=== PATIENT | female | born 1960 | race Caucasian/White ===

== ENCOUNTER 2020-09-26 17:38 | Emergency (ER) | payer BC ==
--- OUTSIDE RECORDS SUMMARY | 2020-09-26 17:53 | XMS REPORT | Continuity of Care Document ---
:1960 Author Organization [facility] t Address [address] [place] [address] Care Team Providers Name Role Phone Kenji Sharp MD Primary Care Physician Drew CARTER, A Attending Clinician Unavailable Effie Driver MD Attending Clinician Deanna Beckford MD Attending Clinician Kenneth Moore DO Attending Clinician Alexandra Hernandez MD Attending Clinician Unavailable EFFIE DRIVER Attending Clinician Unavailable Lisa CARTER, N Attending Clinician Unavailable Azeem Yusuf MD Attending Clinician Michael Diallo Attending Clinician Unavailable Ubaldo Minaya Attending Clinician Unavailable AMBER Attending Clinician Unavailable Lucille CARTER, P Attending Clinician Unavailable Daniel Morris MD Attending Clinician AZEEM YUSUF Attending Clinician Unavailable Klaus NICHOLAS Attending Clinician Douglas Hanson MD Attending Clinician Justin Bills MA Attending Clinician Unavailable Jean-Pierre RANGEL Attending Clinician Unavailable Fletcher CARTER Attending Clinician Unavailable Reji PINEDA Attending Clinician Unavailable Donald Pineda MD Attending Clinician DOUGLAS HANSON Attending Clinician Unavailable AMBER Attending Clinician Unavailable Berhane SORIANO Attending Clinician Unavailable SANIYA RAJAN Attending Clinician Unavailable DEANNA BECKFORD Admitting Clinician Unavailable AZEEM YUSUF Admitting Clinician Unavailable Reji PINEDA Admitting Clinician Unavailable ADELA HUYNH Admitting Clinician Unavailable SANIYA RAJAN Admitting Clinician Unavailable Payers Payer Name Policy Type Policy Effective Date Expiration Date Sour ce Number TREMAINE LOVE/TREMAINE [id number] [address] [facility] [facility] [employer]IELDBC[employer] OS 00:00:00 - Medical POS/PPO/EPOxxxxxx Center ss360 2020-Pr [id number] [address], [place] [id number] Problems Condition Condition Condition Status Onset Resolution Last Treating Co mments Source Name Details Category Date Date Treatment Clinician Date Severe Severe Disease Active [facility] St aortic aortic 3-03 [facility] - stenosis stenosis 00:00: Medica l 00 Center Preventati Preventati Disease Active Last [facility] ve health ve health 7-23 Assessmen L [facility] care 00:00: t & Plan: Medical 00 She will Center follow up with dermatolo gy, gastroent erology, primary care, and cardiolog y for routine [facility] ce. Knee pain Knee pain Disease Active Last [facility] 4-23 Assessmen [facility] - 00:00: t & Plan: Medical 00 Now Center requires a cane. She will continue follow up with orthopedi cs and plan for surgery when she is s/p OLT one year. Ingrowing Ingrowing Disease Active 2016-[address] nail, nail, 0-23 Assessmen [facility] - right right 00:00: t & Plan: Medical great toe great toe 00 Right Cent er great toe nail falling off. She will need to see a podiatris t for managemen t. UTI UTI Disease Active Overview: [facility] (urinary (urinary - UTI [facility] - tract tract 00:00: diagnosed Medical infection) infection) 00 from Ce nter urine culture 03/22>100K Citrobact er and 40-49K Pseudomon as, both susceptib le to levaquinC ontinue levaquin 10-day course (started 03/26) Immobility Immobility Disease Active Last [facility] 8-14 Assessmen [facility] - 00:00: t & Plan: Medical 00 L leg Center weakness, using cane for stability . Fallen 3x in last 3 months HTN HTN Disease Active Last [facility] (hypertens (hypertens 02-11 Assessmen [facility] - ion) ion) 00:00: t & Plan: Medical 00 Blood Center pressures are controlle d on current therapy. Immunosupp Immunosupp Disease Active Last C [facility] ression ression 02-06 Assessmen [facility] - 00:00: t & Plan: Medical 00 She Center denies headaches or tremors with her immunosup pression. We will adjust her dose according to her levels. Hyperglyce Hyperglyce Disease Active Last [facility] maria luisa maria luisa 02-06 Assessmen [facility] - 00:00: t & Plan: Medical 00 Blood Center glucoses readings range from 100-200s. She has not follow up with endocrino logy in several months secondary to knee issues. She is self dosing her insulin. She was instructe d to follow up with endocrino logy for insulin adjustmen ts. 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 Acute Acute Disease Active [facility] pulmonary pulmonary 01-27 [facility] - insufficie insufficie 00:00: Me dical ncy ncy 00 Center following following nonthoraci nonthoraci c surgery c surgery S/P liver S/P liver Disease Active Last [facility] transplant transplant 01-25 Zechariah Pablo - (01/25) (01/25) 00:00: t & Plan: Medical 00 She is Center s/p OLT from 01/25/2017 . She is doing well and has no evidence of recurrent disease. Pulmonary Pulmonary Disease Active [facility] hypertensi hypertensi - Angelica kes - on on 00:00: Medical 00 Center Portal Portal Disease Active Last [facility] hypertensi hypertensi - Assessmen [facility] - on on 00:00: t & Plan: Medical 00 Portal Center hypertens ion evident with ascites, jaundice, hepatic encephalo shady, and esophagea l varices. Renal Renal Disease Active Last [facility] - ncy ncy 00:00: t & Plan: Medical 00 Continue Center follow up with Nephrolog y, seen last weekDiure tics discontin ued, continue to monitor labs and urine output Anemia Anemia Disease Active [facility] 01-08 [facility] - 00:00: Medical 00 [place] Portosyste Portosyste Disease Active [facility] robert robert 01-07 [facility] - encephalop encephalop 00:00: Me dical athy athy 00 Center Alcoholic Alcoholic Disease Active Last [facility] cirrhosis cirrhosis 01-07 Assessmen [facility] - of liver of liver 00:00: t & Plan: Med ical with with 00 Increased Center ascites ascites transamin ases, bilirubin decreased . Coagulopat Coagulopat Disease Active [facility] hy hy 01-07 [facility] - 00:00: Medical 00 [place] Leukopenia Leukopenia Disease Active [facility] 01-07 [facility] - 00:00: Medical 00 [place] Thrombocyt Thrombocyt Disease Active [facility] openia openia 01-07 [facility] - 00:00: Medical [place] Hyponatrem Hyponatrem Disease Active [facility] ia ia 01-07 [facility] - 00:00: Medical 00 Center Allergies, Adverse Reactions, Alerts This patient has no known allergies or adverse reactions. Family History Family Member Diagnosis Comments Start Date Stop Date Source Natural father Colon cancer [facility] Natural mother COPD [facility] Natural mother Parkinsonism [facility] Social History Social Habit Start Date Stop Date Quantity Comments Source Sex Assigned At [facility] Exposure to Not sure [facility] SARS-CoV-[address] [facility] (event) Tobacco use and 2020-09-12 2020-09-12 Never used [facility] - exposure 00:00:00 00:00:[address] [facility] Alcohol intake 2020-09-12 2020-09-12 Current [facility] 00:00:00 00:00:00 non-drinker of Medical nter alcohol (finding) Smoking Status Start Date Stop Date Source Never smoker [facility] edical [place] Medications Ordered Filled Start Stop Current Ordering Indication Dosage Frequency Signature Comments Components Source Medication Medication Date Date Medication? Clinician (SIG) Name Name aspirin 81 2021- Yes 81mg QD Take [address] MG EC 09-10-06 tablet (81 [facility] - tablet 00:00: 23:59 mg total) Medic al 00 :00 by mouth Center daily. clopidogreL 2021- Yes 75mg QD Take [address] (PLAVIX) 75 09-10-06 tablet (75 L ukes - mg tablet 00:00: 23:59 mg total) Me dical 00 :00 by mouth Center daily. melatonin 3 Yes 3mg QD Take [address] mg Tab 3-05 by mouth [facility] - tablet 15:18: nightly. [place] [address] Center spironolact Yes 25mg QD Take [address] one 3-05 by mouth [facility] - (ALDACTONE) 15:18: daily. Medi anastasia 25 MG 47 Center tablet tacrolimus Yes Take 2 [facility] (PROGRAF) 1 2-12 capsules Luke s - MG capsule 00:00: by mouth Med ical 00 twice Center daily. tacrolimus 2019-07- No Increase [facility] (PROGRAF) 1 07-26 02-12 Tacrolimus L ukes - MG capsule 00:00: 00:00 2 mg AM Med ical 00 :00 and 3 mg Center PM. tacrolimus 2019-07- No 2mg Q.5D Take [address] (PROGRAF) 1 1-17 11-19 capsules Júnior es - MG capsule 00:00: 00:00 (2 mg Medic al 00 :00 total) by Center mouth 2 (two) times daily. sirolimus 2019- No Fatty liver 2mg QD Take [address] (RAPAMUNE) 9- 11-17 involving tablets (2 [facility] - 1 MG tablet 00:00: 00:00 transplante mg total) Medical 00 :00 d liver by mouth Center (HCC) daily. sirolimus 2019- No 3mg QD Take 3 [facility] (RAPAMUNE) 3-17 09-28 tablets (3 Angelica kes - 1 MG tablet 00:00: 00:00 mg total) Medical 00 :00 by mouth Center daily. famotidine Yes TAKE ONE [facility] (PEPCID) 20 7-15 TABLET BY Júnior es - MG tablet 00:00: MOUTH ONCE Me dical 00 DAILY Center metoprolol Yes 25mg Q.5D Take 1 [facility] (LOPRESSOR) 1-29 tablet (25 Angelica kes - 25 MG 00:00: mg total) Medical tablet 00 by mouth 2 Center (two) times daily. potassium 20meq QD Take 20 [facility] chloride 20 02-26-03 mEq by [facility] - mEq TbER 00:00: 00:00 mouth Medical 00 :00 daily Take Center 3 tablets (60 meq) on day 1, 2 tablets (40 meq) on day 2, and 1 tablet (20 meq) on days 3-7. calcium Yes 500mg Q.[id number] Take [facility] carbonate-v 02-07 [id number] 500-600 mg [facility] - itamin D3 00:00: 3D by mouth 3 Me dical 600 00 (three) Center mg(1,500mg) times -400 unit daily. Cap Vital Signs Vital Name Observation Time Observation Value Comments Source Systolic blood 2020-09-09 12:49:00 131 mm[Hg] [facility] Diastolic blood 2020-09-09 12:49:00 62 mm[Hg] [facility] S t [facility] Heart rate 2020-09-09 12:49:00 84 /min [facility] Body temperature 2020-09-09 12:49:00 37.28 Deidra [facility] Respiratory rate 2020-09-09 12:49:00 18 /min [facility] Oxygen saturation in 2020-09-09 12:49:00 98 /min [facility] Arterial blood by Medical Ce nter Pulse oximetry Body height 2020-09-07 20:22:00 165.1 cm [facility] Body weight 2020-09-07 20:22:00 98.884 kg [facility] BMI 2020-09-07 20:22:00 36.28 kg/m2 [facility] Procedures Procedure Date / Time Performing Clinician Source Performed ECG 12-LEAD 2020-09-09 09:00:32 Daysi Quijano [facility] 2D ECHO W/ DOPPLER 2020-09-09 08:14:58 Michael Driver [facility] (CW/PW/COLOR) [facility] BASIC METABOLIC PANEL (7) 2020-09-09 05:22:00 [facility] Gibbs I [facility] CBC (HEMOGRAM ONLY) 2020-09-09 05:22:00 [facility] Gibbs [facility] HEPATIC FUNCTION PANEL 2020-09-09 05:22:00 [facility] TACROLIMUS LEVEL 2020-09-09 05:22:00 [facility] POCT-ACT 2020-09-08 15:48:00 [facility] POCT-GLUCOSE METER 2020-09-08 15:45:00 [facility] PREPARE LEUKO-REDUCED RBC 2020-09-08 14:55:00 Michael Driver [facility] POCT-ACT 2020-09-08 14:20:00 [facility] POCT-ACT 2020-09-08 13:42:00 [facility] BLOOD GAS, ARTERIAL 2020-09-08 13:40:25 George Moore [facility] SODIUM NA-STAT LAB 2020-09-08 13:40:25 George Moore [facility] POTASSIUM-STAT LAB 2020-09-08 13:40:25 George Moore [facility] GLUCOSE-STAT LAB 2020-09-08 13:40:25 George Moore [facility] HGB/HCT (H&H) - STAT LAB 2020-09-08 13:40:25 George Moore [facility] POCT-ACT 2020-09-08 13:11:00 Shakeel [facility] COLOR-FLOW MAPPING 2020-09-08 11:02:[address] [facility] CONT WAVE PULSED DOPPLER 2020-09-08 11:02:23 Michael Driver CH, I [facility] TAVR / TEJA MCR - IP 2020-09-08 09:50:00 Michael Driver [facility] - PROC ONLY [facility] TRANSESOPHAGEAL ECHO 2020-09-08 09:43:24 [facility] BASIC METABOLIC PANEL (7) 2020-09-08 05:10:00 Rosette Beckford [facility] CBC (HEMOGRAM ONLY) 2020-09-08 05:10:00 Shakeel, [facility] HEPATIC FUNCTION PANEL 2020-09-08 05:10:00 Suresh Morris [facility] TACROLIMUS LEVEL 2020-09-08 05:10:[address] [facility] TYPE AND SCREEN, AUTOMATED 2020-09-08 00:54:00 Michael Driver [facility] CARDIAC CATH REPORT - SCAN 2020-09-07 00:00:00 Provider [facility] REPORT OF PROCEDURE - 2020-09-07 00:00:00 Provider, Tobi [facility] ENDOSCOPY [facility] CBC W/PLT COUNT & AUTO 2020-09-06 12:55:00 Michael Driver [facility] - DIFFERENTIAL [facility] BASIC METABOLIC PANEL (7) 2020-09-06 12:55:00 Michael Driver HI [facility] PROTHROMBIN TIME/INR 2020-09-06 12:55:[address] [facility] SARS-COV2/RT-PCR ([facility] & 2020-09-06 12:42:00 Michael Driver CH, I [facility] - REF LABS) [facility] MAGNESIUM 2020-09-06 09:09:00 Tim Yusuf [facility] BASIC METABOLIC PANEL (7) 2020-09-06 09:09:00 [facility] HEPATIC FUNCTION PANEL 2020-09-06 09:09:00 Paramjit [facility] CBC W/PLT COUNT & AUTO 2020-09-06 09:09:00 Paramjit [facility] TACROLIMUS 2020-09-06 09:09:00 Paramjit [facility] SIROLIMUS LEVEL 2020-09-06 09:09:00 Paramjit [facility] MAGNESIUM 2020-07-06 08:32:00 [facility] BASIC METABOLIC PANEL (7) 2020-07-06 08:32:00 Paramjit [facility] HEPATIC FUNCTION PANEL 2020-07-06 08:32:00 Paramjit [facility] CBC W/PLT COUNT & AUTO 2020-07-06 08:32:00 Paramjit [facility] TACROLIMUS 2020-07-06 08:32:00 Paramjit [facility] SIROLIMUS LEVEL 2020-07-06 08:32:00 [place] [facility] BILIRUBIN, DIRECT 2020-06-06 09:11:00 [facility] METABOLIC 2020-06-06 09:11:00 [place] [facility] CBC W/PLT COUNT & AUTO 2020-06-06 09:11:00 Paramjit [facility] MAGNESIUM 2020-06-06 09:11:00 Paramjit [facility] PHOSPHORUS 2020-06-06 09:11:00 Paramjit [facility] SIROLIMUS LEVEL 2020-06-06 09:11:00 Paramjit [facility] TACROLIMUS LEVEL 2020-06-06 09:11:00 [facility] BILIRUBIN, DIRECT 2020-05-26 09:02:00 Paramjit [facility] COMPREHENSIVE METABOLIC 2020-05-26 09:02:00 Paramjit [facility] CBC W/PLT COUNT & AUTO 2020-05-26 09:02:00 Paramjit [facility] MAGNESIUM 2020-05-26 09:02:00 Paramjit [facility] PHOSPHORUS 2020-05-26 09:02:00 Paramjit [facility] SIROLIMUS LEVEL 2020-05-26 09:02:00 Paramjit [facility] TACROLIMUS LEVEL 2020-05-26 09:02:00 Paramjit [facility] BILIRUBIN, DIRECT 2020-05-20 09:13:00 [facility] COMPREHENSIVE METABOLIC 2020-05-20 09:13:00 [facility] W/PLT COUNT & AUTO 2020-05-20 09:13:00 Paramjit [facility] MAGNESIUM 2020-05-20 09:13:00 Paramjit [facility] PHOSPHORUS 2020-05-20 09:13:00 [facility] SIROLIMUS LEVEL 2020-05-20 09:13:00 [place] [facility] XR CHEST 2 VIEWS 2020-04-15 09:34:00 Katerina Hanson [facility] BILIRUBIN, DIRECT 2020-04-15 08:36:00 Paramjit [facility] COMPREHENSIVE METABOLIC 2020-04-15 08:36:00 Paramjit [facility] CBC W/PLT COUNT & AUTO 2020-04-15 08:36:00 Paramjit [facility] MAGNESIUM 2020-04-15 08:36:00 Paramjit [facility] PHOSPHORUS 2020-04-15 08:36:00 [facility] SIROLIMUS LEVEL 2020-04-15 08:36:00 [facility] LIPID PANEL 2020-04-15 08:36:00 Christie, [facility] HEMOGLOBIN A1C 2020-04-15 08:36:00 Fer Soriano [facility] US LIVER BIOPSY 2020-03-25 12:56:00 Paramjit [facility] TISSUE EXAM 2020-03-25 12:46:00 Paramjit [facility] US ABDOMINAL WITH DOPPLER 2020-03-25 11:56:00 Tim Yusuf [facility] BILIRUBIN, DIRECT 2020-03-25 08:30:00 Paramjit [facility] COMPREHENSIVE METABOLIC 2020-03-25 08:30:00 Paramjit [facility] CBC W/PLT COUNT & AUTO 2020-03-25 08:30:00 Paramjit [facility] MAGNESIUM 2020-03-25 08:30:00 Paramjit [facility] PHOSPHORUS 2020-03-25 08:30:00 Paramjit [facility] SIROLIMUS LEVEL 2020-03-25 08:30:00 Paramjit [facility] PROTHROMBIN TIME/INR 2020-03-25 08:30:00 Paramjit [facility] MISCELLANEOUS LAB ORDER 2020-03-25 08:29:00 Paramjit [facility] CMV PCR, QUANTITATIVE 2020-03-25 08:29:00 Paramjit [facility] EBV VIRAL LOAD 2020-03-25 08:29:00 Paramjit [facility] URINE CULTURE 2020-03-07 09:17:00 Paramjit [facility] BLOOD CULTURE 2020-03-07 09:17:00 Paramjit [facility] BILIRUBIN, DIRECT 2020-03-07 09:17:00 Paramjit [facility] COMPREHENSIVE METABOLIC 2020-03-07 09:17:00 Paramjit [facility] CBC W/PLT COUNT & AUTO 2020-03-07 09:17:00 Paramjit [facility] MAGNESIUM 2020-03-07 09:17:00 Paramjit [facility] PHOSPHORUS 2020-03-07 09:17:00 Paramjit [facility] SIROLIMUS LEVEL 2020-03-07 09:17:00 Paramjit [facility] CMV PCR, QUANTITATIVE 2020-03-07 09:17:00 Paramjit [facility] URINALYSIS W/ MICROSCOPIC 2020-03-07 09:17:00 [facility] BILIRUBIN, DIRECT 2020-02-16 08:46:00 Paramjit [facility] COMPREHENSIVE METABOLIC 2020-02-16 08:46:00 Paramjit [facility] CBC W/PLT COUNT & AUTO 2020-02-16 08:46:00 Paramjit [facility] t [facility] MAGNESIUM 2020-02-16 08:46:00 Paramjit [facility] PHOSPHORUS 2020-02-16 08:46:00 Paramjit [facility] SIROLIMUS LEVEL 2020-02-16 08:46:00 Paramjit [facility] CBC W/PLT COUNT & AUTO 2020-02-12 08:58:00 Paramjit [facility] S t [facility] SIROLIMUS LEVEL 2020-02-12 08:58:00 Paramjit [facility] BILIRUBIN, DIRECT 2020-02-12 08:57:00 Paramjit [facility] COMPREHENSIVE METABOLIC 2020-02-12 08:57:00 Paramjit [facility] MAGNESIUM 2020-02-12 08:57:00 Paramjit [facility] PHOSPHORUS 2020-02-12 08:57:00 Paramjit [facility] BILIRUBIN, DIRECT 2019-11-06 08:17:00 Paramjit [facility] COMPREHENSIVE METABOLIC 2019-11-06 08:17:00 Paramjit [facility] CBC W/PLT COUNT & AUTO 2019-11-06 08:17:00 Paramjit, [facility] MAGNESIUM 2019-11-06 08:17:00 ParamjitTim Azeem [facility] PHOSPHORUS 2019-11-06 08:17:00 Tim Yusuf [facility] SIROLIMUS LEVEL 2019-11-06 08:17:00 Tim Yusuf [facility] Plan of Care Planned Activity Planned Date Details Comments Source Future Scheduled 2029-06-[address] [facility] - Test 00:00:00 malignant neoplasm of Medica l Center colon (procedure) [code = 573347091] Future Scheduled 2023-04-[address] [facility] - Test 00:00:00 (procedure) [code = Medical Center 35035143] Future Scheduled 2020-03-08 INFLUENZA VACCINE (#1) [facility] Test 00:00:00 [code = INFLUENZA Medical Ce nter VACCINE (#1)] Future Scheduled 2011 SHINGLES VACCINES ([address] [facility] - Test 00:00:00 of 2) [code = SHINGLES Medic al Center VACCINES (1 of 2)] Future Scheduled [address] [facility] - Test 00:00:00 malignant neoplasm of Medica l Center cervix (procedure) [code = 797057788] Future Scheduled 1980 DTAP/TDAP/TD VACCINES [facility] - Test 00:00:00 (1 - Tdap) [code = Medical C enter DTAP/TDAP/TD VACCINES (1 - Tdap)] Future Scheduled 1979 HEPATITIS C [facility]CRE[facility]ING [facility] - Test 00:00:00 [code = HEPATITIS C Medical Center SCREENING] Future Scheduled [address] [facility] - Test 00:00:00 0-64 YRS (1 of 3 - Medical C enter PCV13) [code = PNEUMOCOCCAL VACCINE 0-64 YRS (1 of 3 - PCV13)] Future Scheduled [address] [facility] - Test 00:00:00 malignant neoplasm of Medica l Center breast (procedure) [code = 284350628] Encounters Start End Encounter Admission Attending Care Care Encounter Source Date/Time Date/Time Type Type Clinicians Facility Department ID 2020-07-04 2020-07-04 Outpatient [facility] [id number] [address] [place] 00:00:00 00:00:[address] 2020-05-05 2020-05-05 Office RUPINDER Enrique [id number] 09:26:24 11:04:33 Visit Tom AMBULATOR [id number] Y [id number] 2019-05-08 2019-05-08 Office RUPINDER Pineda [id number] 14:16:00 14:46:00 Visit Suneal K AMBULATOR [id number] Y [id number] Results Test Description Test Time Test Comments Results Result Sour e Comments CARDIAC CATH Ordered by an [facility] REPORT - SCAN 8 unspecified provider. [facility] [facility] ECG 12 lead Interface, External Ris [facility] 7 In - 09/11/2020 9:55 Júnior es - 21:55:11 PM CSTVentricular Rate Me dical 83 BPMAtrial Rate 83 Cent er BPMP-R Interval 164 msQRS Duration 142 msQ-T Interval 430 msQTC Calculation(Bazett) 505 msP [place] 53 degreesR [place] 7 degreesT [place] 137 degreesNormal sinus rhythmLeft bundle branch blockAbnormal ECGWhen compared with ECG of 03-FEB-2017 00:19,Left bundle branch block is now PresentConfirmed by MD ANDREY, TIEN Dang ([id number]) on 09/11/2020 9:55:08 PM 2D Echo Ejection FractionSLEH [facility] W/Doppler(CW/PW/ 5 ECHO HEARTLAB MKCKESSON [facility] - Color) 14:14:55 CPACSInterface, Medical External Ris In - Center 09/09/2020 2:15 PM CSTTransthoracic Echocardiography Report (TTE) Demographics Patient Name DANIELITO LARA Date of Study 09/09/2020 RAFAELA Gender Female Visit Number [id number] Race Room Number 622 Number Date of 1960 Referring Physician Michael Driver MD Age 60 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 Amount - 2 mlHeight: 65 inches Weight: 98.88 kg (218 lbs) BSA: 2.05 m^2 BMI: 36.28 kg/m^2HR: 79 bpm BP: 134/63 mmHg Summary 1. Normal LV size. Hyperdynamic LV function. LVEF is > 70% 2. Diastology: Grade 1 diastolic dysfunction 3. Normal RV size and function 4. S/p TAVR.Pk / Mn: 21 / 10 mm Hg. DI=0.65. No para-valvular AI. 5. Mild TR. Estimated PASP is 30-34 mm Hg 6. No pericardial effusion. Previous Study When compared with previous echo, there is no significant difference. Signature Findings Technical Quality: Technically difficult exam. Left Ventricle LV endocardium is well visualized with IV ultrasound enhancing agent. The left ventricle is chamber size (by vol index) is normal (female - LVED vol - 29-61ml/m2). No evidence of LV hypertrophy. All of the LV segments are hyperkinetic . Global LV systolic function hyperdynamic . LVEF by Moreau's method of disk assessment is increased (>70%) . Grade 1 diastolic dysfunction Left Atrium LA is well visualized. LA size is mildly enlarged (35-41 ml/m2) . Right Ventricle The right ventricular chamber size and systolic function are within normal limits. Right Atrium RA size is normal. Atrial Septum The interatrial septum is well visualized. Normal interatrial septum by available views. Aortic Valve A CoreValve percutaneous (TAVR) biologic AoV prosthesis is visualized . The prosthetic AoV appears well-seated. AoV prosthesis function is normal . No evidence of aortic stenosis. A trace of aortic regurgitation. Mitral Valve MV is well visualized. Normal MV structure. Trace mitral regurgitation. Tricuspid Valve TV structure is normal. Mild tricuspid regurgitation. Estimated peak systolic PA pressure is 30-34 mm Hg Pulmonic Valve Mild pulmonary regurgitation. Aorta Aortic root size (SInus of Valsalva diameter) is normal . Proximal ascending aorta size normal . 3.29 cm Pericardium No pericardial effusion is visualized. IVC/SVC/PA/PV/Pleural The inferior vena cava size is normal . The estimated RA pressure by IVC dynamics 5-10 mmHg . Chambers/Structures Left Atrium LA Volume: 73.28 ml LA Area: 21.34 cm^2 LA Vol. Index: 36 ml/m^2 Left Ventricle LVIDd: 4.78 cm LVEDV:106.67 ml LV Septum Diastolic: 1.12 cm LV PW Diastolic: 0.97 cm LVEDV Moreau's:96.2 ml LVESV Moreau's:22.53 ml LVEF Moreau's: 76.6 % LVEDVI: 47 ml/m^2 LVESVI: 11 ml/m^2 LVOT Diameter: 1.95 cm Right Ventricle RVOT VTI: 25.23 cm Aorta Ascending Aorta: 3.29 cm Doppler/Quantitative Measurements Mitral Valve MV Peak E-Wave: 0.99 m/s MV Peak A-Wave: 1.01 m/s E/A Ratio: 0.98 Peak Gradient: 3.96 mmHg Deceleration Time: 182.3 msec MV Jl. Peak: Tissue Doppler E' Lateral Velocity: 0.06 m/s E/E': 17 Aortic Valve Peak Velocity: 2.3 m/s Mean Velocity: 1.48 m/s Peak Gradient: 21.23 mmHg Mean Gradient: 10.57 mmHg AV Area (continuity): 1.94 cm^2 AV VTI: 42.47 cm AV DVI: 0.65 LVOT Peak Velocity: 1.57 m/s Peak Gradient: 9.82 mmHg Mean Velocity: 1.01 m/s Mean Gradient: 4.89 mmHg LVOT Diameter: 1.95 cm LVOT VTI: 27.67 cm LVOT Area: 2.99 cm^2 LVOT SV:82.59 ml LVOT CO: 6.52 l/min LVOT CI: 3.18 l/min/m^2 RVOT RVOT VTI (PW): 26.48 cm Tricuspid Valve TR Velocity: 2.45 m/s TR Gradient: 24.04 mmHg Magnesium 2020-09-09 13:09:00 Test Item Value Reference Range Interpretation Comme nts Magnesium, Serum (test code = 1.7 mg/dL 1.5-2.5 ) SIERRA (test code = SIERRA) FASTING:YESFASTING: YES RAC (test code = RAC) Performing Organization Information: Site ID: RGA Name: [facility] Address: [address] [place] [phone] Director: Shaggy Bird [facility] with platelet count + automated [id number] 13:09:00 Test Item Value Reference Range Interpretation Comments WBC (test code = 3.1 See_Comment L [Automated ) message] The system which generated this result transmitted reference range : 3.8 - 10.8 Thousand/uL. Th e reference range was not used to interpret this result as normal/abnormal . RBC (test code = 4.57 See_Comment [Automated 784-8) message] The system which generated this result transmitted reference range : 3.80 - 5.10 Million/uL. The reference range was not used to interpret this result as normal/abnormal . Hemoglobin (test 13.5 g/dL 11.7-15.5 code = ) Hematocrit (test 41.4 % 35-45 code = ) MCV (test code = 90.6 fL 80-753 8998308) MCH (test code = 29.5 pg 27-33 ) MCHC (test code = 32.6 g/dL 32-36 ) RDW (test code = 13.6 % 11-15 2078911) Platelets (test code 196 See_Comment [Autom ated = ) message] The system which generated this result transmitted reference range : 140 - 400 Thousand/uL. Th e reference range was not used to interpret this result as normal/abnormal . MPV (test code = 10.7 fL 7.5-12.5 7656100) # Neutros (test code 1826 See_Comment [Autom ated = 20200131) message] The system which generated this result transmitted reference range : 1,500 - 7,800 cells/uL. The reference range was not used to interpret this result as normal/abnormal . # Lymphs (test code 1026 See_Comment [Automa niharika = 731-0) message] The system which generated this result transmitted reference range : 850 - 3,900 cells/uL. The reference range was not used to interpret this result as normal/abnormal . # Monos (test code = 189 See_Comment L [Autom ated ) message] The system which generated this result transmitted reference range : 200 - 950 cells/uL. The reference range was not used to interpret this result as normal/abnormal . # Eos (test code = 40 See_Comment [Automat ed 711-2) message] The system which generated this result transmitted reference range : 15 - 500 cells/uL. The reference range was not used to interpret this result as normal/abnormal . # Baso (test code = 19 See_Comment [Automa niharika 704-7) message] The system which generated this result transmitted reference range : 0 - 200 cells/u L. The reference range was not used to interpr et this result as normal/abnormal . % Neutros (test code 58.9 % = ) % Lymphs (test code 33.1 % = 20200128) % Monos (test code = 6.1 % ) % Eos (test code = 1.3 % 20200126) % Baso (test code = 0.6 % 20200127) SIERRA (test code = FASTING:YESFASTING SIERRA) : YES RAC (test code = Performing RAC) Organization Information: Site ID: RGA Name: [facility] Lab Address: [address] [place] [phone] Director: Shaggy Bird Lab Interpretation Abnormal (test code = 19302-5) [facility] [id number] 13:09:00 Test Item Value Reference Interpretation Comments Range Rapamycin Trough 1.1 ng/mL 3-18 L This test was (test code = developed and i ts 20100319) analytical performance characteristics have been determined by [employer]. It has not been cleared or appr virginie by theFDA. This assay has been validated pursu ant to the CLIA regulations and is used for clinic al purposes. SIERRA (test code = FASTING:YESFASTIN SIERAR) G: YES RAC (test code = Performing RAC) Organization Information: Site ID: SLI Name: [facility] Address: [address] [place] [address] Director: Osmin Mcclure M.D. Lab Interpretation Abnormal (test code = 53333-5) [facility] CenterTACROLIMUS2021-03-05 13:09:00 Test Item Value Reference Interpretation Comments Range Tacrolimus, Highly 2.7 mcg/L L No defini tive Sensitive, LC/MS/MS therapeu tic or toxic (Jiff) (test code ranges fernandez ve = 20141005) beenestablished . Optimal blood d rug levels are influencedby ty pe of transplant, pat ient response, time post-transplant , co-administrati on of other drugs, an d drug formulatio n. The following t rough range is a sugg ested guideline: 5.0- 20.0 mcg/L. This brennen t was developed and i ts analytical performance characteristics have been determined by [employer]. It has not been cleared or appr virginie by theFDA. This assay has been validated pursu ant to the CLIA regulations and is used for clinic al purposes. SIERRA (test code = FASTING:YESFASTIN SIERRA) G: YES RAC (test code = Performing RAC) Organization Information: Site ID: IG Name: [facility] Address: [address] [place] [address] Director: Dr. 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 Prosthetic AoV regurgitaton is not demonstrated . Normal overall left ventricular systolic function. No significant pericardial effusion is visualized. Signature Findings Left Ventricle Normal left ventricle cavity size. Normal overall left ventricular systolic function. Left Atrium LA is enlarged but severity assessment is unreliable due to know ELEANOR sector size limitation. Right The right ventricular chamber size and systolic function Ventricle are within normal limits. Right Atrium RA size is probably normal based on available views. Aortic Valve Ycwu-li-bcwtoihj AoV cusp thickening. Dgnt-im-kblybceg AoV cusp calcification. Bicuspid AV is present . AoV cusp mobility is decreased . Mild aortic regurgitation. Mitral Valve Normal MV structure. Tricuspid TV structure is normal. Valve Pulmonic Valve PV is not well visualized. Pericardium No significant pericardial effusion is visualized.[facility] CenterTacrolimus [id number] 08:53:00 Test Item Value Reference Range Interpretation Comments Tacrolimus Lvl (test 2.8 ng/mL 10-20 L Test pe rformed on code = 97642-0) Sosa Archi tect Immunoassay sys tem with Chemilumin escent Microparticle Immunoassay (CM IA) technology. SIERRA (test code = Interceptor Operator ID - SIERRA) AAHAMID Lab Interpretation Abnormal (test code = 83031-4) [facility] CenterTACROLIMUS [id number] 08:53:00 Test Item Value Reference Range Interpretation Comments TACROLIMUS BLOOD 2.8 ng/mL 10.0-20.0 L Test perfor med on Sosa (BEAKER) (test code Architec t Immunoassay = 657) system with Chemiluminescen t Microparticle I mmunoassay (CMIA) technolo gy. Interceptor Operator ID - AAHAMIDBasic Metabolic [id number] 05:58:00 Test Item Value Reference Range Interpretation Comments Sodium (test code = 141 meq/L 032-312 7839-2) Potassium (test code = 3.9 meq/L 3.5-5.1 2823-3) Chloride (test code = 109 meq/L 98-107 H 2075-0) CO2 (test code = 23 meq/L 22-29 2028-9) BUN (test code = 13 mg/dL 7-21 3094-0) Creatinine (test code 0.73 mg/dL 0.57-1.25 = 2160-0) Glucose (test code = 120 mg/dL 70-105 H 2345-7) Calcium (test code = 8.0 mg/dL 8.4-10.2 L 03521-4) EGFR (test code = 82 mL/min/1.73 [place] [address]-3) NOT ACCURATE CREATININE CLEARANCE IN PREDICTING GLOMERULAR FILTRATION RATE . ESTIMATED GFR I S NOT APPLICABLE FOR DIALYSIS PATIENTS. SIERRA (test code = SIERRA) Interceptor Operator ID - DB Lab Interpretation Abnormal (test code = 91305-2) [facility] CenterHepatic function [id number] 05:58:00 Test Item Value Reference Range Interpretation Comments Protein, Total (test 5.6 See_Comment L [Autom ated code = 2885-2) message] The system which generated this result transmit niharika reference range : 6.0 - 8.3 gm/dL . The reference range was not u sed to interpret th is result as normal/abnormal . Albumin (test code = 3.6 g/dL 3.5-5 71523-7) Total Bilirubin (test 0.9 mg/dL 0.2-1.2 code = 1974-2) Bilirubin, Direct 0.4 mg/dL 0.1-0.5 (test code = 1967-7) Alkaline Phosphatase 60 U/L 40-150 (test code = 6768-6) AST (test code = 38 U/L 5-34 H 1920-8) ALT (test code = 66 U/L 6-55 H 1742-6) SIERRA (test code = SIERRA) Interceptor Operator ID - DB Lab Interpretation Abnormal (test code = 45314-9) [facility] CenterBASIC METABOLIC [id number] 05:58:00 Test Item Value Reference Range Interpretation Comments SODIUM (BEAKER) 141 meq/L 136-145 (test code = 381) POTASSIUM (BEAKER) 3.9 meq/L 3.5-5.1 (test code = 379) CHLORIDE (BEAKER) 109 meq/L 98-107 H (test code = 382) CO2 (BEAKER) (test 23 meq/L 22-29 code = 355) BLOOD UREA NITROGEN 13 mg/dL 7-21 (BEAKER) (test code = 354) CREATININE (BEAKER) 0.73 mg/dL 0.57-1.25 (test code = 358) GLUCOSE RANDOM 120 mg/dL 70-105 H (BEAKER) (test code = 652) CALCIUM (BEAKER) 8.0 mg/dL 8.4-10.2 L (test code = 697) EGFR (BEAKER) (test 82 mL/min/1.73 ESTIMA NIHARIKA GFR IS code = 1092) sq m NOT ACCURATE CREATININE CLEARANCE IN PREDICTING GLOMERULAR FILTRATION RATE . ESTIMATED GFR I S NOT APPLICABLE FOR DIALYSIS PATIEN TS. Interceptor Operator ID - DBHEPATIC FUNCTION [id number] 05:58:00 Test Item Value Reference Range Interpretation Comments TOTAL PROTEIN (BEAKER) (test code = 5.6 gm/dL 6.0-8.3 L 770) ALBUMIN (BEAKER) (test code = 1145) 3.6 g/dL 3.5-5.0 BILIRUBIN TOTAL (BEAKER) (test code 0.9 mg/dL 0.2-1.2 = 377) BILIRUBIN DIRECT (BEAKER) (test 0.4 mg/dL 0.1-0.5 code = 706) ALKALINE PHOSPHATASE (BEAKER) (test 60 U/L 40-150 code = 346) AST (SGOT) (BEAKER) (test code = 38 U/L 5-34 H 353) ALT (SGPT) (BEAKER) (test code = 66 U/L 6-55 H 347) Interceptor Operator ID - [id number] (Hemogram only)2020-09-09 05:51:00 Test Item Value Reference Range Interpretation Comments WBC (test code = 6690-2) 5.3 See_Comment [A utomated message] The system [employer] generated this result transmitted ref erence range: 3.5 - 10 .5 K/L. The refe rence range was not u sed to interpret this result as normal/abnor mal. RBC (test code = 789-8) 3.76 See_Comment L [Au tomated message] The system [employer] generated this result transmitted ref erence range: 3.93 - 5 .22 M/L. The refe rence range was not u sed to interpret this result as normal/abnor mal. MCHC (test code = 786-4) 32.3 See_Comment L [A utomated message] The system [employer] generated this result transmitted ref erence range: 32.2 - 3 5.5 GM/DL. The refe rence range was not u sed to interpret this result as normal/abnor mal. Hematocrit (test code = 34.4 % 34.1-44.9 4544-3) MCV (test code = 787-2) 91.5 fL 79.4-94.8 MCH (test code = 785-6) 29.5 pg 25.6-32.2 RDW (test code = 788-0) 13.9 % 11.7-14.4 Platelets (test code = 137 See_Comment L [Aut omated message] 777-3) The system [employer] generated this result transmitted ref erence range: 150 - 45 0 K/CU MM. The referen ce range was not u sed to interpret this result as normal/abnor mal. MPV (test code = 10.3 fL 9.4-12.3 41429-1) nRBC (test code = 413) 0 See_Comment [Aut omated message] The system [employer] generated this result transmitted ref erence range: 0 - 0 /1 00 WBC. The refere nce range was not u sed to interpret this result as normal/abnor mal. Lab Interpretation (test Abnormal code = 66003-7) [facility] (HEMOGRAM ONLY)2020-09-09 05:51:00 Test Item Value Reference Range Interpretation Comments WHITE BLOOD CELL COUNT (BEAKER) 5.3 K/ L 3.5-10.5 (test code = 775) RED BLOOD CELL COUNT (BEAKER) 3.76 M/ L 3.93-5.22 L (test code = 761) HEMOGLOBIN (BEAKER) (test code = 11.1 GM/DL 11.2-15.7 L 410) HEMATOCRIT (BEAKER) (test code = 34.4 % 34.1-44.9 411) MEAN CORPUSCULAR VOLUME (BEAKER) 91.5 fL 79.4-94.8 (test code = 753) MEAN CORPUSCULAR HEMOGLOBIN 29.5 pg 25.6-32.2 (BEAKER) (test code = 751) MEAN CORPUSCULAR HEMOGLOBIN CONC 32.3 GM/DL 32.2-35.5 (BEAKER) (test code = 752) RED CELL DISTRIBUTION WIDTH 13.9 % 11.7-14.4 (BEAKER) (test code = 412) PLATELET COUNT (BEAKER) (test 137 K/CU MM 150-450 L code = 756) MEAN PLATELET VOLUME (BEAKER) 10.3 fL 9.4-12.3 (test code = 754) NUCLEATED RED BLOOD CELLS 0 /100 WBC 0-0 (BEAKER) (test code = 413) POC-Glucose [id number] 16:05:00 Test Item Value Reference Range Interpretation Comments POC-Glucose Meter (test 127 mg/dL 70-110 H : TE STED AT [facility] code = 1538) [address] [facility], [address]: Interceptor Operator/Techni jeison ID = [id number] for CONROD DUPLECHI AN (V), VALERIANO Lab Interpretation (test Abnormal code = 52966-9) [facility] ACTIVATED CLOTTING [id number] 16:05:00 Test Item Value Reference Range Interpretation Comments Activated Clotting Time 114 sec : 74 -137 seconds, (test code = 441) Baseline: TESTED AT [address], [address]: Interceptor Operator/Techni jeison ID = [id number] for CONR OD DUPLECHIAN (V), VALERIANO [facility] [id number] 16:05:00 Test Item Value Reference Range Interpretation Comments ACTIVATED CLOTTING TIME 114 sec : 74 -137 seconds, (BEAKER) (test code = Baseli ne: TESTED AT 441) [address], [address]: Interceptor Operator/Techni jeison ID = [id number] for CO NROD DUPLECHIAN (V), VALERIANO POCT-GLUCOSE [id number] 16:05:00 Test Item Value Reference Range Interpretation Comments POC-GLUCOSE METER 127 mg/dL 70-110 H : TESTED A T [place] [address] (BEAKER) (test code [facility], = 1538) [address]: Interceptor Operator/Techni jeison ID = [id number] for CONR OD DUPLECHIAN (V), VALERIANO Prepare Leuko-Red [id number] 14:55:00 Test Item Value Reference Range Interpretation Comments CROSSMATCH (test code = COMPATIBLE 2264) Unit ABO (test code = O Pos 0453859) UNIT NUMBER (test code = [id number] 934-0) Status (test code = RETURNED FROM ISSUE 9149033) Blood Bank Product (test RED BLOOD CELLS code = 2263) PRODUCT CODE (test code = D9317N44 933-2) [facility] [id number] 14:40:00 Test Item Value Reference Range Interpretation Comments ACTIVATED CLOTTING TIME 197 sec : 74 -137 seconds, (BEAKER) (test code = Baseli ne: TESTED AT 441) [facility] [address] [facility], [address]: Interceptor Operator/Techni jeison ID = [id number] for STACI LOPEZ [id number] 14:02:00 Test Item Value Reference Range Interpretation Comments ACTIVATED CLOTTING TIME 246 sec : 74 -137 seconds, (BEAKER) (test code = Bryson ne: TESTED AT 441) [facility] [address] [facility], [address]: Interceptor Operator/Techni jeison ID = [id number] for STACI LOPEZ Blood gas, [id number] 13:56:00 Test Item Value Reference Range Interpretation Comments pH, Arterial (test code 7.36 7.35-7.45 = 2744-1) pCO2, Arterial (test 35 See_Comment [Autom ated code = 2019-8) message] The system which generated this result transmitted reference range : 35 - 45 mm Hg. The reference range was not used to interpret this result as normal/abnormal . pO2, Arterial (test 256 See_Comment H [Automa niharika code = 2703-7) message] The system which generated this result transmitted reference range : 80 - 90 mm Hg. The reference range was not used to interpret this result as normal/abnormal . O2 Sat, Arterial (test 99.6 % 96-97 H code = 2708-6) HCO3, Arterial (test 19 mmol/L 21-29 L code = 1960-4) Base Excess, Arterial -5.6 mmol/L -2-3 L (test code = 1925-7) Patient Temperature 36.3 (test code = 8310-5) FIO2 (test code = 1819) 100 Lab Interpretation Abnormal (test code = 37436-9) [facility] CenterHGB/HCT (H&H)-Stat [id number] 13:56:00 Test Item Value Reference Range Interpretation Comments Hemoglobin (test code = 11.2 See_Comment L [Au tomated message] 786-4) The system [employer] generated this result transmitted ref erence range: 12.0 - 1 5.0 GM/DL. The refe rence range was not u sed to interpret this result as normal/abnor mal. Hematocrit (test code = 33.0 % 36-45 L 4544-3) Lab Interpretation (test Abnormal code = 48522-3) [facility] CenterGlucose-Stat [id number] 13:56:00 Test Item Value Reference Range Interpretation Comments Glucose (test code = 2345-7) 118 mg/dL 70-110 H Lab Interpretation (test code = Abnormal 95753-7) [facility] CenterBLOOD GAS, [id number] 13:56:00 Test Item Value Reference Range Interpretation Comments PH ARTERIAL (BEAKER) (test code = 7.36 7.35-7.45 383) PCO2 ARTERIAL (BEAKER) (test code 35 mm Hg 35-45 = 384) PO2 ARTERIAL (BEAKER) (test code 256 mm Hg 80-90 H = 385) O2 SATURATION ARTERIAL (BEAKER) 99.6 % 96.0-97.0 H (test code = 386) HCO3 ARTERIAL (BEAKER) (test code 19 mmol/L 21-29 L = 388) BASE EXCESS ARTERIAL (BEAKER) -5.6 mmol/L -2.0-3.0 L (test code = 387) PATIENT TEMPERATURE (BEAKER) 36.3 (test code = 1818) FIO2 (BEAKER) (test code = 1819) 100.0 GLUCOSE-STAT [id number] 13:56:00 Test Item Value Reference Range Interpretation Comments GLUCOSE RANDOM (BEAKER) (test code 118 mg/dL 70-110 H = 652) HGB/HCT (H&H) - STAT [id number] 13:56:00 Test Item Value Reference Range Interpretation Comments HEMOGLOBIN (BEAKER) (test code = 11.2 GM/DL 12.0-15.0 L 410) HEMATOCRIT (BEAKER) (test code = 33.0 % 36.0-45.0 L 411) Sodium Na-Stat [id number] 13:55:00 Test Item Value Reference Range Interpretation Comments Sodium (test code = 2951-2) 138 meq/L 136-145 Lab Interpretation (test code = Normal 87652-0) [facility] CenterPotassium-Stat [id number] 13:55:00 Test Item Value Reference Range Interpretation Comments Potassium (test code = 2823-3) 3.8 meq/L 3.6-5.5 Lab Interpretation (test code = Normal 97589-4) [facility] NA-STAT [id number] 13:55:00 Test Item Value Reference Range Interpretation Comments SODIUM (BEAKER) (test code = 381) 138 meq/L 136-145 POTASSIUM-STAT [id number] 13:55:00 Test Item Value Reference Range Interpretation Comments POTASSIUM (BEAKER) (test code = 3.8 meq/L 3.6-5.5 379) [id number] 13:31:00 Test Item Value Reference Range Interpretation Comments ACTIVATED CLOTTING TIME 285 sec : 74 -137 seconds, (BEAKER) (test code = Baseli ne: TESTED AT 441) [facility] [address] [place], [address]: Interceptor Operator/Techni ejison ID = [id number] for STACI LOPEZ TACROLIMUS [id number] 09:25:00 Test Item Value Reference Range Interpretation Comments TACROLIMUS BLOOD 4.5 ng/mL 10.0-20.0 L Test perfor med on Sosa (BEAKER) (test code Architec t Immunoassay = 657) system with Chemiluminescen t Microparticle I mmunoassay (CMIA) technolo gy. Interceptor Operator ID - AZBASIC METABOLIC [id number] 06:10:00 Test Item Value Reference Range Interpretation Comments SODIUM (BEAKER) 142 meq/L 136-145 (test code = 381) POTASSIUM (BEAKER) 3.7 meq/L 3.5-5.1 (test code = 379) CHLORIDE (BEAKER) 109 meq/L 98-107 H (test code = 382) CO2 (BEAKER) (test 26 meq/L 22-29 code = 355) BLOOD UREA NITROGEN 23 mg/dL 7-21 H (BEAKER) (test code = 354) CREATININE (BEAKER) 0.84 mg/dL 0.57-1.25 (test code = 358) GLUCOSE RANDOM 152 mg/dL 70-105 H (BEAKER) (test code = 652) CALCIUM (BEAKER) 8.5 mg/dL 8.4-10.2 (test code = 697) EGFR (BEAKER) (test 69 mL/min/1.73 ESTIMA NIHARIKA GFR IS code = 1092) sq m NOT ACCURATE CREATININE CLEARANCE IN PREDICTING GLOMERULAR FILTRATION RATE . ESTIMATED GFR I S NOT APPLICABLE FOR DIALYSIS PATIEN TS. Interceptor Operator ID - GUILLERMINA MHEPATIC FUNCTION [id number] 06:00:00 Test Item Value Reference Range Interpretation Comments TOTAL PROTEIN (BEAKER) (test code = 6.0 gm/dL 6.0-8.3 770) ALBUMIN (BEAKER) (test code = 1145) 3.9 g/dL 3.5-5.0 BILIRUBIN TOTAL (BEAKER) (test code 0.5 mg/dL 0.2-1.2 = 377) BILIRUBIN DIRECT (BEAKER) (test 0.2 mg/dL 0.1-0.5 code = 706) ALKALINE PHOSPHATASE (BEAKER) (test 84 U/L 40-150 code = 346) AST (SGOT) (BEAKER) (test code = 26 U/L 5-34 353) ALT (SGPT) (BEAKER) (test code = 62 U/L 6-55 H 347) Interceptor Operator ID - GUILLERMINA [facility] (HEMOGRAM ONLY)2020-09-08 05:27:00 Test Item Value Reference Range Interpretation Comments WHITE BLOOD CELL COUNT (BEAKER) 3.4 K/ L 3.5-10.5 L (test code = 775) RED BLOOD CELL COUNT (BEAKER) 3.94 M/ L 3.93-5.22 (test code = 761) HEMOGLOBIN (BEAKER) (test code = 11.6 GM/DL 11.2-15.7 410) HEMATOCRIT (BEAKER) (test code = 36.2 % 34.1-44.9 411) MEAN CORPUSCULAR VOLUME (BEAKER) 91.9 fL 79.4-94.8 (test code = 753) MEAN CORPUSCULAR HEMOGLOBIN 29.4 pg 25.6-32.2 (BEAKER) (test code = 751) MEAN CORPUSCULAR HEMOGLOBIN CONC 32.0 GM/DL 32.2-35.5 L (BEAKER) (test code = 752) RED CELL DISTRIBUTION WIDTH 13.9 % 11.7-14.4 (BEAKER) (test code = 412) PLATELET COUNT (BEAKER) (test 166 K/CU MM 150-450 code = 756) MEAN PLATELET VOLUME (BEAKER) 10.1 fL 9.4-12.3 (test code = 754) NUCLEATED RED BLOOD CELLS 0 /100 WBC 0-0 (BEAKER) (test code = 413) Type and screen, [id number] 01:49:00 Test Item Value Reference Range Interpretation Comments ABO/RH AUTOMATED (BEAKER) (test O POSITIVE code = 2260) Ab Scrn (test code = 890-4) NEGATIVE [id number] 00:00:00Ordered by an unspecified provider.[facility]Asymptomatic [facility]2020-09-06 18:11:00 Test Item Value Reference Range Interpretation Comments SARS-COV2/RT-PCR Negative Not Detected, (test code = Negative, See 22811-0) external report for linked test SARS-COV-2 [facility] PERFORMING [facility] (test code = 82960-1) SIERRA (test code = Negative result for this SIERRA) test determines that SARS-CoV-2 RNA was not present in the specimen above the Limit of Detection (LOD). However, Negative results do not preclude SARS-CoV-2 infection and should not be used as the sole basis for treatment or patient management decisions. Negative results must be combined with clinical observations, patient history, and epidemiological information. A false negative result may occur if a specimen is improperly collected, transported or handled. A false negative result should be considered if patient's recent exposures or clinical presentation indicate that COVID-19 (SARS-CoV-2) is likely and diagnostic tests for other causes of illness are negative. Re-testing should be considered in cases of suspected false negatives. The limit of detection for this assay is 800 copies/mL. This SARS CoV-2 test is a real-time RT-PCR test intended for the qualitative detection of nucleic acid from SARS-CoV-2 in a nasopharyngeal swab specimen collected from individuals suspected of COVID-19 by their healthcare provider. This test has not been Food and Drug Administration (FDA) cleared or approved. This is a modified version of an approved Emergency Use Authorization (EUA) and is in the process of review by the FDA. Once authorized by the FDA, the issued EUA will be effective until the declaration that circumstances exist justifying the authorization of the emergency use of in vitro diagnostic tests for detection and/or diagnosis of COVID-19 is terminated under Section 564(b)(2) of the Act or the EUA is revoked under Section 564(g) of the Act. Fact Sheet for Healthcare Providers:https://www.[employer]/sites/default/f eliana/product/documents/F act_Sheet_HC_Providers_L uda_IDFY-TpP-9.pdf Fact Sheet for Healthcare Patients:https://www.[employer]/sites/default/fi les/product/documents/Fa ct_Sheet_Patients_Lyra_S ARS-CoV-2.pdf Performing Laboratory:[facility] [place] [address] [facility])2020-09-06 18:11:00 Test Item Value Reference Range Interpretation Comments SARS-COV2/RT-PCR (test Negative Not Detected, Negative, code = 3337930) See external report for linked test SARS-COV-2 PERFORMING LAB [facility] (test code = 5817924) Negative result for this test determines that SARS-CoV-2 RNA was not present in the specimen above the Limit of Detection (LOD). However, Negative results do not preclude SARS-CoV-2 infection and should not be used as the sole basis for treatment or patient management decisions. Negative results mustbe combined with clinical observations, patient history, and epidemiological information. A false negative result may occur if a specimen is improperly collected, transported or handled. A false negative result should be considered if patient's recent exposures or clinical presentation indicate that COVID-19 (SARS-CoV-2) is likely and diagnostic tests for other causes of illness are negative. Re-testing should be considered in cases of suspected false negatives.The limit of detection for this assay is 800 copies/mL.This SARS CoV-2 test is a real-time RT-PCR test intended for the qualitative detection of nucleic acid from SARS-CoV-2 in a nasopharyngeal swab specimen collected from individuals susp ected of COVID-19 by their healthcare provider.This test has not been Food and Drug Administration (FDA) cleared or approved. This is a modified version of an approved Emergency Use Authorization (EUA) and is in the process of review by the FDA. Once authorized by the FDA, the issued EUA will be effective until the declaration that circumstances exist justifying the authorization of the emergency use of in vitro diagnostic tests for detection and/or diagnosis of COVID-19 is terminated under Section 564(b)(2) of the Act or the EUA is revoked under Section 564(g) of the Act.Fact Sheet for Healthcare Providers:https://www.[employer]/sites/default/files/product/documents/Fact_Shee w_JW_Zqpdxwlas_Shyq_XNUM-YqD-7.pdfFact Sheet for Healthcare Patients:https://www.[employer]/sites/default/files/product/ documents/Wuig_Ejtep_Benxtjvd_Oqaz_LKCG-RlN-0.pdfPerforming Laboratory:[place] [address], [place] [address]SZNDP METABOLIC PANEL 2020-09-06 13:32:00 Test Item Value Reference Range Interpretation Comments SODIUM (BEAKER) 144 meq/L 136-145 (test code = 381) POTASSIUM (BEAKER) 4.2 meq/L 3.5-5.1 (test code = 379) CHLORIDE (BEAKER) 104 meq/L 98-107 (test code = 382) CO2 (BEAKER) (test 31 meq/L 22-29 H code = 355) BLOOD UREA NITROGEN 24 mg/dL 7-21 H (BEAKER) (test code = 354) CREATININE (BEAKER) 1.02 mg/dL 0.57-1.25 (test code = 358) GLUCOSE RANDOM 144 mg/dL 70-105 H (BEAKER) (test code = 652) CALCIUM (BEAKER) 10.0 mg/dL 8.4-10.2 (test code = 697) EGFR (BEAKER) (test 55 mL/min/1.73 ESTIMA NIHARIKA GFR IS code = 1092) sq m NOT ACCURATE CREATININE CLEARANCE IN PREDICTING GLOMERULAR FILTRATION RATE . ESTIMATED GFR I S NOT APPLICABLE FOR DIALYSIS PATIEN TS. Interceptor Operator ID - GUILLERMINA MProthrombin time/[id number] 13:22:00 Test Item Value Reference Interpretation Comments Range Protime (test code = 13.3 See_Comment [Autom ated 5902-2) message] The system which generated this result transmitted reference range : 11.9 - 14.2 seconds. The reference range was not used to interpret this result as normal/abnormal . INR (test code = 1.04 See_Comment [Automated 6301-6) message] The system which generated this result transmitted reference range : <=5.90. The reference range was not used to interpret this result as normal/abnormal . SIERRA (test code = Effective 12/03/2018: SIERRA) PT Reference Range ChangeNew: 11.9-14.2 Previous: 11.7-14.7 RECOMMENDED COUMADIN/WARFARIN INR THERAPY RANGESSTANDARD DOSE: 2.0-3.0 Includes: PROPHYLAXIS for venous thrombosis, systemic embolization; TREATMENT for venous thrombosis and/or pulmonary embolus.HIGH RISK: Target INR is 2.5-3.5 for patients wiht mechanical heart valves. Lab Interpretation Normal (test code = 55372-7) [facility] CenterPROTHROMBIN TIME/[id number] 13:22:00 Test Item Value Reference Range Interpretation Comments PROTIME (BEAKER) 13.3 seconds 11.9-14.2 (test code = 759) INR (BEAKER) (test 1.04 See_Comment [Automat ed message] code = 370) The system [employer] generated this result transmitted ref erence range: <=5.90. The reference range was not used to int erpret this result as normal/abnormal . Effective 12/03/2018: PT Reference Range ChangeNew: 11.9-14.2 Previous: 11.7- 14.7RECOMMENDED COUMADIN/WARFARIN INR THERAPY RANGESSTANDARD DOSE: 2.0-3.0 Includes: PROPHYLAXIS for venous thrombosis, systemic embolization; TREATMENT for venous thrombosis and/or pulmonary embolus.HIGH RISK: Target INR is2.5-3.5 for patients wiht mechanical heart valves.CBC with platelet count + automated [id number] 13:12:00 Test Item Value Reference Range Interpretation Comments WBC (test code = 6690-2) 5.0 See_Comment [A utomated message] The system [employer] generated this result transmitted ref erence range: 3.5 - 10 .5 K/L. The refe rence range was not u sed to interpret this result as normal/abnor mal. RBC (test code = 789-8) 4.55 See_Comment [Au tomated message] The system [employer] generated this result transmitted ref erence range: 3.93 - 5 .22 M/L. The refe rence range was not u sed to interpret this result as normal/abnor mal. MCHC (test code = 786-4) 32.0 See_Comment L [A utomated message] The system [employer] generated this result transmitted ref erence range: 32.2 - 3 5.5 GM/DL. The refe rence range was not u sed to interpret this result as normal/abnor mal. Hematocrit (test code = 41.5 % 34.1-44.9 4544-3) MCV (test code = 787-2) 91.2 fL 79.4-94.8 MCH (test code = 785-6) 29.2 pg 25.6-32.2 RDW (test code = 788-0) 14.0 % 11.7-14.4 Platelets (test code = 215 See_Comment [Aut omated message] 777-3) The system [employer] generated this result transmitted ref erence range: 150 - 45 0 K/CU MM. The referen ce range was not u sed to interpret this result as normal/abnor mal. MPV (test code = 10.1 fL 9.4-12.3 87731-3) nRBC (test code = 413) 0 See_Comment [Aut omated message] The system [employer] generated this result transmitted ref erence range: 0 - 0 /1 00 WBC. The refere nce range was not u sed to interpret this result as normal/abnor mal. % Neutros (test code = 68 % 429) % Lymphs (test code = 25 % 430) % Monos (test code = 5 % 431) % Eos (test code = 432) 2 % % Baso (test code = 437) 1 % # Neutros (test code = 3.35 See_Comment [Aut omated message] 670) The system [employer] generated this result transmitted ref erence range: 1.56 - 6 .13 K/L. The refe rence range was not u sed to interpret this result as normal/abnor mal. # Lymphs (test code = 1.23 See_Comment [Auto mated message] 414) The system [employer] generated this result transmitted ref erence range: 1.18 - 3 .74 K/L. The refe rence range was not u sed to interpret this result as normal/abnor mal. # Monos (test code = 0.27 See_Comment [Autom ated message] 415) The system [employer] generated this result transmitted ref erence range: 0.24 - 0 .36 K/L. The refe rence range was not u sed to interpret this result as normal/abnor mal. # Eos (test code = 416) 0.08 See_Comment [Au tomated message] The system [employer] generated this result transmitted ref erence range: 0.04 - 0 .36 K/L. The refe rence range was not u sed to interpret this result as normal/abnor mal. # Baso (test code = 417) 0.03 See_Comment [A utomated message] The system [employer] generated this result transmitted ref erence range: 0.01 - 0 .08 K/L. The refe rence range was not u sed to interpret this result as normal/abnor mal. Immature 0 % 0-1 Granulocytes-Relative (test code = 2801) Lab Interpretation (test Abnormal code = 41559-7) [facility] W/PLT COUNT & AUTO [id number] 13:12:00 Test Item Value Reference Range Interpretation Comments WHITE BLOOD CELL COUNT (BEAKER) 5.0 K/ L 3.5-10.5 (test code = 775) RED BLOOD CELL COUNT (BEAKER) 4.55 M/ L 3.93-5.22 (test code = 761) HEMOGLOBIN (BEAKER) (test code = 13.3 GM/DL 11.2-15.7 410) HEMATOCRIT (BEAKER) (test code = 41.5 % 34.1-44.9 411) MEAN CORPUSCULAR VOLUME (BEAKER) 91.2 fL 79.4-94.8 (test code = 753) MEAN CORPUSCULAR HEMOGLOBIN 29.2 pg 25.6-32.2 (BEAKER) (test code = 751) MEAN CORPUSCULAR HEMOGLOBIN CONC 32.0 GM/DL 32.2-35.5 L (BEAKER) (test code = 752) RED CELL DISTRIBUTION WIDTH 14.0 % 11.7-14.4 (BEAKER) (test code = 412) PLATELET COUNT (BEAKER) (test 215 K/CU MM 150-450 code = 756) MEAN PLATELET VOLUME (BEAKER) 10.1 fL 9.4-12.3 (test code = 754) NUCLEATED RED BLOOD CELLS 0 /100 WBC 0-0 (BEAKER) (test code = 413) NEUTROPHILS RELATIVE PERCENT 68 % (BEAKER) (test code = 429) LYMPHOCYTES RELATIVE PERCENT 25 % (BEAKER) (test code = 430) MONOCYTES RELATIVE PERCENT 5 % (BEAKER) (test code = 431) EOSINOPHILS RELATIVE PERCENT 2 % (BEAKER) (test code = 432) BASOPHILS RELATIVE PERCENT 1 % (BEAKER) (test code = 437) NEUTROPHILS ABSOLUTE COUNT 3.35 K/ L 1.56-6.13 (BEAKER) (test code = 670) LYMPHOCYTES ABSOLUTE COUNT 1.23 K/ L 1.18-3.74 (BEAKER) (test code = 414) MONOCYTES ABSOLUTE COUNT (BEAKER) 0.27 K/ L 0.24-0.36 (test code = 415) EOSINOPHILS ABSOLUTE COUNT 0.08 K/ L 0.04-0.36 (BEAKER) (test code = 416) BASOPHILS ABSOLUTE COUNT (BEAKER) 0.03 K/ L 0.01-0.08 (test code = 417) IMMATURE GRANULOCYTES-RELATIVE 0 % 0-1 PERCENT (BEAKER) (test code = 2801) TACROLIMUS [id number] 12:17:00 Test Item Value Reference Range Interpretation Comments TACROLIMUS BLOOD (BEAKER) (test 5.1 ng/mL 10.0-20.0 L code = 657) Interceptor Operator ID - CHRISTOPHER WSIROLIMUS [id number] 11:43:00 Test Item Value Reference Range Interpretation Comments SIROLIMUS LEVEL BLOOD (BEAKER) (test < ng/mL 5.0-15.0 L code = 806) Interceptor Operator ID - CHRISTOPHER WBilirubin, [id number] 10:51:00 Test Item Value Reference Range Interpretation Comments Bilirubin, Direct (test 0.3 mg/dL 0.1-0.5 code = 1968-7) SIERRA (test code = SIERRA) Interceptor Operator ID - MERCEDES M Lab Interpretation (test Normal code = 72570-8) [facility] CenterBILIRUBIN, [id number] 10:51:00 Test Item Value Reference Range Interpretation Comments BILIRUBIN DIRECT (BEAKER) (test 0.3 mg/dL 0.1-0.5 code = 706) Interceptor Operator ID - MERCEDES MComprehensive metabolic [id number] 10:50:00 Test Item Value Reference Range Interpretation Comments Protein, Total (test 7.3 See_Comment [Autom ated code = 2885-2) message] The system which generated this result transmit niharika reference range : 6.0 - 8.3 gm/dL . The reference range was not u sed to interpret th is result as normal/abnormal . Albumin (test code = 4.5 g/dL 3.5-5 35107-4) Alkaline Phosphatase 72 U/L 40-150 (test code = 6768-6) Total Bilirubin (test 0.9 mg/dL 0.2-1.2 code = 1975-2) Sodium (test code = 140 meq/L 337-389 5047-2) Potassium (test code 3.9 meq/L 3.5-5.1 = 2823-3) Chloride (test code = 104 meq/L 98-107 2075-0) CO2 (test code = 27 meq/L 22-29 2028-9) BUN (test code = 19 mg/dL 7-21 3094-0) Creatinine (test code 1.01 mg/dL 0.57-1.25 = 2160-0) Glucose (test code = 125 mg/dL 70-105 H 2345-7) Calcium (test code = 9.8 mg/dL 8.4-10.2 18657-8) AST (test code = 43 U/L 5-34 H 1920-8) ALT (test code = 94 U/L 6-55 H 1742-6) EGFR (test code = 56 mL/min/1.73 [place] [address]-4) NOT ACCURATE CREATININE CLEARANCE IN PREDICTING GLOMERULAR FILTRATION RATE . ESTIMATED GFR I S NOT APPLICABLE FOR DIALYSIS PATIEN TSCarissa SIERRA (test code = SIERRA) Interceptor Operator ID - MERCEDES Conner Lab Interpretation Abnormal (test code = 33540-2) [facility] CenterPhosphorus2020-11-30 10:50:00 Test Item Value Reference Range Interpretation Comments Phosphorus (test code = 3.5 mg/dL 2.3-4.7 2777-1) SIERRA (test code = SIERRA) Interceptor Operator ID Kaylin Conner Lab Interpretation (test Normal code = 55917-8) [facility] CenterMAGNESIUM2020-11-30 10:50:00 Test Item Value Reference Range Interpretation Comments MAGNESIUM (BEAKER) (test code = 1.7 mg/dL 1.6-2.6 627) Interceptor Operator ID - MERCEDES MCOMPREHENSIVE METABOLIC [id number] 10:50:00 Test Item Value Reference Range Interpretation Comments TOTAL PROTEIN 7.3 gm/dL 6.0-8.3 (BEAKER) (test code = 770) ALBUMIN (BEAKER) 4.5 g/dL 3.5-5.0 (test code = 1145) ALKALINE PHOSPHATASE 72 U/L 40-150 (BEAKER) (test code = 346) BILIRUBIN TOTAL 0.9 mg/dL 0.2-1.2 (BEAKER) (test code = 377) SODIUM (BEAKER) (test 140 meq/L 136-145 code = 381) POTASSIUM (BEAKER) 3.9 meq/L 3.5-5.1 (test code = 379) CHLORIDE (BEAKER) 104 meq/L 98-107 (test code = 382) CO2 (BEAKER) (test 27 meq/L 22-29 code = 355) BLOOD UREA NITROGEN 19 mg/dL 7-21 (BEAKER) (test code = 354) CREATININE (BEAKER) 1.01 mg/dL 0.57-1.25 (test code = 358) GLUCOSE RANDOM 125 mg/dL 70-105 H (BEAKER) (test code = 652) CALCIUM (BEAKER) 9.8 mg/dL 8.4-10.2 (test code = 697) AST (SGOT) (BEAKER) 43 U/L 5-34 H (test code = 353) ALT (SGPT) (BEAKER) 94 U/L 6-55 H (test code = 347) EGFR (BEAKER) (test 56 mL/min/1.73 ESTIMA NIHARIKA GFR IS code = 1092) sq m NOT ACCURATE CREATININE CLEARANCE IN PREDICTING GLOMERULAR FILTRATION RATE . ESTIMATED GFR I S NOT APPLICABLE FOR DIALYSIS PATIEN TS. Interceptor Operator ID Kaylin LONG [id number] 10:50:00 Test Item Value Reference Range Interpretation Comments PHOSPHORUS (BEAKER) (test code = 3.5 mg/dL 2.3-4.7 604) Interceptor Operator ID - MERCEDES [facility] W/PLT COUNT & AUTO [id number] 10:29:00 Test Item Value Reference Range Interpretation Comments WHITE BLOOD CELL COUNT (BEAKER) 4.6 K/ L 3.5-10.5 (test code = 775) RED BLOOD CELL COUNT (BEAKER) 4.59 M/ L 3.93-5.22 (test code = 761) HEMOGLOBIN (BEAKER) (test code = 12.9 GM/DL 11.2-15.7 410) HEMATOCRIT (BEAKER) (test code = 41.5 % 34.1-44.9 411) MEAN CORPUSCULAR VOLUME (BEAKER) 90.4 fL 79.4-94.8 (test code = 753) MEAN CORPUSCULAR HEMOGLOBIN 28.1 pg 25.6-32.2 (BEAKER) (test code = 751) MEAN CORPUSCULAR HEMOGLOBIN CONC 31.1 GM/DL 32.2-35.5 L (BEAKER) (test code = 752) RED CELL DISTRIBUTION WIDTH 16.5 % 11.7-14.4 H (BEAKER) (test code = 412) PLATELET COUNT (BEAKER) (test 217 K/CU MM 150-450 code = 756) MEAN PLATELET VOLUME (BEAKER) 10.8 fL 9.4-12.3 (test code = 754) NUCLEATED RED BLOOD CELLS 0 /100 WBC 0-0 (BEAKER) (test code = 413) NEUTROPHILS RELATIVE PERCENT 68 % (BEAKER) (test code = 429) LYMPHOCYTES RELATIVE PERCENT 24 % (BEAKER) (test code = 430) MONOCYTES RELATIVE PERCENT 6 % (BEAKER) (test code = 431) EOSINOPHILS RELATIVE PERCENT 2 % (BEAKER) (test code = 432) BASOPHILS RELATIVE PERCENT 1 % (BEAKER) (test code = 437) NEUTROPHILS ABSOLUTE COUNT 3.10 K/ L 1.56-6.13 (BEAKER) (test code = 670) LYMPHOCYTES ABSOLUTE COUNT 1.11 K/ L 1.18-3.74 L (BEAKER) (test code = 414) MONOCYTES ABSOLUTE COUNT (BEAKER) 0.25 K/ L 0.24-0.36 (test code = 415) EOSINOPHILS ABSOLUTE COUNT 0.07 K/ L 0.04-0.36 (BEAKER) (test code = 416) BASOPHILS ABSOLUTE COUNT (BEAKER) 0.03 K/ L 0.01-0.08 (test code = 417) IMMATURE GRANULOCYTES-RELATIVE 0 % 0-1 PERCENT (BEAKER) (test code = 2801) SIROLIMUS [id number] 13:35:00 Test Item Value Reference Range Interpretation Comments SIROLIMUS LEVEL BLOOD (BEAKER) 2.8 ng/mL 5.0-15.0 L (test code = 806) Interceptor Operator ID Kaylin SILVA FTACROLIMUS [id number] 11:54:00 Test Item Value Reference Range Interpretation Comments TACROLIMUS BLOOD (BEAKER) (test 2.8 ng/mL 10.0-20.0 L code = 657) Interceptor Operator ID Kaylin SILVA FCOMPREHENSIVE METABOLIC [id number] 09:41:00 Test Item Value Reference Range Interpretation Comments TOTAL PROTEIN 6.9 gm/dL 6.0-8.3 (BEAKER) (test code = 770) ALBUMIN (BEAKER) 4.4 g/dL 3.5-5.0 (test code = 1145) ALKALINE PHOSPHATASE 77 U/L 40-150 (BEAKER) (test code = 346) BILIRUBIN TOTAL 0.5 mg/dL 0.2-1.2 (BEAKER) (test code = 377) SODIUM (BEAKER) (test 142 meq/L 136-145 code = 381) POTASSIUM (BEAKER) 3.8 meq/L 3.5-5.1 (test code = 379) CHLORIDE (BEAKER) 106 meq/L 98-107 (test code = 382) CO2 (BEAKER) (test 29 meq/L 22-29 code = 355) BLOOD UREA NITROGEN 21 mg/dL 7-21 (BEAKER) (test code = 354) CREATININE (BEAKER) 0.93 mg/dL 0.57-1.25 (test code = 358) GLUCOSE RANDOM 130 mg/dL 70-105 H (BEAKER) (test code = 652) CALCIUM (BEAKER) 9.5 mg/dL 8.4-10.2 (test code = 697) AST (SGOT) (BEAKER) 49 U/L 5-34 H (test code = 353) ALT (SGPT) (BEAKER) 104 U/L 6-55 H (test code = 347) EGFR (BEAKER) (test 62 mL/min/1.73 ESTIMA NIHARIKA GFR IS code = 1092) sq m NOT ACCURATE CREATININE CLEARANCE IN PREDICTING GLOMERULAR FILTRATION RATE . ESTIMATED GFR I S NOT APPLICABLE FOR DIALYSIS PATIEN TS. Interceptor Operator ID - [id number] 09:41:00 Test Item Value Reference Range Interpretation Comments MAGNESIUM (BEAKER) (test code = 1.9 mg/dL 1.6-2.6 627) Interceptor Operator ID - [id number] 09:41:00 Test Item Value Reference Range Interpretation Comments PHOSPHORUS (BEAKER) (test code = 3.4 mg/dL 2.3-4.7 604) Interceptor Operator ID - AAHAMIDBILIRUBIN, [id number] 09:41:00 Test Item Value Reference Range Interpretation Comments BILIRUBIN DIRECT (BEAKER) (test 0.2 mg/dL 0.1-0.5 code = 706) Interceptor Operator ID - AAHAMIDCBC W/PLT COUNT & AUTO [id number] 09:24:00 Test Item Value Reference Range Interpretation Comments WHITE BLOOD CELL COUNT (BEAKER) 4.2 K/ L 3.5-10.5 (test code = 775) RED BLOOD CELL COUNT (BEAKER) 4.43 M/ L 3.93-5.22 (test code = 761) HEMOGLOBIN (BEAKER) (test code = 12.6 GM/DL 11.2-15.7 410) HEMATOCRIT (BEAKER) (test code = 39.6 % 34.1-44.9 411) MEAN CORPUSCULAR VOLUME (BEAKER) 89.4 fL 79.4-94.8 (test code = 753) MEAN CORPUSCULAR HEMOGLOBIN 28.4 pg 25.6-32.2 (BEAKER) (test code = 751) MEAN CORPUSCULAR HEMOGLOBIN CONC 31.8 GM/DL 32.2-35.5 L (BEAKER) (test code = 752) RED CELL DISTRIBUTION WIDTH 15.1 % 11.7-14.4 H (BEAKER) (test code = 412) PLATELET COUNT (BEAKER) (test 210 K/CU MM 150-450 code = 756) MEAN PLATELET VOLUME (BEAKER) 10.2 fL 9.4-12.3 (test code = 754) NUCLEATED RED BLOOD CELLS 0 /100 WBC 0-0 (BEAKER) (test code = 413) NEUTROPHILS RELATIVE PERCENT 67 % (BEAKER) (test code = 429) LYMPHOCYTES RELATIVE PERCENT 24 % (BEAKER) (test code = 430) MONOCYTES RELATIVE PERCENT 6 % (BEAKER) (test code = 431) EOSINOPHILS RELATIVE PERCENT 2 % (BEAKER) (test code = 432) BASOPHILS RELATIVE PERCENT 1 % (BEAKER) (test code = 437) NEUTROPHILS ABSOLUTE COUNT 2.80 K/ L 1.56-6.13 (BEAKER) (test code = 670) LYMPHOCYTES ABSOLUTE COUNT 1.01 K/ L 1.18-3.74 L (BEAKER) (test code = 414) MONOCYTES ABSOLUTE COUNT (BEAKER) 0.23 K/ L 0.24-0.36 L (test code = 415) EOSINOPHILS ABSOLUTE COUNT 0.08 K/ L 0.04-0.36 (BEAKER) (test code = 416) BASOPHILS ABSOLUTE COUNT (BEAKER) 0.03 K/ L 0.01-0.08 (test code = 417) IMMATURE GRANULOCYTES-RELATIVE 1 % 0-1 PERCENT (BEAKER) (test code = 2801) COMPREHENSIVE METABOLIC [id number] 12:18:00 Test Item Value Reference Range Interpretation Comments TOTAL PROTEIN 7.0 gm/dL 6.0-8.3 (BEAKER) (test code = 770) ALBUMIN (BEAKER) 4.5 g/dL 3.5-5.0 (test code = 1145) ALKALINE PHOSPHATASE 79 U/L 40-150 (BEAKER) (test code = 346) BILIRUBIN TOTAL 0.5 mg/dL 0.2-1.2 (BEAKER) (test code = 377) SODIUM (BEAKER) (test 140 meq/L 136-145 code = 381) POTASSIUM (BEAKER) 4.1 meq/L 3.5-5.1 (test code = 379) CHLORIDE (BEAKER) 107 meq/L 98-107 (test code = 382) CO2 (BEAKER) (test 25 meq/L 22-29 code = 355) BLOOD UREA NITROGEN 20 mg/dL 7-21 (BEAKER) (test code = 354) CREATININE (BEAKER) 0.91 mg/dL 0.57-1.25 (test code = 358) GLUCOSE RANDOM 135 mg/dL 70-105 H (BEAKER) (test code = 652) CALCIUM (BEAKER) 9.3 mg/dL 8.4-10.2 (test code = 697) AST (SGOT) (BEAKER) 49 U/L 5-34 H (test code = 353) ALT (SGPT) (BEAKER) 103 U/L 6-55 H (test code = 347) EGFR (BEAKER) (test 63 mL/min/1.73 ESTIMA NIHARIKA GFR IS code = 1092) sq m NOT ACCURATE CREATININE CLEARANCE IN PREDICTING GLOMERULAR FILTRATION RATE . ESTIMATED GFR I S NOT APPLICABLE FOR DIALYSIS PATIEN TS. Interceptor Operator ID - MEHDI [id number] 12:18:00 Test Item Value Reference Range Interpretation Comments MAGNESIUM (BEAKER) (test code = 2.1 mg/dL 1.6-2.6 627) Interceptor Operator ID - MEHDI [id number] 12:18:00 Test Item Value Reference Range Interpretation Comments PHOSPHORUS (BEAKER) (test code = 3.2 mg/dL 2.3-4.7 604) Interceptor Operator ID - MEHDI CBILIRUBIN, [id number] 12:18:00 Test Item Value Reference Range Interpretation Comments BILIRUBIN DIRECT (BEAKER) (test 0.3 mg/dL 0.1-0.5 code = 706) Interceptor Operator ID - MEHDI CSIROLIMUS [id number] 11:30:00 Test Item Value Reference Range Interpretation Comments SIROLIMUS LEVEL BLOOD (BEAKER) 4.4 ng/mL 5.0-15.0 L (test code = 806) Interceptor Operator ID - CBC W/PLT COUNT & AUTO [id number] 10:21:00 Test Item Value Reference Range Interpretation Comments WHITE BLOOD CELL COUNT (BEAKER) 3.6 K/ L 3.5-10.5 (test code = 775) RED BLOOD CELL COUNT (BEAKER) 4.43 M/ L 3.93-5.22 (test code = 761) HEMOGLOBIN (BEAKER) (test code = 12.4 GM/DL 11.2-15.7 410) HEMATOCRIT (BEAKER) (test code = 39.2 % 34.1-44.9 411) MEAN CORPUSCULAR VOLUME (BEAKER) 88.5 fL 79.4-94.8 (test code = 753) MEAN CORPUSCULAR HEMOGLOBIN 28.0 pg 25.6-32.2 (BEAKER) (test code = 751) MEAN CORPUSCULAR HEMOGLOBIN CONC 31.6 GM/DL 32.2-35.5 L (BEAKER) (test code = 752) RED CELL DISTRIBUTION WIDTH 15.1 % 11.7-14.4 H (BEAKER) (test code = 412) PLATELET COUNT (BEAKER) (test 224 K/CU MM 150-450 code = 756) MEAN PLATELET VOLUME (BEAKER) 10.2 fL 9.4-12.3 (test code = 754) NUCLEATED RED BLOOD CELLS 0 /100 WBC 0-0 (BEAKER) (test code = 413) NEUTROPHILS RELATIVE PERCENT 67 % (BEAKER) (test code = 429) LYMPHOCYTES RELATIVE PERCENT 24 % (BEAKER) (test code = 430) MONOCYTES RELATIVE PERCENT 7 % (BEAKER) (test code = 431) EOSINOPHILS RELATIVE PERCENT 2 % (BEAKER) (test code = 432) BASOPHILS RELATIVE PERCENT 1 % (BEAKER) (test code = 437) NEUTROPHILS ABSOLUTE COUNT 2.40 K/ L 1.56-6.13 (BEAKER) (test code = 670) LYMPHOCYTES ABSOLUTE COUNT 0.85 K/ L 1.18-3.74 L (BEAKER) (test code = 414) MONOCYTES ABSOLUTE COUNT (BEAKER) 0.24 K/ L 0.24-0.36 (test code = 415) EOSINOPHILS ABSOLUTE COUNT 0.07 K/ L 0.04-0.36 (BEAKER) (test code = 416) BASOPHILS ABSOLUTE COUNT (BEAKER) 0.02 K/ L 0.01-0.08 (test code = 417) IMMATURE GRANULOCYTES-RELATIVE 0 % 0-1 PERCENT (BEAKER) (test code = 2801) SIROLIMUS [id number] 12:18:00 Test Item Value Reference Range Interpretation Comments SIROLIMUS LEVEL BLOOD (BEAKER) 5.9 ng/mL 5.0-15.0 (test code = 806) Interceptor Operator ID - RMHemoglobin [id number] 11:09:00 Test Item Value Reference Range Interpretation Comments Hemoglobin A1C (test code = 4548-4) 5.4 % 4.3-6.1 Lab Interpretation (test code = Normal 11465-0) [facility] [id number] 11:09:00 Test Item Value Reference Range Interpretation Comments HEMOGLOBIN A1C (BEAKER) (test code = 5.4 % 4.3-6.1 368) Lipid [id number] 10:12:00 Test Item Value Reference Range Interpretation Comments Triglycerides (test 251 mg/dL code = 2571-8) Cholesterol (test code 217 mg/dL = 2093-3) HDL (test code = 42 mg/dL 2085-9) LDL Calculated (test 125 mg/dL code = 37464-2) SIERRA (test code = SIERRA) Triglyceride Reference Range: Low Risk <150 Borderline 150-199 High Risk 200-499 Very High Risk >=500 Cholesterol Reference Range: Low Risk <200 Borderline 200-239 High Risk >240 HDL Cholesterol Reference Range: Low Risk >=60 High Risk <40 LDL Cholesterol Reference Range: Optimal <100 Near Optimal 100-129 Borderline 130-159 High 160-189 Very High >=190 Interceptor Operator ID - MEHDI Reyes [facility] 10:12:00 Test Item Value Reference Range Interpretation Comments PHOSPHORUS (BEAKER) (test code = 3.1 mg/dL 2.3-4.7 604) Interceptor Operator ID - MEHDI [id number] 10:12:00 Test Item Value Reference Range Interpretation Comments MAGNESIUM (BEAKER) (test code = 1.8 mg/dL 1.6-2.6 627) Interceptor Operator ID - MEHDI CCOMPREHENSIVE METABOLIC [id number] 10:12:00 Test Item Value Reference Range Interpretation Comments TOTAL PROTEIN 6.8 gm/dL 6.0-8.3 (BEAKER) (test code = 770) ALBUMIN (BEAKER) 4.2 g/dL 3.5-5.0 (test code = 1145) ALKALINE PHOSPHATASE 73 U/L 40-150 (BEAKER) (test code = 346) BILIRUBIN TOTAL 0.6 mg/dL 0.2-1.2 (BEAKER) (test code = 377) SODIUM (BEAKER) (test 139 meq/L 136-145 code = 381) POTASSIUM (BEAKER) 3.7 meq/L 3.5-5.1 (test code = 379) CHLORIDE (BEAKER) 104 meq/L 98-107 (test code = 382) CO2 (BEAKER) (test 27 meq/L 22-29 code = 355) BLOOD UREA NITROGEN 17 mg/dL 7-21 (BEAKER) (test code = 354) CREATININE (BEAKER) 0.90 mg/dL 0.57-1.25 (test code = 358) GLUCOSE RANDOM 154 mg/dL 70-105 H (BEAKER) (test code = 652) CALCIUM (BEAKER) 8.9 mg/dL 8.4-10.2 (test code = 697) AST (SGOT) (BEAKER) 59 U/L 5-34 H (test code = 353) ALT (SGPT) (BEAKER) 125 U/L 6-55 H (test code = 347) EGFR (BEAKER) (test 64 mL/min/1.73 ESTIMA NIHARIKA GFR IS code = 1092) sq m NOT ACCURATE CREATININE CLEARANCE IN PREDICTING GLOMERULAR FILTRATION RATE . ESTIMATED GFR I S NOT APPLICABLE FOR DIALYSIS PATIJAMA TS. Interceptor Operator ID - MEHDI CLIPID [id number] 10:12:00 Test Item Value Reference Range Interpretation Comments TRIGLYCERIDES (BEAKER) (test code = 251 mg/dL 540) CHOLESTEROL (BEAKER) (test code = 217 mg/dL 631) HDL CHOLESTEROL (BEAKER) (test code 42 mg/dL = 976) LDL CHOLESTEROL CALCULATED (BEAKER) 125 mg/dL (test code = 633) Triglyceride Reference Range: Low Risk <150 Borderline 150-199 High Risk 200-499 Very High Risk >=500Cholesterol Reference Range: Low Risk <200 Borderline 200-239 High Risk >240HDL Cholesterol Reference Range: Low Risk >=60 High Risk <40LDL Cholesterol Reference Range: Optimal <100 Near Optimal 100-129 Borderline 130-159 High 160-189 Very High >=190 Interceptor Operator ID - MEHDI CBILIRUBIN, [id number] 10:12:00 Test Item Value Reference Range Interpretation Comments BILIRUBIN DIRECT (BEAKER) (test 0.3 mg/dL 0.1-0.5 code = 706) Interceptor Operator ID - EMHDI CCBC W/PLT COUNT & AUTO [id number] 09:54:00 Test Item Value Reference Range Interpretation Comments WHITE BLOOD CELL COUNT (BEAKER) 3.4 K/ L 3.5-10.5 L (test code = 775) RED BLOOD CELL COUNT (BEAKER) 4.48 M/ L 3.93-5.22 (test code = 761) HEMOGLOBIN (BEAKER) (test code = 12.2 GM/DL 11.2-15.7 410) HEMATOCRIT (BEAKER) (test code = 39.6 % 34.1-44.9 411) MEAN CORPUSCULAR VOLUME (BEAKER) 88.4 fL 79.4-94.8 (test code = 753) MEAN CORPUSCULAR HEMOGLOBIN 27.2 pg 25.6-32.2 (BEAKER) (test code = 751) MEAN CORPUSCULAR HEMOGLOBIN CONC 30.8 GM/DL 32.2-35.5 L (BEAKER) (test code = 752) RED CELL DISTRIBUTION WIDTH 15.6 % 11.7-14.4 H (BEAKER) (test code = 412) PLATELET COUNT (BEAKER) (test 222 K/CU MM 150-450 code = 756) MEAN PLATELET VOLUME (BEAKER) 10.6 fL 9.4-12.3 (test code = 754) NUCLEATED RED BLOOD CELLS 0 /100 WBC 0-0 (BEAKER) (test code = 413) NEUTROPHILS RELATIVE PERCENT 62 % (BEAKER) (test code = 429) LYMPHOCYTES RELATIVE PERCENT 28 % (BEAKER) (test code = 430) MONOCYTES RELATIVE PERCENT 6 % (BEAKER) (test code = 431) EOSINOPHILS RELATIVE PERCENT 2 % (BEAKER) (test code = 432) BASOPHILS RELATIVE PERCENT 1 % (BEAKER) (test code = 437) NEUTROPHILS ABSOLUTE COUNT 2.13 K/ L 1.56-6.13 (BEAKER) (test code = 670) LYMPHOCYTES ABSOLUTE COUNT 0.97 K/ L 1.18-3.74 L (BEAKER) (test code = 414) MONOCYTES ABSOLUTE COUNT (BEAKER) 0.20 K/ L 0.24-0.36 L (test code = 415) EOSINOPHILS ABSOLUTE COUNT 0.07 K/ L 0.04-0.36 (BEAKER) (test code = 416) BASOPHILS ABSOLUTE COUNT (BEAKER) 0.02 K/ L 0.01-0.08 (test code = 417) IMMATURE GRANULOCYTES-RELATIVE 1 % 0-1 PERCENT (BEAKER) (test code = 2801) RAD, CHEST, 2 [id number] 09:37:00Reason for Exam:->history liver transplantFINAL REPORT PA and Lateral views of the chest dated 04/15/2020 COMPARISON: April 16, 2019 Clinical information: history liver transplant Comment: Heart is normal in size. Pulmonary vasculature is unremarkable. Lungs are clear. No pulmonary infiltrate or pleural effusion is pr esent. Impression: No active cardiopulmonary disease or interval change. Signed: Ivania Lopez Verified Date/Time: 04/15/2020 09:37:17 XR chest 2 [id number] 09:37:00Interface, External Ris In - 04/15/2020 9:39 AM CDTFINAL REPORT PA and Lateral views of the chest dated 04/15/2020 COMPARISON: April 16, 2019 Clinical information: history liver transplant Comment: Heart is normal in size. Pulmonary vasculature is unremarkable. Lungs are clear. No pulmonary infiltrate or pleural effusion is present. Impression: No active cardiopulmonary disease or interval change. Signed: Ivania Lopez Verified Date/Time: 04/15/2020 09:37:17 [facility] [id number] 12:37:00 Test Item Value Reference Range Interpretation Comments SCAN RESULT (test code = 3912693) Miscellaneous lab [id number] 12:37:00Scan ResultQUEST NON-INTERFACED LABCHI [facility] [id number] 12:16:00 Test Item Value Reference Range Interpretation Comments Case Report (test code Surgical Pathology = 104) Report Case: [id number] Authorizing Provider: Tim Yusuf Jr., MD Collected: 03/25/2020 12:46 PM Ordering Location: [facility] Radiology Ultrasound Received: 03/25/2020 02:17 PM Pathologist: Miley Donis MD Specimen: Biopsy, Liver DIAGNOSIS (test code = [id number] 3220) FuZzEwMzNcZnRuYmpcdWMx LVsoljDwRZhun8FhF4SgJf AwMFxhbnNpXGRlZmxhbmcx ZQSxQXW4zmRsEHDdXGzdCE EwHGseVg8ylXPtkFlxJrWy NHMnh6mvbaCVknjboNg7b6 hwLJTtMjU8iSGwZGfuA3uk wgJavSOqYRAlXNv1kW71BD OfcM9nkZQwBFyrxoEyFaO9 VFijANTcPoR1AYIaqUEoXG NkC7hsYULvKAzdSRAlQFed gTLbZMF5pVpal3I5zUHscK DxwGzjPyNvPnExNPGFi0Dn KTh3zUbpH9ElSKJeQlD1kK QgUGFyYWdyYXBoIEZvbnQ7 fT75ODsnpmK8uNHmo8Sur7 0yi323sG0raVSmHIW8JYJz OANsnRTiXRAwMYC4WUQjoH JsA7m5EbWhhSFdJ7P2OuCs lUAbM6Y9AhHiaGKqH0Q3Mp ExyCQsILEksWAqVv1ejKSt vWYhyl0zhu96FHD5b0TgyQ rkVYR3XAP2LsUgOe9xnIOk YUZyFC0eKpCyaTTbFTYwrv 39hXurRBekxtTueN6jRjTe RDWvgDPbBOYkXA5hwRBcCW VjkS1pyomgOHHzCoXbnbln TJYehOgllsLfGh7xnUuhQO K0ARiqP2jisV6sOpQ9AIuy R3opqA7fKXj6SWipsHL4ZK HrvY9hGR7tnhqej6ioTsEd OI5zuhzta3jsRgGzEN4hyf k3d3foJgOlHG3vilqeu6xc NzIwXGhlYWRlcnkwXGZvb3 FowvanUACxh1MdH6OkfKvj F07xrCkbO23dXZAhvGbmyE 3seWpjyJ7fTxYxPhEpLQzo bFxwbGFpblxmMVxmczIwXG rqvlrkFAGzJNzuH9nmKjAw RHPhhKhxNCvjw8NwCIGdYL HxJgObIAdTMOFfJFuAW1iY VTWHLYYYNWYQWGZEJD9KWQ dVSURFRCBORUVETEUgQklP LJULAKMaKFR9QjYrNzUzLX thMJWtfiLoDJVDQRFDB2oF CMWGKWNSAhTnZFASI82WO7 pyDXKahpOqARIHUoQOA4wP EEGUCJbMZMWTOD9TELDviG NeWA4uGaAJCOICEnEtBs6C XAJCUNZPRJJeM2MTWOBIKK HMPWGZRBUBROwZQ1KOA19h cBUvEO2iYLuQUPFDNE2WDZ 2LYQLHNJEFAYYCVQxJAL0O WEHIJqHBVXZKZtIMOP9SWI JIE20fmLOgJQ3ay0VxRWTa xR7yfrZyqUZcPGWbtt38UV M3AuKsh3U1YYN0UOYiLJPo k7ipKYGnfWUoOkPbKqNpRw SiGcuwjZNtZBSmUeIpb8ko g976fYMln0knBJKiZdW2fH IbPZYnrFZmZ684DMAdGHor d3tec2TeDBRckYXmk5L4YN EQspxzsSq4wGfkX39kh2X6 EotjO7qcIMZuERToX9IzGZ 6wYZYuLag7TJK9YTL0CIPt KFUaS1OuEU6bWDDjpXUzXF p7j3jpjBheRZZcZYG5z1pc JWztuwXwLX2fei8ihBz8t2 xjczEgRGVmYXVsdCBQYXJh A5VmqGrrSj1eeLx3cCewEh feJJC4Saj6TW0ejd16pmm5 rPtzREKwaqlaZuP5YGezAT QiwdgaINo8HTfcHOBtdFD3 SOXmsCWsN5IqCBKgGT3afe d2VOY8QRdrBCEfYuB2MQEg uUHyXXCjqMqhIHhos508YS N1AgQdXS6uF2Sks6Q7gZ8o aXRcZGVmdGFiNzIwXGZvcm 2lyCJwDItpv6PsORH8qtM8 tIJscDYsBRYtIhF5UXzmKS 8mpa73GMHbIMG5mf3lgDId gHocqkGbtBEpCUmqQ5NvQD Cfx189RYQaQ3DgKMCyi8D9 axUqCkVcCDLaxOI7mkP8OI QxAC1jfoaho0pfIFluRKuj TBHlljQ3bdR2PKSunSJjI3 XiwD1nTWJyJI7zxenmg5sv HDU2UHthUJFcFSU4TzChTR Neg5Cyqfz4HuEhl6YhtTCe HBoxR27rh114AOLxpjRbD8 xwbGFpblxwbGFpblxmMFxm otM9MODxFUfiybazZSPgSQ qpZ4ypJeTtJXRadCvmYWye f1AhUTUfJJAeXiOwlLRnLZ HtFti2WPEyhRPwNNQdEeVg D3yevipdYnVUNFXvy1mzD3 xnzWUSbDLhV7KaJCkzgpTy KFmsOGixEXP4SZZ4Zl13Ix C9GKSvgp13 COMMENT (test code = v1rzrRDhFLIolOJpCqIpPJ 3358) ZxZPLhf6ffLENvqIXzKfFy MzNcZnRuYmpcdWMxXGRlZm Bky5pwx362kWJvk8nfZGSh UeO5qEFqBAYmlOFiH526GB CmDYeii5sty7EoANOvdBKc u4E1UMIFgyhejIg3bChdQ5 0po2G8ZwowJ8cxXIJyTAFs K7TuIF8yHXRzOeg8FKI9MT Y9IHYdTKKaC1SgMI4sGNTw cPHnDLz4g5icoOheOOJiUM Q7b6ffTBmojiLdVD3lfd2h bVw6v9butzTpIBDyGSRptR VUPMQiO2DknEwjXv4qaWw4 uNfzRwkuQNW4Sjv4OM7ago 66ber4wNwbATEvqswaHcY2 GMtnKGJutxgrZMv4KPgsZL JnbDcyMFxtYXJncjcyMFxt YXJndDcyMFxtYXJnYjcyMF faHKYeGFD3PHusv596VRI9 EAtqu5ywp1wnyJIsJcl0VB YrUkSqIngzVOsyn9Cec5yw LLQthw8hIAZ8dTTvtFzif2 R8kUIwXFTgpUQmdwNfLFFv QuH9BOqoPO7pvt05WSVlHS J7cw6ptOUbzIagexWgqZKj YStrB1GaMUPee222MYXnJ2 GhSALpt7F1xkDdUaUkHXKl jWL6xqX4LGHwBIg6sPFyln X7esPiwAEoB8zdwY75ZeNf zWIiL0NevK76UgKopFGtP2 DxjD82UdWqpJOhD4WufC72 WvRpkHFeHONtfZAgSh4zfB DljSLrr8FotDYnZInkW69u y556QAThzaSrU9iaxCGomv xguDIecgknOHnwojA2ELOi XHBsYWluXGYxXGZzMjBcbG FuZzEwMzNcaGljaFxmMVxk BbUfSWIoQWziN6tpPaAqDc LtAPMAVFMhyXyqaF0ccKXn ifC3bBXbpa66MEAdV5HmgM PhjoydkrwgbFalKCLgf6Hz eSwgdGhlcmUgaXMgSGVwYX MrzImdKBImkB7sRBL3rN3n JAYyYVB7bFOoNyvwiCQ9AE awEOOyviVmFg6sIVR2EFco fwdzJVWtqtAPNdI0kFC8NF jdHXCzVOOiZMAvBHI0aRNp XZBuILSuw0A9JJrbvI4enC RuiZP8lD7rQMTtQI1ioL9r kRgaEJbqxiPuYXKxn7PlxF Nja3EeZPKfCIMhBNQqgxKz yS1niLJnwNP9g6D6WXqpSv gdcWBjzLViBO1oUHdgvBF5 xIQnjhJBOaOVymO9kIO4YU Zdq0JuYMBrFEFspI1xc1gf hkYpgpAsHS00WBMVrNHwqy aoRXsmiAR5zMMdegTTYUEk W7Aocwn6vQWmhbXfVTXvRU Cye5RqASssEgboif5bsOAo p2WiT7XtJKEkBvS8GgvpUV KmyDByJKgzCGQkmA5gR8Ma eUmeCCuwW64sGECnxKhezM nmtrT9wVFosF5xrXIbIKip YslreT3yzEtqvhCavdNgd5 8reQJkkCQjPn6jUq9lUuZo vXSmZXSgi8VuAGA5sVDouk IqHUF3yL2dFSaiGLEfMV0f IFxwYXJccGFyfQ== CPT Code(s) (test code q1rukFFoSOQexRDbDfWrYB = 3357) CpPTXvi3gnIDDmqMAaVkWr MzNcZnRuYmpcdWMxXGRlZm Efo5gdb418hMZey2nlFEAb QdQ5oBAoZQKkkFFiV116y8 rec6ifjzZjpCN7HRFdVMO2 MTvuhwFirfZ2FDsszHVxXh U4RQskbdZyIOkgwjPbvcKx Lvp8HSMuM016MSX0dJqkd1 giIZI9AHXwDALtWtUzKq2z uGXbP275FEArQQOLNKBpyV j7MONdktVrsiTobFKYx461 W863y8zgAKUwnkFomIoCva lrc8kyI202UFBiuGShpfOp GiPuXFXbmFBrsTQ9ZWViRK 5enngeMhVaZN6hoehvSlGc UZ0utvp8RdYwJI3bfmagDp TeSGncEHDrakilOMQod6Ay isbjGU0wC5Kvr7T5sB1iyS KqLALgyIHgPgPoZDRlxh3n pUZbSAebr2UnSXB7ytW5gH EskJMlWLKqIR03Cjuxs8Bv NcpwAFU0IHTdagFye4Zia3 cpVvPvvsVbK5xhT9IkAIEd YXSpGSOgZbZbvnRiu8Zmx8 QpeVIpcWn4u6gmMLJeIBAa pCynd2xxSMJ0WDAiA5W2rK Zvy9dbPQlbBYWdjDT0wqlr ONxnNBUpfmY5iflmYHcvDR VasKQ9yfbsLWazTIToBfK1 mmiqMZyvREJvFST9IHxfs7 36DVB6TXliWzysBHwgIAPb bmNvbnRccGduZGVjXHBsYW luXHBsYWluXGYwXGZzMjRc sInxoVlerL5oEsDnNnUtXQ oaTQ3jLRHhW9umzTNyXWKn YEIeD6vxMxSvsN9jpBkoRL zoonTkRZj9WyN1HMA4AFEt MyBYNFxwYXJccGFyfQ== CLINICAL HISTORY (test m5jslYSdJIZmnYDxJvTnFZ code = 3356) AvRKQsm5zkIYWbeRKsDbMl MzNcZnRuYmpcdWMxXGRlZm Dmk6uuc248wXMoh8yiKACw OcK1hNOlMPIybNLjK005XV NxXSdnv2rxn3OuOUWjyNHj r3S4DWZIafzicIl7gMdeZ3 8kv6Q2JtawM2avVRWmXUTz M1WcFR0dOTQgQpx1RFM3ZD G2SVGcWTTcG2RzRJ0kPFWh fFMjFZs3d5ydfQdwDDMbVE W2l9qqXZkpyuHzUA5llm4g kWy0o4wniuWoJABgWVYuyE TRQCTfR1TadOhyEk9adKu0 yAjfWirrRWH9Yto9OR1gxc 80bvk8vVtjZUUfgvdnJfT1 RSghVHHjnglfGXd1GBvuFH JnbDcyMFxtYXJncjcyMFxt YXJndDcyMFxtYXJnYjcyMF rxZMFkTGB9IZfpn752RSI7 AWrpr3zaw5fpdQRtUhs9XX SgVcQyTdypZRbat8Yhp6dr XNWdzv9yABX5lTHdzRqqz2 K9lNEjVHFfdBOfsiQwFXXe RsN1KPmbPH2kdt33EESsPK X0as5wuSUaoLfmppNwgCHp LRrbO0MyNCAyu785HLBkO0 RpNFRfx9J6jaOyXaFpOOFe eLN7thG0YZPjMYz9mJScbv X2anQgtNXiB4wdaL44JoSf dJJlL9DvpT55CgAyzMQtV4 IksI61TyKtqXLpP7XboV55 TvIjdTUrWKSdyPYaXe3soS NcoZGhp6BofHSbIIpfL90b l200EJJnliSdH5cikAXpnd uggNBlqkwfXBmzjyF7BWCd XHBsYWluXGYxXGZzMjBcbG FuZzEwMzNcaGljaFxmMVxk OrYnRDXfAJtmL4beQmCwQq QnAIPTYJJpuTf5pMZnCvNj prYqT8Tpk59wMGL5TPwuoy 7lrLkezJ0iVmGqVyEoOAwf JH7rTOCuQ9rrmBHbLXTnUR LeP1rjHjTdtL4wuRqqFAyt czIwXHUxNjAgXCdhMFxwbG FpblxmMVxmczIwXGxhbmcx ELPgAMkhV4biClOsTXOquJ ccGJovv3WwLHTwTZRrWvYl ZmVtYWxlXHBsYWluXGYxXG ZzMjBcbGFuZzEwMzNcaGlj aFxmMVxkYmNoXGYxXGxvY2 srOcUmWhXqUOl5ODEhGRtp QLSpzLqfmU9sFsHwGuYfYE aiSZ1tSOPzL2rdcDTmOHEc MLQvV3yjVjSzcO5nyGfmKA qkxlDpSBcpyeB6bbXpgjsb zeWwi7S0aH21h8KjShCotC PlhhW4aeRyd4TcPH23JBTq a19nJs1xZOHxD3mkfNhlVI mxjkHgOSBde5Hmi6SrkObv tL0yCiXuZzEbEYekJW8dVV VxA3xijIOcAVYlONZwY8hp LqOiaO6wuAcqTWxhyqCgMC UxNjAgXCdhMFxwbGFpblxm MVxmczIwXGxhbmcxMDMzXG adC2yzJeMqWDAkpEuxVHag w2NpJLNkGCCsTwLpt17dRr 9hSM6iFx1mkJYcQRPfhKU9 eOT7tG6wKN0euINlDOcpsy F0vD0gJP1xSGKzBV8hZC0q xlCnMJAos2ihS4QyQsKlIT UvIJG6SoTAk2CiRExlURhv XHxaieCmcZpeu3IqJOBpi2 UuXHBhclxwYXJ9 SPECIMEN SOURCE (test r6ruxEReGIGttWNbOtPwON code = 3377) AyHGCqr1keGHKqgFAnIvOa MzNcZnRuYmpcdWMxXGRlZm Uel6baj017vDPth4oeUNIk GqF9xFSyGSMyoGWoJ025c0 mnc1nhzaTneGW2CCGcHHI4 KIxplrDyoeT3OMvakELeRo S6HVwymjElCYeypwEhoiAg Bkl7DICuM082DIM3xCjtb5 ymJPE6SNZzKNPnHlFqJk9z vQHnS957TWMlHBDXUICsfT e0EPCfpgKsprHvpOMYv332 G449a0zrLLLiwzOpnAbCsm wut3doM540UTPdfBSjbpQz AqHfMWQwyQTfbJQ9ZCVzZE 3kmpiwMqRxXR6dntbuMsUb LM6qvqj8GwBaMA9kviauSh OeGNlfZCJgdvqdMYQdb1Fj mkofNR2dF9Yqt3T7sK7pjJ UeXKCsrYRnSrFzJXPzrs3n tBBwGRdar4PeDGW4hyS2jL LfqGVgPCLbNX98Kivbl2Vy HoafJYH0DEIrpgLwj0Ktp6 qmUhWuvkFmS1npE3DuSVVe NANuBQAhTfLwmcVsg0Qug3 PacVKbgNv0z0kiEWFxTTUy xXnhq7dxMCY7YCZpQ4L9nY Imq8rxFEjaSPRddCS6yuin ATrsJYUtiuY4fxspSPfmET UkvIZ4erwmDHgmGQKmBlK2 wohcDIziGQVoBNO7BUlor9 05FKX0NXojTslrFSrySDUy bmNvbnRccGduZGVjXHBsYW luXHBsYWluXGYwXGZzMjRc uJufjWqeiQ8aWbBeFsIrYD wlML6zTEJuO2xorJOyMGZa EFYoB8ijFmKbvF8fgEihJB xmczIwIExpdmVyXHBhcn0= GROSS DESCRIPTION (test h0xseLBfUAVouUDuFnKlOZ code = 3366) PxVBHqr7ccGRWtgEUkKuWi MzNcZnRuYmpcdWMxXGRlZm Usp6sse521gSYxd1dtDBRh MaT1oPSeJGThxIPeV873US YlVNnzl4htn3MeYWKxkDNc f8U1QONQfeqgxTi8iGhsF4 0he8M9MalgB1nlDQHdQLrp NMZdKOvypNBsDRZ7IZMqIU M1YDhueuEgltS6HIgyhSDm TaZ2CGg2f5gmsKycDNIzOL T9v7weIXpvlnGkPR9yfk6l uLv4y8dlruSxHAWsTWDzkP ICMGBrC1IsjBccCm6jjLt1 nTbkIruaCWG5Kfa5BM3tzd 19big1aLgoFJWffwlgZpT0 SDefVLGyfdffECf2REfcDZ JnbDcyMFxtYXJncjcyMFxt YXJndDcyMFxtYXJnYjcyMF ceVSTlZPP9ALerb199EZT0 RTptx6ikp4nebXEwToe9FW FzSkQfKimbUUgbu5Rfg1gm JNNobp1mZDY7cTRqiCxak9 D6qUUjVZQrzBMsbgMxFSSc AjE5JDslSY2qpb54FOUbUX T0ji6qsTRxjFfwbyMvfOMi XEyxC9YxNXHgn465WXGsQ3 SpELVar2Z6xnDuXwFdTRTi mZC3zdO4MEYiGLc9lSYgym Z3lvBjcAAwO3hteQ41JxTu oVUyA0XbhX14XcIfyJSoB4 VutR39YoJfwYLoV7NtsS45 EqXwcRGwARSmeUMaHc8hfF JlkJJqn0FtvZHcOEwqU31z e427IEKqbjLoV3vsyJAonp xwbGFpblxmMFxmczIwXHFs XHBsYWluXGYwXGZzMjBccG zdsV6gUjOfMlUoXWFSTjWd vKdhdB0zDmIoNhGgKMTIMJ NnnQGeXWGvrrMak3DvJGaz biBsYWJlbGVkIHdpdGggdG xaOKQwdVexhnXlwzBqEG9d XPWpC0Xvz0Uom03xbdSvHi VyIGFuZFxwbGFpblxmMFxm cbBrNJBnwTo6ZVDnLrufhI O7DxKbvuDxnZokUEezoWYj ldkjSYwtyqCoFVPixt43UO utc1xfxC0ggAdhthUef3Fj FXDqz7QpeERpBIWeo8MaQL AuMSBjbSBpbiBkaWFtZXRl xfLwvbCfmuXpF7anKwZtgb MfDF5puDbpZdBwmWSpWqOp uA9vVX21ZZBjPtMWwQPtg6 SlR2ubHD9bvPZnp7XvnYm9 xSMrVGvwAMBxdX0rtR9yZ8 Uyx7E0tINjESUjEPZHNi6v mZSfsBfofO0pRwAiXmFpSQ xwYXJ9 MICROSCOPIC DESCRIPTION a1wnkQRwWJRkzOLrToXcKB (test code = 3371) OoTHNur5pjUREwcOEnNkCd MzNcZnRuYmpcdWMxXGRlZm Xfc9ney427eIPib8vnBBOy BoU0fDZvQEAdpRVeF522MY ZeFDabj3zot7QtSGUlgPGo j0K0CLNIremlgSx4mHlhU3 1cc9M6DpafB4bwDUOiXOMe N2IcOD3xLJUbEzk0UGJ2AV W7PETeVTYuF0DxJT3lSDZv hHMyHGg1u4owjSvyQURzZY W4w7aeTXkxkkMmKM6sqd4b uLq9q3ipznJbJILeOOOidG CVVXXlX8EfhRgnBx8kqBb6 qPqnIvtvPZI4Gxi9WK8kcr 68lqy0gJjjLWJbeaafXmN0 GKhsDVUpzwyjFDd6WLpqYO JnbDcyMFxtYXJncjcyMFxt YXJndDcyMFxtYXJnYjcyMF yaLEIaGOS6JLrou869WRR1 ANhzg3eic6vdcMPaLeo9XB WqImKfKsvqWQsxw2Ojo4sm OTBtzh2fSVV9eOXasOkrf0 W3pVGzEJJjyVZukuCpKGFh QqO3UMzjRQ3ogd62WGHcAF I6uu4ucMRoeCyjufZedWYx CCilZ8QrVVWcq193UECjH3 PhNPXyq9W2msXkOxYtEUAl gXZ1kvT1YVEkSFi3gOWsmz P9vmBodJGuX9ledF63AtSi fKHoV8VgiZ11GvSoyXCyS2 BhfG83TfLwfQEnV8UckT04 HqEwuWPqONKnkRXnQj3isP SulYSvm9JpsVLhXSzmO93a d097NLYzyiGnN0cxvWUrhk btpULcyikbTIixwkW4WWRk XHBsYWluXGYxXGZzMjBcbG FuZzEwMzNcaGljaFxmMVxk ZjUxUUZsTSytX4svMkPzNm XoSHMZVAI5bM1eKISir2oh YMU1prQgu7RiboHuZfWijR UkugBaFYNqknJmvP6tHHac aKyuS0WaYLLivnS6xYMfWK SlAEBeovIawTN7hzCjcCXf AU0uLEfnWKPkIQB5PXNyTC KasaTvdfQqkLU8qS7dOwKB aGVyZSBpcyBtYXJrZWQgc3 TgLEWly8gsDLMvnaHfp23v tkKkoRe1NJ8xB5LfnhBnnO K5jGOxDPR6eOSmRSjpiz9n cukuJkYzUl12mDN8GYZxh4 RieRy6XGQxwHQuWT9kgSjo TX9qOlIntF0adnmrIzXzDA dkhdOhQBOhf66kq0z1bJRz PYWatLAOGJrzc3Q3BWNcez gmyYrwdWwnWBAtbmVua7Aq VL4tBEixACZjx8S5zYHhZO obDnefbL0viQcyymFsquOr sgRgPI38BwFZavSjK7rqf7 VrhTvlUm1skNHwNXXfNKEv BLUsWxAGQKmiL3q3W34qXX 3gdATuHR13O4tlpRCkyhAo p4Aqfq9xTs9lF8MsbOCmrX C7WK88bOk5qSHnvNMyqAUx t5GqjI7wSZyajoYplTQiBW SrWUNsJL04qLUezbAptWWu yWZlJz7aDHwrdvZpn9Y3BY T0vQMjpGckbPufJ3k9fOUc R5oeknIfP3ZmaQWyjsF0sO DyzJ5fyIyjARipWKDlPJxt IGxldmVsIDgpLlxwYXIgVG ryIFXibjDgbHU5ouMoyJGj BIJvUIojmfzsgReiuB1gSP 1hcmthYmxlIHdpdGggcHJl t4HfyuXbGRTcETR8cjIueH Tig8XhnPSmNyfoOKVmaBT7 hp6sQDhketHgtTLkjIlgFI Iwq2H8KNeogEwgaClmG4f8 QVMrpjDzn71fkcHxdEBkec MuXA2uRAVym39fl9p8lTLk BEAcAFl0lLIjt7kaHOQoP0 UjS2J6EC8nCl9xh9podbux aHFzyoGrvA33VYMrZIYoYW osoUM3iVDrgsNqkmDjypCh NB53ScAKjhUgsW1smL2diH NfZdVijW4yCH6wwIEactMh isMlBTPjRnDTrtUqnBG9o0 KsoxvhRYbwHXTvIB1zIRpw MEReuHWiEHgpo27jf4SijS 0lcMClmnIpEHAhtyCwJC3b HIc9IJnwanOiV6dtRjDjGN RhYUHlOUDeCQ8an21sGIGK KLifiFzlXSufm1Mza5Qgp3 TcdP3oAWVcVTV5lotftSFy iXNev7OkvD5nc7ldq3GvwT DpsILzzzZgb3rrKApuUgbe ot9oqLWpDJ2yROmiK2CtPR NlIGluIHBvcnRhbCBmaWJy i4YjxoSqfnByBHCaCuZxSL BhclxwYXJ9 SPECIAL STUDIES (test c1xnqSVeTRFqtGNqYiHyTR code = 3376) FlBBNlv3ttHJVlcFAjOfGz MzNcZnRuYmpcdWMxXGRlZm Qbp1yjx124vYAqc4zoVPAr LoW3lNJhPBZavEKoW838NR TvEEucr0hfm6EhLVIueBKn w9E2AEWUXDndBlVbZ713DD VkQKmvt3pkt1EeGPQbtWDq b7D2NJIKblfgyQi0nHudN6 6tb3X7MqrwB0alTAOlRPBy R8ExUH6zJVSfYga1DEI7OL B2DRAgISWhA1NdIS3sAKYl rSGwGMh5j6xeiZawQFKpZJ E8f8qyBIolwfJ0RZ9xue6z hNt8t1osvfViETTaJALmeS ACPTJxH6ObyXlrTm3urOl9 k4ffQtnhsqY0jBCpArUrVw MyMFxsaTBccmkwIENvUGF0 mHTNVNj7U552i8geUIUyfk YfqKsEiidqe0piA476FWMd cGVydzEyMjQwXHBhcGVyaD Q1UPDbSR3evayzHsBlPH7w mrnwFdAlHW8pfrm4JnPpWK 1hcmdiNzIwXGhlYWRlcnkw ZBBmu4YktztxYX5hL2Dnw0 Q5tH4rnZVoOKYquDTlRvMv ZFDjkc6ctUNoPXblKJF3KD JamfTsu8Tao3miIeQwmxOt P7vfV6UeKCOvQLQaSCKtMs TkxwAjy7Xlh9ZcmDBbxLm3 i9jySQLpYPWnzQdjm3nuEK I8OTSvN3O7hBDwr3zzNCll HYXznNU0eovvGBstWXEoih Z9xgxzWOavSTWdyST7dutv HIzzVYEaZxG2odidVZvtKC ZqDQR8LVqmw949ABR0XCyb YmtwYWdlXHBnbmNvbnRccG duZGVjXHBsYWluXHBsYWlu XGYwXGZzMjRccWxccGxhaW 1hVaGfZeMxUsuwYV6iWQDs I5gaoPBpCVHfIOIdF4hiXq VmzO6reKejSKxkDoZfBeDx RzOXxZEdsZ10ZBIzfsD2ZR Oir10hq2XxrUwpltQrNWNc XLqfA8i7HJYoKZTqRKY2o9 Onz1MyzV5efX3ejUayqG5d sILiyVX7isbse0Vru9KgT5 lhbCBzdGFpbnMuXHBsYWlu XGYxXGZzMjJcbGFuZzEwMz NcaGljaFxmMVxkYmNoXGYx TRszD6foFgSoA5RsMFDpRj EteCEuX5hufDFrXYSeltnw bGFpblxmMVxmczIyXGxhbm snYGCzDIuzI1rhOzSzCYFg xRrxUGypc4VuZADrSHTjZl pfsaCkYZAxgfOqe9jbF8tv NHFlYLA3JZ0hdfKvZiJeLR 2ntG40v9Czg86mx32ufV4j jEYzswKxJ92eqKWazMDjg7 ThNVYoweAarFT5EEPbHYww fncmp0p2kES5dZDlwGTzvA J3lHEaiHQnHWWSrIEvOBDv a688bn8kTRRhwOBysaFppQ 7bLRhbezxgvOFsMR1dIQNv NLJkVOAcQD49cjFwVC1mkH Mno0wewfXucNLxe9OjgSO9 XXBwiBYgbqjqQq5yYO02PZ HaLNqmyI6iwZNhwzRuSO6t AY1dL6O2aAHtLXSwpwUdc3 zjHDjtRG8nEUHjeYfmVmow GNCmRVOrheRpqOV6ELGtcP tgsS7rLuQaGtPdRjkiHA7b HDZmN7sblQJaJACiKCQdT9 obEeJldQ2zxWnmIGkxBbZp ZnMyMlxsdHJjaFxwYXJccG hqvT7jVsZzXyHcSevgDA1u AOAnH3ulzVObCGIrXYNaV4 xqSrRiiC8awGboQRumMxLx ZnMyMiAgXHBsYWluXGYxXG ZzMjJcbGFuZzEwMzNcaGlj aFxmMVxkYmNoXGYxXGxvY2 itKzDsZ1FoULJrAtMugZPs N6hudPVqFHOfPLuaUSIoJV ZzMjJcbGFuZzEwMzNcaGlj aFxmMVxkYmNoXGYxXGxvY2 loFsHgG8IbWDAdLwGgIQ2q vV6pePmaqT0xbZNasQN8zg ihaMNzfV9iZ2AzJAKlr9Tc zbhto4MgWKLflnTaom1gDA UuqGYWEYpap9OnM4YkIPg2 n9GqfXldvZ0rTpEiYuYzQl blHH6mCHNjP6crtVGiBWMz SHGkD6tbDxUeuS0nvHxaST jmXlIxMvNaQtn7SXFbStIe JzkyXHBsYWluXGYxXGZzMj JcbGFuZzEwMzNcaGljaFxm XXkgMyKcSWOiVLmuA2biJm TmT2LdDCVkRlHrxiLEITYr Q7ZzAMTtddMsmmgfUBG8uH 8vr9o0OUxsOu7fFMXjstux j1mvdeYkeVQir9MgWSHjbn Rcj4GhRUUdttEfdLZtSNBd xlZpxk0qonLwSYZlPCDqQ5 NjobazvRzqmtI7RHBdQRSr tIXpdQwnKYRmAGw0OQanxs Nxo8UjPkZnvzZwwNBtqkAc TM4kWTWynPCkqfWlLBP2QP LnHBMNTyClNHYnq5GgOV1x QAEwbXelZXGnmT9ms9UdIH Lah91fCEThVUHIFVHyrCWc IGRldGVybWluZWQgdGhhdC KkgLEvNSPxDDDvWA2vYGFs nfRtjHNiz0PttOEspoBpu8 ZqhyCnDRPrDJH6TzZDcRJp pJTngIGdorN7o1AyZLDvny DmxMgrbBDnzVPmlWCtg9Vf zb6lYNFan1lquTyyEJ1cuO BiZSByZWdhcmRlZCBhcyBp szOey8HgZ2Y6mD9eYVcye1 HjGv8rYAFsf0VyktNuKlEL yNcfKJmyAx4pAYDsqnguaF ZfT4CukTisoYTxNMGyJMGi IHRoZSBDbGluaWNhbCBMYW SdgqN2m4Z7TXowiDRtcgOj ET79ZXDnSD3aqEKulPAlk8 SgJJc8VJMrS8aOZZ70LYwh YXMgcXVhbGlmaWVkIHRvIH OaogQsmm1noSlsdEXjh81f oPI5gXO2RTMtvS0wE6PeAO vsHt8kLTYekywqcQVixCxb Wy6fwBbqvK3vZwEaGnOxNj qrHU2iTZNgM2tcmSNoVOPl NTKyA9vdMmGraS6auVhkMl xmczIyXHBhclxwYXJkXHBs YWluXGYwXGZzMjRccGxhaW 8kDcHaTfGxLZbgIBE2 [facility] [id number] 12:16:00Surgical Pathology Report Case: [id number] Authorizing Provider: Tim Yusuf Jr., MD Collected: 03/25/2020 12:46 PM Ordering Location: [facility] Radiology Ultrasound Received: 03/25/2020 02:17 PM Pathologist: Miley Donis MD Specimen: Biopsy, Liver LIVER ALLOGRAFT, ULTRASOUND-GUIDED NEEDLE BIOPSIES (01/25/2017)- STEATOHEPATITIS (NARESH/ALVAREZ)- FIBROSIS STAGE 1B OF 4- NEGATIVE FOR ACUTE T-CELL MEDIATED REJECTION- MILD LYMPHOCYTE PREDOMINANT PORTAL INFLAMMATION- see comment Signing Pathologist Direct Phone Line: [phone] signed by Miley Donis MD on 03/28/2020 at 12:16 PMPer history in the note accompanying the biopsy, there is Hepatitis Cinfection and the biopsy is done for staging.If that is the case, then the portal inflammation seen in the liver biopsy could represent inflammatory infiltrates of Hepatitis C. In that case, the biopsy represent, Chronic Hepatitis C, activity grade 0-1 of 4, fibrosis stage 0 of 4.If clinically discordant, then the portal inflammation is nonspecific. No features of acute rejection is seen. [id number], [id number] C infection. 57 y.o. female who underwent orthotopic liver transplantation for AlcholicLiver Disease on 01/25/17.Fluctuating mild elevation of transaminases since December 2018. Normal alkaline phosphatase.LiverA. Received in formalin labeled with the patient's name, accession number and "liver biopsy" are two andrews-yellow to pink core biopsies, both 0.1 cm in diameter and ranging in length from 1.5 to 1.7 cm. The specimen is submitted in toto in cassette A1. NW/pl Section shows two cores ofliver parenchyma with greater than 10 portal tracts and is adequate for evaluation. There is marked steatosis, predominantly macrovesicular type, involving about 70% of liver parenchyma. Ballooning degeneration with early Ashley Denk hyaline is noted. Mild lobular inflammation is present. No acidophil bodies are seen. Few glycogenated nuclei are seen. No central venulitis is present. 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 There is mild portal lymphocyte predominant inflammation with rare lymphoid aggregate. No significant interface hepatitis is present. No lymphocytic cholangitis is seen. No ductopenia is seen. Iron stain is negative. No hyaline globules are seen on PAS with diastase stain. The trichrome stain shows perisinusoidal fibrosis. No inc rease in portal fibrosis is seen. .The interpretation of this case included the use of immunohistochemistry or special stains.Control Slides Examined: In-house known positive controls were evaluated along with the test tissue. These control slides run alongside of the patients sample show appropriate staining. Internal positive and negative controls when available are evaluated Immunohistochemistrytechnical testing was performed at [facility], Pathology Laboratory where it was developed and its performance characteristics were determined. It has not been cleared or approvedby the U.S. Food and Drug Administration. The FDA has determined that such clearance or approval is not necessary. The test is used for clinical purposes. It should not be regarded as investigational or for research. This laboratory is certified under the Clinical Laboratory Improvement Amendments of 1988 (CLIA-88) as qualified to perform high complexity clinical laboratory testing.U/S, ABDOMINAL, WITH [id number] 16:00:00Reason for Exam:->elevated liver enzymes, liver transplant, need dopplerFINAL REPORT TECHNIQUE: Grayscale ultrasound of the abdomen with color Doppler and spectral Doppler ultrasound of the portal/hepatic vasculature. INDICATION: 59-year-old woman with elevated liver enzymes status post liver transplant. COMPARISON: Abdomen ultrasound 04/16/2019. FINDINGS: LIVER: Prior orthotopic liver transplantation. Liver is normal in size. Increased echogenicity of the liver, consistent with hepatic steatosis. No focal lesion. HEPATIC VASCULATURE: Main portalvein measures 1.1 cm in diameter. Portal veins are patent with normal directionality. Flow velocity in the main portal vein is within normal limits. Proper and left hepatic arteries are patent. Resistive index and acceleration time in the proper hepatic artery is within normal limits. Resistive index in the left hepatic artery is slightly elevated at 0.8. Right hepatic artery is not clearly visualized. Hepatic veins and confluence are patent. BILIARY:Gallbladder: Prior cholecystectomy.Common bile duct is slightly prominent and measures 0.8 cm. No intrahepatic biliary ductal dilatation. PANCREAS: Visualized portions of the pancreas are unremarkable. SPLEEN: Spleen is at the upper limit of normal insize and measures 12.7 cm. PERITONEUM: No free fluid. KIDNEYS: Both kidneys are normal in size. No hydronephrosis. No sonographically evident mass. MIDLINE VASCULATURE: Visualized inferior vena cava ispatent. Abdominal aorta is not clearly visualized due to overlying bowel gas. Splenic artery and vein are patent. IMPRESSION:Steatosis of the transplant liver. No focal liver lesion. Patent portal andhepatic veins. Patent proper and left hepatic arteries. Right hepatic artery is not clearly visualized. Slightly elevated resistive index in the left hepatic artery may be related to liver disease. Slightly prominent common bile duct may be due to postcholecystectomy reservoir effect. This finding may be correlated with liver function tests to exclude cholestasis. Signed: Danish Baca MDReport Verified Date/Time: 03/25/2020 16:00:50 US abdominal with [id number] 16:00:00Interface, External Ris In - 03/25/2020 4:03 PM CDTFINAL REPORT TECHNIQUE: Grayscale ultrasound of the abdomen with color Doppler and spectral Doppler ultrasound of the portal/hepatic vasculature. INDICATION: 59-year-old woman with elevated liver enzymes status post liver transplant. COMPARISON: Abdomen ultrasound 04/16/2019. FINDINGS: LIVER: Prior orthotopic liver transplantation. Liver is normal in size. Increased echogenicity of the liver, consistent with hepatic steatosis. No focal lesion. HEPATIC VASCULATURE: Main portal vein measures 1.1 cm in diameter. Portal veins are patent with normal directionality. Flow velocity in the main portal vein is within normal limits. Proper and left hepatic arteries are patent. Resistive index and acceleration time in the proper hepatic artery is within normal limits. Resistive index in the left hepatic artery is slightly elevated at 0.8. Right hepatic artery is not clearly visualized. Hepatic veins and confluence are patent. BILIARY:Gallbladder: Prior cholecystectomy.Common bile duct is slightly prominent and measures 0.8 cm. No intrahepatic biliary ductal dilatation. PANCREAS: Visualized portions of the pancreas are unremarkable. SPLEEN: Spleen is at the upper limit of normal in size and measures 12.7 cm. PERITONEUM: No free fluid. KIDNEYS: Both kidneys are normal in size. No hydronephrosis. No sonographically evident mass. MIDLINE VASCULATURE: Visualized inferior vena cava is patent. Abdominal aorta is not clearly visualized due to overlying bowel gas. Splenic artery and vein are patent. IMPRESSION:Steatosis of the transplant liver. No focal liver lesion. Patent portal and hepatic veins. Patent proper and left hepatic arteries. Right hepatic artery is not clearly visualized. Slightly elevated resistive index in the left hepatic artery may be related to liver disease. Slightly prominent common bile duct may be due to postcholecystectomy reservoir effect. This finding may be correlated with liver function tests to exclude cholestasis. Signed: Danish Baca MDReport Verified Date/Time: 03/25/2020 16:00:50 [facility] [id number] 13:02:00Reason for Exam:- >HCV stagingFINAL REPORT Procedure: Ultrasound-Guided Core Random transplant hepatic Biopsy: Pre/post-procedure diagnosis: HCV staging [place] Fancier: Dyllan Quijano MD Assistants: KEMAR Meyer Sedation: Moderate sedation was administered. 1 mg of Versed and 50 mcg of fentanyl IV was usedfor moderate sedation monitored under my direction. Total intra-service time of sedation was 15 minutes. The patient's vital signs were monitored throughout the procedure and recorded in the patient's medical record by the nurse. Local Anesthesia: 10 cc 1% Xylocaine Approach: Right upper quadrant, percutaneous Specimen: Total of two 16 G core biopsy samples; samples were delivered to pathology in formalin solution. Estimated blood loss: Less than 5 cc. Technique/findings: Informed written consent was obtained. Discussion of risks, benefits, and alternatives were made with the patient. The patientexpressed understanding and agreed to proceed. A universal timeout was performed prior to starting the procedure. Initial ultrasound images were obtained for biopsy site selection. The right upper quadrant was prepped and draped in sterile fashion. 1% lidocaine was used for local anesthesia. Using ultrasound guidance, following acquisition of permanent images, a 16 G Bio-Pince core biopsy needle was inserted into the right lobe under ultrasound guidance and set at 22 mm passes. A total of 2 passes were made. Post procedure sonogram reveals no hematoma. No immediate complications were noted. Impression: Successful, uncomplicated ultrasound-guided core random transplant hepatic biopsy. Signed: Dyllan Joshua MDReport Verified Date/Time: 03/25/2020 13:02:15 Reading Location: [place] [address] Angio Body Reading Room US liver [id number] 13:02:00Interface, External Ris In - 03/25/2020 1:04 PM CDTFINAL REPORT Procedure: Ultrasound-Guided Core Random transplant hepatic Biopsy: Pre/post- procedure diagnosis: HCV staging [place] Fancier: Dyllan Quijano MD Assistants: KEMAR Meyer Sedation: Moderate sedation was administered. 1 mg of Versed and 50 mcg of fentanyl IV was used for moderate sedation monitored under my directio n. Total intra-service time of sedation was 15 minutes. The patient's vital signs were monitored throughout the procedure and recorded in the patient's medical record by the nurse. Local Anesthesia: 10 cc 1% Xylocaine Approach: Right upper quadrant, percutaneous Specimen: Total of two 16 G core biopsy samples; samples were delivered to pathology in formalin solution. Estimated blood loss: Less than5 cc. Technique/findings: Informed written consent was obtained. Discussion of risks, benefits, and alternatives were made with the patient. The patient expressed understanding and agreed to proceed. A universal timeout was performed prior to starting the procedure. Initial ultrasound images were obtained for biopsy site selection. The right upper quadrant was prepped and draped in sterile fashion. 1% lidocaine was used for local anesthesia. Using ultrasound guidance, following acquisition of permanent images, a 16 G Bio-Pince core biopsy needle was inserted into the right lobe under ultrasound guidance and set at 22 mm passes. A total of 2 passes were made. Post procedure sonogram reveals no hematoma. No immediate complications were noted. Impression: Successful, uncomplicated ultrasound-guided core random transplant hepatic biopsy. Signed: Dyllan Quijanoeport Verified Date/Time: 03/25/2020 13:02:15 Reading Location: [place] [id number] Angio Body [facility] [id number] 11:30:00 Test Item Value Reference Range Interpretation Comments SIROLIMUS LEVEL BLOOD (BEAKER) 8.2 ng/mL 5.0-15.0 (test code = 806) Interceptor Operator ID - [id number] 10:13:00 Test Item Value Reference Range Interpretation Comments PHOSPHORUS (BEAKER) (test code = 3.3 mg/dL 2.3-4.7 604) Interceptor Operator ID - MEHDI COperator ID - RICARDO [id number] 09:19:00 Test Item Value Reference Range Interpretation Comments MAGNESIUM (BEAKER) (test code = 1.9 mg/dL 1.6-2.6 627) Interceptor Operator ID - MEHDI CCOMPREHENSIVE METABOLIC [id number] 09:19:00 Test Item Value Reference Range Interpretation Comments TOTAL PROTEIN 6.9 gm/dL 6.0-8.3 (BEAKER) (test code = 770) ALBUMIN (BEAKER) 4.3 g/dL 3.5-5.0 (test code = 1145) ALKALINE PHOSPHATASE 74 U/L 40-150 (BEAKER) (test code = 346) BILIRUBIN TOTAL 0.5 mg/dL 0.2-1.2 (BEAKER) (test code = 377) SODIUM (BEAKER) (test 142 meq/L 136-145 code = 381) POTASSIUM (BEAKER) 3.8 meq/L 3.5-5.1 (test code = 379) CHLORIDE (BEAKER) 107 meq/L 98-107 (test code = 382) CO2 (BEAKER) (test 26 meq/L 22-29 code = 355) BLOOD UREA NITROGEN 20 mg/dL 7-21 (BEAKER) (test code = 354) CREATININE (BEAKER) 0.91 mg/dL 0.57-1.25 (test code = 358) GLUCOSE RANDOM 165 mg/dL 70-105 H (BEAKER) (test code = 652) CALCIUM (BEAKER) 9.3 mg/dL 8.4-10.2 (test code = 697) AST (SGOT) (BEAKER) 60 U/L 5-34 H (test code = 353) ALT (SGPT) (BEAKER) 122 U/L 6-55 H (test code = 347) EGFR (BEAKER) (test 63 mL/min/1.73 ESTIMA NIHARIKA GFR IS code = 1092) sq m NOT ACCURATE CREATININE CLEARANCE IN PREDICTING GLOMERULAR FILTRATION RATE . ESTIMATED GFR I S NOT APPLICABLE FOR DIALYSIS PATIEN TS. Interceptor Operator ID - MEHDI CBILIRUBIN, [id number] 09:19:00 Test Item Value Reference Range Interpretation Comments BILIRUBIN DIRECT (BEAKER) (test 0.2 mg/dL 0.1-0.5 code = 706) Interceptor Operator ID - MEHDI CPROTHROMBIN TIME/[id number] 09:08:00 Test Item Value Reference Range Interpretation Comments PROTIME (BEAKER) (test code = 13.1 seconds 11.9-14.2 759) INR (BEAKER) (test code = 370) 1.02 <=5.90 Effective 12/03/2018: PT Reference Range ChangeNew: 11.9-14.2 Previous: 11.7- 14.7RECOMMENDED COUMADIN/WARFARIN INR THERAPY RANGESSTANDARD DOSE: 2.0-3.0 Includes: PROPHYLAXIS for venous thrombosis, systemic embolization; TREATMENT for venous thrombosis and/or pulmonary embolus.HIGH RISK: Target INR is2.5-3.5 for patients wiht mechanical heart valves.CBC W/PLT COUNT & AUTO [id number] 08:58:00 Test Item Value Reference Range Interpretation Comments WHITE BLOOD CELL COUNT (BEAKER) 3.6 K/ L 3.5-10.5 (test code = 775) RED BLOOD CELL COUNT (BEAKER) 4.42 M/ L 3.93-5.22 (test code = 761) HEMOGLOBIN (BEAKER) (test code = 12.5 GM/DL 11.2-15.7 410) HEMATOCRIT (BEAKER) (test code = 38.9 % 34.1-44.9 411) MEAN CORPUSCULAR VOLUME (BEAKER) 88.0 fL 79.4-94.8 (test code = 753) MEAN CORPUSCULAR HEMOGLOBIN 28.3 pg 25.6-32.2 (BEAKER) (test code = 751) MEAN CORPUSCULAR HEMOGLOBIN CONC 32.1 GM/DL 32.2-35.5 L (BEAKER) (test code = 752) RED CELL DISTRIBUTION WIDTH 15.2 % 11.7-14.4 H (BEAKER) (test code = 412) PLATELET COUNT (BEAKER) (test 222 K/CU MM 150-450 code = 756) MEAN PLATELET VOLUME (BEAKER) 10.6 fL 9.4-12.3 (test code = 754) NUCLEATED RED BLOOD CELLS 0 /100 WBC 0-0 (BEAKER) (test code = 413) NEUTROPHILS RELATIVE PERCENT 64 % (BEAKER) (test code = 429) LYMPHOCYTES RELATIVE PERCENT 27 % (BEAKER) (test code = 430) MONOCYTES RELATIVE PERCENT 5 % (BEAKER) (test code = 431) EOSINOPHILS RELATIVE PERCENT 3 % (BEAKER) (test code = 432) BASOPHILS RELATIVE PERCENT 1 % (BEAKER) (test code = 437) NEUTROPHILS ABSOLUTE COUNT 2.30 K/ L 1.56-6.13 (BEAKER) (test code = 670) LYMPHOCYTES ABSOLUTE COUNT 0.97 K/ L 1.18-3.74 L (BEAKER) (test code = 414) MONOCYTES ABSOLUTE COUNT (BEAKER) 0.19 K/ L 0.24-0.36 L (test code = 415) EOSINOPHILS ABSOLUTE COUNT 0.10 K/ L 0.04-0.36 (BEAKER) (test code = 416) BASOPHILS ABSOLUTE COUNT (BEAKER) 0.02 K/ L 0.01-0.08 (test code = 417) IMMATURE GRANULOCYTES-RELATIVE 1 % 0-1 PERCENT (BEAKER) (test code = 2801) Blood [id number] 11:00:00 Test Item Value Reference Range Interpretation Comments Result (test code = No growth in 5 days 6463-4) [facility] [id number] 11:00:00 Test Item Value Reference Range Interpretation Comments CULTURE (BEAKER) (test No growth in 5 days code = 1095) BLOOD [id number] 11:00:00 Test Item Value Reference Range Interpretation Comments CULTURE (BEAKER) (test No growth in 5 days code = 1095) CMV PCR, [id number] 16:31:00 Test Item Value Reference Range Interpretation Comments CMV VIRAL LOAD - POSITIVE Se e Scanned Report (BEAKER) (test code = 1557) CMV VIRAL LOAD - NEGATIVE Se e Scanned Report (BEAKER) (test code = 2558) URINE [id number] 09:13:00 Test Item Value Reference Range Interpretation Comments CULTURE (BEAKER) (test KLEBSIELLA A 50-59 ,000 col/mL code = 1095) PNEUMONIAE Klebsiella pneumoniae Amikacin (test code = S 1) Ampicillin + Sulbactam S (test code = 6) Aztreonam (test code = S 32) Cefepime (test code = S 51) Cefoxitin (test code = S 68) Ceftazidime (test code S = 27) Ceftriaxone (test code S = 52) Ertapenem (test code = S 38) Gentamicin (test code = S 18) Levofloxacin (test code S = 22) Meropenem (test code = S 34) Nitrofurantoin (test I code = 23) Piperacillin + S Tazobactam (test code = 29) Tetracycline (test code S = 2) Tobramycin (test code = S 25) Trimethoprim + S Sulfamethoxazole (test code = 47) >100,000 col/mL skin floraSIROLIMUS [id number] 11:43:00 Test Item Value Reference Range Interpretation Comments SIROLIMUS LEVEL BLOOD (BEAKER) 8.9 ng/mL 5.0-15.0 (test code = 806) Interceptor Operator ID - AAHAMIDUrinalysis w/ [id number] 11:14:00 Test Item Value Reference Range Interpretation Comments Color, UA (test code Yellow = 5778-6) Clarity, UA (test Hazy code = 5767-9) Specific [place], UA 1.027 1.001-1.035 (test code = 5811-5) pH, UA (test code = 6.0 5.0-8.0 5803-2) Protein, UA (test 100 mg/dL Negative A code = 31214-2) Glucose, UA (test 100 mg/dL Negative A code = 365) Ketones, UA (test Negative Negative code = 2514-8) Bilirubin, UA (test Negative Negative code = 46658-4) Blood, UA (test code Trace Negative A = 61035-8) Nitrite, UA (test Negative Negative code = 5802-4) Leukocytes, UA (test Small Negative A code = 5799-2) Urobilinogen, UA 2.0 mg/dL 0.2-1 H (test code = 13205-1) RBC, UA (test code = 1 See_Comment [Autom ated 13866-6) message] The system which generated this result transmit niharika reference range : /HPF. The reference range was not used to interpret this result as normal/abnormal . WBC, UA (test code = 25 See_Comment [Autom ated 5821-4) message] The system which generated this result transmit niharika reference range : /HPF. The reference range was not used to interpret this result as normal/abnormal . Mucus (test code = Many 8247-9) Squam Epithel, UA 18 See_Comment [Automate d (test code = 89777-8) messag e] The system which generated this result transmit niharika reference range : /HPF. The reference range was not used to interpret this result as normal/abnormal . Amorphous Crystals Rare (test code = 27300-9) Specimen Source (test code = 2795) SIERRA (test code = SIERRA) Interceptor Operator ID - [auto]Interceptor Operator ID - tech Lab Interpretation Abnormal (test code = 70067-8) [facility]/ [id number] 11:14:00 Test Item Value Reference Range Interpretation Comments COLOR (BEAKER) (test code = 470) Yellow CLARITY (BEAKER) (test code = 469) Hazy SPECIFIC GRAVITY UA (BEAKER) (test 1.027 1.001-1.035 code = 468) PH UA (BEAKER) (test code = 467) 6.0 5.0-8.0 PROTEIN UA (BEAKER) (test code = 100 mg/dL Negative A 464) GLUCOSE UA (BEAKER) (test code = 100 mg/dL Negative A 365) KETONES UA (BEAKER) (test code = Negative Negative 371) BILIRUBIN UA (BEAKER) (test code = Negative Negative 462) BLOOD UA (BEAKER) (test code = 461) Trace Negative A NITRITE UA (BEAKER) (test code = Negative Negative 465) LEUKOCYTE ESTERASE UA (BEAKER) Small Negative A (test code = 466) UROBILINOGEN UA (BEAKER) (test code 2.0 mg/dL 0.2-1.0 H = 463) RBC UA (BEAKER) (test code = 519) 1 /HPF WBC UA (BEAKER) (test code = 520) 25 /HPF MUCUS (BEAKER) (test code = 1574) Many SQUAMOUS EPITHELIAL (BEAKER) (test 18 /HPF code = 516) AMORPHOUS CRYSTALS (BEAKER) (test Rare code = 1584) SOURCE(BEAKER) (test code = 2795) Interceptor Operator ID - [auto]Interceptor Operator ID - [id number] 11:05:00 Test Item Value Reference Range Interpretation Comments MAGNESIUM (BEAKER) 1.9 mg/dL 1.6-2.6 Specimen slightly (test code = 627) hemolyzed Interceptor Operator ID - MEHDI [id number] 11:05:00 Test Item Value Reference Range Interpretation Comments PHOSPHORUS (BEAKER) 3.2 mg/dL 2.3-4.7 Specimen slightly (test code = 604) hemolyzed Interceptor Operator ID - MEHDI CCOMPREHENSIVE METABOLIC [id number] 11:05:00 Test Item Value Reference Range Interpretation Comments TOTAL PROTEIN 7.6 gm/dL 6.0-8.3 Specimen sligh tly (BEAKER) (test code = hemoly zed 770) ALBUMIN (BEAKER) 4.6 g/dL 3.5-5.0 Specimen sl ightly (test code = 1145) hemolyzed ALKALINE PHOSPHATASE 78 U/L 40-150 (BEAKER) (test code = 346) BILIRUBIN TOTAL 0.6 mg/dL 0.2-1.2 Specimen sli ghtly (BEAKER) (test code = hemoly zed 377) SODIUM (BEAKER) (test 137 meq/L 136-145 code = 381) POTASSIUM (BEAKER) 4.0 meq/L 3.5-5.1 Specimen slightly (test code = 379) hemolyzed CHLORIDE (BEAKER) 104 meq/L 98-107 (test code = 382) CO2 (BEAKER) (test 24 meq/L 22-29 code = 355) BLOOD UREA NITROGEN 16 mg/dL 7-21 (BEAKER) (test code = 354) CREATININE (BEAKER) 0.97 mg/dL 0.57-1.25 Specimen slightly (test code = 358) hemolyzed GLUCOSE RANDOM 173 mg/dL 70-105 H (BEAKER) (test code = 652) CALCIUM (BEAKER) 9.4 mg/dL 8.4-10.2 (test code = 697) AST (SGOT) (BEAKER) 58 U/L 5-34 H Specimen slightly (test code = 353) hemolyzed ALT (SGPT) (BEAKER) 117 U/L 6-55 H Specimen slightly (test code = 347) hemolyzed EGFR (BEAKER) (test 59 mL/min/1.73 ESTIMA NIHARIKA GFR IS code = 1092) sq m NOT ACCURATE CREATININE CLEARANCE IN PREDICTING GLOMERULAR FILTRATION RATE . ESTIMATED GFR I S NOT APPLICABLE FOR DIALYSIS PATIEN TS. Interceptor Operator ID - MEHDI CBILIRUBIN, [id number] 11:05:00 Test Item Value Reference Range Interpretation Comments BILIRUBIN DIRECT 0.2 mg/dL 0.1-0.5 Specimen sl ightly (BEAKER) (test code = hemoly zed 706) Interceptor Operator ID - MEHDI CCBC W/PLT COUNT & AUTO [id number] 10:29:00 Test Item Value Reference Range Interpretation Comments WHITE BLOOD CELL COUNT (BEAKER) 4.0 K/ L 3.5-10.5 (test code = 775) RED BLOOD CELL COUNT (BEAKER) 4.88 M/ L 3.93-5.22 (test code = 761) HEMOGLOBIN (BEAKER) (test code = 13.4 GM/DL 11.2-15.7 410) HEMATOCRIT (BEAKER) (test code = 42.2 % 34.1-44.9 411) MEAN CORPUSCULAR VOLUME (BEAKER) 86.5 fL 79.4-94.8 (test code = 753) MEAN CORPUSCULAR HEMOGLOBIN 27.5 pg 25.6-32.2 (BEAKER) (test code = 751) MEAN CORPUSCULAR HEMOGLOBIN CONC 31.8 GM/DL 32.2-35.5 L (BEAKER) (test code = 752) RED CELL DISTRIBUTION WIDTH 14.9 % 11.7-14.4 H (BEAKER) (test code = 412) PLATELET COUNT (BEAKER) (test 213 K/CU MM 150-450 code = 756) MEAN PLATELET VOLUME (BEAKER) 10.2 fL 9.4-12.3 (test code = 754) NUCLEATED RED BLOOD CELLS 0 /100 WBC 0-0 (BEAKER) (test code = 413) NEUTROPHILS RELATIVE PERCENT 67 % (BEAKER) (test code = 429) LYMPHOCYTES RELATIVE PERCENT 24 % (BEAKER) (test code = 430) MONOCYTES RELATIVE PERCENT 6 % (BEAKER) (test code = 431) EOSINOPHILS RELATIVE PERCENT 2 % (BEAKER) (test code = 432) BASOPHILS RELATIVE PERCENT 1 % (BEAKER) (test code = 437) NEUTROPHILS ABSOLUTE COUNT 2.68 K/ L 1.56-6.13 (BEAKER) (test code = 670) LYMPHOCYTES ABSOLUTE COUNT 0.96 K/ L 1.18-3.74 L (BEAKER) (test code = 414) MONOCYTES ABSOLUTE COUNT (BEAKER) 0.24 K/ L 0.24-0.36 (test code = 415) EOSINOPHILS ABSOLUTE COUNT 0.08 K/ L 0.04-0.36 (BEAKER) (test code = 416) BASOPHILS ABSOLUTE COUNT (BEAKER) 0.02 K/ L 0.01-0.08 (test code = 417) IMMATURE GRANULOCYTES-RELATIVE 1 % 0-1 PERCENT (BEAKER) (test code = 2801) SIROLIMUS [id number] 13:09:00 Test Item Value Reference Range Interpretation Comments SIROLIMUS LEVEL BLOOD (BEAKER) 9.4 ng/mL 5.0-15.0 (test code = 806) Interceptor Operator ID - [id number] 10:38:00 Test Item Value Reference Range Interpretation Comments PHOSPHORUS (BEAKER) (test code = 3.3 mg/dL 2.3-4.7 604) Interceptor Operator ID - MEHDI [id number] 10:38:00 Test Item Value Reference Range Interpretation Comments MAGNESIUM (BEAKER) (test code = 2.0 mg/dL 1.6-2.6 627) Interceptor Operator ID - MEHDI CCOMPREHENSIVE METABOLIC [id number] 10:38:00 Test Item Value Reference Range Interpretation Comments TOTAL PROTEIN 7.2 gm/dL 6.0-8.3 (BEAKER) (test code = 770) ALBUMIN (BEAKER) 4.5 g/dL 3.5-5.0 (test code = 1145) ALKALINE PHOSPHATASE 78 U/L 40-150 (BEAKER) (test code = 346) BILIRUBIN TOTAL 0.7 mg/dL 0.2-1.2 (BEAKER) (test code = 377) SODIUM (BEAKER) (test 138 meq/L 136-145 code = 381) POTASSIUM (BEAKER) 4.2 meq/L 3.5-5.1 (test code = 379) CHLORIDE (BEAKER) 101 meq/L 98-107 (test code = 382) CO2 (BEAKER) (test 28 meq/L 22-29 code = 355) BLOOD UREA NITROGEN 19 mg/dL 7-21 (BEAKER) (test code = 354) CREATININE (BEAKER) 1.04 mg/dL 0.57-1.25 (test code = 358) GLUCOSE RANDOM 185 mg/dL 70-105 H (BEAKER) (test code = 652) CALCIUM (BEAKER) 9.8 mg/dL 8.4-10.2 (test code = 697) AST (SGOT) (BEAKER) 59 U/L 5-34 H (test code = 353) ALT (SGPT) (BEAKER) 124 U/L 6-55 H (test code = 347) EGFR (BEAKER) (test 54 mL/min/1.73 ESTIMA NIHARIKA GFR IS code = 1092) sq m NOT ACCURATE CREATININE CLEARANCE IN PREDICTING GLOMERULAR FILTRATION RATE . ESTIMATED GFR I S NOT APPLICABLE FOR DIALYSIS PATIEN TS. Interceptor Operator ID - MEHDI CBILIRUBIN, [id number] 10:38:00 Test Item Value Reference Range Interpretation Comments BILIRUBIN DIRECT (BEAKER) (test 0.3 mg/dL 0.1-0.5 code = 706) Interceptor Operator ID - MEHDI CCBC W/PLT COUNT & AUTO [id number] 10:23:00 Test Item Value Reference Range Interpretation Comments WHITE BLOOD CELL COUNT (BEAKER) 5.0 K/ L 3.5-10.5 (test code = 775) RED BLOOD CELL COUNT (BEAKER) 4.68 M/ L 3.93-5.22 (test code = 761) HEMOGLOBIN (BEAKER) (test code = 12.9 GM/DL 11.2-15.7 410) HEMATOCRIT (BEAKER) (test code = 40.7 % 34.1-44.9 411) MEAN CORPUSCULAR VOLUME (BEAKER) 87.0 fL 79.4-94.8 (test code = 753) MEAN CORPUSCULAR HEMOGLOBIN 27.6 pg 25.6-32.2 (BEAKER) (test code = 751) MEAN CORPUSCULAR HEMOGLOBIN CONC 31.7 GM/DL 32.2-35.5 L (BEAKER) (test code = 752) RED CELL DISTRIBUTION WIDTH 15.1 % 11.7-14.4 H (BEAKER) (test code = 412) PLATELET COUNT (BEAKER) (test 227 K/CU MM 150-450 code = 756) MEAN PLATELET VOLUME (BEAKER) 10.3 fL 9.4-12.3 (test code = 754) NUCLEATED RED BLOOD CELLS 0 /100 WBC 0-0 (BEAKER) (test code = 413) NEUTROPHILS RELATIVE PERCENT 71 % (BEAKER) (test code = 429) LYMPHOCYTES RELATIVE PERCENT 20 % (BEAKER) (test code = 430) MONOCYTES RELATIVE PERCENT 7 % (BEAKER) (test code = 431) EOSINOPHILS RELATIVE PERCENT 2 % (BEAKER) (test code = 432) BASOPHILS RELATIVE PERCENT 0 % (BEAKER) (test code = 437) NEUTROPHILS ABSOLUTE COUNT 3.50 K/ L 1.56-6.13 (BEAKER) (test code = 670) LYMPHOCYTES ABSOLUTE COUNT 1.00 K/ L 1.18-3.74 L (BEAKER) (test code = 414) MONOCYTES ABSOLUTE COUNT (BEAKER) 0.32 K/ L 0.24-0.36 (test code = 415) EOSINOPHILS ABSOLUTE COUNT 0.08 K/ L 0.04-0.36 (BEAKER) (test code = 416) BASOPHILS ABSOLUTE COUNT (BEAKER) 0.02 K/ L 0.01-0.08 (test code = 417) IMMATURE GRANULOCYTES-RELATIVE 1 % 0-1 PERCENT (BEAKER) (test code = 2801) SIROLIMUS [id number] 12:19:00 Test Item Value Reference Range Interpretation Comments SIROLIMUS LEVEL BLOOD (BEAKER) 7.3 ng/mL 5.0-15.0 (test code = 806) Interceptor Operator ID - [id number] 11:38:00 Test Item Value Reference Range Interpretation Comments PHOSPHORUS (BEAKER) (test code = 3.3 mg/dL 2.3-4.7 604) Interceptor Operator ID - [id number] 11:38:00 Test Item Value Reference Range Interpretation Comments MAGNESIUM (BEAKER) (test code = 2.0 mg/dL 1.6-2.6 627) Interceptor Operator ID - DBCOMPREHENSIVE METABOLIC [id number] 11:38:00 Test Item Value Reference Range Interpretation Comments TOTAL PROTEIN 6.9 gm/dL 6.0-8.3 (BEAKER) (test code = 770) ALBUMIN (BEAKER) 4.3 g/dL 3.5-5.0 (test code = 1145) ALKALINE PHOSPHATASE 72 U/L 40-150 (BEAKER) (test code = 346) BILIRUBIN TOTAL 0.6 mg/dL 0.2-1.2 (BEAKER) (test code = 377) SODIUM (BEAKER) (test 141 meq/L 136-145 code = 381) POTASSIUM (BEAKER) 3.5 meq/L 3.5-5.1 (test code = 379) CHLORIDE (BEAKER) 107 meq/L 98-107 (test code = 382) CO2 (BEAKER) (test 27 meq/L 22-29 code = 355) BLOOD UREA NITROGEN 17 mg/dL 7-21 (BEAKER) (test code = 354) CREATININE (BEAKER) 0.90 mg/dL 0.57-1.25 (test code = 358) GLUCOSE RANDOM 162 mg/dL 70-105 H (BEAKER) (test code = 652) CALCIUM (BEAKER) 9.4 mg/dL 8.4-10.2 (test code = 697) AST (SGOT) (BEAKER) 54 U/L 5-34 H (test code = 353) ALT (SGPT) (BEAKER) 115 U/L 6-55 H (test code = 347) EGFR (BEAKER) (test 64 mL/min/1.73 ESTIMA NIHARIKA GFR IS code = 1092) sq m NOT ACCURATE CREATININE CLEARANCE IN PREDICTING GLOMERULAR FILTRATION RATE . ESTIMATED GFR I S NOT APPLICABLE FOR DIALYSIS PATIEN TS. Interceptor Operator ID - DBBILIRUBIN, [id number] 11:38:00 Test Item Value Reference Range Interpretation Comments BILIRUBIN DIRECT (BEAKER) (test 0.2 mg/dL 0.1-0.5 code = 706) Interceptor Operator ID - DBCBC W/PLT COUNT & AUTO [id number] 11:02:00 Test Item Value Reference Range Interpretation Comments WHITE BLOOD CELL COUNT (BEAKER) 4.2 K/ L 3.5-10.5 (test code = 775) RED BLOOD CELL COUNT (BEAKER) 4.63 M/ L 3.93-5.22 (test code = 761) HEMOGLOBIN (BEAKER) (test code = 12.9 GM/DL 11.2-15.7 410) HEMATOCRIT (BEAKER) (test code = 40.8 % 34.1-44.9 411) MEAN CORPUSCULAR VOLUME (BEAKER) 88.1 fL 79.4-94.8 (test code = 753) MEAN CORPUSCULAR HEMOGLOBIN 27.9 pg 25.6-32.2 (BEAKER) (test code = 751) MEAN CORPUSCULAR HEMOGLOBIN CONC 31.6 GM/DL 32.2-35.5 L (BEAKER) (test code = 752) RED CELL DISTRIBUTION WIDTH 15.2 % 11.7-14.4 H (BEAKER) (test code = 412) PLATELET COUNT (BEAKER) (test 206 K/CU MM 150-450 code = 756) MEAN PLATELET VOLUME (BEAKER) 10.3 fL 9.4-12.3 (test code = 754) NUCLEATED RED BLOOD CELLS 0 /100 WBC 0-0 (BEAKER) (test code = 413) NEUTROPHILS RELATIVE PERCENT 65 % (BEAKER) (test code = 429) LYMPHOCYTES RELATIVE PERCENT 26 % (BEAKER) (test code = 430) MONOCYTES RELATIVE PERCENT 6 % (BEAKER) (test code = 431) EOSINOPHILS RELATIVE PERCENT 2 % (BEAKER) (test code = 432) BASOPHILS RELATIVE PERCENT 1 % (BEAKER) (test code = 437) NEUTROPHILS ABSOLUTE COUNT 2.72 K/ L 1.56-6.13 (BEAKER) (test code = 670) LYMPHOCYTES ABSOLUTE COUNT 1.11 K/ L 1.18-3.74 L (BEAKER) (test code = 414) MONOCYTES ABSOLUTE COUNT (BEAKER) 0.25 K/ L 0.24-0.36 (test code = 415) EOSINOPHILS ABSOLUTE COUNT 0.07 K/ L 0.04-0.36 (BEAKER) (test code = 416) BASOPHILS ABSOLUTE COUNT (BEAKER) 0.03 K/ L 0.01-0.08 (test code = 417) IMMATURE GRANULOCYTES-RELATIVE 1 % 0-1 PERCENT (BEAKER) (test code = 2801) S[facility] [id number] 10:46:00 Test Item Value Reference Range Interpretation Comments SIROLIMUS LEVEL BLOOD (BEAKER) 7.7 ng/mL 5.0-15.0 (test code = 806) Interceptor Operator ID - [id number] 09:17:00 Test Item Value Reference Range Interpretation Comments PHOSPHORUS (BEAKER) (test code = 3.1 mg/dL 2.3-4.7 604) Interceptor Operator ID - RICARDO [id number] 09:17:00 Test Item Value Reference Range Interpretation Comments MAGNESIUM (BEAKER) (test code = 1.9 mg/dL 1.6-2.6 627) Interceptor Operator ID - RICARDO FCOMPREHENSIVE METABOLIC [id number] 09:17:00 Test Item Value Reference Range Interpretation Comments TOTAL PROTEIN 7.0 gm/dL 6.0-8.3 (BEAKER) (test code = 770) ALBUMIN (BEAKER) 4.4 g/dL 3.5-5.0 (test code = 1145) ALKALINE PHOSPHATASE 72 U/L 40-150 (BEAKER) (test code = 346) BILIRUBIN TOTAL 0.7 mg/dL 0.2-1.2 (BEAKER) (test code = 377) SODIUM (BEAKER) (test 140 meq/L 136-145 code = 381) POTASSIUM (BEAKER) 3.7 meq/L 3.5-5.1 (test code = 379) CHLORIDE (BEAKER) 106 meq/L 98-107 (test code = 382) CO2 (BEAKER) (test 28 meq/L 22-29 code = 355) BLOOD UREA NITROGEN 20 mg/dL 7-21 (BEAKER) (test code = 354) CREATININE (BEAKER) 0.99 mg/dL 0.57-1.25 (test code = 358) GLUCOSE RANDOM 149 mg/dL 70-105 H (BEAKER) (test code = 652) CALCIUM (BEAKER) 9.7 mg/dL 8.4-10.2 (test code = 697) AST (SGOT) (BEAKER) 30 U/L 5-34 (test code = 353) ALT (SGPT) (BEAKER) 67 U/L 6-55 H (test code = 347) EGFR (BEAKER) (test 58 mL/min/1.73 ESTIMA NIHARIKA GFR IS code = 1092) sq m NOT ACCURATE CREATININE CLEARANCE IN PREDICTING GLOMERULAR FILTRATION RATE . ESTIMATED GFR I S NOT APPLICABLE FOR DIALYSIS PATIEN TS. Interceptor Operator ID Kaylin SILVA FBILIRUBIN, [id number] 09:17:00 Test Item Value Reference Range Interpretation Comments BILIRUBIN DIRECT (BEAKER) (test 0.2 mg/dL 0.1-0.5 code = 706) Interceptor Operator ID Kaylin SILVA FCBC W/PLT COUNT & AUTO [id number] 08:51:00 Test Item Value Reference Range Interpretation Comments WHITE BLOOD CELL COUNT (BEAKER) 3.9 K/ L 3.5-10.5 (test code = 775) RED BLOOD CELL COUNT (BEAKER) 4.51 M/ L 3.93-5.22 (test code = 761) HEMOGLOBIN (BEAKER) (test code = 12.6 GM/DL 11.2-15.7 410) HEMATOCRIT (BEAKER) (test code = 38.9 % 34.1-44.9 411) MEAN CORPUSCULAR VOLUME (BEAKER) 86.3 fL 79.4-94.8 (test code = 753) MEAN CORPUSCULAR HEMOGLOBIN 27.9 pg 25.6-32.2 (BEAKER) (test code = 751) MEAN CORPUSCULAR HEMOGLOBIN CONC 32.4 GM/DL 32.2-35.5 (BEAKER) (test code = 752) RED CELL DISTRIBUTION WIDTH 15.6 % 11.7-14.4 H (BEAKER) (test code = 412) PLATELET COUNT (BEAKER) (test 195 K/CU MM 150-450 code = 756) MEAN PLATELET VOLUME (BEAKER) 10.2 fL 9.4-12.3 (test code = 754) NUCLEATED RED BLOOD CELLS 0 /100 WBC 0-0 (BEAKER) (test code = 413) NEUTROPHILS RELATIVE PERCENT 62 % (BEAKER) (test code = 429) LYMPHOCYTES RELATIVE PERCENT 27 % (BEAKER) (test code = 430) MONOCYTES RELATIVE PERCENT 7 % (BEAKER) (test code = 431) EOSINOPHILS RELATIVE PERCENT 2 % (BEAKER) (test code = 432) BASOPHILS RELATIVE PERCENT 1 % (BEAKER) (test code = 437) NEUTROPHILS ABSOLUTE COUNT 2.44 K/ L 1.56-6.13 (BEAKER) (test code = 670) LYMPHOCYTES ABSOLUTE COUNT 1.07 K/ L 1.18-3.74 L (BEAKER) (test code = 414) MONOCYTES ABSOLUTE COUNT (BEAKER) 0.27 K/ L 0.24-0.36 (test code = 415) EOSINOPHILS ABSOLUTE COUNT 0.07 K/ L 0.04-0.36 (BEAKER) (test code = 416) BASOPHILS ABSOLUTE COUNT (BEAKER) 0.04 K/ L 0.01-0.08 (test code = 417) IMMATURE GRANULOCYTES-RELATIVE 1 % 0-1 PERCENT (BEAKER) (test code = 2801) TISSUE [id number] 08:35:00Surgical Pathology Report Case: [id number] Authorizing Provider: Krista Pineda MD Collected: 06/22/2019 0954 Ordering Location: [facility] Received: 06/22/2019 1156 SERVICES Pathologist: Shellie Gallardo MD Specimens: A) - Biopsy, Gastric, TAKEN BY LARGE FRCP B) -Polyp, Colon - Rectum, TAKEN BY LARGE FRCP A. GASTRIC, RANDOM BIOPSY: - GASTRIC BODY TYPE MUCOSA WITH NO SIGNIFICANT HISOPATHOLOGICAL CHANGE - GASTRIC ANTRUM TYPE MUCOSA WITH REACTIVE GASTROPATHY - WARTHIN- STARRY STAIN NEGATIVE FOR H. PYLORI-LIKE ORGANISMSB. RECTUM POLYP, LARGE FORCEPS BIOPSY: - HYPERPLASTIC POLYP WITH MUCIPHAGES AT THE LAMINA PROPRIA - N EGATIVE FOR DYSPLASIASJ/pl Signing Pathologist Direct Phone Line: [phone] signed by Shellie Gallardo MD on 06/24/2019 at 8:35 AMEndoscopic report reviewed. [id number] x2; [id number] l1Mgxmuzdneekron: Screen for colon cancer, reflux esophagitis, epigastric abdominal pain A. Gastric biopsy; B. Rectum colon polypA. Received in formalin labeled with the patient's name, accession number and "gastric biopsy" are three andrews-pink tissue fragments measuring up to 0.3 cm in greatest dimension which are filtered and submitted in toto in A1. B. Received in formalin labeled with the patient's name,accession number and "rectum colon polyp" is a 0.2 x 0.2 x 0.2 cm andrews-pink tissue fragment which is filtered and submitted in toto in B1. PA/pl Preop diagnosis: The interpretation of this case included the use of immunohistochemistry or special stains.Control Slides Examined: In-house known positive controls were evaluated along with the test tissue. These control slides run alongside of the patients sample show appropriate staining. Internal positive and negative controls when available are evaluated Immunohistochemistry technical testing was performed at [facility], Pathology Laboratory where it was developed and its performance characteristics were determined. It has not been cleared or approved by the U.S. Food and Drug Administration. The FDA has determined that such clearance or approval is not necessary. The test is used for clinical purposes. It should not be regarded as investigational or for research. This laboratory is certified under the Clinical LaboratoryImprovement Amendments of 1988 (CLIA-88) as qualified to perform high complexity clinical laboratory testing.SIR[facility] [id number] 12:41:00 Test Item Value Reference Range Interpretation Comments SIROLIMUS LEVEL BLOOD (BEAKER) 7.7 ng/mL 5.0-15.0 (test code = 806) Outpatient standing lab [id number] 11:29:00 Test Item Value Reference Range Interpretation Comments PHOSPHORUS (BEAKER) (test code = 3.5 mg/dL 2.3-4.7 604) Outpatient standing lab ordersOutpatient standing lab ordersOutpatient standing lab ordersOutpatientstanding lab [id number] 11:29:00 Test Item Value Reference Range Interpretation Comments MAGNESIUM (BEAKER) (test code = 1.9 mg/dL 1.6-2.6 627) Outpatient standing lab ordersOutpatient standing lab ordersOutpatient standing lab ordersOutpatientstanding lab ordersCOMPREHENSIVE METABOLIC [id number] 11:29:00 Test Item Value Reference Range Interpretation Comments TOTAL PROTEIN 6.8 gm/dL 6.0-8.3 (BEAKER) (test code = 770) ALBUMIN (BEAKER) 4.2 g/dL 3.5-5.0 (test code = 1145) ALKALINE PHOSPHATASE 74 U/L 40-150 (BEAKER) (test code = 346) BILIRUBIN TOTAL 0.7 mg/dL 0.2-1.2 (BEAKER) (test code = 377) SODIUM (BEAKER) (test 140 meq/L 136-145 code = 381) POTASSIUM (BEAKER) 4.1 meq/L 3.5-5.1 (test code = 379) CHLORIDE (BEAKER) 104 meq/L 98-107 (test code = 382) CO2 (BEAKER) (test 29 meq/L 22-29 code = 355) BLOOD UREA NITROGEN 17 mg/dL 7-21 (BEAKER) (test code = 354) CREATININE (BEAKER) 0.82 mg/dL 0.57-1.25 (test code = 358) GLUCOSE RANDOM 130 mg/dL 70-105 H (BEAKER) (test code = 652) CALCIUM (BEAKER) 9.6 mg/dL 8.4-10.2 (test code = 697) AST (SGOT) (BEAKER) 34 U/L 5-34 (test code = 353) ALT (SGPT) (BEAKER) 70 U/L 6-55 H (test code = 347) EGFR (BEAKER) (test 72 mL/min/1.73 ESTIMA NIHARIKA GFR IS code = 1092) sq m NOT ACCURATE CREATININE CLEARANCE IN PREDICTING GLOMERULAR FILTRATION RATE . ESTIMATED GFR I S NOT APPLICABLE FOR DIALYSIS PATIEN TS. Outpatient standing lab ordersOutpatient standing lab ordersOutpatient standing lab ordersOutpatientstanding lab ordersBILIRUBIN, [id number] 11:29:00 Test Item Value Reference Range Interpretation Comments BILIRUBIN DIRECT (BEAKER) (test 0.2 mg/dL 0.1-0.5 code = 706) Outpatient standing lab ordersOutpatient standing lab ordersOutpatient standing lab ordersOutpatientstanding lab ordersCBC W/PLT COUNT & AUTO DIFFERENTIAL 2019-06-19 11:08:00 Test Item Value Reference Range Interpretation Comments WHITE BLOOD CELL COUNT (BEAKER) 4.3 K/ L 3.5-10.5 (test code = 775) RED BLOOD CELL COUNT (BEAKER) 4.35 M/ L 3.93-5.22 (test code = 761) HEMOGLOBIN (BEAKER) (test code = 11.7 GM/DL 11.2-15.7 410) HEMATOCRIT (BEAKER) (test code = 37.8 % 34.1-44.9 411) MEAN CORPUSCULAR VOLUME (BEAKER) 86.9 fL 79.4-94.8 (test code = 753) MEAN CORPUSCULAR HEMOGLOBIN 26.9 pg 25.6-32.2 (BEAKER) (test code = 751) MEAN CORPUSCULAR HEMOGLOBIN CONC 31.0 GM/DL 32.2-35.5 L (BEAKER) (test code = 752) RED CELL DISTRIBUTION WIDTH 15.6 % 11.7-14.4 H (BEAKER) (test code = 412) PLATELET COUNT (BEAKER) (test 215 K/CU MM 150-450 code = 756) MEAN PLATELET VOLUME (BEAKER) 10.6 fL 9.4-12.3 (test code = 754) NUCLEATED RED BLOOD CELLS 0 /100 WBC 0-0 (BEAKER) (test code = 413) NEUTROPHILS RELATIVE PERCENT 70 % (BEAKER) (test code = 429) LYMPHOCYTES RELATIVE PERCENT 21 % (BEAKER) (test code = 430) MONOCYTES RELATIVE PERCENT 6 % (BEAKER) (test code = 431) EOSINOPHILS RELATIVE PERCENT 2 % (BEAKER) (test code = 432) BASOPHILS RELATIVE PERCENT 1 % (BEAKER) (test code = 437) NEUTROPHILS ABSOLUTE COUNT 3.02 K/ L 1.56-6.13 (BEAKER) (test code = 670) LYMPHOCYTES ABSOLUTE COUNT 0.90 K/ L 1.18-3.74 L (BEAKER) (test code = 414) MONOCYTES ABSOLUTE COUNT (BEAKER) 0.26 K/ L 0.24-0.36 (test code = 415) EOSINOPHILS ABSOLUTE COUNT 0.08 K/ L 0.04-0.36 (BEAKER) (test code = 416) BASOPHILS ABSOLUTE COUNT (BEAKER) 0.03 K/ L 0.01-0.08 (test code = 417) IMMATURE GRANULOCYTES-RELATIVE 1 % 0-1 PERCENT (CONNIEAKER) (test code = 2801) U/S, ABDOMINAL, WITH [id number] 13:09:00Doppler Study to evaluate Hepatic vesselsAnnual Dr. Aleman for Exam:->history liver transplantFINAL REPORT TECHNIQUE: Grayscale ultrasound of the abdomen with color Doppler and spectral Doppler ultrasound of the portal/hepatic vasculature. INDICATION: history liver transplant. COMPARISON: Ultrasound from 01/27/2018. FINDINGS: LIVER: Increased echogenicity. The liver is enlarged at 18.3 cm and right hepatic lobe length. Smooth liver contour. No focal liver lesions. HEPATIC VASCULATURE: Portal veins are patent with normal waveform and directionality. Flow velocity in themain portal vein is within normal limits. The hepatic arteries are patent with normal flow velocities, resistive indices, and waveforms. The hepatic veins and confluence are patent. The main portal vein measures 1.4 cm. The hepatic arterial resistive indices range from 0.6-0.7 with a proper hepatic arterial acceleration time of 0.02 seconds. BILIARY:Gallbladder: Surgically absentCommon bile duct measures 0.7 cm, within normal limits. No intrahepatic biliary ductal dilatation. PANCREAS: Not well visualized due to overlying bowel gas. SPLEEN: No splenomegaly. The spleen measures 11.7 cm in length. PERITONEUM: No free fluid. KIDNEYS: Normal in size bilaterally. No hydronephrosis. No sonographically evident solid mass lesion. MIDLINE VASCULATURE: The visualized inferior vena cava is patent. The maximum visualized aortic diameter is 2.5 cm. Splenic artery and vein are patent. IMPRESSION: 1.Hepatomegaly with diffuse fatty infiltration of the liver. 2.The transplant vasculature is patent. Signed: Nash Yip MDReport Verified Date/Time: 04/16/2019 13:09:48 Reading Location: [address] SIROLIMUS [id number] 12:49:00 Test Item Value Reference Range Interpretation Comments SIROLIMUS LEVEL BLOOD (KAE) 8.9 ng/mL 5.0-15.0 (test code = 806) Annual Dr. [id number] 10:52:00 Test Item Value Reference Range Interpretation Comments PHOSPHORUS (BEAKER) (test code = 3.3 mg/dL 2.3-4.7 604) Annual Dr. Jennifer [id number] 10:52:00 Test Item Value Reference Range Interpretation Comments MAGNESIUM (BEAKER) (test code = 1.9 mg/dL 1.6-2.6 627) Annual Dr. Jennifer TopeteriCOMPREHENSIVE METABOLIC [id number] 10:52:00 Test Item Value Reference Range Interpretation Comments TOTAL PROTEIN 7.0 gm/dL 6.0-8.3 (BEAKER) (test code = 770) ALBUMIN (BEAKER) 4.4 g/dL 3.5-5.0 (test code = 1145) ALKALINE PHOSPHATASE 81 U/L 40-150 (BEAKER) (test code = 346) BILIRUBIN TOTAL 0.5 mg/dL 0.2-1.2 (BEAKER) (test code = 377) SODIUM (BEAKER) (test 141 meq/L 136-145 code = 381) POTASSIUM (BEAKER) 4.1 meq/L 3.5-5.1 (test code = 379) CHLORIDE (BEAKER) 107 meq/L 98-107 (test code = 382) CO2 (BEAKER) (test 28 meq/L 22-29 code = 355) BLOOD UREA NITROGEN 21 mg/dL 7-21 (BEAKER) (test code = 354) CREATININE (BEAKER) 0.92 mg/dL 0.57-1.25 (test code = 358) GLUCOSE RANDOM 131 mg/dL 70-105 H (BEAKER) (test code = 652) CALCIUM (BEAKER) 9.2 mg/dL 8.4-10.2 (test code = 697) AST (SGOT) (BEAKER) 44 U/L 5-34 H (test code = 353) ALT (SGPT) (BEAKER) 91 U/L 6-55 H (test code = 347) EGFR (BEAKER) (test 63 mL/min/1.73 ESTIMA NIHARIKA GFR IS code = 1092) sq m NOT ACCURATE CREATININE CLEARANCE IN PREDICTING GLOMERULAR FILTRATION RATE . ESTIMATED GFR I S NOT APPLICABLE FOR DIALYSIS PATIEN TS. Annual Dr. Jennifer HansonLIPID [id number] 10:52:00 Test Item Value Reference Range Interpretation Comments TRIGLYCERIDES (BEAKER) (test code = 219 mg/dL 540) CHOLESTEROL (BEAKER) (test code = 215 mg/dL 631) HDL CHOLESTEROL (BEAKER) (test code 40 mg/dL = 976) LDL CHOLESTEROL CALCULATED (BEAKER) 131 mg/dL (test code = 633) Triglyceride Reference Range: Low Risk <150 Borderline 150-199 High Risk 200-499 Very High Risk >=500Cholesterol Reference Range: Low Risk <200 Borderline 200-239 High Risk >240HDL Cholesterol Reference Range: Low Risk >=60 High Risk <40LDL Cholesterol Reference Range: Optimal <100 Near Optimal 100-129 Borderline 130-159 High 160-189 Very High >=[address] Jennifer HansonBILIRUBIN, [id number] 10:52:00 Test Item Value Reference Range Interpretation Comments BILIRUBIN DIRECT (BEAKER) (test 0.2 mg/dL 0.1-0.5 code = 706) Annual Dr. Jennifer MccollumaderiCBC W/PLT COUNT & AUTO [id number] 10:32:00 Test Item Value Reference Range Interpretation Comments WHITE BLOOD CELL COUNT (BEAKER) 4.6 K/ L 3.5-10.5 (test code = 775) RED BLOOD CELL COUNT (BEAKER) 4.37 M/ L 3.93-5.22 (test code = 761) HEMOGLOBIN (BEAKER) (test code = 12.0 GM/DL 11.2-15.7 410) HEMATOCRIT (BEAKER) (test code = 38.3 % 34.1-44.9 411) MEAN CORPUSCULAR VOLUME (BEAKER) 87.6 fL 79.4-94.8 (test code = 753) MEAN CORPUSCULAR HEMOGLOBIN 27.5 pg 25.6-32.2 (BEAKER) (test code = 751) MEAN CORPUSCULAR HEMOGLOBIN CONC 31.3 GM/DL 32.2-35.5 L (BEAKER) (test code = 752) RED CELL DISTRIBUTION WIDTH 15.6 % 11.7-14.4 H (BEAKER) (test code = 412) PLATELET COUNT (BEAKER) (test 193 K/CU MM 150-450 code = 756) MEAN PLATELET VOLUME (BEAKER) 10.0 fL 9.4-12.3 (test code = 754) NUCLEATED RED BLOOD CELLS 0 /100 WBC 0-0 (BEAKER) (test code = 413) NEUTROPHILS RELATIVE PERCENT 71 % (BEAKER) (test code = 429) LYMPHOCYTES RELATIVE PERCENT 20 % (BEAKER) (test code = 430) MONOCYTES RELATIVE PERCENT 6 % (BEAKER) (test code = 431) EOSINOPHILS RELATIVE PERCENT 2 % (BEAKER) (test code = 432) BASOPHILS RELATIVE PERCENT 1 % (BEAKER) (test code = 437) NEUTROPHILS ABSOLUTE COUNT 3.23 K/ L 1.56-6.13 (BEAKER) (test code = 670) LYMPHOCYTES ABSOLUTE COUNT 0.90 K/ L 1.18-3.74 L (BEAKER) (test code = 414) MONOCYTES ABSOLUTE COUNT (BEAKER) 0.29 K/ L 0.24-0.36 (test code = 415) EOSINOPHILS ABSOLUTE COUNT 0.08 K/ L 0.04-0.36 (BEAKER) (test code = 416) BASOPHILS ABSOLUTE COUNT (BEAKER) 0.03 K/ L 0.01-0.08 (test code = 417) IMMATURE GRANULOCYTES-RELATIVE 0 % 0-1 PERCENT (BEAKER) (test code = 2801) RAD, CHEST, 2 [id number] 09:53:00PA and Lateral for Liver TransplantAnnual Dr. Aleman for Exam:->history liver transplantFINAL REPORT Comparison exam: 01/27/2018 History provided: Liver transplant CHEST PA AND LATERAL: Normal cardiomediastinal silhouette. Lungs are fully expanded and clear. CONCLUSION: Normal two-view chest examination. Signed: De Balderas MDReport Verified Date/Time: 04/16/2019 09:53:20 Reading Location: [facility] Diagnostic Imaging Reading Room - [facility] 1.310.12 SIR[place] [id number] 14:26:00 Test Item Value Reference Range Interpretation Comments SIROLIMUS LEVEL BLOOD (BEAKER) 6.6 ng/mL 5.0-15.0 (test code = 806) Outpatient standing lab [id number] 12:49:00 Test Item Value Reference Range Interpretation Comments PHOSPHORUS (BEAKER) (test code = 3.1 mg/dL 2.3-4.7 604) Outpatient standing lab ordersOutpatient standing lab ordersOutpatient standing lab ordersOutpatientstanding lab [id number] 12:49:00 Test Item Value Reference Range Interpretation Comments MAGNESIUM (BEAKER) (test code = 1.9 mg/dL 1.6-2.6 627) Outpatient standing lab ordersOutpatient standing lab ordersOutpatient standing lab ordersOutpatientstanding lab ordersCOMPREHENSIVE METABOLIC [id number] 12:49:00 Test Item Value Reference Range Interpretation Comments TOTAL PROTEIN 7.0 gm/dL 6.0-8.3 (BEAKER) (test code = 770) ALBUMIN (BEAKER) 4.3 g/dL 3.5-5.0 (test code = 1145) ALKALINE PHOSPHATASE 71 U/L 40-150 (BEAKER) (test code = 346) BILIRUBIN TOTAL 0.7 mg/dL 0.2-1.2 (BEAKER) (test code = 377) SODIUM (BEAKER) (test 141 meq/L 136-145 code = 381) POTASSIUM (BEAKER) 3.6 meq/L 3.5-5.1 (test code = 379) CHLORIDE (BEAKER) 106 meq/L 98-107 (test code = 382) CO2 (BEAKER) (test 25 meq/L 22-29 code = 355) BLOOD UREA NITROGEN 19 mg/dL 7-21 (BEAKER) (test code = 354) CREATININE (BEAKER) 0.93 mg/dL 0.57-1.25 (test code = 358) GLUCOSE RANDOM 129 mg/dL 70-105 H (BEAKER) (test code = 652) CALCIUM (BEAKER) 9.5 mg/dL 8.4-10.2 (test code = 697) AST (SGOT) (BEAKER) 45 U/L 5-34 H (test code = 353) ALT (SGPT) (BEAKER) 94 U/L 6-55 H (test code = 347) EGFR (BEAKER) (test 62 mL/min/1.73 ESTIMA NIHARIKA GFR IS code = 1092) sq m NOT ACCURATE CREATININE CLEARANCE IN PREDICTING GLOMERULAR FILTRATION RATE . ESTIMATED GFR I S NOT APPLICABLE FOR DIALYSIS PATIEN TS. Outpatient standing lab ordersOutpatient standing lab ordersOutpatient standing lab ordersOutpatientstanding lab ordersBILIRUBIN, [id number] 12:49:00 Test Item Value Reference Range Interpretation Comments BILIRUBIN DIRECT (BEAKER) (test 0.2 mg/dL 0.1-0.5 code = 706) Outpatient standing lab ordersOutpatient standing lab ordersOutpatient standing lab ordersOutpatientstanding lab ordersCBC W/PLT COUNT & AUTO DIFFERENTIAL 2019-02-20 12:32:00 Test Item Value Reference Range Interpretation Comments WHITE BLOOD CELL COUNT (BEAKER) 4.1 K/ L 3.5-10.5 (test code = 775) RED BLOOD CELL COUNT (BEAKER) 4.28 M/ L 3.93-5.22 (test code = 761) HEMOGLOBIN (BEAKER) (test code = 11.7 GM/DL 11.2-15.7 410) HEMATOCRIT (BEAKER) (test code = 37.3 % 34.1-44.9 411) MEAN CORPUSCULAR VOLUME (BEAKER) 87.1 fL 79.4-94.8 (test code = 753) MEAN CORPUSCULAR HEMOGLOBIN 27.3 pg 25.6-32.2 (BEAKER) (test code = 751) MEAN CORPUSCULAR HEMOGLOBIN CONC 31.4 GM/DL 32.2-35.5 L (BEAKER) (test code = 752) RED CELL DISTRIBUTION WIDTH 16.0 % 11.7-14.4 H (BEAKER) (test code = 412) PLATELET COUNT (BEAKER) (test 214 K/CU MM 150-450 code = 756) MEAN PLATELET VOLUME (BEAKER) 10.5 fL 9.4-12.3 (test code = 754) NUCLEATED RED BLOOD CELLS 0 /100 WBC 0-0 (BEAKER) (test code = 413) NEUTROPHILS RELATIVE PERCENT 68 % (BEAKER) (test code = 429) LYMPHOCYTES RELATIVE PERCENT 22 % (BEAKER) (test code = 430) MONOCYTES RELATIVE PERCENT 7 % (BEAKER) (test code = 431) EOSINOPHILS RELATIVE PERCENT 3 % (BEAKER) (test code = 432) BASOPHILS RELATIVE PERCENT 1 % (BEAKER) (test code = 437) NEUTROPHILS ABSOLUTE COUNT 2.79 K/ L 1.56-6.13 (BEAKER) (test code = 670) LYMPHOCYTES ABSOLUTE COUNT 0.91 K/ L 1.18-3.74 L (BEAKER) (test code = 414) MONOCYTES ABSOLUTE COUNT (BEAKER) 0.27 K/ L 0.24-0.36 (test code = 415) EOSINOPHILS ABSOLUTE COUNT 0.13 K/ L 0.04-0.36 (BEAKER) (test code = 416) BASOPHILS ABSOLUTE COUNT (BEAKER) 0.03 K/ L 0.01-0.08 (test code = 417) IMMATURE GRANULOCYTES-RELATIVE 0 % 0-1 PERCENT (BEAKER) (test code = 2801) SIROLIMUS [id number] 12:11:00 Test Item Value Reference Range Interpretation Comments SIROLIMUS LEVEL BLOOD (BEAKER) 10.1 ng/mL 5.0-15.0 (test code = 806) Outpatient standing lab [id number] 10:52:00 Test Item Value Reference Range Interpretation Comments PHOSPHORUS (BEAKER) (test code = 3.4 mg/dL 2.3-4.7 604) Outpatient standing lab ordersOutpatient standing lab ordersOutpatient standing lab ordersOutpatientstanding lab [id number] 10:52:00 Test Item Value Reference Range Interpretation Comments MAGNESIUM (BEAKER) (test code = 2.2 mg/dL 1.6-2.6 627) Outpatient standing lab ordersOutpatient standing lab ordersOutpatient standing lab ordersOutpatientstanding lab ordersCOMPREHENSIVE METABOLIC [id number] 10:52:00 Test Item Value Reference Range Interpretation Comments TOTAL PROTEIN 7.4 gm/dL 6.0-8.3 (BEAKER) (test code = 770) ALBUMIN (BEAKER) 4.6 g/dL 3.5-5.0 (test code = 1145) ALKALINE PHOSPHATASE 78 U/L 40-150 (BEAKER) (test code = 346) BILIRUBIN TOTAL 0.9 mg/dL 0.2-1.2 (BEAKER) (test code = 377) SODIUM (BEAKER) (test 139 meq/L 136-145 code = 381) POTASSIUM (BEAKER) 3.8 meq/L 3.5-5.1 (test code = 379) CHLORIDE (BEAKER) 103 meq/L 98-107 (test code = 382) CO2 (BEAKER) (test 29 meq/L 22-29 code = 355) BLOOD UREA NITROGEN 18 mg/dL 7-21 (BEAKER) (test code = 354) CREATININE (BEAKER) 0.91 mg/dL 0.57-1.25 (test code = 358) GLUCOSE RANDOM 146 mg/dL 70-105 H (BEAKER) (test code = 652) CALCIUM (BEAKER) 10.2 mg/dL 8.4-10.2 (test code = 697) AST (SGOT) (BEAKER) 42 U/L 5-34 H (test code = 353) ALT (SGPT) (BEAKER) 86 U/L 6-55 H (test code = 347) EGFR (BEAKER) (test 64 mL/min/1.73 ESTIMA NIHARIKA GFR IS code = 1092) sq m NOT ACCURATE CREATININE CLEARANCE IN PREDICTING GLOMERULAR FILTRATION RATE . ESTIMATED GFR I S NOT APPLICABLE FOR DIALYSIS PATIEN TS. Outpatient standing lab ordersOutpatient standing lab ordersOutpatient standing lab ordersOutpatientstanding lab ordersBILIRUBIN, [id number] 10:52:00 Test Item Value Reference Range Interpretation Comments BILIRUBIN DIRECT (BEAKER) (test 0.3 mg/dL 0.1-0.5 code = 706) Outpatient standing lab ordersOutpatient standing lab ordersOutpatient standing lab ordersOutpatientstanding lab ordersCBC W/PLT COUNT & AUTO DIFFERENTIAL 2018-12-19 10:27:00 Test Item Value Reference Range Interpretation Comments WHITE BLOOD CELL COUNT (BEAKER) 3.6 K/ L 3.5-10.5 (test code = 775) RED BLOOD CELL COUNT (BEAKER) 4.44 M/ L 3.93-5.22 (test code = 761) HEMOGLOBIN (BEAKER) (test code = 12.2 GM/DL 11.2-15.7 410) HEMATOCRIT (BEAKER) (test code = 37.8 % 34.1-44.9 411) MEAN CORPUSCULAR VOLUME (BEAKER) 85.1 fL 79.4-94.8 (test code = 753) MEAN CORPUSCULAR HEMOGLOBIN 27.5 pg 25.6-32.2 (BEAKER) (test code = 751) MEAN CORPUSCULAR HEMOGLOBIN CONC 32.3 GM/DL 32.2-35.5 (BEAKER) (test code = 752) RED CELL DISTRIBUTION WIDTH 16.1 % 11.7-14.4 H (BEAKER) (test code = 412) PLATELET COUNT (BEAKER) (test 209 K/CU MM 150-450 code = 756) MEAN PLATELET VOLUME (BEAKER) 10.3 fL 9.4-12.3 (test code = 754) NUCLEATED RED BLOOD CELLS 0 /100 WBC 0-0 (BEAKER) (test code = 413) NEUTROPHILS RELATIVE PERCENT 62 % (BEAKER) (test code = 429) LYMPHOCYTES RELATIVE PERCENT 28 % (BEAKER) (test code = 430) MONOCYTES RELATIVE PERCENT 6 % (BEAKER) (test code = 431) EOSINOPHILS RELATIVE PERCENT 3 % (BEAKER) (test code = 432) BASOPHILS RELATIVE PERCENT 1 % (BEAKER) (test code = 437) NEUTROPHILS ABSOLUTE COUNT 2.19 K/ L 1.56-6.13 (BEAKER) (test code = 670) LYMPHOCYTES ABSOLUTE COUNT 1.00 K/ L 1.18-3.74 L (BEAKER) (test code = 414) MONOCYTES ABSOLUTE COUNT (BEAKER) 0.21 K/ L 0.24-0.36 L (test code = 415) EOSINOPHILS ABSOLUTE COUNT 0.10 K/ L 0.04-0.36 (BEAKER) (test code = 416) BASOPHILS ABSOLUTE COUNT (BEAKER) 0.03 K/ L 0.01-0.08 (test code = 417) IMMATURE GRANULOCYTES-RELATIVE 1 % 0-1 PERCENT (BEAKER) (test code = 2801) SIROLIMUS [id number] 11:22:00 Test Item Value Reference Range Interpretation Comments SIROLIMUS LEVEL BLOOD (BEAKER) 7.8 ng/mL 5.0-15.0 (test code = 806) Outpatient standing lab [id number] 10:31:00 Test Item Value Reference Range Interpretation Comments PHOSPHORUS (BEAKER) (test code = 4.1 mg/dL 2.3-4.7 604) Outpatient standing lab ordersOutpatient standing lab ordersOutpatient standing lab ordersOutpatientstanding lab [id number] 10:31:00 Test Item Value Reference Range Interpretation Comments MAGNESIUM (BEAKER) (test code = 1.8 mg/dL 1.6-2.6 627) Outpatient standing lab ordersOutpatient standing lab ordersOutpatient standing lab ordersOutpatientstanding lab ordersCOMPREHENSIVE METABOLIC [id number] 10:31:00 Test Item Value Reference Range Interpretation Comments TOTAL PROTEIN 7.0 gm/dL 6.0-8.3 (BEAKER) (test code = 770) ALBUMIN (BEAKER) 4.2 g/dL 3.5-5.0 (test code = 1145) ALKALINE PHOSPHATASE 100 U/L 40-150 (BEAKER) (test code = 346) BILIRUBIN TOTAL 0.6 mg/dL 0.2-1.2 (BEAKER) (test code = 377) SODIUM (BEAKER) (test 140 meq/L 136-145 code = 381) POTASSIUM (BEAKER) 3.9 meq/L 3.5-5.1 (test code = 379) CHLORIDE (BEAKER) 104 meq/L 98-107 (test code = 382) CO2 (BEAKER) (test 28 meq/L 22-29 code = 355) BLOOD UREA NITROGEN 19 mg/dL 7-21 (BEAKER) (test code = 354) CREATININE (BEAKER) 0.92 mg/dL 0.57-1.25 (test code = 358) GLUCOSE RANDOM 142 mg/dL 70-105 H (BEAKER) (test code = 652) CALCIUM (BEAKER) 10.3 mg/dL 8.4-10.2 H (test code = 697) AST (SGOT) (BEAKER) 32 U/L 5-34 (test code = 353) ALT (SGPT) (BEAKER) 55 U/L 6-55 (test code = 347) EGFR (BEAKER) (test 63 mL/min/1.73 ESTIMA NIHARIKA GFR IS code = 1092) sq m NOT ACCURATE CREATININE CLEARANCE IN PREDICTING GLOMERULAR FILTRATION RATE . ESTIMATED GFR I S NOT APPLICABLE FOR DIALYSIS PATIEN TS. Outpatient standing lab ordersOutpatient standing lab ordersOutpatient standing lab ordersOutpatientstanding lab ordersBILIRUBIN, [id number] 10:31:00 Test Item Value Reference Range Interpretation Comments BILIRUBIN DIRECT (BEAKER) (test 0.2 mg/dL 0.1-0.5 code = 706) Outpatient standing lab ordersOutpatient standing lab ordersOutpatient standing lab ordersOutpatientstanding lab ordersCBC W/PLT COUNT & AUTO DIFFERENTIAL 2018-10-20 09:46:00 Test Item Value Reference Range Interpretation Comments WHITE BLOOD CELL COUNT (BEAKER) 5.4 K/ L 3.5-10.5 (test code = 775) RED BLOOD CELL COUNT (BEAKER) 4.13 M/ L 3.93-5.22 (test code = 761) HEMOGLOBIN (BEAKER) (test code = 11.4 GM/DL 11.2-15.7 410) HEMATOCRIT (BEAKER) (test code = 36.2 % 34.1-44.9 411) MEAN CORPUSCULAR VOLUME (BEAKER) 87.7 fL 79.4-94.8 (test code = 753) MEAN CORPUSCULAR HEMOGLOBIN 27.6 pg 25.6-32.2 (BEAKER) (test code = 751) MEAN CORPUSCULAR HEMOGLOBIN CONC 31.5 GM/DL 32.2-35.5 L (BEAKER) (test code = 752) RED CELL DISTRIBUTION WIDTH 15.9 % 11.7-14.4 H (BEAKER) (test code = 412) PLATELET COUNT (BEAKER) (test 208 K/CU MM 150-450 code = 756) MEAN PLATELET VOLUME (BEAKER) 10.5 fL 9.4-12.3 (test code = 754) NUCLEATED RED BLOOD CELLS 0 /100 WBC 0-0 (BEAKER) (test code = 413) NEUTROPHILS RELATIVE PERCENT 74 % (BEAKER) (test code = 429) LYMPHOCYTES RELATIVE PERCENT 17 % (BEAKER) (test code = 430) MONOCYTES RELATIVE PERCENT 6 % (BEAKER) (test code = 431) EOSINOPHILS RELATIVE PERCENT 2 % (BEAKER) (test code = 432) BASOPHILS RELATIVE PERCENT 1 % (BEAKER) (test code = 437) NEUTROPHILS ABSOLUTE COUNT 4.00 K/ L 1.56-6.13 (BEAKER) (test code = 670) LYMPHOCYTES ABSOLUTE COUNT 0.92 K/ L 1.18-3.74 L (BEAKER) (test code = 414) MONOCYTES ABSOLUTE COUNT (BEAKER) 0.31 K/ L 0.24-0.36 (test code = 415) EOSINOPHILS ABSOLUTE COUNT 0.11 K/ L 0.04-0.36 (BEAKER) (test code = 416) BASOPHILS ABSOLUTE COUNT (BEAKER) 0.03 K/ L 0.01-0.08 (test code = 417) IMMATURE GRANULOCYTES-RELATIVE 0 % 0-1 PERCENT (BEAKER) (test code = 2801) SIROLIMUS [id number] 13:58:00 Test Item Value Reference Range Interpretation Comments SIROLIMUS LEVEL BLOOD (BEAKER) 8.2 ng/mL 5.0-15.0 (test code = 806) Outpatient standing lab [id number] 11:32:00 Test Item Value Reference Range Interpretation Comments PHOSPHORUS (BEAKER) (test code = 3.9 mg/dL 2.3-4.7 604) Outpatient standing lab ordersOutpatient standing lab ordersOutpatient standing lab ordersOutpatientstanding lab [id number] 11:32:00 Test Item Value Reference Range Interpretation Comments MAGNESIUM (BEAKER) (test code = 2.2 mg/dL 1.6-2.6 627) Outpatient standing lab ordersOutpatient standing lab ordersOutpatient standing lab ordersOutpatientstanding lab ordersCOMPREHENSIVE METABOLIC [id number] 11:32:00 Test Item Value Reference Range Interpretation Comments TOTAL PROTEIN 6.9 gm/dL 6.0-8.3 (BEAKER) (test code = 770) ALBUMIN (BEAKER) 4.2 g/dL 3.5-5.0 (test code = 1145) ALKALINE PHOSPHATASE 81 U/L 40-150 (BEAKER) (test code = 346) BILIRUBIN TOTAL 0.6 mg/dL 0.2-1.2 (BEAKER) (test code = 377) SODIUM (BEAKER) (test 141 meq/L 136-145 code = 381) POTASSIUM (BEAKER) 4.0 meq/L 3.5-5.1 (test code = 379) CHLORIDE (BEAKER) 106 meq/L 98-107 (test code = 382) CO2 (BEAKER) (test 26 meq/L 22-29 code = 355) BLOOD UREA NITROGEN 24 mg/dL 7-21 H (BEAKER) (test code = 354) CREATININE (BEAKER) 0.94 mg/dL 0.57-1.25 (test code = 358) GLUCOSE RANDOM 126 mg/dL 70-105 H (BEAKER) (test code = 652) CALCIUM (BEAKER) 9.7 mg/dL 8.4-10.2 (test code = 697) AST (SGOT) (BEAKER) 39 U/L 5-34 H (test code = 353) ALT (SGPT) (BEAKER) 74 U/L 6-55 H (test code = 347) EGFR (BEAKER) (test 61 mL/min/1.73 ESTIMA NIHARIKA GFR IS code = 1092) sq m NOT ACCURATE CREATININE CLEARANCE IN PREDICTING GLOMERULAR FILTRATION RATE . ESTIMATED GFR I S NOT APPLICABLE FOR DIALYSIS PATIEN TS. Outpatient standing lab ordersOutpatient standing lab ordersOutpatient standing lab ordersOutpatientstanding lab ordersBILIRUBIN, [id number] 11:32:00 Test Item Value Reference Range Interpretation Comments BILIRUBIN DIRECT (BEAKER) (test 0.2 mg/dL 0.1-0.5 code = 706) Outpatient standing lab ordersOutpatient standing lab ordersOutpatient standing lab ordersOutpatientstanding lab ordersCBC W/PLT COUNT & AUTO DIFFERENTIAL 2018-08-22 10:51:00 Test Item Value Reference Range Interpretation Comments WHITE BLOOD CELL COUNT (BEAKER) 4.5 K/ L 3.5-10.5 (test code = 775) RED BLOOD CELL COUNT (BEAKER) 4.19 M/ L 3.93-5.22 (test code = 761) HEMOGLOBIN (BEAKER) (test code = 11.5 GM/DL 11.2-15.7 410) HEMATOCRIT (BEAKER) (test code = 36.7 % 34.1-44.9 411) MEAN CORPUSCULAR VOLUME (BEAKER) 87.6 fL 79.4-94.8 (test code = 753) MEAN CORPUSCULAR HEMOGLOBIN 27.4 pg 25.6-32.2 (BEAKER) (test code = 751) MEAN CORPUSCULAR HEMOGLOBIN CONC 31.3 GM/DL 32.2-35.5 L (BEAKER) (test code = 752) RED CELL DISTRIBUTION WIDTH 16.4 % 11.7-14.4 H (BEAKER) (test code = 412) PLATELET COUNT (BEAKER) (test 233 K/CU MM 150-450 code = 756) MEAN PLATELET VOLUME (BEAKER) 10.5 fL 9.4-12.3 (test code = 754) NUCLEATED RED BLOOD CELLS 0 /100 WBC 0-0 (BEAKER) (test code = 413) NEUTROPHILS RELATIVE PERCENT 73 % (BEAKER) (test code = 429) LYMPHOCYTES RELATIVE PERCENT 18 % (BEAKER) (test code = 430) MONOCYTES RELATIVE PERCENT 6 % (BEAKER) (test code = 431) EOSINOPHILS RELATIVE PERCENT 3 % (BEAKER) (test code = 432) BASOPHILS RELATIVE PERCENT 0 % (BEAKER) (test code = 437) NEUTROPHILS ABSOLUTE COUNT 3.26 K/ L 1.56-6.13 (BEAKER) (test code = 670) LYMPHOCYTES ABSOLUTE COUNT 0.79 K/ L 1.18-3.74 L (BEAKER) (test code = 414) MONOCYTES ABSOLUTE COUNT (BEAKER) 0.27 K/ L 0.24-0.36 (test code = 415) EOSINOPHILS ABSOLUTE COUNT 0.11 K/ L 0.04-0.36 (BEAKER) (test code = 416) BASOPHILS ABSOLUTE COUNT (BEAKER) 0.02 K/ L 0.01-0.08 (test code = 417) IMMATURE GRANULOCYTES-RELATIVE 0 % 0-1 PERCENT (BEAKER) (test code = 2801) SIROLIMUS [id number] 13:41:00 Test Item Value Reference Range Interpretation Comments SIROLIMUS LEVEL BLOOD (BEAKER) 11.6 ng/mL 5.0-15.0 (test code = 806) Outpatient standing lab [id number] 11:14:00 Test Item Value Reference Range Interpretation Comments PHOSPHORUS (BEAKER) (test code = 3.4 mg/dL 2.3-4.7 604) Outpatient standing lab ordersOutpatient standing lab ordersOutpatient standing lab ordersOutpatientstanding lab [id number] 11:14:00 Test Item Value Reference Range Interpretation Comments MAGNESIUM (BEAKER) (test code = 1.9 mg/dL 1.6-2.6 627) Outpatient standing lab ordersOutpatient standing lab ordersOutpatient standing lab ordersOutpatientstanding lab ordersCOMPREHENSIVE METABOLIC [id number] 11:14:00 Test Item Value Reference Range Interpretation Comments TOTAL PROTEIN 6.6 gm/dL 6.0-8.3 (BEAKER) (test code = 770) ALBUMIN (BEAKER) 4.1 g/dL 3.5-5.0 (test code = 1145) ALKALINE PHOSPHATASE 61 U/L 40-150 (BEAKER) (test code = 346) BILIRUBIN TOTAL 0.6 mg/dL 0.2-1.2 (BEAKER) (test code = 377) SODIUM (BEAKER) (test 140 meq/L 136-145 code = 381) POTASSIUM (BEAKER) 4.2 meq/L 3.5-5.1 (test code = 379) CHLORIDE (BEAKER) 105 meq/L 98-107 (test code = 382) CO2 (BEAKER) (test 29 meq/L 22-29 code = 355) BLOOD UREA NITROGEN 13 mg/dL 7-21 (BEAKER) (test code = 354) CREATININE (BEAKER) 0.84 mg/dL 0.57-1.25 (test code = 358) GLUCOSE RANDOM 122 mg/dL 70-105 H (BEAKER) (test code = 652) CALCIUM (BEAKER) 9.6 mg/dL 8.4-10.2 (test code = 697) AST (SGOT) (BEAKER) 34 U/L 5-34 (test code = 353) ALT (SGPT) (BEAKER) 45 U/L 6-55 (test code = 347) EGFR (BEAKER) (test 70 mL/min/1.73 ESTIMA NIHARIKA GFR IS code = 1092) sq m NOT ACCURATE CREATININE CLEARANCE IN PREDICTING GLOMERULAR FILTRATION RATE . ESTIMATED GFR I S NOT APPLICABLE FOR DIALYSIS PATIEN TS. Outpatient standing lab ordersOutpatient standing lab ordersOutpatient standing lab ordersOutpatientstanding lab ordersBILIRUBIN, [id number] 11:14:00 Test Item Value Reference Range Interpretation Comments BILIRUBIN DIRECT (BEAKER) (test 0.2 mg/dL 0.1-0.5 code = 706) Outpatient standing lab ordersOutpatient standing lab ordersOutpatient standing lab ordersOutpatientstanding lab ordersCBC W/PLT COUNT & AUTO DIFFERENTIAL 2018-06-16 10:52:00 Test Item Value Reference Range Interpretation Comments WHITE BLOOD CELL COUNT (BEAKER) 3.8 K/ L 3.5-10.5 (test code = 775) RED BLOOD CELL COUNT (BEAKER) 3.78 M/ L 3.93-5.22 L (test code = 761) HEMOGLOBIN (BEAKER) (test code = 10.2 GM/DL 11.2-15.7 L 410) HEMATOCRIT (BEAKER) (test code = 32.3 % 34.1-44.9 L 411) MEAN CORPUSCULAR VOLUME (BEAKER) 85.4 fL 79.4-94.8 (test code = 753) MEAN CORPUSCULAR HEMOGLOBIN 27.0 pg 25.6-32.2 (BEAKER) (test code = 751) MEAN CORPUSCULAR HEMOGLOBIN CONC 31.6 GM/DL 32.2-35.5 L (BEAKER) (test code = 752) RED CELL DISTRIBUTION WIDTH 16.4 % 11.7-14.4 H (BEAKER) (test code = 412) PLATELET COUNT (BEAKER) (test 238 K/CU MM 150-450 code = 756) MEAN PLATELET VOLUME (BEAKER) 10.4 fL 9.4-12.3 (test code = 754) NUCLEATED RED BLOOD CELLS 0 /100 WBC 0-0 (BEAKER) (test code = 413) NEUTROPHILS RELATIVE PERCENT 68 % (BEAKER) (test code = 429) LYMPHOCYTES RELATIVE PERCENT 21 % (BEAKER) (test code = 430) MONOCYTES RELATIVE PERCENT 7 % (BEAKER) (test code = 431) EOSINOPHILS RELATIVE PERCENT 3 % (BEAKER) (test code = 432) BASOPHILS RELATIVE PERCENT 1 % (BEAKER) (test code = 437) NEUTROPHILS ABSOLUTE COUNT 2.56 K/ L 1.56-6.13 (BEAKER) (test code = 670) LYMPHOCYTES ABSOLUTE COUNT 0.80 K/ L 1.18-3.74 L (BEAKER) (test code = 414) MONOCYTES ABSOLUTE COUNT (BEAKER) 0.27 K/ L 0.24-0.36 (test code = 415) EOSINOPHILS ABSOLUTE COUNT 0.11 K/ L 0.04-0.36 (BEAKER) (test code = 416) BASOPHILS ABSOLUTE COUNT (BEAKER) 0.02 K/ L 0.01-0.08 (test code = 417) IMMATURE GRANULOCYTES-RELATIVE 0 % 0-1 PERCENT (BEAKER) (test code = 2801) SIROLIMUS [id number] 12:43:00 Test Item Value Reference Range Interpretation Comments SIROLIMUS LEVEL BLOOD (BEAKER) 13.1 ng/mL 5.0-15.0 (test code = 806) Outpatient standing lab [id number] 11:23:00 Test Item Value Reference Range Interpretation Comments PHOSPHORUS (BEAKER) (test code = 3.3 mg/dL 2.3-4.7 604) Outpatient standing lab ordersOutpatient standing lab ordersOutpatient standing lab ordersOutpatientstanding lab [id number] 11:23:00 Test Item Value Reference Range Interpretation Comments MAGNESIUM (BEAKER) (test code = 2.3 mg/dL 1.6-2.6 627) Outpatient standing lab ordersOutpatient standing lab ordersOutpatient standing lab ordersOutpatientstanding lab ordersCOMPREHENSIVE METABOLIC [id number] 11:23:00 Test Item Value Reference Range Interpretation Comments TOTAL PROTEIN 7.2 gm/dL 6.0-8.3 (BEAKER) (test code = 770) ALBUMIN (BEAKER) 4.3 g/dL 3.5-5.0 (test code = 1145) ALKALINE PHOSPHATASE 75 U/L 40-150 (BEAKER) (test code = 346) BILIRUBIN TOTAL 0.9 mg/dL 0.2-1.2 (BEAKER) (test code = 377) SODIUM (BEAKER) (test 140 meq/L 136-145 code = 381) POTASSIUM (BEAKER) 3.6 meq/L 3.5-5.1 (test code = 379) CHLORIDE (BEAKER) 105 meq/L 98-107 (test code = 382) CO2 (BEAKER) (test 25 meq/L 22-29 code = 355) BLOOD UREA NITROGEN 19 mg/dL 7-21 (BEAKER) (test code = 354) CREATININE (BEAKER) 0.95 mg/dL 0.57-1.25 (test code = 358) GLUCOSE RANDOM 149 mg/dL 70-105 H (BEAKER) (test code = 652) CALCIUM (BEAKER) 9.8 mg/dL 8.4-10.2 (test code = 697) AST (SGOT) (BEAKER) 29 U/L 5-34 (test code = 353) ALT (SGPT) (BEAKER) 48 U/L 6-55 (test code = 347) EGFR (BEAKER) (test 61 mL/min/1.73 ESTIMA NIHARIKA GFR IS code = 1092) sq m NOT ACCURATE CREATININE CLEARANCE IN PREDICTING GLOMERULAR FILTRATION RATE . ESTIMATED GFR I S NOT APPLICABLE FOR DIALYSIS PATIEN TS. Outpatient standing lab ordersOutpatient standing lab ordersOutpatient standing lab ordersOutpatientstanding lab ordersBILIRUBIN, [id number] 11:23:00 Test Item Value Reference Range Interpretation Comments BILIRUBIN DIRECT (BEAKER) (test 0.3 mg/dL 0.1-0.5 code = 706) Outpatient standing lab ordersOutpatient standing lab ordersOutpatient standing lab ordersOutpatientstanding lab ordersCBC W/PLT COUNT & AUTO DIFFERENTIAL 2018-05-16 11:03:00 Test Item Value Reference Range Interpretation Comments WHITE BLOOD CELL COUNT (BEAKER) 6.1 K/ L 3.5-10.5 (test code = 775) RED BLOOD CELL COUNT (BEAKER) 4.16 M/ L 3.93-5.22 (test code = 761) HEMOGLOBIN (BEAKER) (test code = 11.0 GM/DL 11.2-15.7 L 410) HEMATOCRIT (BEAKER) (test code = 34.3 % 34.1-44.9 411) MEAN CORPUSCULAR VOLUME (BEAKER) 82.5 fL 79.4-94.8 (test code = 753) MEAN CORPUSCULAR HEMOGLOBIN 26.4 pg 25.6-32.2 (BEAKER) (test code = 751) MEAN CORPUSCULAR HEMOGLOBIN CONC 32.1 GM/DL 32.2-35.5 L (BEAKER) (test code = 752) RED CELL DISTRIBUTION WIDTH 16.3 % 11.7-14.4 H (BEAKER) (test code = 412) PLATELET COUNT (BEAKER) (test 251 K/CU MM 150-450 code = 756) MEAN PLATELET VOLUME (BEAKER) 10.4 fL 9.4-12.3 (test code = 754) NUCLEATED RED BLOOD CELLS 0 /100 WBC 0-0 (BEAKER) (test code = 413) NEUTROPHILS RELATIVE PERCENT 73 % (BEAKER) (test code = 429) LYMPHOCYTES RELATIVE PERCENT 18 % (BEAKER) (test code = 430) MONOCYTES RELATIVE PERCENT 6 % (BEAKER) (test code = 431) EOSINOPHILS RELATIVE PERCENT 3 % (BEAKER) (test code = 432) BASOPHILS RELATIVE PERCENT 1 % (BEAKER) (test code = 437) NEUTROPHILS ABSOLUTE COUNT 4.40 K/ L 1.56-6.13 (BEAKER) (test code = 670) LYMPHOCYTES ABSOLUTE COUNT 1.08 K/ L 1.18-3.74 L (BEAKER) (test code = 414) MONOCYTES ABSOLUTE COUNT (BEAKER) 0.36 K/ L 0.24-0.36 (test code = 415) EOSINOPHILS ABSOLUTE COUNT 0.16 K/ L 0.04-0.36 (BEAKER) (test code = 416) BASOPHILS ABSOLUTE COUNT (BEAKER) 0.03 K/ L 0.01-0.08 (test code = 417) IMMATURE GRANULOCYTES-RELATIVE 1 % 0-1 PERCENT (BEAKER) (test code = 2801) SIROLIMUS [id number] 13:09:00 Test Item Value Reference Range Interpretation Comments SIROLIMUS LEVEL BLOOD (BEAKER) 13.4 ng/mL 5.0-15.0 (test code = 806) Outpatient standing lab [id number] 10:49:00 Test Item Value Reference Range Interpretation Comments PHOSPHORUS (BEAKER) (test code = 2.9 mg/dL 2.3-4.7 604) Outpatient standing lab ordersOutpatient standing lab ordersOutpatient standing lab ordersOutpatientstanding lab [id number] 10:49:00 Test Item Value Reference Range Interpretation Comments MAGNESIUM (BEAKER) (test code = 2.0 mg/dL 1.6-2.6 627) Outpatient standing lab ordersOutpatient standing lab ordersOutpatient standing lab ordersOutpatientstanding lab ordersCOMPREHENSIVE METABOLIC [id number] 10:49:00 Test Item Value Reference Range Interpretation Comments TOTAL PROTEIN 6.8 gm/dL 6.0-8.3 (BEAKER) (test code = 770) ALBUMIN (BEAKER) 4.2 g/dL 3.5-5.0 (test code = 1145) ALKALINE PHOSPHATASE 80 U/L 40-150 (BEAKER) (test code = 346) BILIRUBIN TOTAL 0.7 mg/dL 0.2-1.2 (BEAKER) (test code = 377) SODIUM (BEAKER) (test 138 meq/L 136-145 code = 381) POTASSIUM (BEAKER) 3.5 meq/L 3.5-5.1 (test code = 379) CHLORIDE (BEAKER) 105 meq/L 98-107 (test code = 382) CO2 (BEAKER) (test 25 meq/L 22-29 code = 355) BLOOD UREA NITROGEN 19 mg/dL 7-21 (BEAKER) (test code = 354) CREATININE (BEAKER) 0.95 mg/dL 0.57-1.25 (test code = 358) GLUCOSE RANDOM 153 mg/dL 70-105 H (BEAKER) (test code = 652) CALCIUM (BEAKER) 9.0 mg/dL 8.4-10.2 (test code = 697) AST (SGOT) (BEAKER) 41 U/L 5-34 H (test code = 353) ALT (SGPT) (BEAKER) 82 U/L 6-55 H (test code = 347) EGFR (BEAKER) (test 61 mL/min/1.73 ESTIMA NIHARIKA GFR IS code = 1092) sq m NOT ACCURATE CREATININE CLEARANCE IN PREDICTING GLOMERULAR FILTRATION RATE . ESTIMATED GFR I S NOT APPLICABLE FOR DIALYSIS PATIEN TS. Outpatient standing lab ordersOutpatient standing lab ordersOutpatient standing lab ordersOutpatientstanding lab ordersBILIRUBIN, [id number] 10:49:00 Test Item Value Reference Range Interpretation Comments BILIRUBIN DIRECT (BEAKER) (test 0.2 mg/dL 0.1-0.5 code = 706) Outpatient standing lab ordersOutpatient standing lab ordersOutpatient standing lab ordersOutpatientstanding lab ordersCBC W/PLT COUNT & AUTO DIFFERENTIAL 2018-04-17 10:25:00 Test Item Value Reference Range Interpretation Comments WHITE BLOOD CELL COUNT (BEAKER) 4.0 K/ L 3.5-10.5 (test code = 775) RED BLOOD CELL COUNT (BEAKER) 4.13 M/ L 3.93-5.22 (test code = 761) HEMOGLOBIN (BEAKER) (test code = 11.0 GM/DL 11.2-15.7 L 410) HEMATOCRIT (BEAKER) (test code = 34.7 % 34.1-44.9 411) MEAN CORPUSCULAR VOLUME (BEAKER) 84.0 fL 79.4-94.8 (test code = 753) MEAN CORPUSCULAR HEMOGLOBIN 26.6 pg 25.6-32.2 (BEAKER) (test code = 751) MEAN CORPUSCULAR HEMOGLOBIN CONC 31.7 GM/DL 32.2-35.5 L (BEAKER) (test code = 752) RED CELL DISTRIBUTION WIDTH 15.8 % 11.7-14.4 H (BEAKER) (test code = 412) PLATELET COUNT (BEAKER) (test 189 K/CU MM 150-450 code = 756) MEAN PLATELET VOLUME (BEAKER) 10.7 fL 9.4-12.3 (test code = 754) NUCLEATED RED BLOOD CELLS 0 /100 WBC 0-0 (BEAKER) (test code = 413) NEUTROPHILS RELATIVE PERCENT 71 % (BEAKER) (test code = 429) LYMPHOCYTES RELATIVE PERCENT 18 % (BEAKER) (test code = 430) MONOCYTES RELATIVE PERCENT 6 % (BEAKER) (test code = 431) EOSINOPHILS RELATIVE PERCENT 4 % (BEAKER) (test code = 432) BASOPHILS RELATIVE PERCENT 1 % (BEAKER) (test code = 437) NEUTROPHILS ABSOLUTE COUNT 2.85 K/ L 1.56-6.13 (BEAKER) (test code = 670) LYMPHOCYTES ABSOLUTE COUNT 0.70 K/ L 1.18-3.74 L (BEAKER) (test code = 414) MONOCYTES ABSOLUTE COUNT (BEAKER) 0.25 K/ L 0.24-0.36 (test code = 415) EOSINOPHILS ABSOLUTE COUNT 0.14 K/ L 0.04-0.36 (BEAKER) (test code = 416) BASOPHILS ABSOLUTE COUNT (BEAKER) 0.03 K/ L 0.01-0.08 (test code = 417) IMMATURE GRANULOCYTES-RELATIVE 1 % 0-1 PERCENT (BEAKER) (test code = 2801) SIROLIMUS [id number] 11:18:00 Test Item Value Reference Range Interpretation Comments SIROLIMUS LEVEL BLOOD (BEAKER) 13.6 ng/mL 5.0-15.0 (test code = 806) Outpatient standing lab ordersCOMPREHENSIVE METABOLIC [id number] 10:41:00 Test Item Value Reference Range Interpretation Comments TOTAL PROTEIN 7.0 gm/dL 6.0-8.3 (BEAKER) (test code = 770) ALBUMIN (BEAKER) 4.4 g/dL 3.5-5.0 (test code = 1145) ALKALINE PHOSPHATASE 66 U/L 40-150 (BEAKER) (test code = 346) BILIRUBIN TOTAL 0.8 mg/dL 0.2-1.2 (BEAKER) (test code = 377) SODIUM (BEAKER) (test 140 meq/L 136-145 code = 381) POTASSIUM (BEAKER) 3.6 meq/L 3.5-5.1 (test code = 379) CHLORIDE (BEAKER) 104 meq/L 98-107 (test code = 382) CO2 (BEAKER) (test 28 meq/L 22-29 code = 355) BLOOD UREA NITROGEN 16 mg/dL 7-21 (BEAKER) (test code = 354) CREATININE (BEAKER) 1.02 mg/dL 0.57-1.25 (test code = 358) GLUCOSE RANDOM 143 mg/dL 70-105 H (BEAKER) (test code = 652) CALCIUM (BEAKER) 9.5 mg/dL 8.4-10.2 (test code = 697) AST (SGOT) (BEAKER) 37 U/L 5-34 H (test code = 353) ALT (SGPT) (BEAKER) 74 U/L 6-55 H (test code = 347) EGFR (BEAKER) (test 56 mL/min/1.73 ESTIMA NIHARIKA GFR IS code = 1092) sq m NOT ACCURATE CREATININE CLEARANCE IN PREDICTING GLOMERULAR FILTRATION RATE . ESTIMATED GFR I S NOT APPLICABLE FOR DIALYSIS PATIEN TS. Outpatient standing lab ordersOutpatient standing lab ordersOutpatient standing lab ordersOutpatientstanding lab ordersBILIRUBIN, [id number] 10:41:00 Test Item Value Reference Range Interpretation Comments BILIRUBIN DIRECT (BEAKER) (test 0.3 mg/dL 0.1-0.5 code = 706) Outpatient standing lab ordersOutpatient standing lab ordersOutpatient standing lab ordersOutpatientstanding lab [id number] 10:40:00 Test Item Value Reference Range Interpretation Comments PHOSPHORUS (BEAKER) (test code = 3.1 mg/dL 2.3-4.7 604) Outpatient standing lab ordersOutpatient standing lab ordersOutpatient standing lab ordersOutpatientstanding lab [id number] 10:40:00 Test Item Value Reference Range Interpretation Comments MAGNESIUM (BEAKER) (test code = 1.9 mg/dL 1.6-2.6 627) Outpatient standing lab ordersOutpatient standing lab ordersOutpatient standing lab ordersOutpatientstanding lab ordersCBC W/PLT COUNT & AUTO DIFFERENTIAL 2018-03-17 09:31:00 Test Item Value Reference Range Interpretation Comments WHITE BLOOD CELL COUNT (BEAKER) 4.1 K/ L 3.5-10.5 (test code = 775) RED BLOOD CELL COUNT (BEAKER) 3.84 M/ L 3.93-5.22 L (test code = 761) HEMOGLOBIN (BEAKER) (test code = 10.5 GM/DL 11.2-15.7 L 410) HEMATOCRIT (BEAKER) (test code = 32.7 % 34.1-44.9 L 411) MEAN CORPUSCULAR VOLUME (BEAKER) 85.2 fL 79.4-94.8 (test code = 753) MEAN CORPUSCULAR HEMOGLOBIN 27.3 pg 25.6-32.2 (BEAKER) (test code = 751) MEAN CORPUSCULAR HEMOGLOBIN CONC 32.1 GM/DL 32.2-35.5 L (BEAKER) (test code = 752) RED CELL DISTRIBUTION WIDTH 15.9 % 11.7-14.4 H (BEAKER) (test code = 412) PLATELET COUNT (BEAKER) (test 183 K/CU MM 150-450 code = 756) MEAN PLATELET VOLUME (BEAKER) 10.6 fL 9.4-12.3 (test code = 754) NUCLEATED RED BLOOD CELLS 0 /100 WBC 0-0 (BEAKER) (test code = 413) NEUTROPHILS RELATIVE PERCENT 70 % (BEAKER) (test code = 429) LYMPHOCYTES RELATIVE PERCENT 20 % (BEAKER) (test code = 430) MONOCYTES RELATIVE PERCENT 7 % (BEAKER) (test code = 431) EOSINOPHILS RELATIVE PERCENT 2 % (BEAKER) (test code = 432) BASOPHILS RELATIVE PERCENT 1 % (BEAKER) (test code = 437) NEUTROPHILS ABSOLUTE COUNT 2.85 K/ L 1.56-6.13 (BEAKER) (test code = 670) LYMPHOCYTES ABSOLUTE COUNT 0.82 K/ L 1.18-3.74 L (BEAKER) (test code = 414) MONOCYTES ABSOLUTE COUNT (BEAKER) 0.27 K/ L 0.24-0.36 (test code = 415) EOSINOPHILS ABSOLUTE COUNT 0.10 K/ L 0.04-0.36 (BEAKER) (test code = 416) BASOPHILS ABSOLUTE COUNT (BEAKER) 0.03 K/ L 0.01-0.08 (test code = 417) IMMATURE GRANULOCYTES-RELATIVE 1 % 0-1 PERCENT (BEAKER) (test code = 2801) SIROLIMUS [id number] 10:47:00 Test Item Value Reference Range Interpretation Comments SIROLIMUS LEVEL BLOOD (BEAKER) 11.6 ng/mL 5.0-15.0 (test code = 806) Outpatient standing lab [id number] 08:43:00 Test Item Value Reference Range Interpretation Comments PHOSPHORUS (BEAKER) (test code = 3.3 mg/dL 2.3-4.7 604) Outpatient standing lab ordersOutpatient standing lab ordersOutpatient standing lab [id number] 08:43:00 Test Item Value Reference Range Interpretation Comments MAGNESIUM (BEAKER) (test code = 2.1 mg/dL 1.6-2.6 627) Outpatient standing lab ordersOutpatient standing lab ordersOutpatient standing lab ordersCOMPREHENSIVE METABOLIC [id number] 08:43:00 Test Item Value Reference Range Interpretation Comments TOTAL PROTEIN 6.7 gm/dL 6.0-8.3 (BEAKER) (test code = 770) ALBUMIN (BEAKER) 4.1 g/dL 3.5-5.0 (test code = 1145) ALKALINE PHOSPHATASE 56 U/L 40-150 (BEAKER) (test code = 346) BILIRUBIN TOTAL 0.6 mg/dL 0.2-1.2 (BEAKER) (test code = 377) SODIUM (BEAKER) (test 141 meq/L 136-145 code = 381) POTASSIUM (BEAKER) 4.1 meq/L 3.5-5.1 (test code = 379) CHLORIDE (BEAKER) 108 meq/L 98-107 H (test code = 382) CO2 (BEAKER) (test 27 meq/L 22-29 code = 355) BLOOD UREA NITROGEN 21 mg/dL 7-21 (BEAKER) (test code = 354) CREATININE (BEAKER) 0.80 mg/dL 0.57-1.25 (test code = 358) GLUCOSE RANDOM 149 mg/dL 70-105 H (BEAKER) (test code = 652) CALCIUM (BEAKER) 9.7 mg/dL 8.4-10.2 (test code = 697) AST (SGOT) (BEAKER) 29 U/L 5-34 (test code = 353) ALT (SGPT) (BEAKER) 63 U/L 6-55 H (test code = 347) EGFR (BEAKER) (test 74 mL/min/1.73 ESTIMA NIHARIKA GFR IS code = 1092) sq m NOT ACCURATE CREATININE CLEARANCE IN PREDICTING GLOMERULAR FILTRATION RATE . ESTIMATED GFR I S NOT APPLICABLE FOR DIALYSIS PATIEN TS. Outpatient standing lab ordersOutpatient standing lab ordersOutpatient standing lab ordersCBC W/PLT COUNT & AUTO [id number] 08:23:00 Test Item Value Reference Range Interpretation Comments WHITE BLOOD CELL COUNT (BEAKER) 3.2 K/ L 3.5-10.5 L (test code = 775) RED BLOOD CELL COUNT (BEAKER) 3.82 M/ L 3.93-5.22 L (test code = 761) HEMOGLOBIN (BEAKER) (test code = 10.7 GM/DL 11.2-15.7 L 410) HEMATOCRIT (BEAKER) (test code = 33.4 % 34.1-44.9 L 411) MEAN CORPUSCULAR VOLUME (BEAKER) 87.4 fL 79.4-94.8 (test code = 753) MEAN CORPUSCULAR HEMOGLOBIN 28.0 pg 25.6-32.2 (BEAKER) (test code = 751) MEAN CORPUSCULAR HEMOGLOBIN CONC 32.0 GM/DL 32.2-35.5 L (BEAKER) (test code = 752) RED CELL DISTRIBUTION WIDTH 16.1 % 11.7-14.4 H (BEAKER) (test code = 412) PLATELET COUNT (BEAKER) (test 176 K/CU MM 150-450 code = 756) MEAN PLATELET VOLUME (BEAKER) 10.6 fL 9.4-12.3 (test code = 754) NUCLEATED RED BLOOD CELLS 0 /100 WBC 0-0 (BEAKER) (test code = 413) NEUTROPHILS RELATIVE PERCENT 67 % (BEAKER) (test code = 429) LYMPHOCYTES RELATIVE PERCENT 21 % (BEAKER) (test code = 430) MONOCYTES RELATIVE PERCENT 7 % (BEAKER) (test code = 431) EOSINOPHILS RELATIVE PERCENT 4 % (BEAKER) (test code = 432) BASOPHILS RELATIVE PERCENT 1 % (BEAKER) (test code = 437) NEUTROPHILS ABSOLUTE COUNT 2.14 K/ L 1.56-6.13 (BEAKER) (test code = 670) LYMPHOCYTES ABSOLUTE COUNT 0.66 K/ L 1.18-3.74 L (BEAKER) (test code = 414) MONOCYTES ABSOLUTE COUNT (BEAKER) 0.22 K/ L 0.24-0.36 L (test code = 415) EOSINOPHILS ABSOLUTE COUNT 0.13 K/ L 0.04-0.36 (BEAKER) (test code = 416) BASOPHILS ABSOLUTE COUNT (BEAKER) 0.03 K/ L 0.01-0.08 (test code = 417) IMMATURE GRANULOCYTES-RELATIVE 1 % 0-1 PERCENT (BEAKER) (test code = 2801) EBV VIRAL [id number] 15:21:00 Test Item Value Reference Range Interpretation Comments EBV VIRAL LOAD - Negative or below the NEGATIVE (BEAKER) (test linear range of the code = 2559) assay (<500 copies/mL) This assay was performed by real-time PCR for the detection of the [place]ur-Sharp virus (EBV) gene EBNA-1. The test is composed of (1) DNA extraction from patient specimen, and (2) real-time PCR amplification and detection with [id number] primers and probes. A well-conserved region of the EBNA-1 gene is targeted, along with an internal control sequence used to confirm PCR amplification. Asymptomatic carriers and viral genetic variation, among other factors, can affect the accuracy of nucleic acid testing; therefore, results should be interpreted in light of clinical data.This test was developedand its performance characteristics determined by the [facility] Pathology Department, Section of Molecular Pathology. It has not been cleared or approved by the U.S. Food and Drug Administration (FDA), since FDA approval is not required for clinical use of the test. Validation was doneas required by The Clinical Laboratory Improvement Amendments of 1988.[id number] 03:21:00 Test Item Value Reference Range Interpretation Comments RPR SCREEN (BEAKER) (test code = Nonreactive Nonreactive 420) VITAMIN D, 30-[id number] 18:55:00 Test Item Value Reference Range Interpretation Comments VITAMIN D 25-OH (KAE) (test 43.4 ng/mL 6.6-49.9 code = 2764) Effective 04/17/2017: Reference Range ChangeNew: 6.6-49.9 ng/mL Previous: 13.0-47.8 ng/mLRecommended Vitamin D Target Range: 30.0-40.0 ng/mLFirst AnnualFirst AnnualCMV PCR, [id number] 15:30:00 Test Item Value Reference Range Interpretation Comments CMV VIRAL LOAD - Negative or below the NEGATIVE (BEAKER) (test linear range of the code = 4178) assay (<375 copies/mL) Cytomegalovirus (CMV) infection can cause significant disease in immunosuppressed patients. However,it is common for CMV to manifest as a limited infection which is of no clinical significance in immunosuppressed patients or in healthy individuals.Viral load measurements are helpful to identify clinical CMV infection and to guide the pre-emptive management of antiviral therapy. For treatment of CMVinfection due to reactivation in transplant recipients, a threshold between 4,000 and 5,000 copies/mL is suggested. For treatment of primary CMV infection, a lower threshold can be used.CMV infection may also be monitored using weekly serial measurements. Serial measurements of CMV DNA viral load canbe evaluated by identifying a 10-fold change, as well as assessing the CMV DNA viral load and the clinical context for each patient.The plasma CMV DNA viral load was detected using quantitative polymerase chain reaction and fluorescent monitoring of a specific hybridized probe. Genetic variation and ot her factors can affect the accuracy of nucleic acid testing. Therefore, the results should be interpreted in light of clinical data. A negative result may not exclude the presence of CMV disease.This test was developed and its performance characteristics determined by the [facility] Path ology Department, Section of Molecular Pathology. It has not been cleared or approved by the U.S. Food and Drug Administration (FDA), since FDA approval is not required for clinical use of the test. Validation was done as required by The Clinical Laboratory Improvement Amendments of 1988.RAD, CHEST, 2 VIEWS 2018-01-27 15:03:00PA and Lateral for Liver TransplantFirst AnnualReason for Exam:->liver transplantFINAL REPORT Chest, PA and lateral. History: Liver transplant. Comparison: 02/03/2017. Discussion: The cardiomediastinal silhouette and pulmonary vasculature are within normal limits. The lungs are clear without evidence of consolidation or effusion. There are no acute osseous abnormalities. The soft tissues are unremarkable. IMPRESSION: No acute cardiopulmonary abnormality. Signed: Evan Tracey MDReport Verified Date/Time: 01/27/2018 15:03:48 Reading Location: [facility] Mammo Reading Room U/S, ABDOMINAL, WITH [id number] 13:53:00Doppler Study to evaluate Hepatic vessels First Annual Reason for Exam:->liver transplantFINAL REPORT Ultrasound of the Abdomen and Doppler evaluation Clinical History : Liver transplant January 2017 Comparison: Abdominal ultrasound from 08/12/2017 Discussion: Sonographic evaluation of the abdomen is performed. In addition, color Doppler and spectral wave form analysis evaluations of the abdominal vasculature are performed. Liver: Measures 16.2 cm in length at the right midclavicular line. Diffusely increased echogenicity. No lesion is identified by ultrasound. Main portal vein diameter measures 1.4 cm. Biliary tree: Common duct measures 10 mm. No biliary dilatation Gallbladder: Absent. Pancreas: Not well seen due to overlying bowel gas. Ascites: None seen Spleen: Measures 12.2 cm in length. Kidneys: Right kidney measures 11.8 x 5.3 x 6.1 cm. Left kidneymeasures 11.3 x 5.8 x 4.6 cm. Normal cortical echogenicity. No mass. No shadowing calculus. No hydronephrosis. IVC/Aorta: Segments partially seen. Doppler: The peak systolic velocity of the mainportal vein is 26.8 cm/sec, within normal limits. The main portal, right portal, and left portal veins demonstrate normal direction of flow, hepatopetal. The splenic vein is visualized at the portal venous confluence and demonstrate normal direction of flow, hepatopetal. The proper hepatic and left hepatic arteries demonstrate normal arterial wave forms and resistive indices. The right hepatic arteryis not visualized. The proper hepatic artery demonstrates normal acceleration time, acceleration index, and systolic upstroke. Segments of the right hepatic, middle hepatic, and left hepatic veins visualized demonstrate flow and phasic venous waveforms. Impression: Diffusely increased echogenicity ofthe transplanted liver, limiting its evaluation. The right hepatic artery is not well visualized. Otherwise, the hepatic vasculature within normal limits. No biliary ductal dilation or focal liver lesion. Signed: Yassine Gomez MDReport Verified Date/Time: 01/27/2018 13:53:06 Reading Location: [address] Radiology Reading Room HEMOGLOBIN [id number] 12:54:00 Test Item Value Reference Range Interpretation Comments HEMOGLOBIN A1C (BEAKER) (test code = 5.1 % 4.3-6.1 368) SIROLIMUS [id number] 11:58:00 Test Item Value Reference Range Interpretation Comments SIROLIMUS LEVEL BLOOD (BEAKER) 11.3 ng/mL 5.0-15.0 (test code = 806) First AnnualHEPATITIS B SURFACE [id number] 10:14:00 Test Item Value Reference Range Interpretation Comments HEPATITIS B SURFACE ANTIBODY < mIU/mL <8.0 (BEAKER) (test code = 647) History HCCFirst AnnualFirst AnnualFirst AnnualFirst AnnualALPHA FETOPROTEIN (AFP), TUMOR [id number] 10:12:00 Test Item Value Reference Range Interpretation Comments ALPHA-FETOPROTEIN (BEAKER) (test 3.5 ng/mL <10.0 code = 1094) History HCCFirst AnnualFirst AnnualFirst AnnualFirst AnnualHEPATITIS B CORE ANTIBODY, [id number] 10:12:00 Test Item Value Reference Range Interpretation Comments HEPATITIS B CORE IGM ANTIBODY Nonreactive Nonreactive (BEAKER) (test code = 645) History HCCFirst AnnualFirst AnnualFirst AnnualFirst AnnualHEPATITIS A ANTIBODY, [id number] 10:12:00 Test Item Value Reference Range Interpretation Comments HEPATITIS A IGM ANTIBODY (BEAKER) Nonreactive Nonreactive (test code = 498) History HCCFirst AnnualFirst AnnualFirst AnnualFirst AnnualHEPATITIS B CORE ANTIBODY, [id number] 10:12:00 Test Item Value Reference Range Interpretation Comments HEPATITIS B CORE TOTAL ANTIBODY Nonreactive Nonreactive (BEAKER) (test code = 497) History HCCFirst AnnualFirst AnnualFirst AnnualFirst AnnualHEPATITIS B SURFACE [id number] 10:12:00 Test Item Value Reference Range Interpretation Comments HEPATITIS B SURFACE ANTIGEN (2) Nonreactive Nonreactive (BEAKER) (test code = 2585) First AnnualFirst [id number] 09:48:00 Test Item Value Reference Range Interpretation Comments PHOSPHORUS (BEAKER) (test code = 4.0 mg/dL 2.3-4.7 604) First AnnualFirst AnnualFirst AnnualFirst AnnualFirst [id number] 09:48:00 Test Item Value Reference Range Interpretation Comments MAGNESIUM (BEAKER) (test code = 2.1 mg/dL 1.6-2.6 627) First AnnualFirst AnnualFirst AnnualFirst AnnualFirst AnnualCOMPREHENSIVE METABOLIC [id number] 09:48:00 Test Item Value Reference Range Interpretation Comments TOTAL PROTEIN 7.2 gm/dL 6.0-8.3 (BEAKER) (test code = 770) ALBUMIN (BEAKER) 4.4 g/dL 3.5-5.0 (test code = 1145) ALKALINE PHOSPHATASE 66 U/L 40-150 (BEAKER) (test code = 346) BILIRUBIN TOTAL 0.6 mg/dL 0.2-1.2 (BEAKER) (test code = 377) SODIUM (BEAKER) (test 138 meq/L 136-145 code = 381) POTASSIUM (BEAKER) 3.3 meq/L 3.5-5.1 L (test code = 379) CHLORIDE (BEAKER) 103 meq/L 98-107 (test code = 382) CO2 (BEAKER) (test 25 meq/L 22-29 code = 355) BLOOD UREA NITROGEN 29 mg/dL 7-21 H (BEAKER) (test code = 354) CREATININE (BEAKER) 0.93 mg/dL 0.57-1.25 (test code = 358) GLUCOSE RANDOM 141 mg/dL 70-105 H (BEAKER) (test code = 652) CALCIUM (BEAKER) 9.8 mg/dL 8.4-10.2 (test code = 697) AST (SGOT) (BEAKER) 35 U/L 5-34 H (test code = 353) ALT (SGPT) (BEAKER) 78 U/L 6-55 H (test code = 347) EGFR (BEAKER) (test 62 mL/min/1.73 ESTIMA NIHARIKA GFR IS code = 1092) sq m NOT ACCURATE CREATININE CLEARANCE IN PREDICTING GLOMERULAR FILTRATION RATE . ESTIMATED GFR I S NOT APPLICABLE FOR DIALYSIS PATIEN TS. First AnnualFirst AnnualFirst AnnualFirst AnnualFirst AnnualLIPID PANEL 2018-01-27 09:48:00 Test Item Value Reference Range Interpretation Comments TRIGLYCERIDES (BEAKER) (test code = 330 mg/dL 540) CHOLESTEROL (BEAKER) (test code = 230 mg/dL 631) HDL CHOLESTEROL (BEAKER) (test code 37 mg/dL = 976) LDL CHOLESTEROL CALCULATED (BEAKER) 127 mg/dL (test code = 633) Triglyceride Reference Range: Low Risk <150 Borderline 150-199 High Risk 200-499 Very High Risk >=500Cholesterol Reference Range: Low Risk <200 Borderline 200-239 High Risk >240HDL Cholesterol Reference Range: Low Risk >=60 High Risk <40LDL Cholesterol Reference Range: Optimal <100 Near Optimal 100-129 Borderline 130-159 High 160-189 Very High >=190 First AnnualFirst AnnualFirst AnnualFirst AnnualFirst Annual BILIRUBIN, [id number] 09:48:00 Test Item Value Reference Range Interpretation Comments BILIRUBIN DIRECT (BEAKER) (test 0.2 mg/dL 0.1-0.5 code = 706) First AnnualFirst AnnualFirst AnnualFirst AnnualFirst AnnualCBC W/PLT COUNT & AUTO [id number] 09:29:00 Test Item Value Reference Range Interpretation Comments WHITE BLOOD CELL COUNT (BEAKER) 4.4 K/ L 3.5-10.5 (test code = 775) RED BLOOD CELL COUNT (BEAKER) 3.76 M/ L 3.93-5.22 L (test code = 761) HEMOGLOBIN (BEAKER) (test code = 10.4 GM/DL 11.2-15.7 L 410) HEMATOCRIT (BEAKER) (test code = 31.7 % 34.1-44.9 L 411) MEAN CORPUSCULAR VOLUME (BEAKER) 84.3 fL 79.4-94.8 (test code = 753) MEAN CORPUSCULAR HEMOGLOBIN 27.7 pg 25.6-32.2 (BEAKER) (test code = 751) MEAN CORPUSCULAR HEMOGLOBIN CONC 32.8 GM/DL 32.2-35.5 (BEAKER) (test code = 752) RED CELL DISTRIBUTION WIDTH 16.5 % 11.7-14.4 H (BEAKER) (test code = 412) PLATELET COUNT (BEAKER) (test 230 K/CU MM 150-450 code = 756) MEAN PLATELET VOLUME (BEAKER) 10.3 fL 9.4-12.3 (test code = 754) NUCLEATED RED BLOOD CELLS 0 /100 WBC 0-0 (BEAKER) (test code = 413) NEUTROPHILS RELATIVE PERCENT 68 % (BEAKER) (test code = 429) LYMPHOCYTES RELATIVE PERCENT 19 % (BEAKER) (test code = 430) MONOCYTES RELATIVE PERCENT 7 % (BEAKER) (test code = 431) EOSINOPHILS RELATIVE PERCENT 5 % (BEAKER) (test code = 432) BASOPHILS RELATIVE PERCENT 1 % (BEAKER) (test code = 437) NEUTROPHILS ABSOLUTE COUNT 3.03 K/ L 1.56-6.13 (BEAKER) (test code = 670) LYMPHOCYTES ABSOLUTE COUNT 0.86 K/ L 1.18-3.74 L (BEAKER) (test code = 414) MONOCYTES ABSOLUTE COUNT (BEAKER) 0.29 K/ L 0.24-0.36 (test code = 415) EOSINOPHILS ABSOLUTE COUNT 0.20 K/ L 0.04-0.36 (BEAKER) (test code = 416) BASOPHILS ABSOLUTE COUNT (BEAKER) 0.04 K/ L 0.01-0.08 (test code = 417) IMMATURE GRANULOCYTES-RELATIVE 1 % 0-1 PERCENT (BEAKER) (test code = 2801) SIROLIMUS [id number] 13:05:00 Test Item Value Reference Range Interpretation Comments SIROLIMUS LEVEL BLOOD (BEAKER) 15.4 ng/mL 5.0-15.0 H (test code = 806) Outpatient standing lab ordersCBC W/PLT COUNT & AUTO [id number] 11:09:00 Test Item Value Reference Range Interpretation Comments WHITE BLOOD CELL COUNT (BEAKER) 3.8 K/ L 3.5-10.5 (test code = 775) RED BLOOD CELL COUNT (BEAKER) 3.81 M/ L 3.93-5.22 L (test code = 761) HEMOGLOBIN (BEAKER) (test code = 10.3 GM/DL 11.2-15.7 L 410) HEMATOCRIT (BEAKER) (test code = 33.4 % 34.1-44.9 L 411) MEAN CORPUSCULAR VOLUME (BEAKER) 87.7 fL 79.4-94.8 (test code = 753) MEAN CORPUSCULAR HEMOGLOBIN 27.0 pg 25.6-32.2 (BEAKER) (test code = 751) MEAN CORPUSCULAR HEMOGLOBIN CONC 30.8 GM/DL 32.2-35.5 L (BEAKER) (test code = 752) RED CELL DISTRIBUTION WIDTH 16.2 % 11.7-14.4 H (BEAKER) (test code = 412) PLATELET COUNT (BEAKER) (test 188 K/CU MM 150-450 code = 756) MEAN PLATELET VOLUME (BEAKER) 10.4 fL 9.4-12.3 (test code = 754) NUCLEATED RED BLOOD CELLS 0 /100 WBC 0-0 (BEAKER) (test code = 413) NEUTROPHILS RELATIVE PERCENT 67 % (BEAKER) (test code = 429) LYMPHOCYTES RELATIVE PERCENT 21 % (BEAKER) (test code = 430) MONOCYTES RELATIVE PERCENT 7 % (BEAKER) (test code = 431) EOSINOPHILS RELATIVE PERCENT 4 % (BEAKER) (test code = 432) BASOPHILS RELATIVE PERCENT 1 % (BEAKER) (test code = 437) NEUTROPHILS ABSOLUTE COUNT 2.52 K/ L 1.56-6.13 (BEAKER) (test code = 670) LYMPHOCYTES ABSOLUTE COUNT 0.79 K/ L 1.18-3.74 L (BEAKER) (test code = 414) MONOCYTES ABSOLUTE COUNT (BEAKER) 0.25 K/ L 0.24-0.36 (test code = 415) EOSINOPHILS ABSOLUTE COUNT 0.14 K/ L 0.04-0.36 (BEAKER) (test code = 416) BASOPHILS ABSOLUTE COUNT (BEAKER) 0.02 K/ L 0.01-0.08 (test code = 417) IMMATURE GRANULOCYTES-RELATIVE 1 % 0-1 PERCENT (BEAKER) (test code = 2801) [id number] 11:00:00 Test Item Value Reference Range Interpretation Comments PHOSPHORUS (BEAKER) (test code = 2.8 mg/dL 2.3-4.7 604) Outpatient standing lab ordersOutpatient standing lab ordersOutpatient standing lab ordersOutpatientstanding lab [id number] 11:00:00 Test Item Value Reference Range Interpretation Comments MAGNESIUM (BEAKER) (test code = 2.1 mg/dL 1.6-2.6 627) Outpatient standing lab ordersOutpatient standing lab ordersOutpatient standing lab ordersOutpatientstanding lab ordersCOMPREHENSIVE METABOLIC [id number] 11:00:00 Test Item Value Reference Range Interpretation Comments TOTAL PROTEIN 6.8 gm/dL 6.0-8.3 (BEAKER) (test code = 770) ALBUMIN (BEAKER) 4.1 g/dL 3.5-5.0 (test code = 1145) ALKALINE PHOSPHATASE 65 U/L 40-150 (BEAKER) (test code = 346) BILIRUBIN TOTAL 0.6 mg/dL 0.2-1.2 (BEAKER) (test code = 377) SODIUM (BEAKER) (test 139 meq/L 136-145 code = 381) POTASSIUM (BEAKER) 3.9 meq/L 3.5-5.1 (test code = 379) CHLORIDE (BEAKER) 105 meq/L 98-107 (test code = 382) CO2 (BEAKER) (test 25 meq/L 22-29 code = 355) BLOOD UREA NITROGEN 20 mg/dL 7-21 (BEAKER) (test code = 354) CREATININE (BEAKER) 0.94 mg/dL 0.57-1.25 (test code = 358) GLUCOSE RANDOM 135 mg/dL 70-105 H (BEAKER) (test code = 652) CALCIUM (BEAKER) 9.0 mg/dL 8.4-10.2 (test code = 697) AST (SGOT) (BEAKER) 36 U/L 5-34 H (test code = 353) ALT (SGPT) (BEAKER) 61 U/L 6-55 H (test code = 347) EGFR (BEAKER) (test 62 mL/min/1.73 ESTIMA NIHARIKA GFR IS code = 1092) sq m NOT ACCURATE CREATININE CLEARANCE IN PREDICTING GLOMERULAR FILTRATION RATE . ESTIMATED GFR I S NOT APPLICABLE FOR DIALYSIS PATIEN TS. Outpatient standing lab ordersOutpatient standing lab ordersOutpatient standing lab ordersOutpatientstanding lab ordersBILIRUBIN, [id number] 11:00:00 Test Item Value Reference Range Interpretation Comments BILIRUBIN DIRECT (BEAKER) (test 0.2 mg/dL 0.1-0.5 code = 706) Outpatient standing lab ordersOutpatient standing lab ordersOutpatient standing lab ordersOutpatientstanding lab ordersSIROLIMUS [id number] 11:44:00 Test Item Value Reference Range Interpretation Comments SIROLIMUS LEVEL BLOOD (BEAKER) 10.7 ng/mL 5.0-15.0 (test code = 806) Outpatient standing lab [id number] 09:40:00 Test Item Value Reference Range Interpretation Comments PHOSPHORUS (BEAKER) (test code = 3.6 mg/dL 2.3-4.7 604) Outpatient standing lab ordersOutpatient standing lab ordersOutpatient standing lab ordersOutpatientstanding lab [id number] 09:40:00 Test Item Value Reference Range Interpretation Comments MAGNESIUM (BEAKER) (test code = 2.3 mg/dL 1.6-2.6 627) Outpatient standing lab ordersOutpatient standing lab ordersOutpatient standing lab ordersOutpatientstanding lab ordersCOMPREHENSIVE METABOLIC [id number] 09:40:00 Test Item Value Reference Range Interpretation Comments TOTAL PROTEIN 6.7 gm/dL 6.0-8.3 (BEAKER) (test code = 770) ALBUMIN (BEAKER) 4.2 g/dL 3.5-5.0 (test code = 1145) ALKALINE PHOSPHATASE 63 U/L 40-150 (BEAKER) (test code = 346) BILIRUBIN TOTAL 0.5 mg/dL 0.2-1.2 (BEAKER) (test code = 377) SODIUM (BEAKER) (test 141 meq/L 136-145 code = 381) POTASSIUM (BEAKER) 3.8 meq/L 3.5-5.1 (test code = 379) CHLORIDE (BEAKER) 107 meq/L 98-107 (test code = 382) CO2 (BEAKER) (test 26 meq/L 22-29 code = 355) BLOOD UREA NITROGEN 19 mg/dL 7-21 (BEAKER) (test code = 354) CREATININE (BEAKER) 0.83 mg/dL 0.57-1.25 (test code = 358) GLUCOSE RANDOM 122 mg/dL 70-105 H (BEAKER) (test code = 652) CALCIUM (BEAKER) 9.4 mg/dL 8.4-10.2 (test code = 697) AST (SGOT) (BEAKER) 25 U/L 5-34 (test code = 353) ALT (SGPT) (BEAKER) 46 U/L 6-55 (test code = 347) EGFR (BEAKER) (test 71 mL/min/1.73 ESTIMA NIHARIKA GFR IS code = 1092) sq m NOT ACCURATE CREATININE CLEARANCE IN PREDICTING GLOMERULAR FILTRATION RATE . ESTIMATED GFR I S NOT APPLICABLE FOR DIALYSIS PATIEN TS. Outpatient standing lab ordersOutpatient standing lab ordersOutpatient standing lab ordersOutpatientstanding lab ordersBILIRUBIN, [id number] 09:40:00 Test Item Value Reference Range Interpretation Comments BILIRUBIN DIRECT (BEAKER) (test 0.2 mg/dL 0.1-0.5 code = 706) Outpatient standing lab ordersOutpatient standing lab ordersOutpatient standing lab ordersOutpatientstanding lab ordersCBC W/PLT COUNT & AUTO DIFFERENTIAL 2017-12-23 09:19:00 Test Item Value Reference Range Interpretation Comments WHITE BLOOD CELL COUNT (BEAKER) 3.6 K/ L 3.5-10.5 (test code = 775) RED BLOOD CELL COUNT (BEAKER) 3.91 M/ L 3.93-5.22 L (test code = 761) HEMOGLOBIN (BEAKER) (test code = 10.6 GM/DL 11.2-15.7 L 410) HEMATOCRIT (BEAKER) (test code = 32.8 % 34.1-44.9 L 411) MEAN CORPUSCULAR VOLUME (BEAKER) 83.9 fL 79.4-94.8 (test code = 753) MEAN CORPUSCULAR HEMOGLOBIN 27.1 pg 25.6-32.2 (BEAKER) (test code = 751) MEAN CORPUSCULAR HEMOGLOBIN CONC 32.3 GM/DL 32.2-35.5 (BEAKER) (test code = 752) RED CELL DISTRIBUTION WIDTH 16.4 % 11.7-14.4 H (BEAKER) (test code = 412) PLATELET COUNT (BEAKER) (test 171 K/CU MM 150-450 code = 756) MEAN PLATELET VOLUME (BEAKER) 10.5 fL 9.4-12.3 (test code = 754) NUCLEATED RED BLOOD CELLS 0 /100 WBC 0-0 (BEAKER) (test code = 413) NEUTROPHILS RELATIVE PERCENT 59 % (BEAKER) (test code = 429) LYMPHOCYTES RELATIVE PERCENT 29 % (BEAKER) (test code = 430) MONOCYTES RELATIVE PERCENT 7 % (BEAKER) (test code = 431) EOSINOPHILS RELATIVE PERCENT 3 % (BEAKER) (test code = 432) BASOPHILS RELATIVE PERCENT 1 % (BEAKER) (test code = 437) NEUTROPHILS ABSOLUTE COUNT 2.15 K/ L 1.56-6.13 (BEAKER) (test code = 670) LYMPHOCYTES ABSOLUTE COUNT 1.05 K/ L 1.18-3.74 L (BEAKER) (test code = 414) MONOCYTES ABSOLUTE COUNT (BEAKER) 0.25 K/ L 0.24-0.36 (test code = 415) EOSINOPHILS ABSOLUTE COUNT 0.10 K/ L 0.04-0.36 (BEAKER) (test code = 416) BASOPHILS ABSOLUTE COUNT (BEAKER) 0.04 K/ L 0.01-0.08 (test code = 417) IMMATURE GRANULOCYTES-RELATIVE 1 % 0-1 PERCENT (BEAKER) (test code = 2801) SIROLIMUS [id number] 13:09:00 Test Item Value Reference Range Interpretation Comments SIROLIMUS LEVEL BLOOD (BEAKER) 11.7 ng/mL 5.0-15.0 (test code = 806) Outpatient standing lab [id number] 10:51:00 Test Item Value Reference Range Interpretation Comments PHOSPHORUS (BEAKER) (test code = 3.1 mg/dL 2.3-4.7 604) Outpatient standing lab ordersOutpatient standing lab ordersOutpatient standing lab ordersOutpatientstanding lab [id number] 10:51:00 Test Item Value Reference Range Interpretation Comments MAGNESIUM (BEAKER) (test code = 2.2 mg/dL 1.6-2.6 627) Outpatient standing lab ordersOutpatient standing lab ordersOutpatient standing lab ordersOutpatientstanding lab ordersCOMPREHENSIVE METABOLIC [id number] 10:51:00 Test Item Value Reference Range Interpretation Comments TOTAL PROTEIN 7.0 gm/dL 6.0-8.3 (BEAKER) (test code = 770) ALBUMIN (BEAKER) 4.3 g/dL 3.5-5.0 (test code = 1145) ALKALINE PHOSPHATASE 68 U/L 40-150 (BEAKER) (test code = 346) BILIRUBIN TOTAL 0.7 mg/dL 0.2-1.2 (BEAKER) (test code = 377) SODIUM (BEAKER) (test 142 meq/L 136-145 code = 381) POTASSIUM (BEAKER) 3.3 meq/L 3.5-5.1 L (test code = 379) CHLORIDE (BEAKER) 106 meq/L 98-107 (test code = 382) CO2 (BEAKER) (test 25 meq/L 22-29 code = 355) BLOOD UREA NITROGEN 27 mg/dL 7-21 H (BEAKER) (test code = 354) CREATININE (BEAKER) 0.90 mg/dL 0.57-1.25 (test code = 358) GLUCOSE RANDOM 121 mg/dL 70-105 H (BEAKER) (test code = 652) CALCIUM (BEAKER) 9.4 mg/dL 8.4-10.2 (test code = 697) AST (SGOT) (BEAKER) 37 U/L 5-34 H (test code = 353) ALT (SGPT) (BEAKER) 65 U/L 6-55 H (test code = 347) EGFR (BEAKER) (test 65 mL/min/1.73 ESTIMA NIHARIKA GFR IS code = 1092) sq m NOT ACCURATE CREATININE CLEARANCE IN PREDICTING GLOMERULAR FILTRATION RATE . ESTIMATED GFR I S NOT APPLICABLE FOR DIALYSIS PATIEN TS. Outpatient standing lab ordersOutpatient standing lab ordersOutpatient standing lab ordersOutpatientstanding lab ordersBILIRUBIN, [id number] 10:51:00 Test Item Value Reference Range Interpretation Comments BILIRUBIN DIRECT (BEAKER) (test 0.2 mg/dL 0.1-0.5 code = 706) Outpatient standing lab ordersOutpatient standing lab ordersOutpatient standing lab ordersOutpatientstanding lab ordersCBC W/PLT COUNT & AUTO DIFFERENTIAL 2017-12-09 10:33:00 Test Item Value Reference Range Interpretation Comments WHITE BLOOD CELL COUNT (BEAKER) 3.8 K/ L 3.5-10.5 (test code = 775) RED BLOOD CELL COUNT (BEAKER) 3.79 M/ L 3.93-5.22 L (test code = 761) HEMOGLOBIN (BEAKER) (test code = 10.3 GM/DL 11.2-15.7 L 410) HEMATOCRIT (BEAKER) (test code = 32.4 % 34.1-44.9 L 411) MEAN CORPUSCULAR VOLUME (BEAKER) 85.5 fL 79.4-94.8 (test code = 753) MEAN CORPUSCULAR HEMOGLOBIN 27.2 pg 25.6-32.2 (BEAKER) (test code = 751) MEAN CORPUSCULAR HEMOGLOBIN CONC 31.8 GM/DL 32.2-35.5 L (BEAKER) (test code = 752) RED CELL DISTRIBUTION WIDTH 16.7 % 11.7-14.4 H (BEAKER) (test code = 412) PLATELET COUNT (BEAKER) (test 188 K/CU MM 150-450 code = 756) MEAN PLATELET VOLUME (BEAKER) 11.0 fL 9.4-12.3 (test code = 754) NUCLEATED RED BLOOD CELLS 0 /100 WBC 0-0 (BEAKER) (test code = 413) NEUTROPHILS RELATIVE PERCENT 66 % (BEAKER) (test code = 429) LYMPHOCYTES RELATIVE PERCENT 22 % (BEAKER) (test code = 430) MONOCYTES RELATIVE PERCENT 8 % (BEAKER) (test code = 431) EOSINOPHILS RELATIVE PERCENT 3 % (BEAKER) (test code = 432) BASOPHILS RELATIVE PERCENT 1 % (BEAKER) (test code = 437) NEUTROPHILS ABSOLUTE COUNT 2.52 K/ L 1.56-6.13 (BEAKER) (test code = 670) LYMPHOCYTES ABSOLUTE COUNT 0.84 K/ L 1.18-3.74 L (BEAKER) (test code = 414) MONOCYTES ABSOLUTE COUNT (BEAKER) 0.31 K/ L 0.24-0.36 (test code = 415) EOSINOPHILS ABSOLUTE COUNT 0.12 K/ L 0.04-0.36 (BEAKER) (test code = 416) BASOPHILS ABSOLUTE COUNT (BEAKER) 0.03 K/ L 0.01-0.08 (test code = 417) IMMATURE GRANULOCYTES-RELATIVE 1 % 0-1 PERCENT (BEAKER) (test code = 2801) SIROLIMUS [id number] 14:02:00 Test Item Value Reference Range Interpretation Comments SIROLIMUS LEVEL BLOOD (BEAKER) 8.6 ng/mL 5.0-15.0 (test code = 806) Outpatient standing lab [id number] 10:27:00 Test Item Value Reference Range Interpretation Comments PHOSPHORUS (BEAKER) (test code = 4.0 mg/dL 2.3-4.7 604) Outpatient standing lab ordersOutpatient standing lab ordersOutpatient standing lab ordersOutpatientstanding lab [id number] 10:27:00 Test Item Value Reference Range Interpretation Comments MAGNESIUM (BEAKER) (test code = 2.1 mg/dL 1.6-2.6 627) Outpatient standing lab ordersOutpatient standing lab ordersOutpatient standing lab ordersOutpatientstanding lab ordersCOMPREHENSIVE METABOLIC [id number] 10:27:00 Test Item Value Reference Range Interpretation Comments TOTAL PROTEIN 6.7 gm/dL 6.0-8.3 (BEAKER) (test code = 770) ALBUMIN (BEAKER) 4.2 g/dL 3.5-5.0 (test code = 1145) ALKALINE PHOSPHATASE 64 U/L 40-150 (BEAKER) (test code = 346) BILIRUBIN TOTAL 0.6 mg/dL 0.2-1.2 (BEAKER) (test code = 377) SODIUM (BEAKER) (test 141 meq/L 136-145 code = 381) POTASSIUM (BEAKER) 3.9 meq/L 3.5-5.1 (test code = 379) CHLORIDE (BEAKER) 105 meq/L 98-107 (test code = 382) CO2 (BEAKER) (test 27 meq/L 22-29 code = 355) BLOOD UREA NITROGEN 22 mg/dL 7-21 H (BEAKER) (test code = 354) CREATININE (BEAKER) 0.84 mg/dL 0.57-1.25 (test code = 358) GLUCOSE RANDOM 120 mg/dL 70-105 H (BEAKER) (test code = 652) CALCIUM (BEAKER) 9.7 mg/dL 8.4-10.2 (test code = 697) AST (SGOT) (BEAKER) 36 U/L 5-34 H (test code = 353) ALT (SGPT) (BEAKER) 78 U/L 6-55 H (test code = 347) EGFR (BEAKER) (test 70 mL/min/1.73 ESTIMA NIHARIKA GFR IS code = 1092) sq m NOT ACCURATE CREATININE CLEARANCE IN PREDICTING GLOMERULAR FILTRATION RATE . ESTIMATED GFR I S NOT APPLICABLE FOR DIALYSIS PATIEN TS. Outpatient standing lab ordersOutpatient standing lab ordersOutpatient standing lab ordersOutpatientstanding lab ordersBILIRUBIN, [id number] 10:27:00 Test Item Value Reference Range Interpretation Comments BILIRUBIN DIRECT (BEAKER) (test 0.2 mg/dL 0.1-0.5 code = 706) Outpatient standing lab ordersOutpatient standing lab ordersOutpatient standing lab ordersOutpatientstanding lab ordersCBC W/PLT COUNT & AUTO DIFFERENTIAL 2017-11-25 09:52:00 Test Item Value Reference Range Interpretation Comments WHITE BLOOD CELL COUNT (BEAKER) 4.1 K/ L 3.5-10.5 (test code = 775) RED BLOOD CELL COUNT (BEAKER) 3.72 M/ L 3.93-5.22 L (test code = 761) HEMOGLOBIN (BEAKER) (test code = 10.0 GM/DL 11.2-15.7 L 410) HEMATOCRIT (BEAKER) (test code = 31.7 % 34.1-44.9 L 411) MEAN CORPUSCULAR VOLUME (BEAKER) 85.2 fL 79.4-94.8 (test code = 753) MEAN CORPUSCULAR HEMOGLOBIN 26.9 pg 25.6-32.2 (BEAKER) (test code = 751) MEAN CORPUSCULAR HEMOGLOBIN CONC 31.5 GM/DL 32.2-35.5 L (BEAKER) (test code = 752) RED CELL DISTRIBUTION WIDTH 16.7 % 11.7-14.4 H (BEAKER) (test code = 412) PLATELET COUNT (BEAKER) (test 184 K/CU MM 150-450 code = 756) MEAN PLATELET VOLUME (BEAKER) 10.6 fL 9.4-12.3 (test code = 754) NUCLEATED RED BLOOD CELLS 0 /100 WBC 0-0 (BEAKER) (test code = 413) NEUTROPHILS RELATIVE PERCENT 66 % (BEAKER) (test code = 429) LYMPHOCYTES RELATIVE PERCENT 22 % (BEAKER) (test code = 430) MONOCYTES RELATIVE PERCENT 9 % (BEAKER) (test code = 431) EOSINOPHILS RELATIVE PERCENT 2 % (BEAKER) (test code = 432) BASOPHILS RELATIVE PERCENT 1 % (BEAKER) (test code = 437) NEUTROPHILS ABSOLUTE COUNT 2.72 K/ L 1.56-6.13 (BEAKER) (test code = 670) LYMPHOCYTES ABSOLUTE COUNT 0.92 K/ L 1.18-3.74 L (BEAKER) (test code = 414) MONOCYTES ABSOLUTE COUNT (BEAKER) 0.35 K/ L 0.24-0.36 (test code = 415) EOSINOPHILS ABSOLUTE COUNT 0.09 K/ L 0.04-0.36 (BEAKER) (test code = 416) BASOPHILS ABSOLUTE COUNT (BEAKER) 0.02 K/ L 0.01-0.08 (test code = 417) IMMATURE GRANULOCYTES-RELATIVE 1 % 0-1 PERCENT (BEAKER) (test code = 2801) SIROLIMUS [id number] 17:11:00 Test Item Value Reference Range Interpretation Comments SIROLIMUS LEVEL BLOOD (BEAKER) 10.3 ng/mL 5.0-15.0 (test code = 806) Outpatient standing lab [id number] 10:55:00 Test Item Value Reference Range Interpretation Comments PHOSPHORUS (BEAKER) (test code = 3.6 mg/dL 2.3-4.7 604) Outpatient standing lab ordersOutpatient standing lab ordersOutpatient standing lab ordersOutpatientstanding lab [id number] 10:55:00 Test Item Value Reference Range Interpretation Comments MAGNESIUM (BEAKER) (test code = 2.0 mg/dL 1.6-2.6 627) Outpatient standing lab ordersOutpatient standing lab ordersOutpatient standing lab ordersOutpatientstanding lab ordersCOMPREHENSIVE METABOLIC [id number] 10:55:00 Test Item Value Reference Range Interpretation Comments TOTAL PROTEIN 6.3 gm/dL 6.0-8.3 (BEAKER) (test code = 770) ALBUMIN (BEAKER) 4.0 g/dL 3.5-5.0 (test code = 1145) ALKALINE PHOSPHATASE 57 U/L 40-150 (BEAKER) (test code = 346) BILIRUBIN TOTAL 0.6 mg/dL 0.2-1.2 (BEAKER) (test code = 377) SODIUM (BEAKER) (test 141 meq/L 136-145 code = 381) POTASSIUM (BEAKER) 3.9 meq/L 3.5-5.1 (test code = 379) CHLORIDE (BEAKER) 108 meq/L 98-107 H (test code = 382) CO2 (BEAKER) (test 24 meq/L 22-29 code = 355) BLOOD UREA NITROGEN 25 mg/dL 7-21 H (BEAKER) (test code = 354) CREATININE (BEAKER) 0.84 mg/dL 0.57-1.25 (test code = 358) GLUCOSE RANDOM 119 mg/dL 70-105 H (BEAKER) (test code = 652) CALCIUM (BEAKER) 9.0 mg/dL 8.4-10.2 (test code = 697) AST (SGOT) (BEAKER) 28 U/L 5-34 (test code = 353) ALT (SGPT) (BEAKER) 56 U/L 6-55 H (test code = 347) EGFR (BEAKER) (test 70 mL/min/1.73 ESTIMA NIHARIKA GFR IS code = 1092) sq m NOT ACCURATE CREATININE CLEARANCE IN PREDICTING GLOMERULAR FILTRATION RATE . ESTIMATED GFR I S NOT APPLICABLE FOR DIALYSIS PATIEN TS. Outpatient standing lab ordersOutpatient standing lab ordersOutpatient standing lab ordersOutpatientstanding lab ordersBILIRUBIN, [id number] 10:55:00 Test Item Value Reference Range Interpretation Comments BILIRUBIN DIRECT (BEAKER) (test 0.2 mg/dL 0.1-0.5 code = 706) Outpatient standing lab ordersOutpatient standing lab ordersOutpatient standing lab ordersOutpatientstanding lab ordersCBC W/PLT COUNT & AUTO DIFFERENTIAL 2017-11-12 10:17:00 Test Item Value Reference Range Interpretation Comments WHITE BLOOD CELL COUNT (BEAKER) 2.9 K/ L 3.5-10.5 L (test code = 775) RED BLOOD CELL COUNT (BEAKER) 3.43 M/ L 3.93-5.22 L (test code = 761) HEMOGLOBIN (BEAKER) (test code = 9.5 GM/DL 11.2-15.7 L 410) HEMATOCRIT (BEAKER) (test code = 29.7 % 34.1-44.9 L 411) MEAN CORPUSCULAR VOLUME (BEAKER) 86.6 fL 79.4-94.8 (test code = 753) MEAN CORPUSCULAR HEMOGLOBIN 27.7 pg 25.6-32.2 (BEAKER) (test code = 751) MEAN CORPUSCULAR HEMOGLOBIN CONC 32.0 GM/DL 32.2-35.5 L (BEAKER) (test code = 752) RED CELL DISTRIBUTION WIDTH 17.1 % 11.7-14.4 H (BEAKER) (test code = 412) PLATELET COUNT (BEAKER) (test 160 K/CU MM 150-450 code = 756) MEAN PLATELET VOLUME (BEAKER) 10.4 fL 9.4-12.3 (test code = 754) NUCLEATED RED BLOOD CELLS 0 /100 WBC 0-0 (BEAKER) (test code = 413) NEUTROPHILS RELATIVE PERCENT 60 % (BEAKER) (test code = 429) LYMPHOCYTES RELATIVE PERCENT 26 % (BEAKER) (test code = 430) MONOCYTES RELATIVE PERCENT 8 % (BEAKER) (test code = 431) EOSINOPHILS RELATIVE PERCENT 5 % (BEAKER) (test code = 432) BASOPHILS RELATIVE PERCENT 1 % (BEAKER) (test code = 437) NEUTROPHILS ABSOLUTE COUNT 1.73 K/ L 1.56-6.13 (BEAKER) (test code = 670) LYMPHOCYTES ABSOLUTE COUNT 0.76 K/ L 1.18-3.74 L (BEAKER) (test code = 414) MONOCYTES ABSOLUTE COUNT (BEAKER) 0.23 K/ L 0.24-0.36 L (test code = 415) EOSINOPHILS ABSOLUTE COUNT 0.13 K/ L 0.04-0.36 (BEAKER) (test code = 416) BASOPHILS ABSOLUTE COUNT (BEAKER) 0.02 K/ L 0.01-0.08 (test code = 417) IMMATURE GRANULOCYTES-RELATIVE 0 % 0-1 PERCENT (BEAKER) (test code = 2801) SIROLIMUS [id number] 11:56:00 Test Item Value Reference Range Interpretation Comments SIROLIMUS LEVEL BLOOD (BEAKER) 10.0 ng/mL 5.0-15.0 (test code = 806) Outpatient standing lab [id number] 10:57:00 Test Item Value Reference Range Interpretation Comments PHOSPHORUS (BEAKER) (test code = 3.2 mg/dL 2.3-4.7 604) Outpatient standing lab ordersOutpatient standing lab ordersOutpatient standing lab ordersOutpatientstanding lab [id number] 10:57:00 Test Item Value Reference Range Interpretation Comments MAGNESIUM (BEAKER) (test code = 2.1 mg/dL 1.6-2.6 627) Outpatient standing lab ordersOutpatient standing lab ordersOutpatient standing lab ordersOutpatientstanding lab ordersCOMPREHENSIVE METABOLIC [id number] 10:57:00 Test Item Value Reference Range Interpretation Comments TOTAL PROTEIN 7.0 gm/dL 6.0-8.3 (BEAKER) (test code = 770) ALBUMIN (BEAKER) 4.3 g/dL 3.5-5.0 (test code = 1145) ALKALINE PHOSPHATASE 75 U/L 40-150 (BEAKER) (test code = 346) BILIRUBIN TOTAL 0.6 mg/dL 0.2-1.2 (BEAKER) (test code = 377) SODIUM (BEAKER) (test 141 meq/L 136-145 code = 381) POTASSIUM (BEAKER) 3.3 meq/L 3.5-5.1 L (test code = 379) CHLORIDE (BEAKER) 106 meq/L 98-107 (test code = 382) CO2 (BEAKER) (test 26 meq/L 22-29 code = 355) BLOOD UREA NITROGEN 27 mg/dL 7-21 H (BEAKER) (test code = 354) CREATININE (BEAKER) 0.90 mg/dL 0.57-1.25 (test code = 358) GLUCOSE RANDOM 122 mg/dL 70-105 H (BEAKER) (test code = 652) CALCIUM (BEAKER) 9.5 mg/dL 8.4-10.2 (test code = 697) AST (SGOT) (BEAKER) 30 U/L 5-34 (test code = 353) ALT (SGPT) (BEAKER) 56 U/L 6-55 H (test code = 347) EGFR (BEAKER) (test 65 mL/min/1.73 ESTIMA NIHARIKA GFR IS code = 1092) sq m NOT ACCURATE CREATININE CLEARANCE IN PREDICTING GLOMERULAR FILTRATION RATE . ESTIMATED GFR I S NOT APPLICABLE FOR DIALYSIS PATIEN TS. Outpatient standing lab ordersOutpatient standing lab ordersOutpatient standing lab ordersOutpatientstanding lab ordersBILIRUBIN, [id number] 10:57:00 Test Item Value Reference Range Interpretation Comments BILIRUBIN DIRECT (BEAKER) (test 0.2 mg/dL 0.1-0.5 code = 706) Outpatient standing lab ordersOutpatient standing lab ordersOutpatient standing lab ordersOutpatientstanding lab ordersCBC W/PLT COUNT & AUTO DIFFERENTIAL 2017-10-28 10:35:00 Test Item Value Reference Range Interpretation Comments WHITE BLOOD CELL COUNT (BEAKER) 4.0 K/ L 3.5-10.5 (test code = 775) RED BLOOD CELL COUNT (BEAKER) 3.81 M/ L 3.93-5.22 L (test code = 761) HEMOGLOBIN (BEAKER) (test code = 10.5 GM/DL 11.2-15.7 L 410) HEMATOCRIT (BEAKER) (test code = 32.4 % 34.1-44.9 L 411) MEAN CORPUSCULAR VOLUME (BEAKER) 85.0 fL 79.4-94.8 (test code = 753) MEAN CORPUSCULAR HEMOGLOBIN 27.6 pg 25.6-32.2 (BEAKER) (test code = 751) MEAN CORPUSCULAR HEMOGLOBIN CONC 32.4 GM/DL 32.2-35.5 (BEAKER) (test code = 752) RED CELL DISTRIBUTION WIDTH 16.9 % 11.7-14.4 H (BEAKER) (test code = 412) PLATELET COUNT (BEAKER) (test 193 K/CU MM 150-450 code = 756) MEAN PLATELET VOLUME (BEAKER) 10.6 fL 9.4-12.3 (test code = 754) NUCLEATED RED BLOOD CELLS 0 /100 WBC 0-0 (BEAKER) (test code = 413) NEUTROPHILS RELATIVE PERCENT 67 % (BEAKER) (test code = 429) LYMPHOCYTES RELATIVE PERCENT 23 % (BEAKER) (test code = 430) MONOCYTES RELATIVE PERCENT 7 % (BEAKER) (test code = 431) EOSINOPHILS RELATIVE PERCENT 2 % (BEAKER) (test code = 432) BASOPHILS RELATIVE PERCENT 1 % (BEAKER) (test code = 437) NEUTROPHILS ABSOLUTE COUNT 2.67 K/ L 1.56-6.13 (BEAKER) (test code = 670) LYMPHOCYTES ABSOLUTE COUNT 0.94 K/ L 1.18-3.74 L (BEAKER) (test code = 414) MONOCYTES ABSOLUTE COUNT (BEAKER) 0.29 K/ L 0.24-0.36 (test code = 415) EOSINOPHILS ABSOLUTE COUNT 0.07 K/ L 0.04-0.36 (BEAKER) (test code = 416) BASOPHILS ABSOLUTE COUNT (BEAKER) 0.03 K/ L 0.01-0.08 (test code = 417) IMMATURE GRANULOCYTES-RELATIVE 1 % 0-1 PERCENT (BEAKER) (test code = 2801) SIROLIMUS [id number] 13:25:00 Test Item Value Reference Range Interpretation Comments SIROLIMUS LEVEL BLOOD (BEAKER) 11.2 ng/mL 5.0-15.0 (test code = 806) Outpatient standing lab [id number] 11:08:00 Test Item Value Reference Range Interpretation Comments MAGNESIUM (BEAKER) (test code = 2.0 mg/dL 1.6-2.6 627) Outpatient standing lab ordersOutpatient standing lab ordersOutpatient standing lab ordersCOMPREHENSIVE METABOLIC [id number] 11:08:00 Test Item Value Reference Range Interpretation Comments TOTAL PROTEIN 6.7 gm/dL 6.0-8.3 (BEAKER) (test code = 770) ALBUMIN (BEAKER) 4.2 g/dL 3.5-5.0 (test code = 1145) ALKALINE PHOSPHATASE 62 U/L 40-150 (BEAKER) (test code = 346) BILIRUBIN TOTAL 0.4 mg/dL 0.2-1.2 (BEAKER) (test code = 377) SODIUM (BEAKER) (test 141 meq/L 136-145 code = 381) POTASSIUM (BEAKER) 3.6 meq/L 3.5-5.1 (test code = 379) CHLORIDE (BEAKER) 106 meq/L 98-107 (test code = 382) CO2 (BEAKER) (test 26 meq/L 22-29 code = 355) BLOOD UREA NITROGEN 20 mg/dL 7-21 (BEAKER) (test code = 354) CREATININE (BEAKER) 1.05 mg/dL 0.57-1.25 (test code = 358) GLUCOSE RANDOM 194 mg/dL 70-105 H (BEAKER) (test code = 652) CALCIUM (BEAKER) 9.1 mg/dL 8.4-10.2 (test code = 697) AST (SGOT) (BEAKER) 28 U/L 5-34 (test code = 353) ALT (SGPT) (BEAKER) 68 U/L 6-55 H (test code = 347) EGFR (BEAKER) (test 54 mL/min/1.73 ESTIMA NIHARIKA GFR IS code = 1092) sq m NOT ACCURATE CREATININE CLEARANCE IN PREDICTING GLOMERULAR FILTRATION RATE . ESTIMATED GFR I S NOT APPLICABLE FOR DIALYSIS PATIEN TS. Outpatient standing lab ordersOutpatient standing lab ordersOutpatient standing lab ordersBILIRUBIN, [id number] 11:08:00 Test Item Value Reference Range Interpretation Comments BILIRUBIN DIRECT (BEAKER) (test 0.1 mg/dL 0.1-0.5 code = 706) Outpatient standing lab ordersOutpatient standing lab ordersOutpatient standing lab ordersCBC W/PLT COUNT & AUTO [id number] 10:39:00 Test Item Value Reference Range Interpretation Comments WHITE BLOOD CELL COUNT (BEAKER) 3.8 K/ L 3.5-10.5 (test code = 775) RED BLOOD CELL COUNT (BEAKER) 3.60 M/ L 3.93-5.22 L (test code = 761) HEMOGLOBIN (BEAKER) (test code = 10.0 GM/DL 11.2-15.7 L 410) HEMATOCRIT (BEAKER) (test code = 31.3 % 34.1-44.9 L 411) MEAN CORPUSCULAR VOLUME (BEAKER) 86.9 fL 79.4-94.8 (test code = 753) MEAN CORPUSCULAR HEMOGLOBIN 27.8 pg 25.6-32.2 (BEAKER) (test code = 751) MEAN CORPUSCULAR HEMOGLOBIN CONC 31.9 GM/DL 32.2-35.5 L (BEAKER) (test code = 752) RED CELL DISTRIBUTION WIDTH 17.9 % 11.7-14.4 H (BEAKER) (test code = 412) PLATELET COUNT (BEAKER) (test 164 K/CU MM 150-450 code = 756) MEAN PLATELET VOLUME (BEAKER) 10.6 fL 9.4-12.3 (test code = 754) NUCLEATED RED BLOOD CELLS 0 /100 WBC 0-0 (BEAKER) (test code = 413) NEUTROPHILS RELATIVE PERCENT 67 % (BEAKER) (test code = 429) LYMPHOCYTES RELATIVE PERCENT 22 % (BEAKER) (test code = 430) MONOCYTES RELATIVE PERCENT 7 % (BEAKER) (test code = 431) EOSINOPHILS RELATIVE PERCENT 2 % (BEAKER) (test code = 432) BASOPHILS RELATIVE PERCENT 1 % (BEAKER) (test code = 437) NEUTROPHILS ABSOLUTE COUNT 2.53 K/ L 1.56-6.13 (BEAKER) (test code = 670) LYMPHOCYTES ABSOLUTE COUNT 0.84 K/ L 1.18-3.74 L (BEAKER) (test code = 414) MONOCYTES ABSOLUTE COUNT (BEAKER) 0.26 K/ L 0.24-0.36 (test code = 415) EOSINOPHILS ABSOLUTE COUNT 0.09 K/ L 0.04-0.36 (BEAKER) (test code = 416) BASOPHILS ABSOLUTE COUNT (BEAKER) 0.02 K/ L 0.01-0.08 (test code = 417) IMMATURE GRANULOCYTES-RELATIVE 1 % 0-1 PERCENT (BEAKER) (test code = 2801) SIROLIMUS [id number] 12:13:00 Test Item Value Reference Range Interpretation Comments SIROLIMUS LEVEL BLOOD (BEAKER) 9.6 ng/mL 5.0-15.0 (test code = 806) Outpatient standing lab [id number] 10:10:00 Test Item Value Reference Range Interpretation Comments PHOSPHORUS (BEAKER) (test code = 4.9 mg/dL 2.3-4.7 H 604) Outpatient standing lab ordersOutpatient standing lab ordersOutpatient standing lab ordersOutpatientstanding lab [id number] 10:10:00 Test Item Value Reference Range Interpretation Comments MAGNESIUM (BEAKER) (test code = 1.9 mg/dL 1.6-2.6 627) Outpatient standing lab ordersOutpatient standing lab ordersOutpatient standing lab ordersOutpatientstanding lab ordersCOMPREHENSIVE METABOLIC [id number] 10:10:00 Test Item Value Reference Range Interpretation Comments TOTAL PROTEIN 6.6 gm/dL 6.0-8.3 (BEAKER) (test code = 770) ALBUMIN (BEAKER) 3.9 g/dL 3.5-5.0 (test code = 1145) ALKALINE PHOSPHATASE 60 U/L 40-150 (BEAKER) (test code = 346) BILIRUBIN TOTAL 0.5 mg/dL 0.2-1.2 (BEAKER) (test code = 377) SODIUM (BEAKER) (test 142 meq/L 136-145 code = 381) POTASSIUM (BEAKER) 3.2 meq/L 3.5-5.1 L (test code = 379) CHLORIDE (BEAKER) 106 meq/L 98-107 (test code = 382) CO2 (BEAKER) (test 27 meq/L 22-29 code = 355) BLOOD UREA NITROGEN 20 mg/dL 7-21 (BEAKER) (test code = 354) CREATININE (BEAKER) 0.88 mg/dL 0.57-1.25 (test code = 358) GLUCOSE RANDOM 118 mg/dL 70-105 H (BEAKER) (test code = 652) CALCIUM (BEAKER) 9.8 mg/dL 8.4-10.2 (test code = 697) AST (SGOT) (BEAKER) 36 U/L 5-34 H (test code = 353) ALT (SGPT) (BEAKER) 80 U/L 6-55 H (test code = 347) EGFR (BEAKER) (test 66 mL/min/1.73 ESTIMA NIHARIKA GFR IS code = 1092) sq m NOT ACCURATE CREATININE CLEARANCE IN PREDICTING GLOMERULAR FILTRATION RATE . ESTIMATED GFR I S NOT APPLICABLE FOR DIALYSIS PATIEN TS. Outpatient standing lab ordersOutpatient standing lab ordersOutpatient standing lab ordersOutpatientstanding lab ordersBILIRUBIN, [id number] 10:10:00 Test Item Value Reference Range Interpretation Comments BILIRUBIN DIRECT (BEAKER) (test 0.2 mg/dL 0.1-0.5 code = 706) Outpatient standing lab ordersOutpatient standing lab ordersOutpatient standing lab ordersOutpatientstanding lab ordersCBC W/PLT COUNT & AUTO DIFFERENTIAL 2017-09-03 09:48:00 Test Item Value Reference Range Interpretation Comments WHITE BLOOD CELL COUNT (BEAKER) 3.2 K/ L 3.5-10.5 L (test code = 775) RED BLOOD CELL COUNT (BEAKER) 3.54 M/ L 3.93-5.22 L (test code = 761) HEMOGLOBIN (BEAKER) (test code = 9.6 GM/DL 11.2-15.7 L 410) HEMATOCRIT (BEAKER) (test code = 30.1 % 34.1-44.9 L 411) MEAN CORPUSCULAR VOLUME (BEAKER) 85.0 fL 79.4-94.8 (test code = 753) MEAN CORPUSCULAR HEMOGLOBIN 27.1 pg 25.6-32.2 (BEAKER) (test code = 751) MEAN CORPUSCULAR HEMOGLOBIN CONC 31.9 GM/DL 32.2-35.5 L (BEAKER) (test code = 752) RED CELL DISTRIBUTION WIDTH 16.6 % 11.7-14.4 H (BEAKER) (test code = 412) PLATELET COUNT (BEAKER) (test 204 K/CU MM 150-450 code = 756) MEAN PLATELET VOLUME (BEAKER) 10.4 fL 9.4-12.3 (test code = 754) NUCLEATED RED BLOOD CELLS 0 /100 WBC 0-0 (BEAKER) (test code = 413) NEUTROPHILS RELATIVE PERCENT 64 % (BEAKER) (test code = 429) LYMPHOCYTES RELATIVE PERCENT 26 % (BEAKER) (test code = 430) MONOCYTES RELATIVE PERCENT 7 % (BEAKER) (test code = 431) EOSINOPHILS RELATIVE PERCENT 2 % (BEAKER) (test code = 432) BASOPHILS RELATIVE PERCENT 1 % (BEAKER) (test code = 437) NEUTROPHILS ABSOLUTE COUNT 2.06 K/ L 1.56-6.13 (BEAKER) (test code = 670) LYMPHOCYTES ABSOLUTE COUNT 0.83 K/ L 1.18-3.74 L (BEAKER) (test code = 414) MONOCYTES ABSOLUTE COUNT (BEAKER) 0.23 K/ L 0.24-0.36 L (test code = 415) EOSINOPHILS ABSOLUTE COUNT 0.06 K/ L 0.04-0.36 (BEAKER) (test code = 416) BASOPHILS ABSOLUTE COUNT (BEAKER) 0.03 K/ L 0.01-0.08 (test code = 417) IMMATURE GRANULOCYTES-RELATIVE 1 % 0-1 PERCENT (BEAKER) (test code = 2801) SIROLIMUS [id number] 11:46:00 Test Item Value Reference Range Interpretation Comments SIROLIMUS LEVEL BLOOD (BEAKER) 16.1 ng/mL 5.0-15.0 H (test code = 806) Outpatient standing lab [id number] 10:21:00 Test Item Value Reference Range Interpretation Comments PHOSPHORUS (BEAKER) (test code = 3.2 mg/dL 2.3-4.7 604) Outpatient standing lab ordersOutpatient standing lab ordersOutpatient standing lab ordersOutpatientstanding lab [id number] 10:21:00 Test Item Value Reference Range Interpretation Comments MAGNESIUM (BEAKER) (test code = 1.6 mg/dL 1.6-2.6 627) Outpatient standing lab ordersOutpatient standing lab ordersOutpatient standing lab ordersOutpatientstanding lab ordersCOMPREHENSIVE METABOLIC [id number] 10:21:00 Test Item Value Reference Range Interpretation Comments TOTAL PROTEIN 7.0 gm/dL 6.0-8.3 (BEAKER) (test code = 770) ALBUMIN (BEAKER) 4.2 g/dL 3.5-5.0 (test code = 1145) ALKALINE PHOSPHATASE 62 U/L 40-150 (BEAKER) (test code = 346) BILIRUBIN TOTAL 0.9 mg/dL 0.2-1.2 (BEAKER) (test code = 377) SODIUM (BEAKER) (test 140 meq/L 136-145 code = 381) POTASSIUM (BEAKER) 3.2 meq/L 3.5-5.1 L (test code = 379) CHLORIDE (BEAKER) 104 meq/L 98-107 (test code = 382) CO2 (BEAKER) (test 28 meq/L 22-29 code = 355) BLOOD UREA NITROGEN 18 mg/dL 7-21 (BEAKER) (test code = 354) CREATININE (BEAKER) 0.98 mg/dL 0.57-1.25 (test code = 358) GLUCOSE RANDOM 143 mg/dL 70-105 H (BEAKER) (test code = 652) CALCIUM (BEAKER) 9.5 mg/dL 8.4-10.2 (test code = 697) AST (SGOT) (BEAKER) 35 U/L 5-34 H (test code = 353) ALT (SGPT) (BEAKER) 80 U/L 6-55 H (test code = 347) EGFR (BEAKER) (test 59 mL/min/1.73 ESTIMA NIHARIKA GFR IS code = 1092) sq m NOT ACCURATE CREATININE CLEARANCE IN PREDICTING GLOMERULAR FILTRATION RATE . ESTIMATED GFR I S NOT APPLICABLE FOR DIALYSIS PATIEN TS. Outpatient standing lab ordersOutpatient standing lab ordersOutpatient standing lab ordersOutpatientstanding lab ordersBILIRUBIN, [id number] 10:21:00 Test Item Value Reference Range Interpretation Comments BILIRUBIN DIRECT (BEAKER) (test 0.3 mg/dL 0.1-0.5 code = 706) Outpatient standing lab ordersOutpatient standing lab ordersOutpatient standing lab ordersOutpatientstanding lab ordersCBC W/PLT COUNT & AUTO DIFFERENTIAL 2017-08-20 09:51:00 Test Item Value Reference Range Interpretation Comments WHITE BLOOD CELL COUNT (BEAKER) 4.6 K/ L 3.5-10.5 (test code = 775) RED BLOOD CELL COUNT (BEAKER) 3.64 M/ L 3.93-5.22 L (test code = 761) HEMOGLOBIN (BEAKER) (test code = 10.3 GM/DL 11.2-15.7 L 410) HEMATOCRIT (BEAKER) (test code = 30.9 % 34.1-44.9 L 411) MEAN CORPUSCULAR VOLUME (BEAKER) 84.9 fL 79.4-94.8 (test code = 753) MEAN CORPUSCULAR HEMOGLOBIN 28.3 pg 25.6-32.2 (BEAKER) (test code = 751) MEAN CORPUSCULAR HEMOGLOBIN CONC 33.3 GM/DL 32.2-35.5 (BEAKER) (test code = 752) RED CELL DISTRIBUTION WIDTH 16.6 % 11.7-14.4 H (BEAKER) (test code = 412) PLATELET COUNT (BEAKER) (test 182 K/CU MM 150-450 code = 756) MEAN PLATELET VOLUME (BEAKER) 10.1 fL 9.4-12.3 (test code = 754) NUCLEATED RED BLOOD CELLS 0 /100 WBC 0-0 (BEAKER) (test code = 413) NEUTROPHILS RELATIVE PERCENT 71 % (BEAKER) (test code = 429) LYMPHOCYTES RELATIVE PERCENT 19 % (BEAKER) (test code = 430) MONOCYTES RELATIVE PERCENT 8 % (BEAKER) (test code = 431) EOSINOPHILS RELATIVE PERCENT 2 % (BEAKER) (test code = 432) BASOPHILS RELATIVE PERCENT 1 % (BEAKER) (test code = 437) NEUTROPHILS ABSOLUTE COUNT 3.27 K/ L 1.56-6.13 (BEAKER) (test code = 670) LYMPHOCYTES ABSOLUTE COUNT 0.86 K/ L 1.18-3.74 L (BEAKER) (test code = 414) MONOCYTES ABSOLUTE COUNT (BEAKER) 0.35 K/ L 0.24-0.36 (test code = 415) EOSINOPHILS ABSOLUTE COUNT 0.09 K/ L 0.04-0.36 (BEAKER) (test code = 416) BASOPHILS ABSOLUTE COUNT (BEAKER) 0.03 K/ L 0.01-0.08 (test code = 417) IMMATURE GRANULOCYTES-RELATIVE 0 % 0-1 PERCENT (BEAKER) (test code = 2801) BLOOD [id number] 17:00:00 Test Item Value Reference Range Interpretation Comments CULTURE (BEAKER) (test No growth in 5 days code = 1095) BLOOD [id number] 17:00:00 Test Item Value Reference Range Interpretation Comments CULTURE (BEAKER) (test No growth in 5 days code = 1095) EBV VIRAL [id number] 14:00:00 Test Item Value Reference Range Interpretation Comments EBV VIRAL LOAD - Negative or below the NEGATIVE (BEAKER) (test linear range of the code = 2559) assay (<500 copies/mL) This assay was performed by real-time PCR for the detection of the [place]ur-Sharp virus (EBV) gene EBNA-1. The test is composed of (1) DNA extraction from patient specimen, and (2) real-time PCR amplification and detection with [id number] primers and probes. A well-conserved region of the EBNA-1 gene is targeted, along with an internal control sequence used to confirm PCR amplification. Asymptomatic carriers and viral genetic variation, among other factors, can affect the accuracy of nucleic acid testing; therefore, results should be interpreted in light of clinical data.This test was developedand its performance characteristics determined by the [facility] Pathology Department, Section of Molecular Pathology. It has not been cleared or approved by the U.S. Food and Drug Administration (FDA), since FDA approval is not required for clinical use of the test. Validation was doneas required by The Clinical Laboratory Improvement Amendments of 1988.URINE [id number] 11:30:00 Test Item Value Reference Range Interpretation Comments CULTURE (BEAKER) (test code = 1095) Amikacin (test code = 1) S Ampicillin + Sulbactam S (test code = 6) Aztreonam (test code = 32) S Cefepime (test code = 51) S Cefoxitin (test code = 68) S Ceftazidime (test code = S 27) Ceftriaxone (test code = S 52) Ertapenem (test code = 38) S Gentamicin (test code = 18) S Levofloxacin (test code = S 22) Meropenem (test code = 34) S Nitrofurantoin (test code = R 23) Piperacillin + Tazobactam S (test code = 29) Tetracycline (test code = R 2) Tobramycin (test code = 25) S Trimethoprim + R Sulfamethoxazole (test code = 47) CULTURE (BEAKER) (test code A >100,000 col/mL = 1095) Klebsiella pneu moniae CMV PCR, [id number] 13:50:00 Test Item Value Reference Range Interpretation Comments CMV VIRAL LOAD - Negative or below the NEGATIVE (BEAKER) (test linear range of the code = 2558) assay (<375 copies/mL) Cytomegalovirus (CMV) infection can cause significant disease in immunosuppressed patients. However,it is common for CMV to manifest as a limited infection which is of no clinical significance in immunosuppressed patients or in healthy individuals.Viral load measurements are helpful to identify clinical CMV infection and to guide the pre-emptive management of antiviral therapy. For treatment of CMVinfection due to reactivation in transplant recipients, a threshold between 4,000 and 5,000 copies/mL is suggested. For treatment of primary CMV infection, a lower threshold can be used.CMV infection may also be monitored using weekly serial measurements. Serial measurements of CMV DNA viral load canbe evaluated by identifying a 10-fold change, as well as assessing the CMV DNA viral load and the clinical context for each patient.The plasma CMV DNA viral load was detected using quantitative polymerase chain reaction and fluorescent monitoring of a specific hybridized probe. Genetic variation and ot her factors can affect the accuracy of nucleic acid testing. Therefore, the results should be interpreted in light of clinical data. A negative result may not exclude the presence of CMV disease.This test was developed and its performance characteristics determined by the [facility] Path ology Department, Section of Molecular Pathology. It has not been cleared or approved by the U.S. Food and Drug Administration (FDA), since FDA approval is not required for clinical use of the test. Validation was done as required by The Clinical Laboratory Improvement Amendments of 1988.U/S, ABDOMINAL, COMPLETE 2017-08-12 16:15:00To be completed within the weekReason for Exam:->elevated liver enzymes, s/p liver transplant, need dopplerFINAL REPORT Ultrasound of the Abdomen and Doppler evaluation, 08/12/2017 Clinical History: Liver transplant. Comparison: Elevated liver enzymes. Liver transplant. Discussion:Sonographic evaluation of the abdomen is performed. In addition, color Doppler and spectral wave form analysis evaluations of the abdominal vasculature are performed. Liver: 16.0 cm. in length at the right midclavicular line, normal in size. Normal echogenicity. Homogeneous echotexture. No mass. Biliary tree: Common duct 8 mm. Mildly prominent, likely reflecting postcholecystectomy change. No intrahepatic biliary dilatation Gallbladder: Absent. Gallbladder fossa appears unremarkable. Pancreas: O bscured by bowel gas. Ascites: None. Spleen: 11.2 cm in length, normal in size. No mass. Kidneys: Right kidney 11.6 cm in length, normal in size, with cortical thickness of 1.4 cm. Left kidney 11.3 cm in length, normal in size, with cortical thickness of 1.5 cm. Normal cortical echogenicity. No mass. No shadowing calculus. No hydronephrosis. IVC/Aorta: Segments partially seen. Unremarkable. Doppler: Doppler interrogation of the liver demonstrates a main portal vein diameter measuring 1.1cm with a peak systolic velocity of 29 cm/sec. Hepatopetal inflow is seen in the right, left, main portal and splenic veins. The resistive indices in the proper, right and left hepatic arteries are 0.7, 0.6 and 0.5 respectively. Outflow with appropriate directionality is seen in the IVC, hepatic venous confluence as well as the right, middle and left hepatic veins. Impression:1. Unremarkable sonographic appearance of the transplant liver.2. Unremarkable Doppler interrogation of the hepatic vasculature. Signed: Evan Tracey MDReport Verified Date/Time: 08/12/2017 16:15:10 Reading Location: [address] Radiology Reading Room SIROLIMUS [id number] 15:23:00 Test Item Value Reference Range Interpretation Comments SIROLIMUS LEVEL BLOOD (BEAKER) 12.1 ng/mL 5.0-15.0 (test code = 806) Outpatient standing lab [id number] 12:56:00 Test Item Value Reference Range Interpretation Comments PHOSPHORUS (BEAKER) (test code = 3.2 mg/dL 2.3-4.7 604) Outpatient standing lab ordersOutpatient standing lab ordersOutpatient standing lab ordersOutpatientstanding lab [id number] 12:56:00 Test Item Value Reference Range Interpretation Comments MAGNESIUM (BEAKER) (test code = 2.0 mg/dL 1.6-2.6 627) Outpatient standing lab ordersOutpatient standing lab ordersOutpatient standing lab ordersOutpatientstanding lab ordersCOMPREHENSIVE METABOLIC [id number] 12:56:00 Test Item Value Reference Range Interpretation Comments TOTAL PROTEIN 7.1 gm/dL 6.0-8.3 (BEAKER) (test code = 770) ALBUMIN (BEAKER) 4.3 g/dL 3.5-5.0 (test code = 1145) ALKALINE PHOSPHATASE 57 U/L 40-150 (BEAKER) (test code = 346) BILIRUBIN TOTAL 0.8 mg/dL 0.2-1.2 (BEAKER) (test code = 377) SODIUM (BEAKER) (test 142 meq/L 136-145 code = 381) POTASSIUM (BEAKER) 3.3 meq/L 3.5-5.1 L (test code = 379) CHLORIDE (BEAKER) 107 meq/L 98-107 (test code = 382) CO2 (BEAKER) (test 26 meq/L 22-29 code = 355) BLOOD UREA NITROGEN 28 mg/dL 7-21 H (BEAKER) (test code = 354) CREATININE (BEAKER) 0.91 mg/dL 0.57-1.25 (test code = 358) GLUCOSE RANDOM 125 mg/dL 70-105 H (BEAKER) (test code = 652) CALCIUM (BEAKER) 9.1 mg/dL 8.4-10.2 (test code = 697) AST (SGOT) (BEAKER) 33 U/L 5-34 (test code = 353) ALT (SGPT) (BEAKER) 73 U/L 6-55 H (test code = 347) EGFR (BEAKER) (test 64 mL/min/1.73 ESTIMA NIHARIKA GFR IS code = 1092) sq m NOT ACCURATE CREATININE CLEARANCE IN PREDICTING GLOMERULAR FILTRATION RATE . ESTIMATED GFR I S NOT APPLICABLE FOR DIALYSIS PATIEN TS. Outpatient standing lab ordersOutpatient standing lab ordersOutpatient standing lab ordersOutpatientstanding lab ordersBILIRUBIN, [id number] 12:56:00 Test Item Value Reference Range Interpretation Comments BILIRUBIN DIRECT (BEAKER) (test 0.2 mg/dL 0.1-0.5 code = 706) Outpatient standing lab ordersOutpatient standing lab ordersOutpatient standing lab ordersOutpatientstanding lab ordersCBC W/PLT COUNT & AUTO DIFFERENTIAL 2017-08-12 12:20:00 Test Item Value Reference Range Interpretation Comments WHITE BLOOD CELL COUNT (BEAKER) 3.3 K/ L 3.5-10.5 L (test code = 775) RED BLOOD CELL COUNT (BEAKER) 3.61 M/ L 3.93-5.22 L (test code = 761) HEMOGLOBIN (BEAKER) (test code = 10.3 GM/DL 11.2-15.7 L 410) HEMATOCRIT (BEAKER) (test code = 31.0 % 34.1-44.9 L 411) MEAN CORPUSCULAR VOLUME (BEAKER) 85.9 fL 79.4-94.8 (test code = 753) MEAN CORPUSCULAR HEMOGLOBIN 28.5 pg 25.6-32.2 (BEAKER) (test code = 751) MEAN CORPUSCULAR HEMOGLOBIN CONC 33.2 GM/DL 32.2-35.5 (BEAKER) (test code = 752) RED CELL DISTRIBUTION WIDTH 16.7 % 11.7-14.4 H (BEAKER) (test code = 412) PLATELET COUNT (BEAKER) (test 138 K/CU MM 150-450 L code = 756) MEAN PLATELET VOLUME (BEAKER) 10.4 fL 9.4-12.3 (test code = 754) NUCLEATED RED BLOOD CELLS 0 /100 WBC 0-0 (BEAKER) (test code = 413) NEUTROPHILS RELATIVE PERCENT 65 % (BEAKER) (test code = 429) LYMPHOCYTES RELATIVE PERCENT 25 % (BEAKER) (test code = 430) MONOCYTES RELATIVE PERCENT 6 % (BEAKER) (test code = 431) EOSINOPHILS RELATIVE PERCENT 2 % (BEAKER) (test code = 432) BASOPHILS RELATIVE PERCENT 1 % (BEAKER) (test code = 437) NEUTROPHILS ABSOLUTE COUNT 2.16 K/ L 1.56-6.13 (BEAKER) (test code = 670) LYMPHOCYTES ABSOLUTE COUNT 0.84 K/ L 1.18-3.74 L (BEAKER) (test code = 414) MONOCYTES ABSOLUTE COUNT (BEAKER) 0.21 K/ L 0.24-0.36 L (test code = 415) EOSINOPHILS ABSOLUTE COUNT 0.06 K/ L 0.04-0.36 (BEAKER) (test code = 416) BASOPHILS ABSOLUTE COUNT (BEAKER) 0.02 K/ L 0.01-0.08 (test code = 417) IMMATURE GRANULOCYTES-RELATIVE 1 % 0-1 PERCENT (BEAKER) (test code = 2801) SIROLIMUS [id number] 13:17:00 Test Item Value Reference Range Interpretation Comments SIROLIMUS LEVEL BLOOD (BEAKER) 16.4 ng/mL 5.0-15.0 H (test code = 806) Outpatient standing lab [id number] 10:46:00 Test Item Value Reference Range Interpretation Comments MAGNESIUM (BEAKER) (test code = 1.8 mg/dL 1.6-2.6 627) Outpatient standing lab ordersOutpatient standing lab ordersOutpatient standing lab ordersCOMPREHENSIVE METABOLIC [id number] 10:46:00 Test Item Value Reference Range Interpretation Comments TOTAL PROTEIN 7.1 gm/dL 6.0-8.3 (BEAKER) (test code = 770) ALBUMIN (BEAKER) 4.3 g/dL 3.5-5.0 (test code = 1145) ALKALINE PHOSPHATASE 60 U/L 40-150 (BEAKER) (test code = 346) BILIRUBIN TOTAL 0.8 mg/dL 0.2-1.2 (BEAKER) (test code = 377) SODIUM (BEAKER) (test 140 meq/L 136-145 code = 381) POTASSIUM (BEAKER) 3.4 meq/L 3.5-5.1 L (test code = 379) CHLORIDE (BEAKER) 103 meq/L 98-107 (test code = 382) CO2 (BEAKER) (test 27 meq/L 22-29 code = 355) BLOOD UREA NITROGEN 27 mg/dL 7-21 H (BEAKER) (test code = 354) CREATININE (BEAKER) 0.93 mg/dL 0.57-1.25 (test code = 358) GLUCOSE RANDOM 112 mg/dL 70-105 H (BEAKER) (test code = 652) CALCIUM (BEAKER) 9.9 mg/dL 8.4-10.2 (test code = 697) AST (SGOT) (BEAKER) 30 U/L 5-34 (test code = 353) ALT (SGPT) (BEAKER) 73 U/L 6-55 H (test code = 347) EGFR (BEAKER) (test 63 mL/min/1.73 ESTIMA NIHARIKA GFR IS code = 1092) sq m NOT ACCURATE CREATININE CLEARANCE IN PREDICTING GLOMERULAR FILTRATION RATE . ESTIMATED GFR I S NOT APPLICABLE FOR DIALYSIS PATIEN TS. Outpatient standing lab ordersOutpatient standing lab ordersOutpatient standing lab ordersBILIRUBIN, [id number] 10:46:00 Test Item Value Reference Range Interpretation Comments BILIRUBIN DIRECT (BEAKER) (test 0.2 mg/dL 0.1-0.5 code = 706) Outpatient standing lab ordersOutpatient standing lab ordersOutpatient standing lab ordersCBC W/PLT COUNT & AUTO [id number] 10:19:00 Test Item Value Reference Range Interpretation Comments WHITE BLOOD CELL COUNT (BEAKER) 3.7 K/ L 3.5-10.5 (test code = 775) RED BLOOD CELL COUNT (BEAKER) 3.85 M/ L 3.93-5.22 L (test code = 761) HEMOGLOBIN (BEAKER) (test code = 10.9 GM/DL 11.2-15.7 L 410) HEMATOCRIT (BEAKER) (test code = 33.1 % 34.1-44.9 L 411) MEAN CORPUSCULAR VOLUME (BEAKER) 86.0 fL 79.4-94.8 (test code = 753) MEAN CORPUSCULAR HEMOGLOBIN 28.3 pg 25.6-32.2 (BEAKER) (test code = 751) MEAN CORPUSCULAR HEMOGLOBIN CONC 32.9 GM/DL 32.2-35.5 (BEAKER) (test code = 752) RED CELL DISTRIBUTION WIDTH 16.5 % 11.7-14.4 H (BEAKER) (test code = 412) PLATELET COUNT (BEAKER) (test 148 K/CU MM 150-450 L code = 756) MEAN PLATELET VOLUME (BEAKER) 10.7 fL 9.4-12.3 (test code = 754) NUCLEATED RED BLOOD CELLS 0 /100 WBC 0-0 (BEAKER) (test code = 413) NEUTROPHILS RELATIVE PERCENT 67 % (BEAKER) (test code = 429) LYMPHOCYTES RELATIVE PERCENT 24 % (BEAKER) (test code = 430) MONOCYTES RELATIVE PERCENT 7 % (BEAKER) (test code = 431) EOSINOPHILS RELATIVE PERCENT 1 % (BEAKER) (test code = 432) BASOPHILS RELATIVE PERCENT 1 % (BEAKER) (test code = 437) NEUTROPHILS ABSOLUTE COUNT 2.48 K/ L 1.56-6.13 (BEAKER) (test code = 670) LYMPHOCYTES ABSOLUTE COUNT 0.89 K/ L 1.18-3.74 L (BEAKER) (test code = 414) MONOCYTES ABSOLUTE COUNT (BEAKER) 0.25 K/ L 0.24-0.36 (test code = 415) EOSINOPHILS ABSOLUTE COUNT 0.05 K/ L 0.04-0.36 (BEAKER) (test code = 416) BASOPHILS ABSOLUTE COUNT (BEAKER) 0.02 K/ L 0.01-0.08 (test code = 417) IMMATURE GRANULOCYTES-RELATIVE 1 % 0-1 PERCENT (BEAKER) (test code = 2801) SIROLIMUS [id number] 12:06:00 Test Item Value Reference Range Interpretation Comments SIROLIMUS LEVEL BLOOD (BEAKER) 10.1 ng/mL 5.0-15.0 (test code = 806) Outpatient standing lab [id number] 09:55:00 Test Item Value Reference Range Interpretation Comments PHOSPHORUS (BEAKER) (test code = 3.6 mg/dL 2.3-4.7 604) Outpatient standing lab ordersOutpatient standing lab ordersOutpatient standing lab ordersOutpatientstanding lab [id number] 09:55:00 Test Item Value Reference Range Interpretation Comments MAGNESIUM (BEAKER) (test code = 1.9 mg/dL 1.6-2.6 627) Outpatient standing lab ordersOutpatient standing lab ordersOutpatient standing lab ordersOutpatientstanding lab ordersCOMPREHENSIVE METABOLIC [id number] 09:55:00 Test Item Value Reference Range Interpretation Comments TOTAL PROTEIN 7.0 gm/dL 6.0-8.3 (BEAKER) (test code = 770) ALBUMIN (BEAKER) 4.3 g/dL 3.5-5.0 (test code = 1145) ALKALINE PHOSPHATASE 62 U/L 40-150 (BEAKER) (test code = 346) BILIRUBIN TOTAL 1.1 mg/dL 0.2-1.2 (BEAKER) (test code = 377) SODIUM (BEAKER) (test 142 meq/L 136-145 code = 381) POTASSIUM (BEAKER) 3.8 meq/L 3.5-5.1 (test code = 379) CHLORIDE (BEAKER) 106 meq/L 98-107 (test code = 382) CO2 (BEAKER) (test 28 meq/L 22-29 code = 355) BLOOD UREA NITROGEN 29 mg/dL 7-21 H (BEAKER) (test code = 354) CREATININE (BEAKER) 0.89 mg/dL 0.57-1.25 (test code = 358) GLUCOSE RANDOM 120 mg/dL 70-105 H (BEAKER) (test code = 652) CALCIUM (BEAKER) 9.6 mg/dL 8.4-10.2 (test code = 697) AST (SGOT) (BEAKER) 28 U/L 5-34 (test code = 353) ALT (SGPT) (BEAKER) 64 U/L 6-55 H (test code = 347) EGFR (BEAKER) (test 66 mL/min/1.73 ESTIMA NIHARIKA GFR IS code = 1092) sq m NOT ACCURATE CREATININE CLEARANCE IN PREDICTING GLOMERULAR FILTRATION RATE . ESTIMATED GFR I S NOT APPLICABLE FOR DIALYSIS PATIEN TS. Outpatient standing lab ordersOutpatient standing lab ordersOutpatient standing lab ordersOutpatientstanding lab ordersBILIRUBIN, [id number] 09:55:00 Test Item Value Reference Range Interpretation Comments BILIRUBIN DIRECT (BEAKER) (test 0.3 mg/dL 0.1-0.5 code = 706) Outpatient standing lab ordersOutpatient standing lab ordersOutpatient standing lab ordersOutpatientstanding lab ordersCBC W/PLT COUNT & AUTO DIFFERENTIAL 2017-07-17 09:28:00 Test Item Value Reference Range Interpretation Comments WHITE BLOOD CELL COUNT (BEAKER) 3.7 K/ L 3.5-10.5 (test code = 775) RED BLOOD CELL COUNT (BEAKER) 3.61 M/ L 3.93-5.22 L (test code = 761) HEMOGLOBIN (BEAKER) (test code = 10.3 GM/DL 11.2-15.7 L 410) HEMATOCRIT (BEAKER) (test code = 31.6 % 34.1-44.9 L 411) MEAN CORPUSCULAR VOLUME (BEAKER) 87.5 fL 79.4-94.8 (test code = 753) MEAN CORPUSCULAR HEMOGLOBIN 28.5 pg 25.6-32.2 (BEAKER) (test code = 751) MEAN CORPUSCULAR HEMOGLOBIN CONC 32.6 GM/DL 32.2-35.5 (BEAKER) (test code = 752) RED CELL DISTRIBUTION WIDTH 16.7 % 11.7-14.4 H (BEAKER) (test code = 412) PLATELET COUNT (BEAKER) (test 151 K/CU MM 150-450 code = 756) MEAN PLATELET VOLUME (BEAKER) 10.2 fL 9.4-12.3 (test code = 754) NUCLEATED RED BLOOD CELLS 0 /100 WBC 0-0 (BEAKER) (test code = 413) NEUTROPHILS RELATIVE PERCENT 71 % (BEAKER) (test code = 429) LYMPHOCYTES RELATIVE PERCENT 20 % (BEAKER) (test code = 430) MONOCYTES RELATIVE PERCENT 7 % (BEAKER) (test code = 431) EOSINOPHILS RELATIVE PERCENT 1 % (BEAKER) (test code = 432) BASOPHILS RELATIVE PERCENT 0 % (BEAKER) (test code = 437) NEUTROPHILS ABSOLUTE COUNT 2.63 K/ L 1.56-6.13 (BEAKER) (test code = 670) LYMPHOCYTES ABSOLUTE COUNT 0.72 K/ L 1.18-3.74 L (BEAKER) (test code = 414) MONOCYTES ABSOLUTE COUNT (BEAKER) 0.27 K/ L 0.24-0.36 (test code = 415) EOSINOPHILS ABSOLUTE COUNT 0.04 K/ L 0.04-0.36 (BEAKER) (test code = 416) BASOPHILS ABSOLUTE COUNT (BEAKER) 0.01 K/ L 0.01-0.08 (test code = 417) IMMATURE GRANULOCYTES-RELATIVE 1 % 0-1 PERCENT (BEAKER) (test code = 2801) SIROL[facility]US [id number] 16:41:00 Test Item Value Reference Range Interpretation Comments SIROLIMUS LEVEL BLOOD (BEAKER) 11.6 ng/mL 5.0-15.0 (test code = 806) Outpatient standing lab [id number] 09:38:00 Test Item Value Reference Range Interpretation Comments PHOSPHORUS (BEAKER) (test code = 3.2 mg/dL 2.3-4.7 604) Outpatient standing lab ordersOutpatient standing lab ordersOutpatient standing lab ordersOutpatientstanding lab [id number] 09:38:00 Test Item Value Reference Range Interpretation Comments MAGNESIUM (BEAKER) (test code = 1.7 mg/dL 1.6-2.6 627) Outpatient standing lab ordersOutpatient standing lab ordersOutpatient standing lab ordersOutpatientstanding lab ordersCOMPREHENSIVE METABOLIC [id number] 09:38:00 Test Item Value Reference Range Interpretation Comments TOTAL PROTEIN 6.6 gm/dL 6.0-8.3 (BEAKER) (test code = 770) ALBUMIN (BEAKER) 3.9 g/dL 3.5-5.0 (test code = 1145) ALKALINE PHOSPHATASE 62 U/L 40-150 (BEAKER) (test code = 346) BILIRUBIN TOTAL 0.7 mg/dL 0.2-1.2 (BEAKER) (test code = 377) SODIUM (BEAKER) (test 142 meq/L 136-145 code = 381) POTASSIUM (BEAKER) 3.2 meq/L 3.5-5.1 L (test code = 379) CHLORIDE (BEAKER) 107 meq/L 98-107 (test code = 382) CO2 (BEAKER) (test 28 meq/L 22-29 code = 355) BLOOD UREA NITROGEN 21 mg/dL 7-21 (BEAKER) (test code = 354) CREATININE (BEAKER) 0.87 mg/dL 0.57-1.25 (test code = 358) GLUCOSE RANDOM 121 mg/dL 70-105 H (BEAKER) (test code = 652) CALCIUM (BEAKER) 9.1 mg/dL 8.4-10.2 (test code = 697) AST (SGOT) (BEAKER) 22 U/L 5-34 (test code = 353) ALT (SGPT) (BEAKER) 45 U/L 6-55 (test code = 347) EGFR (BEAKER) (test 68 mL/min/1.73 ESTIMA NIHARIKA GFR IS code = 1092) sq m NOT ACCURATE CREATININE CLEARANCE IN PREDICTING GLOMERULAR FILTRATION RATE . ESTIMATED GFR I S NOT APPLICABLE FOR DIALYSIS PATIEN TS. Outpatient standing lab ordersOutpatient standing lab ordersOutpatient standing lab ordersOutpatientstanding lab ordersBILIRUBIN, [id number] 09:38:00 Test Item Value Reference Range Interpretation Comments BILIRUBIN DIRECT (BEAKER) (test 0.2 mg/dL 0.1-0.5 code = 706) Outpatient standing lab ordersOutpatient standing lab ordersOutpatient standing lab ordersOutpatientstanding lab ordersCBC W/PLT COUNT & AUTO DIFFERENTIAL 2017-07-03 08:58:00 Test Item Value Reference Range Interpretation Comments WHITE BLOOD CELL COUNT (BEAKER) 3.4 K/ L 3.5-10.5 L (test code = 775) RED BLOOD CELL COUNT (BEAKER) 3.29 M/ L 3.93-5.22 L (test code = 761) HEMOGLOBIN (BEAKER) (test code = 9.7 GM/DL 11.2-15.7 L 410) HEMATOCRIT (BEAKER) (test code = 28.8 % 34.1-44.9 L 411) MEAN CORPUSCULAR VOLUME (BEAKER) 87.5 fL 79.4-94.8 (test code = 753) MEAN CORPUSCULAR HEMOGLOBIN 29.5 pg 25.6-32.2 (BEAKER) (test code = 751) MEAN CORPUSCULAR HEMOGLOBIN CONC 33.7 GM/DL 32.2-35.5 (BEAKER) (test code = 752) RED CELL DISTRIBUTION WIDTH 16.2 % 11.7-14.4 H (BEAKER) (test code = 412) PLATELET COUNT (BEAKER) (test 148 K/CU MM 150-450 L code = 756) MEAN PLATELET VOLUME (BEAKER) 10.1 fL 9.4-12.3 (test code = 754) NUCLEATED RED BLOOD CELLS 0 /100 WBC 0-0 (BEAKER) (test code = 413) NEUTROPHILS RELATIVE PERCENT 65 % (BEAKER) (test code = 429) LYMPHOCYTES RELATIVE PERCENT 24 % (BEAKER) (test code = 430) MONOCYTES RELATIVE PERCENT 8 % (BEAKER) (test code = 431) EOSINOPHILS RELATIVE PERCENT 2 % (BEAKER) (test code = 432) BASOPHILS RELATIVE PERCENT 1 % (BEAKER) (test code = 437) NEUTROPHILS ABSOLUTE COUNT 2.23 K/ L 1.56-6.13 (BEAKER) (test code = 670) LYMPHOCYTES ABSOLUTE COUNT 0.84 K/ L 1.18-3.74 L (BEAKER) (test code = 414) MONOCYTES ABSOLUTE COUNT (BEAKER) 0.27 K/ L 0.24-0.36 (test code = 415) EOSINOPHILS ABSOLUTE COUNT 0.05 K/ L 0.04-0.36 (BEAKER) (test code = 416) BASOPHILS ABSOLUTE COUNT (BEAKER) 0.03 K/ L 0.01-0.08 (test code = 417) IMMATURE GRANULOCYTES-RELATIVE 1 % 0-1 PERCENT (BEAKER) (test code = 2801) SIROLIMUS [id number] 15:32:00 Test Item Value Reference Range Interpretation Comments SIROLIMUS LEVEL BLOOD (BEAKER) 9.1 ng/mL 5.0-15.0 (test code = 806) Outpatient standing lab [id number] 11:18:00 Test Item Value Reference Range Interpretation Comments PHOSPHORUS (BEAKER) (test code = 3.7 mg/dL 2.3-4.7 604) Outpatient standing lab ordersOutpatient standing lab ordersOutpatient standing lab ordersOutpatientstanding lab [id number] 11:18:00 Test Item Value Reference Range Interpretation Comments MAGNESIUM (BEAKER) (test code = 1.9 mg/dL 1.6-2.6 627) Outpatient standing lab ordersOutpatient standing lab ordersOutpatient standing lab ordersOutpatientstanding lab ordersCOMPREHENSIVE METABOLIC [id number] 11:18:00 Test Item Value Reference Range Interpretation Comments TOTAL PROTEIN 6.6 gm/dL 6.0-8.3 (BEAKER) (test code = 770) ALBUMIN (BEAKER) 4.1 g/dL 3.5-5.0 (test code = 1145) ALKALINE PHOSPHATASE 60 U/L 40-150 (BEAKER) (test code = 346) BILIRUBIN TOTAL 0.7 mg/dL 0.2-1.2 (BEAKER) (test code = 377) SODIUM (BEAKER) (test 141 meq/L 136-145 code = 381) POTASSIUM (BEAKER) 3.4 meq/L 3.5-5.1 L (test code = 379) CHLORIDE (BEAKER) 107 meq/L 98-107 (test code = 382) CO2 (BEAKER) (test 25 meq/L 22-29 code = 355) BLOOD UREA NITROGEN 29 mg/dL 7-21 H (BEAKER) (test code = 354) CREATININE (BEAKER) 0.88 mg/dL 0.57-1.25 (test code = 358) GLUCOSE RANDOM 90 mg/dL 70-105 (BEAKER) (test code = 652) CALCIUM (BEAKER) 9.4 mg/dL 8.4-10.2 (test code = 697) AST (SGOT) (BEAKER) 20 U/L 5-34 (test code = 353) ALT (SGPT) (BEAKER) 45 U/L 6-55 (test code = 347) EGFR (BEAKER) (test 67 mL/min/1.73 ESTIMA NIHARIKA GFR IS code = 1092) sq m NOT ACCURATE CREATININE CLEARANCE IN PREDICTING GLOMERULAR FILTRATION RATE . ESTIMATED GFR I S NOT APPLICABLE FOR DIALYSIS PATIEN TS. Outpatient standing lab ordersOutpatient standing lab ordersOutpatient standing lab ordersOutpatientstanding lab ordersBILIRUBIN, [id number] 11:18:00 Test Item Value Reference Range Interpretation Comments BILIRUBIN DIRECT (BEAKER) (test 0.2 mg/dL 0.1-0.5 code = 706) Outpatient standing lab ordersOutpatient standing lab ordersOutpatient standing lab ordersOutpatientstanding lab ordersCBC W/PLT COUNT & AUTO DIFFERENTIAL 2017-06-17 10:29:00 Test Item Value Reference Range Interpretation Comments WHITE BLOOD CELL COUNT (BEAKER) 3.5 K/ L 3.5-10.5 (test code = 775) RED BLOOD CELL COUNT (BEAKER) 3.35 M/ L 3.93-5.22 L (test code = 761) HEMOGLOBIN (BEAKER) (test code = 9.7 GM/DL 11.2-15.7 L 410) HEMATOCRIT (BEAKER) (test code = 29.5 % 34.1-44.9 L 411) MEAN CORPUSCULAR VOLUME (BEAKER) 88.1 fL 79.4-94.8 (test code = 753) MEAN CORPUSCULAR HEMOGLOBIN 29.0 pg 25.6-32.2 (BEAKER) (test code = 751) MEAN CORPUSCULAR HEMOGLOBIN CONC 32.9 GM/DL 32.2-35.5 (BEAKER) (test code = 752) RED CELL DISTRIBUTION WIDTH 15.7 % 11.7-14.4 H (BEAKER) (test code = 412) PLATELET COUNT (BEAKER) (test 167 K/CU MM 150-450 code = 756) MEAN PLATELET VOLUME (BEAKER) 10.0 fL 9.4-12.3 (test code = 754) NUCLEATED RED BLOOD CELLS 0 /100 WBC 0-0 (BEAKER) (test code = 413) NEUTROPHILS RELATIVE PERCENT 65 % (BEAKER) (test code = 429) LYMPHOCYTES RELATIVE PERCENT 23 % (BEAKER) (test code = 430) MONOCYTES RELATIVE PERCENT 9 % (BEAKER) (test code = 431) EOSINOPHILS RELATIVE PERCENT 2 % (BEAKER) (test code = 432) BASOPHILS RELATIVE PERCENT 1 % (BEAKER) (test code = 437) NEUTROPHILS ABSOLUTE COUNT 2.27 K/ L 1.56-6.13 (BEAKER) (test code = 670) LYMPHOCYTES ABSOLUTE COUNT 0.80 K/ L 1.18-3.74 L (BEAKER) (test code = 414) MONOCYTES ABSOLUTE COUNT (BEAKER) 0.33 K/ L 0.24-0.36 (test code = 415) EOSINOPHILS ABSOLUTE COUNT 0.06 K/ L 0.04-0.36 (BEAKER) (test code = 416) BASOPHILS ABSOLUTE COUNT (BEAKER) 0.03 K/ L 0.01-0.08 (test code = 417) IMMATURE GRANULOCYTES-RELATIVE 1 % 0-1 PERCENT (BEAKER) (test code = 2801) SIROLIMUS [id number] 12:22:00 Test Item Value Reference Range Interpretation Comments SIROLIMUS LEVEL BLOOD (BEAKER) 10.8 ng/mL 5.0-15.0 (test code = 806) Outpatient standing lab [id number] 11:27:00 Test Item Value Reference Range Interpretation Comments PHOSPHORUS (BEAKER) (test code = 3.4 mg/dL 2.3-4.7 604) Outpatient standing lab ordersOutpatient standing lab ordersOutpatient standing lab ordersOutpatientstanding lab [id number] 11:27:00 Test Item Value Reference Range Interpretation Comments MAGNESIUM (BEAKER) (test code = 2.2 mg/dL 1.6-2.6 627) Outpatient standing lab ordersOutpatient standing lab ordersOutpatient standing lab ordersOutpatientstanding lab ordersCOMPREHENSIVE METABOLIC [id number] 11:27:00 Test Item Value Reference Range Interpretation Comments TOTAL PROTEIN 7.9 gm/dL 6.0-8.3 (BEAKER) (test code = 770) ALBUMIN (BEAKER) 4.4 g/dL 3.5-5.0 (test code = 1145) ALKALINE PHOSPHATASE 78 U/L 40-150 (BEAKER) (test code = 346) BILIRUBIN TOTAL 0.9 mg/dL 0.2-1.2 (BEAKER) (test code = 377) SODIUM (BEAKER) (test 142 meq/L 136-145 code = 381) POTASSIUM (BEAKER) 2.8 meq/L 3.5-5.1 L (test code = 379) CHLORIDE (BEAKER) 104 meq/L 98-107 (test code = 382) CO2 (BEAKER) (test 25 meq/L 22-29 code = 355) BLOOD UREA NITROGEN 29 mg/dL 7-21 H (BEAKER) (test code = 354) CREATININE (BEAKER) 0.91 mg/dL 0.57-1.25 (test code = 358) GLUCOSE RANDOM 99 mg/dL 70-105 (BEAKER) (test code = 652) CALCIUM (BEAKER) 9.7 mg/dL 8.4-10.2 (test code = 697) AST (SGOT) (BEAKER) 21 U/L 5-34 (test code = 353) ALT (SGPT) (BEAKER) 42 U/L 6-55 (test code = 347) EGFR (BEAKER) (test 64 mL/min/1.73 ESTIMA NIHARIKA GFR IS code = 1092) sq m NOT ACCURATE CREATININE CLEARANCE IN PREDICTING GLOMERULAR FILTRATION RATE . ESTIMATED GFR I S NOT APPLICABLE FOR DIALYSIS PATIEN TS. Outpatient standing lab ordersOutpatient standing lab ordersOutpatient standing lab ordersOutpatientstanding lab ordersSpecimen markedly lipemicBILIRUBIN, [id number] 11:27:00 Test Item Value Reference Range Interpretation Comments BILIRUBIN DIRECT (BEAKER) (test 0.1 mg/dL 0.1-0.5 code = 706) Outpatient standing lab ordersOutpatient standing lab ordersOutpatient standing lab ordersOutpatientstanding lab ordersSpecimen markedly lipemicCBC W/PLT COUNT & AUTO [id number] 10:57:00 Test Item Value Reference Range Interpretation Comments WHITE BLOOD CELL COUNT (BEAKER) 3.3 K/ L 3.5-10.5 L (test code = 775) RED BLOOD CELL COUNT (BEAKER) 3.44 M/ L 3.93-5.22 L (test code = 761) HEMOGLOBIN (BEAKER) (test code = 10.6 GM/DL 11.2-15.7 L 410) HEMATOCRIT (BEAKER) (test code = 30.0 % 34.1-44.9 L 411) MEAN CORPUSCULAR VOLUME (BEAKER) 87.2 fL 79.4-94.8 (test code = 753) MEAN CORPUSCULAR HEMOGLOBIN 30.8 pg 25.6-32.2 (BEAKER) (test code = 751) MEAN CORPUSCULAR HEMOGLOBIN CONC 35.3 GM/DL 32.2-35.5 (BEAKER) (test code = 752) RED CELL DISTRIBUTION WIDTH 15.6 % 11.7-14.4 H (BEAKER) (test code = 412) PLATELET COUNT (BEAKER) (test 186 K/CU MM 150-450 code = 756) MEAN PLATELET VOLUME (BEAKER) 10.3 fL 9.4-12.3 (test code = 754) NUCLEATED RED BLOOD CELLS 0 /100 WBC 0-0 (BEAKER) (test code = 413) NEUTROPHILS RELATIVE PERCENT 69 % (BEAKER) (test code = 429) LYMPHOCYTES RELATIVE PERCENT 20 % (BEAKER) (test code = 430) MONOCYTES RELATIVE PERCENT 8 % (BEAKER) (test code = 431) EOSINOPHILS RELATIVE PERCENT 2 % (BEAKER) (test code = 432) BASOPHILS RELATIVE PERCENT 1 % (BEAKER) (test code = 437) NEUTROPHILS ABSOLUTE COUNT 2.26 K/ L 1.56-6.13 (BEAKER) (test code = 670) LYMPHOCYTES ABSOLUTE COUNT 0.66 K/ L 1.18-3.74 L (BEAKER) (test code = 414) MONOCYTES ABSOLUTE COUNT (BEAKER) 0.26 K/ L 0.24-0.36 (test code = 415) EOSINOPHILS ABSOLUTE COUNT 0.06 K/ L 0.04-0.36 (BEAKER) (test code = 416) BASOPHILS ABSOLUTE COUNT (BEAKER) 0.03 K/ L 0.01-0.08 (test code = 417) IMMATURE GRANULOCYTES-RELATIVE 0 % 0-1 PERCENT (BEAKER) (test code = 2801) EEG AWAKE AND [id number] 15:30:00Reason for exam:->single epileptic seizureDATE OF TEST: 06/03/2017 DATE OF REPORT 06/03/2017 ACC: [id number] EE Start time: 1341 Stop time: 1413 ICD-10: R56.9 CPT Code: 76751 HISTORY: 56 y/o woman with history of liver transplant January 2017 who is being evaluated for two possible seizures MEDICATIONS: levetiracetam TECHNICAL SUMMARY : This is a digital video EEG recorded with 32 input channels reviewed with bipolar and referential montages using the modified combinatorial system nomenclature. DESCRIPTION OF RECORD: During the maximally alert state a 9-10 Hz posterior dominant rhythm was seen that was symmetric, reactive to eye opening and well regulated. More anteriorly, low voltage frontocentral beta predominated. Electrographic features of drowsiness and N2 sleep were seen. HV: Hyperventilation was performed for 3 minutes with good effort. No change was seen with HV. PHOTIC STIMULATION: Flash stimulation was done from 1-30 Hz; no photic driving was seen; photoparoxysmal responses were absent. IMPRESSION: Normal Awake and Asleep EEG CLINICAL CORRELATION: An EEG without epileptiform discharges does not exclude the possibility of epilepsy. If the clinical suspicion of epilepsy remains, consider additional EEG recordings. Niurka Auugstine M.D. Neurophysiology Fellow Lonnie Oliveros [facility] Neurophysiology/Epilepsy Attending SIROLIMUS [id number] 13:14:00 Test Item Value Reference Range Interpretation Comments SIROLIMUS LEVEL BLOOD (BEAKER) 7.6 ng/mL 5.0-15.0 (test code = 806) Outpatient standing lab ordersCBC W/PLT COUNT & AUTO [id number] 12:11:00 Test Item Value Reference Range Interpretation Comments WHITE BLOOD CELL COUNT 2.7 K/ L 3.5-10.5 L (BEAKER) (test code = 775) RED BLOOD CELL COUNT 3.29 M/ L 3.93-5.22 L (BEAKER) (test code = 761) HEMOGLOBIN (BEAKER) 9.6 GM/DL 11.2-15.7 L (test code = 410) HEMATOCRIT (BEAKER) 30.2 % 34.1-44.9 L (test code = 411) MEAN CORPUSCULAR 91.8 fL 79.4-94.8 VOLUME (BEAKER) (test code = 753) MEAN CORPUSCULAR 29.2 pg 25.6-32.2 HEMOGLOBIN (BEAKER) (test code = 751) MEAN CORPUSCULAR 31.8 GM/DL 32.2-35.5 L HEMOGLOBIN CONC (BEAKER) (test code = 752) RED CELL DISTRIBUTION 15.7 % 11.7-14.4 H WIDTH (BEAKER) (test code = 412) PLATELET COUNT 148 K/CU MM 150-450 L (BEAKER) (test code = 756) MEAN PLATELET VOLUME 10.2 fL 9.4-12.3 (BEAKER) (test code = 754) NUCLEATED RED BLOOD 0 /100 WBC 0-0 CELLS (BEAKER) (test code = 413) IMMATURE 0 % 0-1 GRANULOCYTES-RELATIVE PERCENT (BEAKER) (test code = 1963) NEUTROPHILS RELATIVE 66 % This is an appended PERCENT (BEAKER) (test repor t. These code = 429) results have be en appended to a previously abdi l verified report . LYMPHOCYTES RELATIVE 24 % This is an appended PERCENT (BEAKER) (test repor t. These code = 430) results have be en appended to a previously abdi l verified report . MONOCYTES RELATIVE 7 % This is a n appended PERCENT (BEAKER) (test repor t. These code = 431) results have be en appended to a previously abdi l verified report . EOSINOPHILS RELATIVE 2 % This is an appended PERCENT (BEAKER) (test repor t. These code = 432) results have be en appended to a previously abdi l verified report . BASOPHILS RELATIVE 1 % This is a n appended PERCENT (BEAKER) (test repor t. These code = 437) results have be en appended to a previously abdi l verified report . NEUTROPHILS ABSOLUTE 1.76 K/ L 1.56-6.13 This is an appended COUNT (BEAKER) (test report. These code = 670) results have be en appended to a previously abdi l verified report . LYMPHOCYTES ABSOLUTE 0.63 K/ L 1.18-3.74 L This is an appended COUNT (BEAKER) (test report. These code = 414) results have be en appended to a previously abdi l verified report . MONOCYTES ABSOLUTE 0.19 K/ L 0.24-0.36 L This is a n appended COUNT (BEAKER) (test report. These code = 415) results have be en appended to a previously abdi l verified report . EOSINOPHILS ABSOLUTE 0.05 K/ L 0.04-0.36 This is an appended COUNT (BEAKER) (test report. These code = 416) results have be en appended to a previously abdi l verified report . BASOPHILS ABSOLUTE 0.02 K/ L 0.01-0.08 This is a n appended COUNT (BEAKER) (test report. These code = 417) results have be en appended to a previously abdi l verified report . (MANUAL DIFFERENTIAL)2017-06-03 12:11:00 Test Item Value Reference Range Interpretation Comments TOTAL COUNTED (BEAKER) (test code = 1351) [id number] 11:01:00 Test Item Value Reference Range Interpretation Comments MAGNESIUM (BEAKER) (test code = 1.8 mg/dL 1.6-2.6 627) Outpatient standing lab ordersOutpatient standing lab ordersOutpatient standing lab ordersOutpatientstanding lab ordersCOMPREHENSIVE METABOLIC [id number] 11:01:00 Test Item Value Reference Range Interpretation Comments TOTAL PROTEIN 6.8 gm/dL 6.0-8.3 (BEAKER) (test code = 770) ALBUMIN (BEAKER) 4.2 g/dL 3.5-5.0 (test code = 1145) ALKALINE PHOSPHATASE 50 U/L 40-150 (BEAKER) (test code = 346) BILIRUBIN TOTAL 0.9 mg/dL 0.2-1.2 (BEAKER) (test code = 377) SODIUM (BEAKER) (test 143 meq/L 136-145 code = 381) POTASSIUM (BEAKER) 2.9 meq/L 3.5-5.1 L (test code = 379) CHLORIDE (BEAKER) 107 meq/L 98-107 (test code = 382) CO2 (BEAKER) (test 29 meq/L 22-29 code = 355) BLOOD UREA NITROGEN 26 mg/dL 7-21 H (BEAKER) (test code = 354) CREATININE (BEAKER) 0.84 mg/dL 0.57-1.25 (test code = 358) GLUCOSE RANDOM 84 mg/dL 70-105 (BEAKER) (test code = 652) CALCIUM (BEAKER) 9.6 mg/dL 8.4-10.2 (test code = 697) AST (SGOT) (BEAKER) 26 U/L 5-34 (test code = 353) ALT (SGPT) (BEAKER) 69 U/L 6-55 H (test code = 347) EGFR (BEAKER) (test 70 mL/min/1.73 ESTIMA NIHARIKA GFR IS code = 1092) sq m NOT ACCURATE CREATININE CLEARANCE IN PREDICTING GLOMERULAR FILTRATION RATE . ESTIMATED GFR I S NOT APPLICABLE FOR DIALYSIS PATIEN TS. Outpatient standing lab ordersOutpatient standing lab ordersOutpatient standing lab ordersOutpatientstanding lab ordersBILIRUBIN, [id number] 11:01:00 Test Item Value Reference Range Interpretation Comments BILIRUBIN DIRECT (BEAKER) (test 0.3 mg/dL 0.1-0.5 code = 706) Outpatient standing lab ordersOutpatient standing lab ordersOutpatient standing lab ordersOutpatientstanding lab [id number] 11:00:00 Test Item Value Reference Range Interpretation Comments PHOSPHORUS (BEAKER) (test code = 4.2 mg/dL 2.3-4.7 604) Outpatient standing lab ordersOutpatient standing lab ordersOutpatient standing lab ordersOutpatientstanding lab ordersSIROLIMUS [id number] 14:08:00 Test Item Value Reference Range Interpretation Comments SIROLIMUS LEVEL BLOOD (BEAKER) 7.9 ng/mL 5.0-15.0 (test code = 806) Outpatient standing lab ordersCBC W/PLT COUNT & AUTO [id number] 12:01:00 Test Item Value Reference Range Interpretation Comments WHITE BLOOD CELL COUNT 2.9 K/ L 3.5-10.5 L (BEAKER) (test code = 775) RED BLOOD CELL COUNT 3.11 M/ L 3.93-5.22 L (BEAKER) (test code = 761) HEMOGLOBIN (BEAKER) 9.4 GM/DL 11.2-15.7 L (test code = 410) HEMATOCRIT (BEAKER) 28.7 % 34.1-44.9 L (test code = 411) MEAN CORPUSCULAR 92.3 fL 79.4-94.8 VOLUME (BEAKER) (test code = 753) MEAN CORPUSCULAR 30.2 pg 25.6-32.2 HEMOGLOBIN (BEAKER) (test code = 751) MEAN CORPUSCULAR 32.8 GM/DL 32.2-35.5 HEMOGLOBIN CONC (BEAKER) (test code = 752) RED CELL DISTRIBUTION 15.6 % 11.7-14.4 H WIDTH (BEAKER) (test code = 412) PLATELET COUNT 148 K/CU MM 150-450 L (BEAKER) (test code = 756) MEAN PLATELET VOLUME 9.9 fL 9.4-12.3 (BEAKER) (test code = 754) NUCLEATED RED BLOOD 0 /100 WBC 0-0 CELLS (BEAKER) (test code = 413) IMMATURE 1 % 0-1 GRANULOCYTES-RELATIVE PERCENT (BEAKER) (test code = 2801) NEUTROPHILS RELATIVE 65 % This is an appended PERCENT (BEAKER) (test repor t. These code = 429) results have be en appended to a previously abdi l verified report . LYMPHOCYTES RELATIVE 24 % This is an appended PERCENT (BEAKER) (test repor t. These code = 430) results have be en appended to a previously abdi l verified report . MONOCYTES RELATIVE 8 % This is a n appended PERCENT (BEAKER) (test repor t. These code = 431) results have be en appended to a previously abdi l verified report . EOSINOPHILS RELATIVE 1 % This is an appended PERCENT (BEAKER) (test repor t. These code = 432) results have be en appended to a previously abdi l verified report . BASOPHILS RELATIVE 1 % This is a n appended PERCENT (BEAKER) (test repor t. These code = 437) results have be en appended to a previously abdi l verified report . NEUTROPHILS ABSOLUTE 1.86 K/ L 1.56-6.13 This is an appended COUNT (BEAKER) (test report. These code = 670) results have be en appended to a previously abdi l verified report . LYMPHOCYTES ABSOLUTE 0.68 K/ L 1.18-3.74 L This is an appended COUNT (BEAKER) (test report. These code = 414) results have be en appended to a previously abdi l verified report . MONOCYTES ABSOLUTE 0.24 K/ L 0.24-0.36 This is a n appended COUNT (BEAKER) (test report. These code = 415) results have be en appended to a previously abdi l verified report . EOSINOPHILS ABSOLUTE 0.04 K/ L 0.04-0.36 This is an appended COUNT (BEAKER) (test report. These code = 416) results have be en appended to a previously abdi l verified report . BASOPHILS ABSOLUTE 0.02 K/ L 0.01-0.08 This is a n appended COUNT (BEAKER) (test report. These code = 417) results have be en appended to a previously abdi l verified report . BILIRUBIN, [id number] 11:16:00 Test Item Value Reference Range Interpretation Comments BILIRUBIN DIRECT (BEAKER) (test 0.3 mg/dL 0.1-0.5 code = 706) Outpatient standing lab ordersOutpatient standing lab ordersOutpatient standing lab ordersOutpatientstanding lab [id number] 11:16:00 Test Item Value Reference Range Interpretation Comments PHOSPHORUS (BEAKER) (test code = 3.0 mg/dL 2.3-4.7 604) Outpatient standing lab ordersOutpatient standing lab ordersOutpatient standing lab ordersOutpatientstanding lab [id number] 11:16:00 Test Item Value Reference Range Interpretation Comments MAGNESIUM (BEAKER) (test code = 2.0 mg/dL 1.6-2.6 627) Outpatient standing lab ordersOutpatient standing lab ordersOutpatient standing lab ordersOutpatientstanding lab ordersCOMPREHENSIVE METABOLIC [id number] 11:16:00 Test Item Value Reference Range Interpretation Comments TOTAL PROTEIN 6.7 gm/dL 6.0-8.3 (BEAKER) (test code = 770) ALBUMIN (BEAKER) 4.1 g/dL 3.5-5.0 (test code = 1145) ALKALINE PHOSPHATASE 58 U/L 40-150 (BEAKER) (test code = 346) BILIRUBIN TOTAL 0.9 mg/dL 0.2-1.2 (BEAKER) (test code = 377) SODIUM (BEAKER) (test 143 meq/L 136-145 code = 381) POTASSIUM (BEAKER) 3.2 meq/L 3.5-5.1 L (test code = 379) CHLORIDE (BEAKER) 109 meq/L 98-107 H (test code = 382) CO2 (BEAKER) (test 26 meq/L 22-29 code = 355) BLOOD UREA NITROGEN 21 mg/dL 7-21 (BEAKER) (test code = 354) CREATININE (BEAKER) 0.83 mg/dL 0.57-1.25 (test code = 358) GLUCOSE RANDOM 98 mg/dL 70-105 (BEAKER) (test code = 652) CALCIUM (BEAKER) 8.9 mg/dL 8.4-10.2 (test code = 697) AST (SGOT) (BEAKER) 33 U/L 5-34 (test code = 353) ALT (SGPT) (BEAKER) 78 U/L 6-55 H (test code = 347) EGFR (BEAKER) (test 71 mL/min/1.73 ESTIMA NIHARIKA GFR IS code = 1092) sq m NOT ACCURATE CREATININE CLEARANCE IN PREDICTING GLOMERULAR FILTRATION RATE . ESTIMATED GFR I S NOT APPLICABLE FOR DIALYSIS PATIEN TS. Outpatient standing lab ordersOutpatient standing lab ordersOutpatient standing lab ordersOutpatientstanding lab ordersSIROLIMUS [id number] 13:26:00 Test Item Value Reference Range Interpretation Comments SIROLIMUS LEVEL BLOOD (BEAKER) 7.6 ng/mL 5.0-15.0 (test code = 806) Outpatient standing lab ordersCOMPREHENSIVE METABOLIC [id number] 12:48:00 Test Item Value Reference Range Interpretation Comments TOTAL PROTEIN 6.8 gm/dL 6.0-8.3 (BEAKER) (test code = 770) ALBUMIN (BEAKER) 4.2 g/dL 3.5-5.0 (test code = 1145) ALKALINE PHOSPHATASE 52 U/L 40-150 (BEAKER) (test code = 346) BILIRUBIN TOTAL 1.1 mg/dL 0.2-1.2 (BEAKER) (test code = 377) SODIUM (BEAKER) (test 142 meq/L 136-145 code = 381) POTASSIUM (BEAKER) 2.5 meq/L 3.5-5.1 LL (test code = 379) CHLORIDE (BEAKER) 103 meq/L 98-107 (test code = 382) CO2 (BEAKER) (test 30 meq/L 22-29 H code = 355) BLOOD UREA NITROGEN 31 mg/dL 7-21 H (BEAKER) (test code = 354) CREATININE (BEAKER) 0.93 mg/dL 0.57-1.25 (test code = 358) GLUCOSE RANDOM 155 mg/dL 70-105 H (BEAKER) (test code = 652) CALCIUM (BEAKER) 9.5 mg/dL 8.4-10.2 (test code = 697) AST (SGOT) (BEAKER) 31 U/L 5-34 (test code = 353) ALT (SGPT) (BEAKER) 82 U/L 6-55 H (test code = 347) EGFR (BEAKER) (test 63 mL/min/1.73 ESTIMA NIHARIKA GFR IS code = 1092) sq m NOT ACCURATE CREATININE CLEARANCE IN PREDICTING GLOMERULAR FILTRATION RATE . ESTIMATED GFR I S NOT APPLICABLE FOR DIALYSIS PATIEN TS. Outpatient standing lab ordersOutpatient standing lab ordersOutpatient standing lab ordersOutpatientstanding lab [id number] 12:26:00 Test Item Value Reference Range Interpretation Comments PHOSPHORUS (BEAKER) (test code = 3.9 mg/dL 2.3-4.7 604) Outpatient standing lab ordersOutpatient standing lab ordersOutpatient standing lab ordersOutpatientstanding lab [id number] 12:26:00 Test Item Value Reference Range Interpretation Comments MAGNESIUM (BEAKER) (test code = 1.7 mg/dL 1.6-2.6 627) Outpatient standing lab ordersOutpatient standing lab ordersOutpatient standing lab ordersOutpatientstanding lab ordersBILIRUBIN, [id number] 12:26:00 Test Item Value Reference Range Interpretation Comments BILIRUBIN DIRECT (BEAKER) (test 0.4 mg/dL 0.1-0.5 code = 706) Outpatient standing lab ordersOutpatient standing lab ordersOutpatient standing lab ordersOutpatientstanding lab ordersCBC W/PLT COUNT & AUTO DIFFERENTIAL 2017-04-29 11:55:00 Test Item Value Reference Range Interpretation Comments WHITE BLOOD CELL COUNT (BEAKER) 3.3 K/ L 3.5-10.5 L (test code = 775) RED BLOOD CELL COUNT (BEAKER) 2.97 M/ L 3.93-5.22 L (test code = 761) HEMOGLOBIN (BEAKER) (test code = 9.3 GM/DL 11.2-15.7 L 410) HEMATOCRIT (BEAKER) (test code = 28.3 % 34.1-44.9 L 411) MEAN CORPUSCULAR VOLUME (BEAKER) 95.3 fL 79.4-94.8 H (test code = 753) MEAN CORPUSCULAR HEMOGLOBIN 31.3 pg 25.6-32.2 (BEAKER) (test code = 751) MEAN CORPUSCULAR HEMOGLOBIN CONC 32.9 GM/DL 32.2-35.5 (BEAKER) (test code = 752) RED CELL DISTRIBUTION WIDTH 16.2 % 11.7-14.4 H (BEAKER) (test code = 412) PLATELET COUNT (BEAKER) (test 141 K/CU MM 150-450 L code = 756) MEAN PLATELET VOLUME (BEAKER) 10.3 fL 9.4-12.3 (test code = 754) NUCLEATED RED BLOOD CELLS 0 /100 WBC 0-0 (BEAKER) (test code = 413) NEUTROPHILS RELATIVE PERCENT 72 % (BEAKER) (test code = 429) LYMPHOCYTES RELATIVE PERCENT 17 % (BEAKER) (test code = 430) MONOCYTES RELATIVE PERCENT 8 % (BEAKER) (test code = 431) EOSINOPHILS RELATIVE PERCENT 1 % (BEAKER) (test code = 432) BASOPHILS RELATIVE PERCENT 1 % (BEAKER) (test code = 437) NEUTROPHILS ABSOLUTE COUNT 2.40 K/ L 1.56-6.13 (BEAKER) (test code = 670) LYMPHOCYTES ABSOLUTE COUNT 0.58 K/ L 1.18-3.74 L (BEAKER) (test code = 414) MONOCYTES ABSOLUTE COUNT (BEAKER) 0.28 K/ L 0.24-0.36 (test code = 415) EOSINOPHILS ABSOLUTE COUNT 0.03 K/ L 0.04-0.36 L (BEAKER) (test code = 416) BASOPHILS ABSOLUTE COUNT (BEAKER) 0.02 K/ L 0.01-0.08 (test code = 417) IMMATURE GRANULOCYTES-RELATIVE 1 % 0-1 PERCENT (BEAKER) (test code = 2801) CBC W/PLT COUNT & AUTO [id number] 13:10:00 Test Item Value Reference Range Interpretation Comments WHITE BLOOD CELL COUNT 2.3 K/ L 3.5-10.5 L (BEAKER) (test code = 775) RED BLOOD CELL COUNT 2.77 M/ L 3.93-5.22 L (BEAKER) (test code = 761) HEMOGLOBIN (BEAKER) 8.6 GM/DL 11.2-15.7 L (test code = 410) HEMATOCRIT (BEAKER) 26.3 % 34.1-44.9 L (test code = 411) MEAN CORPUSCULAR 94.9 fL 79.4-94.8 H VOLUME (BEAKER) (test code = 753) MEAN CORPUSCULAR 31.0 pg 25.6-32.2 HEMOGLOBIN (BEAKER) (test code = 751) MEAN CORPUSCULAR 32.7 GM/DL 32.2-35.5 HEMOGLOBIN CONC (BEAKER) (test code = 752) RED CELL DISTRIBUTION 17.2 % 11.7-14.4 H WIDTH (BEAKER) (test code = 412) PLATELET COUNT 134 K/CU MM 150-450 L (BEAKER) (test code = 756) MEAN PLATELET VOLUME 10.3 fL 9.4-12.3 (BEAKER) (test code = 754) NUCLEATED RED BLOOD 0 /100 WBC 0-0 CELLS (BEAKER) (test code = 413) IMMATURE 1 % 0-1 GRANULOCYTES-RELATIVE PERCENT (BEAKER) (test code = 3416) NEUTROPHILS RELATIVE 67 % This is an appended PERCENT (BEAKER) (test repor t. These code = 429) results have be en appended to a previously abdi l verified report . LYMPHOCYTES RELATIVE 23 % This is an appended PERCENT (BEAKER) (test repor t. These code = 430) results have be en appended to a previously abdi l verified report . MONOCYTES RELATIVE 7 % This is a n appended PERCENT (BEAKER) (test repor t. These code = 431) results have be en appended to a previously abdi l verified report . EOSINOPHILS RELATIVE 1 % This is an appended PERCENT (BEAKER) (test repor t. These code = 432) results have be en appended to a previously abdi l verified report . BASOPHILS RELATIVE 0 % This is a n appended PERCENT (BEAKER) (test repor t. These code = 437) results have be en appended to a previously abdi l verified report . NEUTROPHILS ABSOLUTE 1.53 K/ L 1.56-6.13 L This is an appended COUNT (BEAKER) (test report. These code = 670) results have be en appended to a previously abdi l verified report . LYMPHOCYTES ABSOLUTE 0.52 K/ L 1.18-3.74 L This is an appended COUNT (BEAKER) (test report. These code = 414) results have be en appended to a previously abdi l verified report . MONOCYTES ABSOLUTE 0.17 K/ L 0.24-0.36 L This is a n appended COUNT (BEAKER) (test report. These code = 415) results have be en appended to a previously abdi l verified report . EOSINOPHILS ABSOLUTE 0.03 K/ L 0.04-0.36 L This is an appended COUNT (BEAKER) (test report. These code = 416) results have be en appended to a previously abdi l verified report . BASOPHILS ABSOLUTE 0.01 K/ L 0.01-0.08 This is a n appended COUNT (BEAKER) (test report. These code = 417) results have be en appended to a previously abdi l verified report . (MANUAL DIFFERENTIAL)2017-04-15 13:10:00 Test Item Value Reference Range Interpretation Comments TOTAL COUNTED (BEAKER) (test code = 1351) WBC MORPHOLOGY (BEAKER) (test code = Normal 487) PLT MORPHOLOGY (BEAKER) (test code = Normal 486) RBC MORPHOLOGY (BEAKER) (test code = Normal 762) SIROLIMUS [id number] 10:50:00 Test Item Value Reference Range Interpretation Comments SIROLIMUS LEVEL BLOOD (BEAKER) 7.0 ng/mL 5.0-15.0 (test code = 806) Outpatient standing lab [id number] 10:15:00 Test Item Value Reference Range Interpretation Comments PHOSPHORUS (BEAKER) (test code = 3.6 mg/dL 2.3-4.7 604) Outpatient standing lab ordersOutpatient standing lab ordersOutpatient standing lab ordersOutpatientstanding lab [id number] 10:15:00 Test Item Value Reference Range Interpretation Comments MAGNESIUM (BEAKER) (test code = 2.0 mg/dL 1.6-2.6 627) Outpatient standing lab ordersOutpatient standing lab ordersOutpatient standing lab ordersOutpatientstanding lab ordersCOMPREHENSIVE METABOLIC [id number] 10:15:00 Test Item Value Reference Range Interpretation Comments TOTAL PROTEIN 6.5 gm/dL 6.0-8.3 (BEAKER) (test code = 770) ALBUMIN (BEAKER) 4.0 g/dL 3.5-5.0 (test code = 1145) ALKALINE PHOSPHATASE 49 U/L 40-150 (BEAKER) (test code = 346) BILIRUBIN TOTAL 1.0 mg/dL 0.2-1.2 (BEAKER) (test code = 377) SODIUM (BEAKER) (test 143 meq/L 136-145 code = 381) POTASSIUM (BEAKER) 3.1 meq/L 3.5-5.1 L (test code = 379) CHLORIDE (BEAKER) 110 meq/L 98-107 H (test code = 382) CO2 (BEAKER) (test 27 meq/L 22-29 code = 355) BLOOD UREA NITROGEN 21 mg/dL 7-21 (BEAKER) (test code = 354) CREATININE (BEAKER) 0.84 mg/dL 0.57-1.25 (test code = 358) GLUCOSE RANDOM 112 mg/dL 70-105 H (BEAKER) (test code = 652) CALCIUM (BEAKER) 9.5 mg/dL 8.4-10.2 (test code = 697) AST (SGOT) (BEAKER) 38 U/L 5-34 H (test code = 353) ALT (SGPT) (BEAKER) 109 U/L 6-55 H (test code = 347) EGFR (BEAKER) (test 70 mL/min/1.73 ESTIMA NIHARIKA GFR IS code = 1092) sq m NOT ACCURATE CREATININE CLEARANCE IN PREDICTING GLOMERULAR FILTRATION RATE . ESTIMATED GFR I S NOT APPLICABLE FOR DIALYSIS PATIEN TS. Outpatient standing lab ordersOutpatient standing lab ordersOutpatient standing lab ordersOutpatientstanding lab ordersBILIRUBIN, [id number] 10:15:00 Test Item Value Reference Range Interpretation Comments BILIRUBIN DIRECT (BEAKER) (test 0.4 mg/dL 0.1-0.5 code = 706) Outpatient standing lab ordersOutpatient standing lab ordersOutpatient standing lab ordersOutpatientstanding lab ordersSIROLIMUS [id number] 14:35:00 Test Item Value Reference Range Interpretation Comments SIROLIMUS LEVEL BLOOD (BEAKER) 7.6 ng/mL 5.0-15.0 (test code = 806) Outpatient standing lab orders(MANUAL DIFFERENTIAL)2017-04-08 16:47:00 Test Item Value Reference Range Interpretation Comments NEUTROPHILS - REL (DIFF) (BEAKER) 62 % (test code = 1359) LYMPHOCYTES - REL (DIFF) (BEAKER) 26 % (test code = 1360) MONOCYTES - REL (DIFF) (BEAKER) 10 % (test code = 1361) EOSINOPHILS - REL (DIFF) (BEAKER) 1 % (test code = 1362) BASOPHILS - REL (DIFF) (BEAKER) 1 % (test code = 1363) NEUTROPHILS - ABS (DIFF) (BEAKER) 1.49 K/ L 1.80-8.00 L (test code = 1365) LYMPHOCYTES - ABS (DIFF) (BEAKER) 0.62 K/ L 1.48-4.50 L (test code = 1366) MONOCYTES - ABS (DIFF) (BEAKER) 0.24 K/ L 0.00-1.30 (test code = 1367) EOSINOPHILS - ABS (DIFF) (BEAKER) 0.02 K/ L 0.00-0.50 (test code = 1368) BASOPHILS - ABS (DIFF) (BEAKER) 0.02 K/ L 0.00-0.20 (test code = 1369) TOTAL COUNTED (BEAKER) (test code = 100 1351) WBC MORPHOLOGY (BEAKER) (test code Normal = 487) PLT MORPHOLOGY (BEAKER) (test code Normal = 486) RBC MORPHOLOGY (BEAKER) (test code Normal = 762) [id number] 10:38:00 Test Item Value Reference Range Interpretation Comments PHOSPHORUS (BEAKER) (test code = 4.1 mg/dL 2.3-4.7 604) Outpatient standing lab ordersOutpatient standing lab ordersOutpatient standing lab ordersOutpatientstanding lab [id number] 10:38:00 Test Item Value Reference Range Interpretation Comments MAGNESIUM (BEAKER) (test code = 1.8 mg/dL 1.6-2.6 627) Outpatient standing lab ordersOutpatient standing lab ordersOutpatient standing lab ordersOutpatientstanding lab ordersCOMPREHENSIVE METABOLIC [id number] 10:38:00 Test Item Value Reference Range Interpretation Comments TOTAL PROTEIN 6.6 gm/dL 6.0-8.3 (BEAKER) (test code = 770) ALBUMIN (BEAKER) 4.1 g/dL 3.5-5.0 (test code = 1145) ALKALINE PHOSPHATASE 50 U/L 40-150 (BEAKER) (test code = 346) BILIRUBIN TOTAL 1.1 mg/dL 0.2-1.2 (BEAKER) (test code = 377) SODIUM (BEAKER) (test 145 meq/L 136-145 code = 381) POTASSIUM (BEAKER) 3.3 meq/L 3.5-5.1 L (test code = 379) CHLORIDE (BEAKER) 111 meq/L 98-107 H (test code = 382) CO2 (BEAKER) (test 26 meq/L 22-29 code = 355) BLOOD UREA NITROGEN 28 mg/dL 7-21 H (BEAKER) (test code = 354) CREATININE (BEAKER) 0.87 mg/dL 0.57-1.25 (test code = 358) GLUCOSE RANDOM 94 mg/dL 70-105 (BEAKER) (test code = 652) CALCIUM (BEAKER) 9.7 mg/dL 8.4-10.2 (test code = 697) AST (SGOT) (BEAKER) 40 U/L 5-34 H (test code = 353) ALT (SGPT) (BEAKER) 113 U/L 6-55 H (test code = 347) EGFR (BEAKER) (test 68 mL/min/1.73 ESTIMA NIHARIKA GFR IS code = 1092) sq m NOT ACCURATE CREATININE CLEARANCE IN PREDICTING GLOMERULAR FILTRATION RATE . ESTIMATED GFR I S NOT APPLICABLE FOR DIALYSIS PATIEN TS. Outpatient standing lab ordersOutpatient standing lab ordersOutpatient standing lab ordersOutpatientstanding lab ordersBILIRUBIN, [id number] 10:38:00 Test Item Value Reference Range Interpretation Comments BILIRUBIN DIRECT (BEAKER) (test 0.4 mg/dL 0.1-0.5 code = 706) Outpatient standing lab ordersOutpatient standing lab ordersOutpatient standing lab ordersOutpatientstanding lab ordersCBC W/PLT COUNT & AUTO DIFFERENTIAL 2017-04-08 10:26:00 Test Item Value Reference Range Interpretation Comments WHITE BLOOD CELL COUNT (BEAKER) 2.4 K/ L 3.5-10.5 L (test code = 775) RED BLOOD CELL COUNT (BEAKER) 2.78 M/ L 3.93-5.22 L (test code = 761) HEMOGLOBIN (BEAKER) (test code = 8.4 GM/DL 11.2-15.7 L 410) HEMATOCRIT (BEAKER) (test code = 26.0 % 34.1-44.9 L 411) MEAN CORPUSCULAR VOLUME (BEAKER) 93.5 fL 79.4-94.8 (test code = 753) MEAN CORPUSCULAR HEMOGLOBIN 30.2 pg 25.6-32.2 (BEAKER) (test code = 751) MEAN CORPUSCULAR HEMOGLOBIN CONC 32.3 GM/DL 32.2-35.5 (BEAKER) (test code = 752) RED CELL DISTRIBUTION WIDTH 18.4 % 11.7-14.4 H (BEAKER) (test code = 412) PLATELET COUNT (BEAKER) (test 126 K/CU MM 150-450 L code = 756) MEAN PLATELET VOLUME (BEAKER) 10.3 fL 9.4-12.3 (test code = 754) NUCLEATED RED BLOOD CELLS 0 /100 WBC 0-0 (BEAKER) (test code = 413) IMMATURE GRANULOCYTES-RELATIVE 1 % 0-1 PERCENT (BEAKER) (test code = 2801) SIROLIMUS [id number] 12:26:00 Test Item Value Reference Range Interpretation Comments SIROLIMUS LEVEL BLOOD (BEAKER) 9.5 ng/mL 5.0-15.0 (test code = 806) Outpatient standing lab [id number] 09:58:00 Test Item Value Reference Range Interpretation Comments PHOSPHORUS (BEAKER) (test code = 4.5 mg/dL 2.3-4.7 604) Outpatient standing lab ordersOutpatient standing lab ordersOutpatient standing lab ordersOutpatientstanding lab [id number] 09:58:00 Test Item Value Reference Range Interpretation Comments MAGNESIUM (BEAKER) (test code = 1.9 mg/dL 1.6-2.6 627) Outpatient standing lab ordersOutpatient standing lab ordersOutpatient standing lab ordersOutpatientstanding lab ordersCOMPREHENSIVE METABOLIC [id number] 09:58:00 Test Item Value Reference Range Interpretation Comments TOTAL PROTEIN 6.7 gm/dL 6.0-8.3 (BEAKER) (test code = 770) ALBUMIN (BEAKER) 4.1 g/dL 3.5-5.0 (test code = 1145) ALKALINE PHOSPHATASE 54 U/L 40-150 (BEAKER) (test code = 346) BILIRUBIN TOTAL 1.1 mg/dL 0.2-1.2 (BEAKER) (test code = 377) SODIUM (BEAKER) (test 142 meq/L 136-145 code = 381) POTASSIUM (BEAKER) 3.1 meq/L 3.5-5.1 L (test code = 379) CHLORIDE (BEAKER) 106 meq/L 98-107 (test code = 382) CO2 (BEAKER) (test 28 meq/L 22-29 code = 355) BLOOD UREA NITROGEN 27 mg/dL 7-21 H (BEAKER) (test code = 354) CREATININE (BEAKER) 1.12 mg/dL 0.57-1.25 (test code = 358) GLUCOSE RANDOM 108 mg/dL 70-105 H (BEAKER) (test code = 652) CALCIUM (BEAKER) 9.8 mg/dL 8.4-10.2 (test code = 697) AST (SGOT) (BEAKER) 42 U/L 5-34 H (test code = 353) ALT (SGPT) (BEAKER) 128 U/L 6-55 H (test code = 347) EGFR (BEAKER) (test 51 mL/min/1.73 ESTIMA NIHARIKA GFR IS code = 1092) sq m NOT ACCURATE CREATININE CLEARANCE IN PREDICTING GLOMERULAR FILTRATION RATE . ESTIMATED GFR I S NOT APPLICABLE FOR DIALYSIS PATIEN TS. Outpatient standing lab ordersOutpatient standing lab ordersOutpatient standing lab ordersOutpatientstanding lab ordersBILIRUBIN, [id number] 09:58:00 Test Item Value Reference Range Interpretation Comments BILIRUBIN DIRECT (BEAKER) (test 0.4 mg/dL 0.1-0.5 code = 706) Outpatient standing lab ordersOutpatient standing lab ordersOutpatient standing lab ordersOutpatientstanding lab ordersCBC W/PLT COUNT & AUTO DIFFERENTIAL 2017-04-01 09:53:00 Test Item Value Reference Range Interpretation Comments WHITE BLOOD CELL COUNT 2.9 K/ L 3.5-10.5 L (BEAKER) (test code = 775) RED BLOOD CELL COUNT 2.91 M/ L 3.93-5.22 L (BEAKER) (test code = 761) HEMOGLOBIN (BEAKER) 8.8 GM/DL 11.2-15.7 L (test code = 410) HEMATOCRIT (BEAKER) 26.9 % 34.1-44.9 L (test code = 411) MEAN CORPUSCULAR 92.4 fL 79.4-94.8 VOLUME (BEAKER) (test code = 753) MEAN CORPUSCULAR 30.2 pg 25.6-32.2 HEMOGLOBIN (BEAKER) (test code = 751) MEAN CORPUSCULAR 32.7 GM/DL 32.2-35.5 HEMOGLOBIN CONC (BEAKER) (test code = 752) RED CELL DISTRIBUTION 19.5 % 11.7-14.4 H WIDTH (BEAKER) (test code = 412) PLATELET COUNT 124 K/CU MM 150-450 L (BEAKER) (test code = 756) MEAN PLATELET VOLUME 9.7 fL 9.4-12.3 (BEAKER) (test code = 754) NUCLEATED RED BLOOD 0 /100 WBC 0-0 CELLS (BEAKER) (test code = 413) IMMATURE 1 % 0-1 GRANULOCYTES-RELATIVE PERCENT (BEAKER) (test code = 2801) NEUTROPHILS RELATIVE 66 % This is an appended PERCENT (BEAKER) (test repor t. These code = 429) results have be en appended to a previously abdi l verified report . LYMPHOCYTES RELATIVE 24 % This is an appended PERCENT (BEAKER) (test repor t. These code = 430) results have be en appended to a previously abdi l verified report . MONOCYTES RELATIVE 8 % This is a n appended PERCENT (BEAKER) (test repor t. These code = 431) results have be en appended to a previously abdi l verified report . EOSINOPHILS RELATIVE 1 % This is an appended PERCENT (BEAKER) (test repor t. These code = 432) results have be en appended to a previously abdi l verified report . BASOPHILS RELATIVE 1 % This is a n appended PERCENT (BEAKER) (test repor t. These code = 437) results have be en appended to a previously abdi l verified report . NEUTROPHILS ABSOLUTE 1.91 K/ L 1.56-6.13 This is an appended COUNT (BEAKER) (test report. These code = 670) results have be en appended to a previously abdi l verified report . LYMPHOCYTES ABSOLUTE 0.68 K/ L 1.18-3.74 L This is an appended COUNT (BEAKER) (test report. These code = 414) results have be en appended to a previously abdi l verified report . MONOCYTES ABSOLUTE 0.22 K/ L 0.24-0.36 L This is a n appended COUNT (BEAKER) (test report. These code = 415) results have be en appended to a previously abdi l verified report . EOSINOPHILS ABSOLUTE 0.02 K/ L 0.04-0.36 L This is an appended COUNT (BEAKER) (test report. These code = 416) results have be en appended to a previously abdi l verified report . BASOPHILS ABSOLUTE 0.02 K/ L 0.01-0.08 This is a n appended COUNT (BEAKER) (test report. These code = 417) results have be en appended to a previously abdi l verified report . BLOOD [id number] 12:00:00 Test Item Value Reference Range Interpretation Comments CULTURE (BEAKER) (test No growth in 5 days code = 1095) BLOOD [id number] 12:00:00 Test Item Value Reference Range Interpretation Comments CULTURE (BEAKER) (test No growth in 5 days code = 1095) URINE [id number] 10:44:00 Test Item Value Reference Range Interpretation Comments CULTURE (BEAKER) (test CITROBACTER A >100, 000 col/mL code = 1095) FREUNDII Citrobacter freundii Amikacin (test code = S 1) Aztreonam (test code = S 32) Cefepime (test code = S 51) Cefoxitin (test code = R 68) Ceftazidime (test code S = 27) Ceftriaxone (test code S = 52) Ertapenem (test code = S 38) Gentamicin (test code S = 18) Levofloxacin (test S code = 22) Meropenem (test code = S 34) Nitrofurantoin (test S code = 23) Piperacillin + S Tazobactam (test code = 29) Tetracycline (test R code = 2) Tobramycin (test code S = 25) Trimethoprim + R Sulfamethoxazole (test code = 47) CULTURE (BEAKER) (test PSEUDOMONAS A 40-49 ,000 col/mL code = 1095) AERUGINOSA Pseudomonas aeruginosa Amikacin (test code = S 1) Aztreonam (test code = S 32) Cefepime (test code = S 51) Ceftazidime (test code S = 27) Ciprofloxacin (test S code = 7) Doripenem (test code = S 100) Gentamicin (test code S = 18) Imipenem (test code = R 19) Levofloxacin (test S code = 22) Meropenem (test code = S 34) Piperacillin (test S code = 24) Piperacillin + S Tazobactam (test code = 29) Tobramycin (test code S = 25) CMV PCR, [id number] 20:33:00 Test Item Value Reference Range Interpretation Comments CMV VIRAL LOAD - Negative or below the NEGATIVE (BEAKER) (test linear range of the code = 2558) assay (<375 copies/mL) Cytomegalovirus (CMV) infection can cause significant disease in immunosuppressed patients. However,it is common for CMV to manifest as a limited infection which is of no clinical significance in immunosuppressed patients or in healthy individuals.Viral load measurements are helpful to identify clinical CMV infection and to guide the pre-emptive management of antiviral therapy. For treatment of CMVinfection due to reactivation in transplant recipients, a threshold between 4,000 and 5,000 copies/mL is suggested. For treatment of primary CMV infection, a lower threshold can be used.CMV infection may also be monitored using weekly serial measurements. Serial measurements of CMV DNA viral load canbe evaluated by identifying a 10-fold change, as well as assessing the CMV DNA viral load and the clinical context for each patient.The plasma CMV DNA viral load was detected using quantitative polymerase chain reaction and fluorescent monitoring of a specific hybridized probe. Genetic variation and ot her factors can affect the accuracy of nucleic acid testing. Therefore, the results should be interpreted in light of clinical data. A negative result may not exclude the presence of CMV disease.This test was developed and its performance characteristics determined by the [facility] Path ology Department, Section of Molecular Pathology. It has not been cleared or approved by the U.S. Food and Drug Administration (FDA), since FDA approval is not required for clinical use of the test. Validation was done as required by The Clinical Laboratory Improvement Amendments of 1988.EBV VIRAL [id number] 20:32:00 Test Item Value Reference Range Interpretation Comments EBV VIRAL LOAD - Negative or below the NEGATIVE (BEAKER) (test linear range of the code = 0446) assay (<500 copies/mL) This assay was performed by real-time PCR for the detection of the Timur-Sharp virus (EBV) gene EBNA-1. The test is composed of (1) DNA extraction from patient specimen, and (2) real-time PCR amplification and detection with [id number] primers and probes. A well-conserved region of the EBNA-1 gene is targeted, along with an internal control sequence used to confirm PCR amplification. Asymptomatic carriers and viral genetic variation, among other factors, can affect the accuracy of nucleic acid testing; therefore, results should be interpreted in light of clinical data.This test was developedand its performance characteristics determined by the [facility] Pathology Department, Section of Molecular Pathology. It has not been cleared or approved by the U.S. Food and Drug Administration (FDA), since FDA approval is not required for clinical use of the test. Validation was doneas required by The Clinical Laboratory Improvement Amendments of 1988.This assay was performed by real-time PCR for the detection of the Timur-Sharp virus (EBV) gene EBNA-1. The test is composed of (1) DNA extraction from patient specimen, and (2) real- time PCR amplification and detection with [id number] primers and probes. A well-conserved region of the EBNA-1 gene is targeted, along with an internal control sequence used to confirm PCR amplification. Asymptomatic carriers and viral genetic variation, among other factors, can affect the accuracy of nucleic acid testing; therefore, results should be interpreted in light of clinical data.This test was developed and its performance characteristics determined by the [facility] Pathology Department, Section of Molecular Pathology. It has not been cleared or approved by the U.S. Food and Drug Administration (FDA), since FDA approval is not required for clinical use of the test. Validation was done as required by The Clinical Laboratory Improvement Amendments of 1987.U/S, ABDOMINAL, WITH [id number] 16:19:00Reason for Exam:->liver transplant, elevated liver enzymes, need dopplerFINAL REPORT INDICATION:56-year-old female status post liver transplantation January 25, 2017. Elevated liver function tests. COMPARISON:January 26, 2017 TECHNIQUE:Ultrasound of the Abdomen and Doppler evaluation. Sonographic evaluation of the abdomen was performed, including color flow and spectral Doppler analysis of the abdominal vasculature. Exam was technically difficult becauseof the patient's habitus. FINDINGS: Liver and pertinent vessels: Perihepatic hematoma demonstrated on immediate postoperative ultrasound exam has resolved. Liver echogenicity is unremarkable. No focal liver lesion demonstrated. The main portal vein is patent and demonstrates normal direction of flow. Main portal vein diameter is 1.5 cm and the peak systolic velocity is 59 cm/s. The right portal vein and left portal vein are also patent and demonstrate normal direction of flow. There is mild elevation of the resistive indices in the proper hepatic artery in the left hepatic artery. The resistive index of the right hepatic artery is normal at 0.7. The right hepatic vein, middle hepatic vein, and left hepatic vein are patent. The hepatic venous confluence in the intrahepatic cava are patent. The splenic vein was visualized at the hilum, level the pancreatic head, and level the pancreatic tail and is patent. There is no ascites. Biliary tree: Common bile duct measures 0.7 cm. No biliary ductal dilatation demonstrated. Gallbladder is absent. Pancreas: Normal, to the extent visualized.. Spleen: Normal in size. No focal splenic abnormality. Kidneys: Right kidney measures 10.3 x 5.5 x 5.2 cm, and left kidney measures 10.9 x 5.9 x 4.7 cm. There is no hydronephrosis or solid renal lesion. Abdominal aorta: Unremarkable. No pleural effusion demonstrated. IMPRESSION:Resolved perihepatic hematoma. Mildelevation of the resistive index in the proper hepatic artery and right hepatic artery. Patent portal and hepatic veins. Signed: Elkin Khan MDReport Verified Date/Time: 03/22/2017 16:19:52 Reading Location: [address] Ultrasound Reading Room SIROLIMUS LEVEL 2017-03-22 12:11:00 Test Item Value Reference Range Interpretation Comments SIROLIMUS LEVEL BLOOD (BEAKER) 8.8 ng/mL 5.0-15.0 (test code = 806) Outpatient standing lab ordersURINALYSIS W/ [id number] 10:56:00 Test Item Value Reference Range Interpretation Comments COLOR (BEAKER) (test code = 470) Yellow CLARITY (BEAKER) (test code = 469) Hazy SPECIFIC GRAVITY UA (BEAKER) (test 1.016 1.001-1.035 code = 468) PH UA (BEAKER) (test code = 467) 6.0 5.0-8.0 PROTEIN UA (BEAKER) (test code = 30 mg/dL Negative A 464) GLUCOSE UA (BEAKER) (test code = Negative Negative 365) KETONES UA (BEAKER) (test code = Negative Negative 371) BILIRUBIN UA (BEAKER) (test code = Negative Negative 462) BLOOD UA (BEAKER) (test code = 461) Trace Negative A NITRITE UA (BEAKER) (test code = Negative Negative 465) LEUKOCYTE ESTERASE UA (BEAKER) Moderate Negative A (test code = 466) UROBILINOGEN UA (BEAKER) (test code 0.2 mg/dL 0.2-1.0 = 463) RBC UA (BEAKER) (test code = 519) 1 /HPF WBC UA (BEAKER) (test code = 520) 12 /HPF BACTERIA (BEAKER) (test code = 517) Rare MUCUS (BEAKER) (test code = 1574) Rare SQUAMOUS EPITHELIAL (BEAKER) (test 9 /HPF code = 516) SOURCE(BEAKER) (test code = 2795) [id number] 10:51:00 Test Item Value Reference Range Interpretation Comments PHOSPHORUS (BEAKER) (test code = 3.7 mg/dL 2.3-4.7 604) Outpatient standing lab ordersOutpatient standing lab ordersOutpatient standing lab ordersOutpatientstanding lab [id number] 10:51:00 Test Item Value Reference Range Interpretation Comments MAGNESIUM (BEAKER) (test code = 2.2 mg/dL 1.6-2.6 627) Outpatient standing lab ordersOutpatient standing lab ordersOutpatient standing lab ordersOutpatientstanding lab ordersCOMPREHENSIVE METABOLIC [id number] 10:51:00 Test Item Value Reference Range Interpretation Comments TOTAL PROTEIN 7.1 gm/dL 6.0-8.3 (BEAKER) (test code = 770) ALBUMIN (BEAKER) 4.1 g/dL 3.5-5.0 (test code = 1145) ALKALINE PHOSPHATASE 65 U/L 40-150 (BEAKER) (test code = 346) BILIRUBIN TOTAL 1.4 mg/dL 0.2-1.2 H (BEAKER) (test code = 377) SODIUM (BEAKER) (test 141 meq/L 136-145 code = 381) POTASSIUM (BEAKER) 3.3 meq/L 3.5-5.1 L (test code = 379) CHLORIDE (BEAKER) 105 meq/L 98-107 (test code = 382) CO2 (BEAKER) (test 26 meq/L 22-29 code = 355) BLOOD UREA NITROGEN 24 mg/dL 7-21 H (BEAKER) (test code = 354) CREATININE (BEAKER) 1.09 mg/dL 0.57-1.25 (test code = 358) GLUCOSE RANDOM 125 mg/dL 70-105 H (BEAKER) (test code = 652) CALCIUM (BEAKER) 9.8 mg/dL 8.4-10.2 (test code = 697) AST (SGOT) (BEAKER) 61 U/L 5-34 H (test code = 353) ALT (SGPT) (BEAKER) 195 U/L 6-55 H (test code = 347) EGFR (BEAKER) (test 52 mL/min/1.73 ESTIMA NIHARIKA GFR IS code = 1092) sq m NOT ACCURATE CREATININE CLEARANCE IN PREDICTING GLOMERULAR FILTRATION RATE . ESTIMATED GFR I S NOT APPLICABLE FOR DIALYSIS PATIEN TS. Outpatient standing lab ordersOutpatient standing lab ordersOutpatient standing lab ordersOutpatientstanding lab ordersBILIRUBIN, [id number] 10:51:00 Test Item Value Reference Range Interpretation Comments BILIRUBIN DIRECT (BEAKER) (test 0.6 mg/dL 0.1-0.5 H code = 706) Outpatient standing lab ordersOutpatient standing lab ordersOutpatient standing lab ordersOutpatientstanding lab ordersGAMMA GLUTAMYL TRANSFERASE (GGT) 2017-03-22 10:51:00 Test Item Value Reference Range Interpretation Comments GAMMA GLUTAMYL TRANSFERASE (BEAKER) 71 U/L 9-64 H (test code = 364) Outpatient standing lab ordersOutpatient standing lab ordersOutpatient standing lab ordersOutpatientstanding lab ordersCBC W/PLT COUNT & AUTO DIFFERENTIAL 2017-03-22 10:30:00 Test Item Value Reference Range Interpretation Comments WHITE BLOOD CELL COUNT (BEAKER) 3.2 K/ L 3.5-10.5 L (test code = 775) RED BLOOD CELL COUNT (BEAKER) 2.97 M/ L 3.93-5.22 L (test code = 761) HEMOGLOBIN (BEAKER) (test code = 9.0 GM/DL 11.2-15.7 L 410) HEMATOCRIT (BEAKER) (test code = 26.5 % 34.1-44.9 L 411) MEAN CORPUSCULAR VOLUME (BEAKER) 89.2 fL 79.4-94.8 (test code = 753) MEAN CORPUSCULAR HEMOGLOBIN 30.3 pg 25.6-32.2 (BEAKER) (test code = 751) MEAN CORPUSCULAR HEMOGLOBIN CONC 34.0 GM/DL 32.2-35.5 (BEAKER) (test code = 752) RED CELL DISTRIBUTION WIDTH 19.2 % 11.7-14.4 H (BEAKER) (test code = 412) PLATELET COUNT (BEAKER) (test 149 K/CU MM 150-450 L code = 756) MEAN PLATELET VOLUME (BEAKER) 10.0 fL 9.4-12.3 (test code = 754) NUCLEATED RED BLOOD CELLS 0 /100 WBC 0-0 (BEAKER) (test code = 413) NEUTROPHILS RELATIVE PERCENT 66 % (BEAKER) (test code = 429) LYMPHOCYTES RELATIVE PERCENT 22 % (BEAKER) (test code = 430) MONOCYTES RELATIVE PERCENT 8 % (BEAKER) (test code = 431) EOSINOPHILS RELATIVE PERCENT 2 % (BEAKER) (test code = 432) BASOPHILS RELATIVE PERCENT 1 % (BEAKER) (test code = 437) NEUTROPHILS ABSOLUTE COUNT 2.09 K/ L 1.56-6.13 (BEAKER) (test code = 670) LYMPHOCYTES ABSOLUTE COUNT 0.69 K/ L 1.18-3.74 L (BEAKER) (test code = 414) MONOCYTES ABSOLUTE COUNT (BEAKER) 0.25 K/ L 0.24-0.36 (test code = 415) EOSINOPHILS ABSOLUTE COUNT 0.05 K/ L 0.04-0.36 (BEAKER) (test code = 416) BASOPHILS ABSOLUTE COUNT (BEAKER) 0.02 K/ L 0.01-0.08 (test code = 417) IMMATURE GRANULOCYTES-RELATIVE 2 % 0-1 H PERCENT (BEAKER) (test code = 2801) SIROLIMUS [id number] 11:51:00 Test Item Value Reference Range Interpretation Comments SIROLIMUS LEVEL BLOOD (BEAKER) 8.7 ng/mL 5.0-15.0 (test code = 806) Outpatient standing lab [id number] 10:22:00 Test Item Value Reference Range Interpretation Comments PHOSPHORUS (BEAKER) (test code = 4.2 mg/dL 2.3-4.7 604) Outpatient standing lab ordersOutpatient standing lab ordersOutpatient standing lab ordersOutpatientstanding lab [id number] 10:22:00 Test Item Value Reference Range Interpretation Comments MAGNESIUM (BEAKER) (test code = 1.8 mg/dL 1.6-2.6 627) Outpatient standing lab ordersOutpatient standing lab ordersOutpatient standing lab ordersOutpatientstanding lab ordersCOMPREHENSIVE METABOLIC [id number] 10:22:00 Test Item Value Reference Range Interpretation Comments TOTAL PROTEIN 6.9 gm/dL 6.0-8.3 (BEAKER) (test code = 770) ALBUMIN (BEAKER) 4.0 g/dL 3.5-5.0 (test code = 1145) ALKALINE PHOSPHATASE 61 U/L 40-150 (BEAKER) (test code = 346) BILIRUBIN TOTAL 1.3 mg/dL 0.2-1.2 H (BEAKER) (test code = 377) SODIUM (BEAKER) (test 141 meq/L 136-145 code = 381) POTASSIUM (BEAKER) 3.6 meq/L 3.5-5.1 (test code = 379) CHLORIDE (BEAKER) 106 meq/L 98-107 (test code = 382) CO2 (BEAKER) (test 24 meq/L 22-29 code = 355) BLOOD UREA NITROGEN 29 mg/dL 7-21 H (BEAKER) (test code = 354) CREATININE (BEAKER) 1.05 mg/dL 0.57-1.25 (test code = 358) GLUCOSE RANDOM 125 mg/dL 70-105 H (BEAKER) (test code = 652) CALCIUM (BEAKER) 10.0 mg/dL 8.4-10.2 (test code = 697) AST (SGOT) (BEAKER) 67 U/L 5-34 H (test code = 353) ALT (SGPT) (BEAKER) 206 U/L 6-55 H (test code = 347) EGFR (BEAKER) (test 54 mL/min/1.73 ESTIMA NIHARIKA GFR IS code = 1092) sq m NOT ACCURATE CREATININE CLEARANCE IN PREDICTING GLOMERULAR FILTRATION RATE . ESTIMATED GFR I S NOT APPLICABLE FOR DIALYSIS PATIEN TS. Outpatient standing lab ordersOutpatient standing lab ordersOutpatient standing lab ordersOutpatientstanding lab ordersBILIRUBIN, [id number] 10:22:00 Test Item Value Reference Range Interpretation Comments BILIRUBIN DIRECT (BEAKER) (test 0.6 mg/dL 0.1-0.5 H code = 706) Outpatient standing lab ordersOutpatient standing lab ordersOutpatient standing lab ordersOutpatientstanding lab ordersCBC W/PLT COUNT & AUTO DIFFERENTIAL 2017-03-18 10:01:00 Test Item Value Reference Range Interpretation Comments WHITE BLOOD CELL COUNT (BEAKER) 5.1 K/ L 3.5-10.5 (test code = 775) RED BLOOD CELL COUNT (BEAKER) 3.21 M/ L 3.93-5.22 L (test code = 761) HEMOGLOBIN (BEAKER) (test code = 9.4 GM/DL 11.2-15.7 L 410) HEMATOCRIT (BEAKER) (test code = 28.7 % 34.1-44.9 L 411) MEAN CORPUSCULAR VOLUME (BEAKER) 89.4 fL 79.4-94.8 (test code = 753) MEAN CORPUSCULAR HEMOGLOBIN 29.3 pg 25.6-32.2 (BEAKER) (test code = 751) MEAN CORPUSCULAR HEMOGLOBIN CONC 32.8 GM/DL 32.2-35.5 (BEAKER) (test code = 752) RED CELL DISTRIBUTION WIDTH 18.8 % 11.7-14.4 H (BEAKER) (test code = 412) PLATELET COUNT (BEAKER) (test 169 K/CU MM 150-450 code = 756) MEAN PLATELET VOLUME (BEAKER) 10.3 fL 9.4-12.3 (test code = 754) NUCLEATED RED BLOOD CELLS 0 /100 WBC 0-0 (BEAKER) (test code = 413) NEUTROPHILS RELATIVE PERCENT 68 % (BEAKER) (test code = 429) LYMPHOCYTES RELATIVE PERCENT 20 % (BEAKER) (test code = 430) MONOCYTES RELATIVE PERCENT 7 % (BEAKER) (test code = 431) EOSINOPHILS RELATIVE PERCENT 1 % (BEAKER) (test code = 432) BASOPHILS RELATIVE PERCENT 1 % (BEAKER) (test code = 437) NEUTROPHILS ABSOLUTE COUNT 3.47 K/ L 1.56-6.13 (BEAKER) (test code = 670) LYMPHOCYTES ABSOLUTE COUNT 1.03 K/ L 1.18-3.74 L (BEAKER) (test code = 414) MONOCYTES ABSOLUTE COUNT (BEAKER) 0.37 K/ L 0.24-0.36 H (test code = 415) EOSINOPHILS ABSOLUTE COUNT 0.07 K/ L 0.04-0.36 (BEAKER) (test code = 416) BASOPHILS ABSOLUTE COUNT (BEAKER) 0.04 K/ L 0.01-0.08 (test code = 417) IMMATURE GRANULOCYTES-RELATIVE 2 % 0-1 H PERCENT (BEAKER) (test code = 2801) AFB CULTURE + [id number] 19:43:00 Test Item Value Reference Range Interpretation Comments CULTURE (BEAKER) (test No acid-fast bacilli code = 1095) isolated in 42 days AFB SMEAR (BEAKER) No acid fast bacilli (test code = 994) seen SIROLIMUS [id number] 13:12:00 Test Item Value Reference Range Interpretation Comments SIROLIMUS LEVEL BLOOD (BEAKER) 8.2 ng/mL 5.0-15.0 (test code = 806) Outpatient standing lab [id number] 10:14:00 Test Item Value Reference Range Interpretation Comments PHOSPHORUS (BEAKER) (test code = 3.8 mg/dL 2.3-4.7 604) Outpatient standing lab ordersOutpatient standing lab ordersOutpatient standing lab ordersOutpatientstanding lab [id number] 10:14:00 Test Item Value Reference Range Interpretation Comments MAGNESIUM (BEAKER) (test code = 2.1 mg/dL 1.6-2.6 627) Outpatient standing lab ordersOutpatient standing lab ordersOutpatient standing lab ordersOutpatientstanding lab ordersCOMPREHENSIVE METABOLIC [id number] 10:14:00 Test Item Value Reference Range Interpretation Comments TOTAL PROTEIN 7.0 gm/dL 6.0-8.3 (BEAKER) (test code = 770) ALBUMIN (BEAKER) 4.0 g/dL 3.5-5.0 (test code = 1145) ALKALINE PHOSPHATASE 70 U/L 40-150 (BEAKER) (test code = 346) BILIRUBIN TOTAL 1.5 mg/dL 0.2-1.2 H (BEAKER) (test code = 377) SODIUM (BEAKER) (test 139 meq/L 136-145 code = 381) POTASSIUM (BEAKER) 3.6 meq/L 3.5-5.1 (test code = 379) CHLORIDE (BEAKER) 101 meq/L 98-107 (test code = 382) CO2 (BEAKER) (test 31 meq/L 22-29 H code = 355) BLOOD UREA NITROGEN 28 mg/dL 7-21 H (BEAKER) (test code = 354) CREATININE (BEAKER) 1.38 mg/dL 0.57-1.25 H (test code = 358) GLUCOSE RANDOM 131 mg/dL 70-105 H (BEAKER) (test code = 652) CALCIUM (BEAKER) 10.3 mg/dL 8.4-10.2 H (test code = 697) AST (SGOT) (BEAKER) 67 U/L 5-34 H (test code = 353) ALT (SGPT) (BEAKER) 205 U/L 6-55 H (test code = 347) EGFR (BEAKER) (test 40 mL/min/1.73 ESTIMA NIHARIKA GFR IS code = 1092) sq m NOT ACCURATE CREATININE CLEARANCE IN PREDICTING GLOMERULAR FILTRATION RATE . ESTIMATED GFR I S NOT APPLICABLE FOR DIALYSIS PATIEN TS. Outpatient standing lab ordersOutpatient standing lab ordersOutpatient standing lab ordersOutpatientstanding lab ordersBILIRUBIN, [id number] 10:14:00 Test Item Value Reference Range Interpretation Comments BILIRUBIN DIRECT (BEAKER) (test 0.8 mg/dL 0.1-0.5 H code = 706) Outpatient standing lab ordersOutpatient standing lab ordersOutpatient standing lab ordersOutpatientstanding lab ordersCBC W/PLT COUNT & AUTO DIFFERENTIAL 2017-03-14 09:56:00 Test Item Value Reference Range Interpretation Comments WHITE BLOOD CELL COUNT (BEAKER) 3.8 K/ L 3.5-10.5 (test code = 775) RED BLOOD CELL COUNT (BEAKER) 2.95 M/ L 3.93-5.22 L (test code = 761) HEMOGLOBIN (BEAKER) (test code = 8.7 GM/DL 11.2-15.7 L 410) HEMATOCRIT (BEAKER) (test code = 25.7 % 34.1-44.9 L 411) MEAN CORPUSCULAR VOLUME (BEAKER) 87.1 fL 79.4-94.8 (test code = 753) MEAN CORPUSCULAR HEMOGLOBIN 29.5 pg 25.6-32.2 (BEAKER) (test code = 751) MEAN CORPUSCULAR HEMOGLOBIN CONC 33.9 GM/DL 32.2-35.5 (BEAKER) (test code = 752) RED CELL DISTRIBUTION WIDTH 17.7 % 11.7-14.4 H (BEAKER) (test code = 412) PLATELET COUNT (BEAKER) (test 136 K/CU MM 150-450 L code = 756) MEAN PLATELET VOLUME (BEAKER) 10.6 fL 9.4-12.3 (test code = 754) NUCLEATED RED BLOOD CELLS 0 /100 WBC 0-0 (BEAKER) (test code = 413) NEUTROPHILS RELATIVE PERCENT 66 % (BEAKER) (test code = 429) LYMPHOCYTES RELATIVE PERCENT 23 % (BEAKER) (test code = 430) MONOCYTES RELATIVE PERCENT 9 % (BEAKER) (test code = 431) EOSINOPHILS RELATIVE PERCENT 1 % (BEAKER) (test code = 432) BASOPHILS RELATIVE PERCENT 1 % (BEAKER) (test code = 437) NEUTROPHILS ABSOLUTE COUNT 2.48 K/ L 1.56-6.13 (BEAKER) (test code = 670) LYMPHOCYTES ABSOLUTE COUNT 0.85 K/ L 1.18-3.74 L (BEAKER) (test code = 414) MONOCYTES ABSOLUTE COUNT (BEAKER) 0.32 K/ L 0.24-0.36 (test code = 415) EOSINOPHILS ABSOLUTE COUNT 0.04 K/ L 0.04-0.36 (BEAKER) (test code = 416) BASOPHILS ABSOLUTE COUNT (BEAKER) 0.03 K/ L 0.01-0.08 (test code = 417) IMMATURE GRANULOCYTES-RELATIVE 2 % 0-1 H PERCENT (BEAKER) (test code = 2801) (MANUAL DIFFERENTIAL)2017-02-25 16:40:00 Test Item Value Reference Range Interpretation Comments NEUTROPHILS - REL (DIFF) (BEAKER) 68 % (test code = 1359) LYMPHOCYTES - REL (DIFF) (BEAKER) 21 % (test code = 1360) MONOCYTES - REL (DIFF) (BEAKER) 6 % (test code = 1361) EOSINOPHILS - REL (DIFF) (BEAKER) 1 % (test code = 1362) BASOPHILS - REL (DIFF) (BEAKER) 2 % (test code = 1363) METAMYELOCYTES-REL (DIFF) 1 % 0-0 H (BEAKER) (test code = 258) PROMYELOCYTES-REL (DIFF) (BEAKER) 1 % 0-0 H (test code = 259) NEUTROPHILS - ABS (DIFF) (BEAKER) 1.84 K/ L 1.80-8.00 (test code = 1365) LYMPHOCYTES - ABS (DIFF) (BEAKER) 0.57 K/ L 1.48-4.50 L (test code = 1366) MONOCYTES - ABS (DIFF) (BEAKER) 0.16 K/ L 0.00-1.30 (test code = 1367) EOSINOPHILS - ABS (DIFF) (BEAKER) 0.03 K/ L 0.00-0.50 (test code = 1368) BASOPHILS - ABS (DIFF) (BEAKER) 0.05 K/ L 0.00-0.20 (test code = 1369) METAMYELOCTYES - ABS (DIFF) 0.03 K/ L 0.00-0.00 H (BEAKER) (test code = 261) PROMYELOCYTES - ABS (DIFF) 0.03 K/ L 0.00-0.00 H (BEAKER) (test code = 262) TOTAL COUNTED (BEAKER) (test code 100 = 1351) WBC MORPHOLOGY (BEAKER) (test Normal code = 487) PLT MORPHOLOGY (BEAKER) (test Normal code = 486) ANISOCYTOSIS (BEAKER) (test code 2+ moderate = 961) SIROLIMUS [id number] 11:15:00 Test Item Value Reference Range Interpretation Comments SIROLIMUS LEVEL BLOOD (BEAKER) 9.8 ng/mL 5.0-15.0 (test code = 806) Outpatient standing lab ordersCOMPREHENSIVE METABOLIC [id number] 10:18:00 Test Item Value Reference Range Interpretation Comments TOTAL PROTEIN 6.9 gm/dL 6.0-8.3 (BEAKER) (test code = 770) ALBUMIN (BEAKER) 4.0 g/dL 3.5-5.0 (test code = 1145) ALKALINE PHOSPHATASE 81 U/L 40-150 (BEAKER) (test code = 346) BILIRUBIN TOTAL 2.4 mg/dL 0.2-1.2 H (BEAKER) (test code = 377) SODIUM (BEAKER) (test 144 meq/L 136-145 code = 381) POTASSIUM (BEAKER) 2.5 meq/L 3.5-5.1 LL (test code = 379) CHLORIDE (BEAKER) 102 meq/L 98-107 (test code = 382) CO2 (BEAKER) (test 29 meq/L 22-29 code = 355) BLOOD UREA NITROGEN 21 mg/dL 7-21 (BEAKER) (test code = 354) CREATININE (BEAKER) 1.30 mg/dL 0.57-1.25 H (test code = 358) GLUCOSE RANDOM 106 mg/dL 70-105 H (BEAKER) (test code = 652) CALCIUM (BEAKER) 10.4 mg/dL 8.4-10.2 H (test code = 697) AST (SGOT) (BEAKER) 74 U/L 5-34 H (test code = 353) ALT (SGPT) (BEAKER) 189 U/L 6-55 H (test code = 347) EGFR (BEAKER) (test 43 mL/min/1.73 ESTIMA NIHARIKA GFR IS code = 1092) sq m NOT ACCURATE CREATININE CLEARANCE IN PREDICTING GLOMERULAR FILTRATION RATE . ESTIMATED GFR I S NOT APPLICABLE FOR DIALYSIS PATIEN TS. Outpatient standing lab ordersOutpatient standing lab ordersOutpatient standing lab ordersOutpatientstanding lab ordersSpecimen slightly ictericPHOSPHORUS 2017-02-25 10:03:00 Test Item Value Reference Range Interpretation Comments PHOSPHORUS (BEAKER) (test code = 3.2 mg/dL 2.3-4.7 604) Outpatient standing lab ordersOutpatient standing lab ordersOutpatient standing lab ordersOutpatientstanding lab [id number] 10:03:00 Test Item Value Reference Range Interpretation Comments MAGNESIUM (BEAKER) (test code = 1.8 mg/dL 1.6-2.6 627) Outpatient standing lab ordersOutpatient standing lab ordersOutpatient standing lab ordersOutpatientstanding lab ordersBILIRUBIN, [id number] 10:03:00 Test Item Value Reference Range Interpretation Comments BILIRUBIN DIRECT (BEAKER) (test 1.5 mg/dL 0.1-0.5 H code = 706) Outpatient standing lab ordersOutpatient standing lab ordersOutpatient standing lab ordersOutpatientstanding lab ordersCBC W/PLT COUNT & AUTO DIFFERENTIAL 2017-02-25 09:39:00 Test Item Value Reference Range Interpretation Comments WHITE BLOOD CELL COUNT (BEAKER) 2.7 K/ L 3.5-10.5 L (test code = 775) RED BLOOD CELL COUNT (BEAKER) 3.43 M/ L 3.93-5.22 L (test code = 761) HEMOGLOBIN (BEAKER) (test code = 10.0 GM/DL 11.2-15.7 L 410) HEMATOCRIT (BEAKER) (test code = 29.0 % 34.1-44.9 L 411) MEAN CORPUSCULAR VOLUME (BEAKER) 84.5 fL 79.4-94.8 (test code = 753) MEAN CORPUSCULAR HEMOGLOBIN 29.2 pg 25.6-32.2 (BEAKER) (test code = 751) MEAN CORPUSCULAR HEMOGLOBIN CONC 34.5 GM/DL 32.2-35.5 (BEAKER) (test code = 752) RED CELL DISTRIBUTION WIDTH 14.5 % 11.7-14.4 H (BEAKER) (test code = 412) PLATELET COUNT (BEAKER) (test 152 K/CU MM 150-450 code = 756) MEAN PLATELET VOLUME (BEAKER) 11.4 fL 9.4-12.3 (test code = 754) NUCLEATED RED BLOOD CELLS 0 /100 WBC 0-0 (BEAKER) (test code = 413) IMMATURE GRANULOCYTES-RELATIVE 1 % 0-1 PERCENT (BEAKER) (test code = 2801) FUNGUS CULTURE + [id number] 08:33:00 Test Item Value Reference Range Interpretation Comments CULTURE (BEAKER) (test No fungus isolated in code = 1095) 28 days FUNGUS SMEAR (BEAKER) No fungi seen (test code = 1406) FUNGUS CULTURE + [id number] 08:47:00 Test Item Value Reference Range Interpretation Comments CULTURE (BEAKER) (test No fungus isolated in code = 1095) 28 days FUNGUS SMEAR (BEAKER) No fungi seen (test code = 1406) CBC W/PLT COUNT & AUTO [id number] 17:14:00 Test Item Value Reference Range Interpretation Comments WHITE BLOOD CELL COUNT 2.1 K/ L 3.5-10.5 L (BEAKER) (test code = 775) RED BLOOD CELL COUNT 3.40 M/ L 3.93-5.22 L (BEAKER) (test code = 761) HEMOGLOBIN (BEAKER) 10.0 GM/DL 11.2-15.7 L (test code = 410) HEMATOCRIT (BEAKER) 29.6 % 34.1-44.9 L (test code = 411) MEAN CORPUSCULAR 87.1 fL 79.4-94.8 VOLUME (BEAKER) (test code = 753) MEAN CORPUSCULAR 29.4 pg 25.6-32.2 HEMOGLOBIN (BEAKER) (test code = 751) MEAN CORPUSCULAR 33.8 GM/DL 32.2-35.5 HEMOGLOBIN CONC (BEAKER) (test code = 752) RED CELL DISTRIBUTION 14.5 % 11.7-14.4 H WIDTH (BEAKER) (test code = 412) PLATELET COUNT 139 K/CU MM 150-450 L (BEAKER) (test code = 756) MEAN PLATELET VOLUME 11.2 fL 9.4-12.3 (BEAKER) (test code = 754) NUCLEATED RED BLOOD 0 /100 WBC 0-0 CELLS (BEAKER) (test code = 413) IMMATURE 1 % 0-1 GRANULOCYTES-RELATIVE PERCENT (BEAKER) (test code = 2801) NEUTROPHILS RELATIVE 62 % This is an appended PERCENT (BEAKER) (test repor t. These code = 429) results have be en appended to a previously abdi l verified report . LYMPHOCYTES RELATIVE 23 % This is an appended PERCENT (BEAKER) (test repor t. These code = 430) results have be en appended to a previously abdi l verified report . MONOCYTES RELATIVE 11 % This is a n appended PERCENT (BEAKER) (test repor t. These code = 431) results have be en appended to a previously abdi l verified report . EOSINOPHILS RELATIVE 2 % This is an appended PERCENT (BEAKER) (test repor t. These code = 432) results have be en appended to a previously abdi l verified report . BASOPHILS RELATIVE 2 % This is a n appended PERCENT (BEAKER) (test repor t. These code = 437) results have be en appended to a previously abdi l verified report . NEUTROPHILS ABSOLUTE 1.28 K/ L 1.56-6.13 L This is an appended COUNT (BEAKER) (test report. These code = 670) results have be en appended to a previously abdi l verified report . LYMPHOCYTES ABSOLUTE 0.47 K/ L 1.18-3.74 L This is an appended COUNT (BEAKER) (test report. These code = 414) results have be en appended to a previously abdi l verified report . MONOCYTES ABSOLUTE 0.23 K/ L 0.24-0.36 L This is a n appended COUNT (BEAKER) (test report. These code = 415) results have be en appended to a previously abdi l verified report . EOSINOPHILS ABSOLUTE 0.05 K/ L 0.04-0.36 This is an appended COUNT (BEAKER) (test report. These code = 416) results have be en appended to a previously abdi l verified report . BASOPHILS ABSOLUTE 0.04 K/ L 0.01-0.08 This is a n appended COUNT (BEAKER) (test report. These code = 417) results have be en appended to a previously abdi l verified report . SIROLIMUS [id number] 12:05:00 Test Item Value Reference Range Interpretation Comments SIROLIMUS LEVEL BLOOD (BEAKER) 10.8 ng/mL 5.0-15.0 (test code = 806) Outpatient standing lab [id number] 11:00:00 Test Item Value Reference Range Interpretation Comments PHOSPHORUS (BEAKER) (test code = 3.7 mg/dL 2.3-4.7 604) Outpatient standing lab ordersOutpatient standing lab ordersOutpatient standing lab ordersOutpatientstanding lab [id number] 11:00:00 Test Item Value Reference Range Interpretation Comments MAGNESIUM (BEAKER) (test code = 1.8 mg/dL 1.6-2.6 627) Outpatient standing lab ordersOutpatient standing lab ordersOutpatient standing lab ordersOutpatientstanding lab ordersCOMPREHENSIVE METABOLIC [id number] 11:00:00 Test Item Value Reference Range Interpretation Comments TOTAL PROTEIN 6.7 gm/dL 6.0-8.3 (BEAKER) (test code = 770) ALBUMIN (BEAKER) 3.9 g/dL 3.5-5.0 (test code = 1145) ALKALINE PHOSPHATASE 78 U/L 40-150 (BEAKER) (test code = 346) BILIRUBIN TOTAL 2.9 mg/dL 0.2-1.2 H (BEAKER) (test code = 377) SODIUM (BEAKER) (test 146 meq/L 136-145 H code = 381) POTASSIUM (BEAKER) 2.9 meq/L 3.5-5.1 L (test code = 379) CHLORIDE (BEAKER) 104 meq/L 98-107 (test code = 382) CO2 (BEAKER) (test 30 meq/L 22-29 H code = 355) BLOOD UREA NITROGEN 16 mg/dL 7-21 (BEAKER) (test code = 354) CREATININE (BEAKER) 1.52 mg/dL 0.57-1.25 H (test code = 358) GLUCOSE RANDOM 117 mg/dL 70-105 H (BEAKER) (test code = 652) CALCIUM (BEAKER) 9.9 mg/dL 8.4-10.2 (test code = 697) AST (SGOT) (BEAKER) 65 U/L 5-34 H (test code = 353) ALT (SGPT) (BEAKER) 162 U/L 6-55 H (test code = 347) EGFR (BEAKER) (test 36 mL/min/1.73 ESTIMA NIHARIKA GFR IS code = 1092) sq m NOT ACCURATE CREATININE CLEARANCE IN PREDICTING GLOMERULAR FILTRATION RATE . ESTIMATED GFR I S NOT APPLICABLE FOR DIALYSIS PATIEN TS. Outpatient standing lab ordersOutpatient standing lab ordersOutpatient standing lab ordersOutpatientstanding lab ordersSpecimen slightly ictericBILIRUBIN, [id number] 11:00:00 Test Item Value Reference Range Interpretation Comments BILIRUBIN DIRECT (BEAKER) (test 2.0 mg/dL 0.1-0.5 H code = 706) Outpatient standing lab ordersOutpatient standing lab ordersOutpatient standing lab ordersOutpatientstanding lab ordersURINE [id number] 15:33:00 Test Item Value Reference Range Interpretation Comments CULTURE (BEAKER) (test ESCHERICHIA COLI A > 100,000 col/mL code = 1095) Escherichia col i Amikacin (test code = S 1) Ampicillin + Sulbactam R (test code = 6) Aztreonam (test code = S 32) Cefepime (test code = S 51) Cefoxitin (test code = S 68) Ceftazidime (test code S = 27) Ceftriaxone (test code S = 52) Ertapenem (test code = S 38) Gentamicin (test code S = 18) Levofloxacin (test S code = 22) Meropenem (test code = S 34) Nitrofurantoin (test S code = 23) Piperacillin + S Tazobactam (test code = 29) Tetracycline (test R code = 2) Tobramycin (test code S = 25) Trimethoprim + R Sulfamethoxazole (test code = 47) CULTURE (BEAKER) (test KLEBSIELLA A >100, 000 col/mL code = 1095) OXYTOCA Klebsiella oxytoca Amikacin (test code = S 1) Ampicillin + Sulbactam S (test code = 6) Aztreonam (test code = S 32) Cefepime (test code = S 51) Cefoxitin (test code = S 68) Ceftazidime (test code S = 27) Ceftriaxone (test code S = 52) Ertapenem (test code = S 38) Gentamicin (test code S = 18) Levofloxacin (test S code = 22) Meropenem (test code = S 34) Nitrofurantoin (test S code = 23) Piperacillin + S Tazobactam (test code = 29) Tetracycline (test S code = 2) Tobramycin (test code S = 25) Trimethoprim + R Sulfamethoxazole (test code = 47) <10,000 col/mL Gram Negative Dk op a third typeBLOOD [id number] 12:00:00 Test Item Value Reference Range Interpretation Comments CULTURE (BEAKER) (test No growth in 5 days code = 1095) BLOOD [id number] 12:00:00 Test Item Value Reference Range Interpretation Comments CULTURE (BEAKER) (test No growth in 5 days code = 1095) URINALYSIS W/ REFLEX URINE [id number] 15:02:00 Test Item Value Reference Range Interpretation Comments COLOR (BEAKER) (test code = 470) Yellow CLARITY (BEAKER) (test code = 469) Clear SPECIFIC GRAVITY UA (BEAKER) (test 1.011 1.001-1.035 code = 468) PH UA (BEAKER) (test code = 467) 6.5 5.0-8.0 PROTEIN UA (BEAKER) (test code = 30 mg/dL Negative A 464) GLUCOSE UA (BEAKER) (test code = Negative Negative 365) KETONES UA (BEAKER) (test code = Negative Negative 371) BILIRUBIN UA (BEAKER) (test code = Negative Negative 462) BLOOD UA (BEAKER) (test code = Moderate Negative A 461) NITRITE UA (BEAKER) (test code = Negative Negative 465) LEUKOCYTE ESTERASE UA (BEAKER) Small Negative A (test code = 466) UROBILINOGEN UA (BEAKER) (test 0.2 mg/dL 0.2-1.0 code = 463) RBC UA (BEAKER) (test code = 519) 56 /HPF WBC UA (BEAKER) (test code = 520) 11 /HPF BACTERIA (BEAKER) (test code = Occasional 517) SQUAMOUS EPITHELIAL (BEAKER) (test 1 /HPF code = 516) SOURCE(BEAKER) (test code = 2795) CBC W/PLT COUNT & AUTO [id number] 13:56:00 Test Item Value Reference Range Interpretation Comments WHITE BLOOD CELL COUNT (BEAKER) 1.8 K/ L 3.5-10.5 L (test code = 775) RED BLOOD CELL COUNT (BEAKER) 3.59 M/ L 3.93-5.22 L (test code = 761) HEMOGLOBIN (BEAKER) (test code = 10.5 GM/DL 11.2-15.7 L 410) HEMATOCRIT (BEAKER) (test code = 32.0 % 34.1-44.9 L 411) MEAN CORPUSCULAR VOLUME (BEAKER) 89.1 fL 79.4-94.8 (test code = 753) MEAN CORPUSCULAR HEMOGLOBIN 29.2 pg 25.6-32.2 (BEAKER) (test code = 751) MEAN CORPUSCULAR HEMOGLOBIN CONC 32.8 GM/DL 32.2-35.5 (BEAKER) (test code = 752) RED CELL DISTRIBUTION WIDTH 15.1 % 11.7-14.4 H (BEAKER) (test code = 412) PLATELET COUNT (BEAKER) (test 111 K/CU MM 150-450 L code = 756) MEAN PLATELET VOLUME (BEAKER) 10.9 fL 9.4-12.3 (test code = 754) NUCLEATED RED BLOOD CELLS 0 /100 WBC 0-0 (BEAKER) (test code = 413) NEUTROPHILS RELATIVE PERCENT 63 % (BEAKER) (test code = 429) LYMPHOCYTES RELATIVE PERCENT 22 % (BEAKER) (test code = 430) MONOCYTES RELATIVE PERCENT 9 % (BEAKER) (test code = 431) EOSINOPHILS RELATIVE PERCENT 4 % (BEAKER) (test code = 432) BASOPHILS RELATIVE PERCENT 2 % (BEAKER) (test code = 437) NEUTROPHILS ABSOLUTE COUNT 1.15 K/ L 1.56-6.13 L (BEAKER) (test code = 670) LYMPHOCYTES ABSOLUTE COUNT 0.41 K/ L 1.18-3.74 L (BEAKER) (test code = 414) MONOCYTES ABSOLUTE COUNT (BEAKER) 0.17 K/ L 0.24-0.36 L (test code = 415) EOSINOPHILS ABSOLUTE COUNT 0.07 K/ L 0.04-0.36 (BEAKER) (test code = 416) BASOPHILS ABSOLUTE COUNT (BEAKER) 0.04 K/ L 0.01-0.08 (test code = 417) IMMATURE GRANULOCYTES-RELATIVE 0 % 0-1 PERCENT (BEAKER) (test code = 2801) (MANUAL DIFFERENTIAL)2017-02-14 13:56:00 Test Item Value Reference Range Interpretation Comments TOTAL COUNTED (BEAKER) (test code = 1351) WBC MORPHOLOGY (BEAKER) (test code = Normal 487) PLT MORPHOLOGY (BEAKER) (test code = Normal 486) RBC MORPHOLOGY (BEAKER) (test code = Normal 762) SIROLIMUS [id number] 13:16:00 Test Item Value Reference Range Interpretation Comments SIROLIMUS LEVEL BLOOD (BEAKER) 9.6 ng/mL 5.0-15.0 (test code = 806) Outpatient standing lab [id number] 10:59:00 Test Item Value Reference Range Interpretation Comments PHOSPHORUS (BEAKER) (test code = 3.3 mg/dL 2.3-4.7 604) Outpatient standing lab ordersOutpatient standing lab ordersOutpatient standing lab ordersOutpatientstanding lab [id number] 10:59:00 Test Item Value Reference Range Interpretation Comments MAGNESIUM (BEAKER) (test code = 1.6 mg/dL 1.6-2.6 627) Outpatient standing lab ordersOutpatient standing lab ordersOutpatient standing lab ordersOutpatientstanding lab ordersCOMPREHENSIVE METABOLIC [id number] 10:59:00 Test Item Value Reference Range Interpretation Comments TOTAL PROTEIN 6.4 gm/dL 6.0-8.3 (BEAKER) (test code = 770) ALBUMIN (BEAKER) 3.6 g/dL 3.5-5.0 (test code = 1145) ALKALINE PHOSPHATASE 81 U/L 40-150 (BEAKER) (test code = 346) BILIRUBIN TOTAL 3.4 mg/dL 0.2-1.2 H (BEAKER) (test code = 377) SODIUM (BEAKER) (test 145 meq/L 136-145 code = 381) POTASSIUM (BEAKER) 3.0 meq/L 3.5-5.1 L (test code = 379) CHLORIDE (BEAKER) 105 meq/L 98-107 (test code = 382) CO2 (BEAKER) (test 29 meq/L 22-29 code = 355) BLOOD UREA NITROGEN 16 mg/dL 7-21 (BEAKER) (test code = 354) CREATININE (BEAKER) 1.48 mg/dL 0.57-1.25 H (test code = 358) GLUCOSE RANDOM 108 mg/dL 70-105 H (BEAKER) (test code = 652) CALCIUM (BEAKER) 9.3 mg/dL 8.4-10.2 (test code = 697) AST (SGOT) (BEAKER) 51 U/L 5-34 H (test code = 353) ALT (SGPT) (BEAKER) 125 U/L 6-55 H (test code = 347) EGFR (BEAKER) (test 37 mL/min/1.73 ESTIMA NIHARIKA GFR IS code = 1092) sq m NOT ACCURATE CREATININE CLEARANCE IN PREDICTING GLOMERULAR FILTRATION RATE . ESTIMATED GFR I S NOT APPLICABLE FOR DIALYSIS PATIEN TS. Outpatient standing lab ordersOutpatient standing lab ordersOutpatient standing lab ordersOutpatientstanding lab ordersSpecimen slightly ictericBILIRUBIN, [id number] 10:59:00 Test Item Value Reference Range Interpretation Comments BILIRUBIN DIRECT (BEAKER) (test 2.4 mg/dL 0.1-0.5 H code = 706) Outpatient standing lab ordersOutpatient standing lab ordersOutpatient standing lab ordersOutpatientstanding lab ordersURINE [id number] 10:42:00 Test Item Value Reference Range Interpretation Comments CULTURE (BEAKER) (test A 40-49 ,000 col/mL code = 1095) Klebsiella oxyt oca 10-19,000 col/mL enteric organisms of >2 types. No further workup performed. Multiple organisms suggestive of colonization or contamination. Repeat collection recommended.CMV PCR, [id number] 17:09:00 Test Item Value Reference Range Interpretation Comments CMV VIRAL LOAD - Negative or below the NEGATIVE (BEAKER) (test linear range of the code = 2558) assay (<375 copies/mL) Cytomegalovirus (CMV) infection can cause significant disease in immunosuppressed patients. However,it is common for CMV to manifest as a limited infection which is of no clinical significance in immunosuppressed patients or in healthy individuals.Viral load measurements are helpful to identify clinical CMV infection and to guide the pre-emptive management of antiviral therapy. For treatment of CMVinfection due to reactivation in transplant recipients, a threshold between 4,000 and 5,000 copies/mL is suggested. For treatment of primary CMV infection, a lower threshold can be used.CMV infection may also be monitored using weekly serial measurements. Serial measurements of CMV DNA viral load canbe evaluated by identifying a 10-fold change, as well as assessing the CMV DNA viral load and the clinical context for each patient.The plasma CMV DNA viral load was detected using quantitative polymerase chain reaction and fluorescent monitoring of a specific hybridized probe. Genetic variation and ot her factors can affect the accuracy of nucleic acid testing. Therefore, the results should be interpreted in light of clinical data. A negative result may not exclude the presence of CMV disease.This test was developed and its performance characteristics determined by the [facility] Path ology Department, Section of Molecular Pathology. It has not been cleared or approved by the U.S. Food and Drug Administration (FDA), since FDA approval is not required for clinical use of the test. Validation was done as required by The Clinical Laboratory Improvement Amendments of 1988.EBV VIRAL [id number] 17:08:00 Test Item Value Reference Range Interpretation Comments EBV VIRAL LOAD - Negative or below the NEGATIVE (BEAKER) (test linear range of the code = 2559) assay (<500 copies/mL) This assay was performed by real-time PCR for the detection of the Timur-Sharp virus (EBV) gene EBNA-1. The test is composed of (1) DNA extraction from patient specimen, and (2) real-time PCR amplification and detection with DING-2-mprzklzv primers and probes. A well-conserved region of the EBNA-1 gene is targeted, along with an internal control sequence used to confirm PCR amplification. Asymptomatic carriers and viral genetic variation, among other factors, can affect the accuracy of nucleic acid testing; therefore, results should be interpreted in light of clinical data.This test was developedand its performance characteristics determined by the [facility] Pathology Department, Section of Molecular Pathology. It has not been cleared or approved by the U.S. Food and Drug Administration (FDA), since FDA approval is not required for clinical use of the test. Validation was doneas required by The Clinical Laboratory Improvement Amendments of 1988.URINALYSIS W/ REFLEX URINE [id number] 14:56:00 Test Item Value Reference Range Interpretation Comments COLOR (BEAKER) (test code = 470) Yellow CLARITY (BEAKER) (test code = 469) Clear SPECIFIC GRAVITY UA (BEAKER) (test 1.005 1.001-1.035 code = 468) PH UA (BEAKER) (test code = 467) 8.0 5.0-8.0 PROTEIN UA (BEAKER) (test code = 30 mg/dL Negative A 464) GLUCOSE UA (BEAKER) (test code = Negative Negative 365) KETONES UA (BEAKER) (test code = Negative Negative 371) BILIRUBIN UA (BEAKER) (test code = Negative Negative 462) BLOOD UA (BEAKER) (test code = 461) Large Negative A NITRITE UA (BEAKER) (test code = Negative Negative 465) LEUKOCYTE ESTERASE UA (BEAKER) Negative Negative (test code = 466) UROBILINOGEN UA (BEAKER) (test code 0.2 mg/dL 0.2-1.0 = 463) RBC UA (BEAKER) (test code = 519) 11 /HPF WBC UA (BEAKER) (test code = 520) 3 /HPF SOURCE(BEAKER) (test code = 9418) CBC W/PLT COUNT & AUTO [id number] 14:53:00 Test Item Value Reference Range Interpretation Comments WHITE BLOOD CELL COUNT 2.0 K/ L 3.5-10.5 L (BEAKER) (test code = 775) RED BLOOD CELL COUNT 3.53 M/ L 3.93-5.22 L (BEAKER) (test code = 761) HEMOGLOBIN (BEAKER) 10.4 GM/DL 11.2-15.7 L (test code = 410) HEMATOCRIT (BEAKER) 31.4 % 34.1-44.9 L (test code = 411) MEAN CORPUSCULAR 89.0 fL 79.4-94.8 VOLUME (BEAKER) (test code = 753) MEAN CORPUSCULAR 29.5 pg 25.6-32.2 HEMOGLOBIN (BEAKER) (test code = 751) MEAN CORPUSCULAR 33.1 GM/DL 32.2-35.5 HEMOGLOBIN CONC (BEAKER) (test code = 752) RED CELL DISTRIBUTION 15.9 % 11.7-14.4 H WIDTH (BEAKER) (test code = 412) PLATELET COUNT 121 K/CU MM 150-450 L (BEAKER) (test code = 756) MEAN PLATELET VOLUME 10.4 fL 9.4-12.3 (BEAKER) (test code = 754) NUCLEATED RED BLOOD 0 /100 WBC 0-0 CELLS (BEAKER) (test code = 413) IMMATURE 0 % 0-1 GRANULOCYTES-RELATIVE PERCENT (BEAKER) (test code = 2801) NEUTROPHILS RELATIVE 65 % This is an appended PERCENT (BEAKER) (test repor t. These code = 429) results have be en appended to a previously abdi l verified report . LYMPHOCYTES RELATIVE 21 % This is an appended PERCENT (BEAKER) (test repor t. These code = 430) results have be en appended to a previously abdi l verified report . MONOCYTES RELATIVE 6 % This is a n appended PERCENT (BEAKER) (test repor t. These code = 431) results have be en appended to a previously abdi l verified report . EOSINOPHILS RELATIVE 5 % This is an appended PERCENT (BEAKER) (test repor t. These code = 432) results have be en appended to a previously abdi l verified report . BASOPHILS RELATIVE 2 % This is a n appended PERCENT (BEAKER) (test repor t. These code = 437) results have be en appended to a previously abdi l verified report . NEUTROPHILS ABSOLUTE 1.32 K/ L 1.56-6.13 L This is an appended COUNT (BEAKER) (test report. These code = 670) results have be en appended to a previously abdi l verified report . LYMPHOCYTES ABSOLUTE 0.43 K/ L 1.18-3.74 L This is an appended COUNT (BEAKER) (test report. These code = 414) results have be en appended to a previously abdi l verified report . MONOCYTES ABSOLUTE 0.13 K/ L 0.24-0.36 L This is a n appended COUNT (BEAKER) (test report. These code = 415) results have be en appended to a previously abdi l verified report . EOSINOPHILS ABSOLUTE 0.11 K/ L 0.04-0.36 This is an appended COUNT (BEAKER) (test report. These code = 416) results have be en appended to a previously abdi l verified report . BASOPHILS ABSOLUTE 0.04 K/ L 0.01-0.08 This is a n appended COUNT (BEAKER) (test report. These code = 417) results have be en appended to a previously abdi l verified report . (MANUAL DIFFERENTIAL)2017-02-11 14:53:00 Test Item Value Reference Range Interpretation Comments TOTAL COUNTED (BEAKER) (test code = 1351) WBC MORPHOLOGY (BEAKER) (test code = Normal 487) PLT MORPHOLOGY (BEAKER) (test code = Normal 486) RBC MORPHOLOGY (BEAKER) (test code = Normal 762) SIROLIMUS [id number] 12:53:00 Test Item Value Reference Range Interpretation Comments SIROLIMUS LEVEL BLOOD (BEAKER) 11.5 ng/mL 5.0-15.0 (test code = 806) Outpatient standing lab [id number] 10:27:00 Test Item Value Reference Range Interpretation Comments PHOSPHORUS (BEAKER) (test code = 3.4 mg/dL 2.3-4.7 604) Outpatient standing lab ordersOutpatient standing lab ordersOutpatient standing lab ordersOutpatientstanding lab [id number] 10:27:00 Test Item Value Reference Range Interpretation Comments MAGNESIUM (BEAKER) (test code = 1.5 mg/dL 1.6-2.6 L 627) Outpatient standing lab ordersOutpatient standing lab ordersOutpatient standing lab ordersOutpatientstanding lab ordersCOMPREHENSIVE METABOLIC [id number] 10:27:00 Test Item Value Reference Range Interpretation Comments TOTAL PROTEIN 6.3 gm/dL 6.0-8.3 (BEAKER) (test code = 770) ALBUMIN (BEAKER) 3.6 g/dL 3.5-5.0 (test code = 1145) ALKALINE PHOSPHATASE 89 U/L 40-150 (BEAKER) (test code = 346) BILIRUBIN TOTAL 3.7 mg/dL 0.2-1.2 H (BEAKER) (test code = 377) SODIUM (BEAKER) (test 147 meq/L 136-145 H code = 381) POTASSIUM (BEAKER) 2.8 meq/L 3.5-5.1 L (test code = 379) CHLORIDE (BEAKER) 108 meq/L 98-107 H (test code = 382) CO2 (BEAKER) (test 27 meq/L 22-29 code = 355) BLOOD UREA NITROGEN 21 mg/dL 7-21 (BEAKER) (test code = 354) CREATININE (BEAKER) 1.48 mg/dL 0.57-1.25 H (test code = 358) GLUCOSE RANDOM 92 mg/dL 70-105 (BEAKER) (test code = 652) CALCIUM (BEAKER) 9.2 mg/dL 8.4-10.2 (test code = 697) AST (SGOT) (BEAKER) 57 U/L 5-34 H (test code = 353) ALT (SGPT) (BEAKER) 148 U/L 6-55 H (test code = 347) EGFR (BEAKER) (test 37 mL/min/1.73 ESTIMA NIHARIKA GFR IS code = 1092) sq m NOT ACCURATE CREATININE CLEARANCE IN PREDICTING GLOMERULAR FILTRATION RATE . ESTIMATED GFR I S NOT APPLICABLE FOR DIALYSIS PATIEN TS. Outpatient standing lab ordersOutpatient standing lab ordersOutpatient standing lab ordersOutpatientstanding lab ordersSpecimen slightly ictericBILIRUBIN, [id number] 10:27:00 Test Item Value Reference Range Interpretation Comments BILIRUBIN DIRECT (BEAKER) (test 2.5 mg/dL 0.1-0.5 H code = 706) Outpatient standing lab ordersOutpatient standing lab ordersOutpatient standing lab ordersOutpatientstanding lab ordersTISSUE [id number] 11:52:00Surgical Pathology Report Case: [id number] Authorizing Provider: Tim Yusuf MD Collected: 01/25/2017 0537 Ordering Location: [facility] Received: 01/28/2017 0738 PERIOPERATIVE SERVICES Pathologist: Keegan Burch MD Specimens: A) - Liver B) -Gallbladder A. LIVER EXPLANT ([place]), TOTAL HEPATECTOMY: - CIRRHOSIS - SECONDARY TO STEATOHEPATITIS - NEGATIVE FOR CARCINOMA GALLBLADDER, CHOLECYSTECTOMY: - CHRONIC CHOLECYSTITIS B. GALLBLADDER, CHOLECYSTECTOMY: - CHRONIC CHOLECYSTITIS A. Portal areas are expanded by abundant collagen, with thick portal to portal fibrous bridges surrounding regenerative nodules (trichrome), with micronodular pattern. The interlobular bile ducts show normal morphology. Cholangiolar proliferation is moderate. Macrovesicular steatosis with 90% involvement of the hepatocytes is noted. Ashley Deck bodies are present. Ballooning changes are present. Mild lobular inflammation is identified. Portal inflammation is moderate and consists of small lymphocytes a nd neutrophils. No stainable iron ([place]) or alpha-1 antitrypsin accumulation (PAS with diastase) isidentified. Reticulin stain highlights thin hepatic plate. No carcinoma is identified. Those findings are supportive of the above diagnosis. Clinical correlation is recommended.15066, 54400, 66633 x 4Ci rrhosisA. Liver; B. Gallbladder The specimen is received in two containers of formalin both labeled with the patient's information.Part A labeled "liver" consists of 1655 gm total hepatectomy [id number] x 19 x 6 cm with an attached gallbladder measuring 8 x 2.5 cm, gallbladder wall thickness up to 0.2 cm. The entire liver capsule is a mottled andrews-brown green discoloration and multinodular. The liver is serially sectioned showing a homogeneous andrews-orange multinodular cut surface. The largest noduleof the entire specimen is up to 0.4 cm. There are no distinct masses seen grossly. The gallbladder mucosa is green and velvety with no lesions. The gallbladder lumen is filled with green thick fluid with no stones present. Section code: A1, hilar vessel en face; A2, gallbladder wall; A3, segment 1; A4, segment 2; A5, segment 3; A6, segment 4; A7, segment 4B; A8, segment 5; A9, segment 6; A10, segment7; A11, segment 8. Part B labeled "gallbladder" consists of an intact gallbladder measuring 5.5 x 2.5 cm, gallbladder wall thickness up to 0.3 cm. Gallbladder lumen is filled with green thick fluid. There are no stones present. Mucosa is green and velvety with no abnormalities. There is no lymph node tissue present. Section code: B1, margin en face; B2, gallbladder wall. CG/pl A-B. Performed.SIROLIMUS LEVEL 2017-02-09 12:04:00 Test Item Value Reference Range Interpretation Comments SIROLIMUS LEVEL BLOOD (BEAKER) 11.3 ng/mL 5.0-15.0 (test code = 806) Outpatient standing lab ordersCOMPREHENSIVE METABOLIC [id number] 11:33:00 Test Item Value Reference Range Interpretation Comments TOTAL PROTEIN 6.3 gm/dL 6.0-8.3 (BEAKER) (test code = 770) ALBUMIN (BEAKER) 3.5 g/dL 3.5-5.0 (test code = 1145) ALKALINE PHOSPHATASE 89 U/L 40-150 (BEAKER) (test code = 346) BILIRUBIN TOTAL 4.1 mg/dL 0.2-1.2 H (BEAKER) (test code = 377) SODIUM (BEAKER) (test 142 meq/L 136-145 code = 381) POTASSIUM (BEAKER) 2.6 meq/L 3.5-5.1 LL (test code = 379) CHLORIDE (BEAKER) 103 meq/L 98-107 (test code = 382) CO2 (BEAKER) (test 26 meq/L 22-29 code = 355) BLOOD UREA NITROGEN 27 mg/dL 7-21 H (BEAKER) (test code = 354) CREATININE (BEAKER) 1.95 mg/dL 0.57-1.25 H (test code = 358) GLUCOSE RANDOM 103 mg/dL 70-105 (BEAKER) (test code = 652) CALCIUM (BEAKER) 8.8 mg/dL 8.4-10.2 (test code = 697) AST (SGOT) (BEAKER) 57 U/L 5-34 H (test code = 353) ALT (SGPT) (BEAKER) 148 U/L 6-55 H (test code = 347) EGFR (BEAKER) (test 27 mL/min/1.73 ESTIMA NIHARIKA GFR IS code = 1092) sq m NOT ACCURATE CREATININE CLEARANCE IN PREDICTING GLOMERULAR FILTRATION RATE . ESTIMATED GFR I S NOT APPLICABLE FOR DIALYSIS PATIEN TS. Outpatient standing lab ordersOutpatient standing lab ordersOutpatient standing lab ordersOutpatientstanding lab ordersSpecimen moderately ictericCBC W/PLT COUNT & AUTO [id number] 09:04:00 Test Item Value Reference Range Interpretation Comments WHITE BLOOD CELL COUNT 2.5 K/ L 3.5-10.5 L (BEAKER) (test code = 775) RED BLOOD CELL COUNT 3.59 M/ L 3.93-5.22 L (BEAKER) (test code = 761) HEMOGLOBIN (BEAKER) 10.8 GM/DL 11.2-15.7 L (test code = 410) HEMATOCRIT (BEAKER) 32.1 % 34.1-44.9 L (test code = 411) MEAN CORPUSCULAR 89.4 fL 79.4-94.8 VOLUME (BEAKER) (test code = 753) MEAN CORPUSCULAR 30.1 pg 25.6-32.2 HEMOGLOBIN (BEAKER) (test code = 751) MEAN CORPUSCULAR 33.6 GM/DL 32.2-35.5 HEMOGLOBIN CONC (BEAKER) (test code = 752) RED CELL DISTRIBUTION 16.3 % 11.7-14.4 H WIDTH (BEAKER) (test code = 412) PLATELET COUNT 117 K/CU MM 150-450 L (BEAKER) (test code = 756) MEAN PLATELET VOLUME 9.8 fL 9.4-12.3 (BEAKER) (test code = 754) NUCLEATED RED BLOOD 0 /100 WBC 0-0 CELLS (BEAKER) (test code = 413) IMMATURE 0 % 0-1 GRANULOCYTES-RELATIVE PERCENT (BEAKER) (test code = 2801) NEUTROPHILS RELATIVE 73 % This is an appended PERCENT (BEAKER) (test repor t. These code = 429) results have be en appended to a previously abdi l verified report . LYMPHOCYTES RELATIVE 14 % This is an appended PERCENT (BEAKER) (test repor t. These code = 430) results have be en appended to a previously abdi l verified report . MONOCYTES RELATIVE 7 % This is a n appended PERCENT (BEAKER) (test repor t. These code = 431) results have be en appended to a previously abdi l verified report . EOSINOPHILS RELATIVE 5 % This is an appended PERCENT (BEAKER) (test repor t. These code = 432) results have be en appended to a previously abdi l verified report . BASOPHILS RELATIVE 2 % This is a n appended PERCENT (BEAKER) (test repor t. These code = 437) results have be en appended to a previously abdi l verified report . NEUTROPHILS ABSOLUTE 1.78 K/ L 1.56-6.13 This is an appended COUNT (BEAKER) (test report. These code = 670) results have be en appended to a previously abdi l verified report . LYMPHOCYTES ABSOLUTE 0.34 K/ L 1.18-3.74 L This is an appended COUNT (BEAKER) (test report. These code = 414) results have be en appended to a previously abdi l verified report . MONOCYTES ABSOLUTE 0.17 K/ L 0.24-0.36 L This is a n appended COUNT (BEAKER) (test report. These code = 415) results have be en appended to a previously abdi l verified report . EOSINOPHILS ABSOLUTE 0.12 K/ L 0.04-0.36 This is an appended COUNT (BEAKER) (test report. These code = 416) results have be en appended to a previously abdi l verified report . BASOPHILS ABSOLUTE 0.04 K/ L 0.01-0.08 This is a n appended COUNT (BEAKER) (test report. These code = 417) results have be en appended to a previously abdi l verified report . [id number] 09:03:00 Test Item Value Reference Range Interpretation Comments PHOSPHORUS (BEAKER) (test code = 3.4 mg/dL 2.3-4.7 604) Outpatient standing lab ordersOutpatient standing lab ordersOutpatient standing lab ordersOutpatientstanding lab [id number] 09:03:00 Test Item Value Reference Range Interpretation Comments MAGNESIUM (BEAKER) (test code = 1.4 mg/dL 1.6-2.6 L 627) Outpatient standing lab ordersOutpatient standing lab ordersOutpatient standing lab ordersOutpatientstanding lab ordersBILIRUBIN, [id number] 09:03:00 Test Item Value Reference Range Interpretation Comments BILIRUBIN DIRECT (BEAKER) (test 3.0 mg/dL 0.1-0.5 H code = 706) Outpatient standing lab ordersOutpatient standing lab ordersOutpatient standing lab ordersOutpatientstanding lab ordersPOCT-GLUCOSE [id number] 21:13:00 Test Item Value Reference Range Interpretation Comments POC-GLUCOSE METER 142 mg/dL 70-110 H TESTED AT [facility] 67[address] (BEAKER) (test code = [address] [place] 1538) [id number] CBC W/PLT COUNT & AUTO [id number] 14:07:00 Test Item Value Reference Range Interpretation Comments WHITE BLOOD CELL COUNT (BEAKER) 2.2 K/ L 3.5-10.5 L (test code = 775) RED BLOOD CELL COUNT (BEAKER) 3.38 M/ L 3.93-5.22 L (test code = 761) HEMOGLOBIN (BEAKER) (test code = 9.9 GM/DL 11.2-15.7 L 410) HEMATOCRIT (BEAKER) (test code = 30.3 % 34.1-44.9 L 411) MEAN CORPUSCULAR VOLUME (BEAKER) 89.6 fL 79.4-94.8 (test code = 753) MEAN CORPUSCULAR HEMOGLOBIN 29.3 pg 25.6-32.2 (BEAKER) (test code = 751) MEAN CORPUSCULAR HEMOGLOBIN CONC 32.7 GM/DL 32.2-35.5 (BEAKER) (test code = 752) RED CELL DISTRIBUTION WIDTH 17.6 % 11.7-14.4 H (BEAKER) (test code = 412) PLATELET COUNT (BEAKER) (test code 92 K/CU MM 150-450 L = 756) MEAN PLATELET VOLUME (BEAKER) 10.6 fL 9.4-12.3 (test code = 754) NUCLEATED RED BLOOD CELLS (BEAKER) 0 /100 WBC 0-0 (test code = 413) NEUTROPHILS RELATIVE PERCENT 77 % (BEAKER) (test code = 429) LYMPHOCYTES RELATIVE PERCENT 12 % (BEAKER) (test code = 430) MONOCYTES RELATIVE PERCENT 7 % (BEAKER) (test code = 431) EOSINOPHILS RELATIVE PERCENT 2 % (BEAKER) (test code = 432) BASOPHILS RELATIVE PERCENT 1 % (BEAKER) (test code = 437) NEUTROPHILS ABSOLUTE COUNT 1.67 K/ L 1.56-6.13 (BEAKER) (test code = 670) LYMPHOCYTES ABSOLUTE COUNT 0.27 K/ L 1.18-3.74 L (BEAKER) (test code = 414) MONOCYTES ABSOLUTE COUNT (BEAKER) 0.14 K/ L 0.24-0.36 L (test code = 415) EOSINOPHILS ABSOLUTE COUNT 0.05 K/ L 0.04-0.36 (BEAKER) (test code = 416) BASOPHILS ABSOLUTE COUNT (BEAKER) 0.03 K/ L 0.01-0.08 (test code = 417) IMMATURE GRANULOCYTES-RELATIVE 1 % 0-1 PERCENT (BEAKER) (test code = 2801) (MANUAL DIFFERENTIAL)2017-02-07 14:07:00 Test Item Value Reference Range Interpretation Comments TOTAL COUNTED (BEAKER) (test code = 1351) WBC MORPHOLOGY (BEAKER) (test code = Normal 487) PLT MORPHOLOGY (BEAKER) (test code = Normal 486) RBC MORPHOLOGY (BEAKER) (test code = Normal 762) POCT-GLUCOSE [id number] 12:47:00 Test Item Value Reference Range Interpretation Comments POC-GLUCOSE METER 169 mg/dL 70-110 H TESTED AT [facility] 67[address] (BEAKER) (test code = [place] 1538) [id number] SIROLIMUS [id number] 09:44:00 Test Item Value Reference Range Interpretation Comments SIROLIMUS LEVEL BLOOD (BEAKER) 11.3 ng/mL 5.0-15.0 (test code = 806) BASIC METABOLIC [id number] 07:19:00 Test Item Value Reference Range Interpretation Comments SODIUM (BEAKER) 142 meq/L 136-145 (test code = 381) POTASSIUM (BEAKER) 2.8 meq/L 3.5-5.1 L (test code = 379) CHLORIDE (BEAKER) 105 meq/L 98-107 (test code = 382) CO2 (BEAKER) (test 27 meq/L 22-29 code = 355) BLOOD UREA NITROGEN 34 mg/dL 7-21 H (BEAKER) (test code = 354) CREATININE (BEAKER) 2.29 mg/dL 0.57-1.25 H (test code = 358) GLUCOSE RANDOM 99 mg/dL 70-105 (BEAKER) (test code = 652) CALCIUM (BEAKER) 8.6 mg/dL 8.4-10.2 (test code = 697) EGFR (BEAKER) (test 22 mL/min/1.73 ESTIMA NIHARIKA GFR IS code = 1092) sq m NOT ACCURATE CREATININE CLEARANCE IN PREDICTING GLOMERULAR FILTRATION RATE . ESTIMATED GFR I S NOT APPLICABLE FOR DIALYSIS PATIEN TS. Specimen slightly [id number] 07:13:00 Test Item Value Reference Range Interpretation Comments PHOSPHORUS (BEAKER) (test code = 3.7 mg/dL 2.3-4.7 604) [id number] 07:13:00 Test Item Value Reference Range Interpretation Comments MAGNESIUM (BEAKER) (test code = 1.6 mg/dL 1.6-2.6 627) HEPATIC FUNCTION [id number] 07:13:00 Test Item Value Reference Range Interpretation Comments TOTAL PROTEIN (BEAKER) (test code = 5.3 gm/dL 6.0-8.3 L 770) ALBUMIN (BEAKER) (test code = 1145) 3.0 g/dL 3.5-5.0 L BILIRUBIN TOTAL (BEAKER) (test code 3.4 mg/dL 0.2-1.2 H = 377) BILIRUBIN DIRECT (BEAKER) (test 2.7 mg/dL 0.1-0.5 H code = 706) ALKALINE PHOSPHATASE (BEAKER) (test 80 U/L 40-150 code = 346) AST (SGOT) (BEAKER) (test code = 48 U/L 5-34 H 353) ALT (SGPT) (BEAKER) (test code = 154 U/L 6-55 H 347) Specimen slightly [id number] 06:54:00 Test Item Value Reference Range Interpretation Comments PARTIAL THROMBOPLASTIN TIME 30.8 seconds 22.5-36.0 (BEAKER) (test code = 760) PROTHROMBIN [id number] 06:53:00 Test Item Value Reference Range Interpretation Comments PROTIME (BEAKER) (test code = 14.7 seconds 11.7-14.7 759) INR (BEAKER) (test code = 370) 1.2 <=5.9 RECOMMENDED COUMADIN/WARFARIN INR THERAPY RANGESSTANDARD DOSE: 2.0 - 3.0 Includes: PROPHYLAXIS forvenous thrombosis, systemic embolization; TREATMENT for venous thrombosis and/or pulmonary embolus.HIGH RISK: Target INR is 2.5-3.5 for patients with mechanical heart valves.CALCIUM, [id number] 06:52:00 Test Item Value Reference Range Interpretation Comments CALCIUM IONIZED ([facility]) (test 1.05 mmol/L 1.12-1.27 L code = 698) PH, BLOOD ([facility]) (test code = 7.49 1810) POCT-GLUCOSE [id number] 21:44:00 Test Item Value Reference Range Interpretation Comments POC-GLUCOSE METER 145 mg/dL 70-110 H TESTED AT [place] [address] ([facility]) (test code = [facility] 1538) [id number] POCT-GLUCOSE [id number] 17:33:00 Test Item Value Reference Range Interpretation Comments POC-GLUCOSE METER 175 mg/dL 70-110 H TESTED AT [place] [address] ([facility]) (test code = [facility] 1538) [address] SIROLIMUS [id number] 13:43:00 Test Item Value Reference Range Interpretation Comments SIROLIMUS LEVEL BLOOD ([facility]) 5.8 ng/mL 5.0-15.0 (test code = 806) POCT-GLUCOSE [id number] 12:37:00 Test Item Value Reference Range Interpretation Comments POC-GLUCOSE METER 164 mg/dL 70-110 H TESTED AT [place] [address] ([facility]) (test code = [facility] 1538) [address] CBC W/PLT COUNT & AUTO [id number] 12:16:00 Test Item Value Reference Range Interpretation Comments WHITE BLOOD CELL COUNT ([facility]) 1.6 K/ L 3.5-10.5 L (test code = 775) RED BLOOD CELL COUNT ([facility]) 3.34 M/ L 3.93-5.22 L (test code = 761) HEMOGLOBIN (AKER) (test code = 10.1 GM/DL 11.2-15.7 L 410) HEMATOCRIT ([facility]) (test code = 30.0 % 34.1-44.9 L 411) MEAN CORPUSCULAR VOLUME ([facility]) 89.8 fL 79.4-94.8 (test code = 753) MEAN CORPUSCULAR HEMOGLOBIN 30.2 pg 25.6-32.2 (BEAKER) (test code = 751) MEAN CORPUSCULAR HEMOGLOBIN CONC 33.7 GM/DL 32.2-35.5 (BEAKER) (test code = 752) RED CELL DISTRIBUTION WIDTH 17.6 % 11.7-14.4 H (BEAKER) (test code = 412) PLATELET COUNT (BEAKER) (test code 77 K/CU MM 150-450 L = 756) MEAN PLATELET VOLUME (BEAKER) 10.5 fL 9.4-12.3 (test code = 754) NUCLEATED RED BLOOD CELLS (BEAKER) 0 /100 WBC 0-0 (test code = 413) NEUTROPHILS RELATIVE PERCENT 75 % (BEAKER) (test code = 429) LYMPHOCYTES RELATIVE PERCENT 16 % (BEAKER) (test code = 430) MONOCYTES RELATIVE PERCENT 7 % (BEAKER) (test code = 431) EOSINOPHILS RELATIVE PERCENT 2 % (BEAKER) (test code = 432) BASOPHILS RELATIVE PERCENT 1 % (BEAKER) (test code = 437) NEUTROPHILS ABSOLUTE COUNT 1.22 K/ L 1.56-6.13 L (BEAKER) (test code = 670) LYMPHOCYTES ABSOLUTE COUNT 0.26 K/ L 1.18-3.74 L (BEAKER) (test code = 414) MONOCYTES ABSOLUTE COUNT (BEAKER) 0.11 K/ L 0.24-0.36 L (test code = 415) EOSINOPHILS ABSOLUTE COUNT 0.03 K/ L 0.04-0.36 L (BEAKER) (test code = 416) BASOPHILS ABSOLUTE COUNT (BEAKER) 0.01 K/ L 0.01-0.08 (test code = 417) IMMATURE GRANULOCYTES-RELATIVE 0 % 0-1 PERCENT (BEAKER) (test code = 2801) (MANUAL DIFFERENTIAL)2017-02-06 12:16:00 Test Item Value Reference Range Interpretation Comments TOTAL COUNTED (BEAKER) (test code = 1351) WBC MORPHOLOGY (BEAKER) (test code = Normal 487) PLT MORPHOLOGY (BEAKER) (test code = Normal 486) RBC MORPHOLOGY (BEAKER) (test code = Normal 762) BASIC METABOLIC [id number] 07:40:00 Test Item Value Reference Range Interpretation Comments SODIUM (BEAKER) 139 meq/L 136-145 (test code = 381) POTASSIUM (BEAKER) 2.7 meq/L 3.5-5.1 L (test code = 379) CHLORIDE (BEAKER) 102 meq/L 98-107 (test code = 382) CO2 (BEAKER) (test 25 meq/L 22-29 code = 355) BLOOD UREA NITROGEN 33 mg/dL 7-21 H (BEAKER) (test code = 354) CREATININE (BEAKER) 2.58 mg/dL 0.57-1.25 H (test code = 358) GLUCOSE RANDOM 98 mg/dL 70-105 (BEAKER) (test code = 652) CALCIUM (BEAKER) 8.3 mg/dL 8.4-10.2 L (test code = 697) EGFR (BEAKER) (test 19 mL/min/1.73 ESTIMA NIHARIKA GFR IS code = 1092) sq m NOT ACCURATE CREATININE CLEARANCE IN PREDICTING GLOMERULAR FILTRATION RATE . ESTIMATED GFR I S NOT APPLICABLE FOR DIALYSIS PATIEN TS. Specimen slightly [id number] 07:27:00 Test Item Value Reference Range Interpretation Comments PHOSPHORUS (BEAKER) (test code = 4.3 mg/dL 2.3-4.7 604) [id number] 07:27:00 Test Item Value Reference Range Interpretation Comments MAGNESIUM (BEAKER) (test code = 1.4 mg/dL 1.6-2.6 L 627) HEPATIC FUNCTION [id number] 07:27:00 Test Item Value Reference Range Interpretation Comments TOTAL PROTEIN (BEAKER) (test code = 5.4 gm/dL 6.0-8.3 L 770) ALBUMIN (BEAKER) (test code = 1145) 2.9 g/dL 3.5-5.0 L BILIRUBIN TOTAL (BEAKER) (test code 3.9 mg/dL 0.2-1.2 H = 377) BILIRUBIN DIRECT (BEAKER) (test 2.9 mg/dL 0.1-0.5 H code = 706) ALKALINE PHOSPHATASE (BEAKER) (test 81 U/L 40-150 code = 346) AST (SGOT) (BEAKER) (test code = 71 U/L 5-34 H 353) ALT (SGPT) (BEAKER) (test code = 183 U/L 6-55 H 347) Specimen slightly [id number] 07:09:00 Test Item Value Reference Range Interpretation Comments PARTIAL THROMBOPLASTIN TIME 27.5 seconds 22.5-36.0 ([facility]) (test code = 760) PROTHROMBIN [id number] 07:08:00 Test Item Value Reference Range Interpretation Comments PROTIME ([facility]) (test code = 14.3 seconds 11.7-14.7 759) INR ([facility]) (test code = 370) 1.1 <=5.9 RECOMMENDED COUMADIN/WARFARIN INR THERAPY RANGESSTANDARD DOSE: 2.0 - 3.0 Includes: PROPHYLAXIS forvenous thrombosis, systemic embolization; TREATMENT for venous thrombosis and/or pulmonary embolus.HIGH RISK: Target INR is 2.5-3.5 for patients with mechanical heart valves.POCT-GLUCOSE [id number] 21:26:00 Test Item Value Reference Range Interpretation Comments POC-GLUCOSE METER 186 mg/dL 70-110 H TESTED AT [place] [address] ([facility]) (test code = SHANITA [facility] 1538) [address] POCT-GLUCOSE [id number] 17:20:00 Test Item Value Reference Range Interpretation Comments POC-GLUCOSE METER 245 mg/dL 70-110 H TESTED AT [place] [address] ([facility]) (test code = SHANITA Marvin [facility] 1538) [address] POCT-GLUCOSE [id number] 12:50:00 Test Item Value Reference Range Interpretation Comments POC-GLUCOSE METER 156 mg/dL 70-110 H TESTED AT [place] [address] ([facility]) (test code = SHANITA Marvin [facility] 1538) [address] SIROLIMUS [id number] 09:20:00 Test Item Value Reference Range Interpretation Comments SIROLIMUS LEVEL BLOOD ([facility]) 8.1 ng/mL 5.0-15.0 (test code = 806) (MANUAL DIFFERENTIAL)2017-02-05 08:44:00 Test Item Value Reference Range Interpretation Comments NEUTROPHILS - REL (DIFF) (BEAKER) 80 % (test code = 1359) LYMPHOCYTES - REL (DIFF) (BEAKER) 10 % (test code = 1360) MONOCYTES - REL (DIFF) (BEAKER) 7 % (test code = 1361) EOSINOPHILS - REL (DIFF) (BEAKER) 2 % (test code = 1362) BASOPHILS - REL (DIFF) (BEAKER) 1 % (test code = 1363) NEUTROPHILS - ABS (DIFF) (BEAKER) 1.84 K/ L 1.80-8.00 (test code = 1365) LYMPHOCYTES - ABS (DIFF) (BEAKER) 0.23 K/ L 1.48-4.50 L (test code = 1366) MONOCYTES - ABS (DIFF) (BEAKER) 0.16 K/ L 0.00-1.30 (test code = 1367) EOSINOPHILS - ABS (DIFF) (BEAKER) 0.05 K/ L 0.00-0.50 (test code = 1368) BASOPHILS - ABS (DIFF) (BEAKER) 0.02 K/ L 0.00-0.20 (test code = 1369) TOTAL COUNTED (BEAKER) (test code = 100 0251) POCT-GLUCOSE [id number] 07:59:00 Test Item Value Reference Range Interpretation Comments POC-GLUCOSE METER 98 mg/dL 70-110 TESTED AT [facility] 6720 (BEAKER) (test code = SHANITA Marvin [facility] [address] 1538) BASIC METABOLIC [id number] 06:36:00 Test Item Value Reference Range Interpretation Comments SODIUM (BEAKER) 140 meq/L 136-145 (test code = 381) POTASSIUM (BEAKER) 2.8 meq/L 3.5-5.1 L (test code = 379) CHLORIDE (BEAKER) 100 meq/L 98-107 (test code = 382) CO2 (BEAKER) (test 29 meq/L 22-29 code = 355) BLOOD UREA NITROGEN 30 mg/dL 7-21 H (BEAKER) (test code = 354) CREATININE (BEAKER) 2.80 mg/dL 0.57-1.25 H (test code = 358) GLUCOSE RANDOM 90 mg/dL 70-105 (BEAKER) (test code = 652) CALCIUM (BEAKER) 8.6 mg/dL 8.4-10.2 (test code = 697) EGFR (BEAKER) (test 18 mL/min/1.73 ESTIMA NIHARIKA GFR IS code = 1092) sq m NOT ACCURATE CREATININE CLEARANCE IN PREDICTING GLOMERULAR FILTRATION RATE . ESTIMATED GFR I S NOT APPLICABLE FOR DIALYSIS PATIEN TS. Specimen slightly [id number] 06:30:00 Test Item Value Reference Range Interpretation Comments PHOSPHORUS (BEAKER) (test code = 4.1 mg/dL 2.3-4.7 604) [id number] 06:30:00 Test Item Value Reference Range Interpretation Comments MAGNESIUM (BEAKER) (test code = 1.9 mg/dL 1.6-2.6 627) HEPATIC FUNCTION [id number] 06:30:00 Test Item Value Reference Range Interpretation Comments TOTAL PROTEIN (BEAKER) (test code = 5.2 gm/dL 6.0-8.3 L 770) ALBUMIN (BEAKER) (test code = 1145) 2.9 g/dL 3.5-5.0 L BILIRUBIN TOTAL (BEAKER) (test code 3.9 mg/dL 0.2-1.2 H = 377) BILIRUBIN DIRECT (BEAKER) (test 3.0 mg/dL 0.1-0.5 H code = 706) ALKALINE PHOSPHATASE (BEAKER) (test 84 U/L 40-150 code = 346) AST (SGOT) (BEAKER) (test code = 85 U/L 5-34 H 353) ALT (SGPT) (BEAKER) (test code = 201 U/L 6-55 H 347) Specimen slightly ictericCBC W/PLT COUNT & AUTO [id number] 06:09:00 Test Item Value Reference Range Interpretation Comments WHITE BLOOD CELL COUNT (BEAKER) 2.3 K/ L 3.5-10.5 L (test code = 775) RED BLOOD CELL COUNT (BEAKER) 2.58 M/ L 3.93-5.22 L (test code = 761) HEMOGLOBIN (BEAKER) (test code = 7.7 GM/DL 11.2-15.7 L 410) HEMATOCRIT (BEAKER) (test code = 23.6 % 34.1-44.9 L 411) MEAN CORPUSCULAR VOLUME (BEAKER) 91.5 fL 79.4-94.8 (test code = 753) MEAN CORPUSCULAR HEMOGLOBIN 29.8 pg 25.6-32.2 (BEAKER) (test code = 751) MEAN CORPUSCULAR HEMOGLOBIN CONC 32.6 GM/DL 32.2-35.5 (BEAKER) (test code = 752) RED CELL DISTRIBUTION WIDTH 18.1 % 11.7-14.4 H (BEAKER) (test code = 412) PLATELET COUNT (BEAKER) (test code 83 K/CU MM 150-450 L = 756) MEAN PLATELET VOLUME (BEAKER) 11.0 fL 9.4-12.3 (test code = 754) NUCLEATED RED BLOOD CELLS (BEAKER) 0 /100 WBC 0-0 (test code = 413) IMMATURE GRANULOCYTES-RELATIVE 1 % 0-1 PERCENT (BEAKER) (test code = 2801) CALCIUM, [id number] 06:09:00 Test Item Value Reference Range Interpretation Comments CALCIUM IONIZED (BEAKER) (test 1.29 mmol/L 1.12-1.27 H code = 698) PH, BLOOD (BEAKER) (test code = 7.42 1810) [id number] 06:09:00 Test Item Value Reference Range Interpretation Comments PARTIAL THROMBOPLASTIN TIME 30.9 seconds 22.5-36.0 (BEAKER) (test code = 760) PROTHROMBIN [id number] 06:08:00 Test Item Value Reference Range Interpretation Comments PROTIME (BEAKER) (test code = 15.9 seconds 11.7-14.7 H 759) INR (BEAKER) (test code = 370) 1.3 <=5.9 RECOMMENDED COUMADIN/WARFARIN INR THERAPY RANGESSTANDARD DOSE: 2.0 - 3.0 Includes: PROPHYLAXIS forvenous thrombosis, systemic embolization; TREATMENT for venous thrombosis and/or pulmonary embolus.HIGH RISK: Target INR is 2.5-3.5 for patients with mechanical heart valves.BLOOD [id number] 00:00:00 Test Item Value Reference Range Interpretation Comments CULTURE (BEAKER) (test No growth in 5 days code = 1095) BLOOD [id number] 00:00:00 Test Item Value Reference Range Interpretation Comments CULTURE (BEAKER) (test No growth in 5 days code = 1095) POCT-GLUCOSE [id number] 21:26:00 Test Item Value Reference Range Interpretation Comments POC-GLUCOSE METER 220 mg/dL 70-110 H TESTED AT [facility] 6720 ([facility]) (test code = [facility] 1538) [id number] POCT-GLUCOSE [id number] 17:29:00 Test Item Value Reference Range Interpretation Comments POC-GLUCOSE METER 191 mg/dL 70-110 H TESTED AT [place] [address] (BEAKER) (test code = [facility] 1538) [id number] POCT-GLUCOSE [id number] 13:41:00 Test Item Value Reference Range Interpretation Comments POC-GLUCOSE METER 216 mg/dL 70-110 H TESTED AT [place] [address] (BEAKER) (test code = [facility] 1538) [address] SIROLIMUS [id number] 10:59:00 Test Item Value Reference Range Interpretation Comments SIROLIMUS LEVEL BLOOD (BEAKER) 5.6 ng/mL 5.0-15.0 (test code = 806) (MANUAL DIFFERENTIAL)2017-02-04 08:53:00 Test Item Value Reference Range Interpretation Comments NEUTROPHILS - REL (DIFF) (BEAKER) 83 % (test code = 1359) LYMPHOCYTES - REL (DIFF) (BEAKER) 9 % (test code = 1360) MONOCYTES - REL (DIFF) (BEAKER) 5 % (test code = 1361) BANDS - REL (DIFF) (BEAKER) (test 3 % 0-10 code = 1348) NEUTROPHILS - ABS (DIFF) (BEAKER) 2.16 K/ L 1.80-8.00 (test code = 1365) LYMPHOCYTES - ABS (DIFF) (BEAKER) 0.23 K/ L 1.48-4.50 L (test code = 1366) MONOCYTES - ABS (DIFF) (BEAKER) 0.13 K/ L 0.00-1.30 (test code = 1367) BANDS-ABS (DIFF) (BEAKER) (test 0.1 K/ L 0.0-0.8 code = 1349) TOTAL COUNTED (BEAKER) (test code = 100 1351) BANDS + SEGMENTED NEUTROPHILS 2.24 (BEAKER) (test code = 1352) WBC MORPHOLOGY (BEAKER) (test code Normal = 487) PLT MORPHOLOGY (BEAKER) (test code Normal = 486) RBC MORPHOLOGY (BEAKER) (test code Normal = 762) POCT-GLUCOSE [id number] 07:58:00 Test Item Value Reference Range Interpretation Comments POC-GLUCOSE METER 91 mg/dL 70-110 TESTED AT [place] [address] (BEAKER) (test code = [facility] [address] 3133) [id number] 07:31:00 Test Item Value Reference Range Interpretation Comments PREALBUMIN (BEAKER) (test code = 22 mg/dL 14-45 586) BASIC METABOLIC [id number] 07:24:00 Test Item Value Reference Range Interpretation Comments SODIUM (BEAKER) 136 meq/L 136-145 (test code = 381) POTASSIUM (BEAKER) 3.3 meq/L 3.5-5.1 L (test code = 379) CHLORIDE (BEAKER) 101 meq/L 98-107 (test code = 382) CO2 (BEAKER) (test 27 meq/L 22-29 code = 355) BLOOD UREA NITROGEN 24 mg/dL 7-21 H (BEAKER) (test code = 354) CREATININE (BEAKER) 2.66 mg/dL 0.57-1.25 H (test code = 358) GLUCOSE RANDOM 83 mg/dL 70-105 (BEAKER) (test code = 652) CALCIUM (BEAKER) 8.2 mg/dL 8.4-10.2 L (test code = 697) EGFR (BEAKER) (test 19 mL/min/1.73 ESTIMA NIHARIKA GFR IS code = 1092) sq m NOT ACCURATE CREATININE CLEARANCE IN PREDICTING GLOMERULAR FILTRATION RATE . ESTIMATED GFR I S NOT APPLICABLE FOR DIALYSIS PATIEN TS. Specimen slightly [id number] 07:18:00 Test Item Value Reference Range Interpretation Comments PHOSPHORUS (BEAKER) (test code = 3.6 mg/dL 2.3-4.7 604) [id number] 07:18:00 Test Item Value Reference Range Interpretation Comments MAGNESIUM (BEAKER) (test code = 1.5 mg/dL 1.6-2.6 L 627) HEPATIC FUNCTION [id number] 07:18:00 Test Item Value Reference Range Interpretation Comments TOTAL PROTEIN (BEAKER) (test code = 4.9 gm/dL 6.0-8.3 L 770) ALBUMIN (BEAKER) (test code = 1145) 2.7 g/dL 3.5-5.0 L BILIRUBIN TOTAL (BEAKER) (test code 3.8 mg/dL 0.2-1.2 H = 377) BILIRUBIN DIRECT (BEAKER) (test 2.9 mg/dL 0.1-0.5 H code = 706) ALKALINE PHOSPHATASE (BEAKER) (test 78 U/L 40-150 code = 346) AST (SGOT) (BEAKER) (test code = 96 U/L 5-34 H 353) ALT (SGPT) (BEAKER) (test code = 194 U/L 6-55 H 347) Specimen slightly [id number] 07:03:00 Test Item Value Reference Range Interpretation Comments PARTIAL THROMBOPLASTIN TIME 28.7 seconds 22.5-36.0 (BEAKER) (test code = 760) PROTHROMBIN [id number] 07:02:00 Test Item Value Reference Range Interpretation Comments PROTIME (BEAKER) (test code = 14.4 seconds 11.7-14.7 759) INR (BEAKER) (test code = 370) 1.1 <=5.9 RECOMMENDED COUMADIN/WARFARIN INR THERAPY RANGESSTANDARD DOSE: 2.0 - 3.0 Includes: PROPHYLAXIS forvenous thrombosis, systemic embolization; TREATMENT for venous thrombosis and/or pulmonary embolus.HIGH RISK: Target INR is 2.5-3.5 for patients with mechanical heart valves.CALCIUM, [id number] 06:58:00 Test Item Value Reference Range Interpretation Comments CALCIUM IONIZED (BEAKER) (test 1.02 mmol/L 1.12-1.27 L code = 698) PH, BLOOD (BEAKER) (test code = 7.47 1810) CBC W/PLT COUNT & AUTO [id number] 06:54:00 Test Item Value Reference Range Interpretation Comments WHITE BLOOD CELL COUNT (BEAKER) 2.6 K/ L 3.5-10.5 L (test code = 775) RED BLOOD CELL COUNT (BEAKER) 2.65 M/ L 3.93-5.22 L (test code = 761) HEMOGLOBIN (BEAKER) (test code = 7.8 GM/DL 11.2-15.7 L 410) HEMATOCRIT (BEAKER) (test code = 24.3 % 34.1-44.9 L 411) MEAN CORPUSCULAR VOLUME (BEAKER) 91.7 fL 79.4-94.8 (test code = 753) MEAN CORPUSCULAR HEMOGLOBIN 29.4 pg 25.6-32.2 (BEAKER) (test code = 751) MEAN CORPUSCULAR HEMOGLOBIN CONC 32.1 GM/DL 32.2-35.5 L ([facility]) (test code = 752) RED CELL DISTRIBUTION WIDTH 18.3 % 11.7-14.4 H ([facility]) (test code = 412) PLATELET COUNT ([facility]) (test code 75 K/CU MM 150-450 L = 756) MEAN PLATELET VOLUME ([facility]) 11.1 fL 9.4-12.3 (test code = 754) NUCLEATED RED BLOOD CELLS ([facility]) 0 /100 WBC 0-0 (test code = 413) IMMATURE GRANULOCYTES-RELATIVE 1 % 0-1 PERCENT ([facility]) (test code = 2801) POCT-GLUCOSE [id number] 22:29:00 Test Item Value Reference Range Interpretation Comments POC-GLUCOSE METER 140 mg/dL 70-110 H TESTED AT [place] [address] ([facility]) (test code = SHANITA Marvin [facility] 1538) [id number] POCT-GLUCOSE [id number] 18:12:00 Test Item Value Reference Range Interpretation Comments POC-GLUCOSE METER 186 mg/dL 70-110 H TESTED AT [place] [address] ([facility]) (test code = SHANITA Marvin [facility] 1538) [address] TROPONIN [id number] 14:21:00 Test Item Value Reference Range Interpretation Comments TROPONIN I ([facility]) (test code = 0.10 ng/mL 0.00-0.03 H 397) Effective 05/25/2014: Reference Range ChangeNew: 0.00-0.03 Previous 0.00- 0.15Troponin I (TnI) levels must be interpreted in the context of the presenting symptoms and the clinical findings. Elevated TnI levels indicate myocardial damage, but are not specific for ischemic heart disease. Elevated TnI levels are seen in patients with other cardiac conditions (including myocarditis and congestive heartfailure), and slight TnI elevations occur in patients with other conditions, including sepsis, renalfailure, acidosis, acute neurological disease, and persistent tachyarrhythmia.SIROLIMUS [id number] 12:17:00 Test Item Value Reference Range Interpretation Comments SIROLIMUS LEVEL BLOOD ([facility]) 5.5 ng/mL 5.0-15.0 (test code = 806) POCT-GLUCOSE [id number] 10:23:00 Test Item Value Reference Range Interpretation Comments POC-GLUCOSE METER 149 mg/dL 70-110 H TESTED AT [facility] 6720 (BEAKER) (test code = [facility] [place] 1538) [id number] CALCIUM, [id number] 07:04:00 Test Item Value Reference Range Interpretation Comments CALCIUM IONIZED (BEAKER) (test 1.12 mmol/L 1.12-1.27 code = 698) PH, BLOOD (BEAKER) (test code = 7.44 1810) TROPONIN [id number] 05:02:00 Test Item Value Reference Range Interpretation Comments TROPONIN I (BEAKER) (test code = 0.13 ng/mL 0.00-0.03 H 397) Effective 05/25/2014: Reference Range ChangeNew: 0.00-0.03 Previous 0.00- 0.15Troponin I (TnI) levels must be interpreted in the context of the presenting symptoms and the clinical findings. Elevated TnI levels indicate myocardial damage, but are not specific for ischemic heart disease. Elevated TnI levels are seen in patients with other cardiac conditions (including myocarditis and congestive heartfailure), and slight TnI elevations occur in patients with other conditions, including sepsis, renalfailure, acidosis, acute neurological disease, and persistent tachyarrhythmia.BASIC METABOLIC [id number] 04:59:00 Test Item Value Reference Range Interpretation Comments SODIUM (BEAKER) 137 meq/L 136-145 (test code = 381) POTASSIUM (BEAKER) 3.1 meq/L 3.5-5.1 L (test code = 379) CHLORIDE (BEAKER) 100 meq/L 98-107 (test code = 382) CO2 (BEAKER) (test 29 meq/L 22-29 code = 355) BLOOD UREA NITROGEN 16 mg/dL 7-21 (BEAKER) (test code = 354) CREATININE (BEAKER) 2.18 mg/dL 0.57-1.25 H (test code = 358) GLUCOSE RANDOM 87 mg/dL 70-105 (BEAKER) (test code = 652) CALCIUM (BEAKER) 8.3 mg/dL 8.4-10.2 L (test code = 697) EGFR (BEAKER) (test 23 mL/min/1.73 ESTIMA NIHARIKA GFR IS code = 1092) sq m NOT ACCURATE CREATININE CLEARANCE IN PREDICTING GLOMERULAR FILTRATION RATE . ESTIMATED GFR I S NOT APPLICABLE FOR DIALYSIS PATIEN TS. Specimen moderately [id number] 04:56:00 Test Item Value Reference Range Interpretation Comments PHOSPHORUS (BEAKER) (test code = 2.6 mg/dL 2.3-4.7 604) [id number] 04:56:00 Test Item Value Reference Range Interpretation Comments MAGNESIUM (BEAKER) (test code = 1.5 mg/dL 1.6-2.6 L 627) HEPATIC FUNCTION [id number] 04:56:00 Test Item Value Reference Range Interpretation Comments TOTAL PROTEIN (BEAKER) (test code = 5.1 gm/dL 6.0-8.3 L 770) ALBUMIN (BEAKER) (test code = 1145) 2.9 g/dL 3.5-5.0 L BILIRUBIN TOTAL (BEAKER) (test code 4.6 mg/dL 0.2-1.2 H = 377) BILIRUBIN DIRECT (BEAKER) (test 3.5 mg/dL 0.1-0.5 H code = 706) ALKALINE PHOSPHATASE (BEAKER) (test 86 U/L 40-150 code = 346) AST (SGOT) (BEAKER) (test code = 114 U/L 5-34 H 353) ALT (SGPT) (BEAKER) (test code = 181 U/L 6-55 H 347) Specimen moderately ictericPROTHROMBIN [id number] 04:38:00 Test Item Value Reference Range Interpretation Comments PROTIME (BEAKER) (test code = 14.7 seconds 11.7-14.7 759) INR (BEAKER) (test code = 370) 1.2 <=5.9 RECOMMENDED COUMADIN/WARFARIN INR THERAPY RANGESSTANDARD DOSE: 2.0 - 3.0 Includes: PROPHYLAXIS forvenous thrombosis, systemic embolization; TREATMENT for venous thrombosis and/or pulmonary embolus.HIGH RISK: Target INR is 2.5-3.5 for patients with mechanical heart valves.[id number] 04:38:00 Test Item Value Reference Range Interpretation Comments PARTIAL THROMBOPLASTIN TIME 30.1 seconds 22.5-36.0 (BEAKER) (test code = 760) CBC W/PLT COUNT & AUTO [id number] 04:21:00 Test Item Value Reference Range Interpretation Comments WHITE BLOOD CELL COUNT (BEAKER) 3.5 K/ L 3.5-10.5 (test code = 775) RED BLOOD CELL COUNT (BEAKER) 2.87 M/ L 3.93-5.22 L (test code = 761) HEMOGLOBIN (BEAKER) (test code = 8.4 GM/DL 11.2-15.7 L 410) HEMATOCRIT (BEAKER) (test code = 26.0 % 34.1-44.9 L 411) MEAN CORPUSCULAR VOLUME (BEAKER) 90.6 fL 79.4-94.8 (test code = 753) MEAN CORPUSCULAR HEMOGLOBIN 29.3 pg 25.6-32.2 (BEAKER) (test code = 751) MEAN CORPUSCULAR HEMOGLOBIN CONC 32.3 GM/DL 32.2-35.5 (BEAKER) (test code = 752) RED CELL DISTRIBUTION WIDTH 18.6 % 11.7-14.4 H (BEAKER) (test code = 412) PLATELET COUNT (BEAKER) (test code 69 K/CU MM 150-450 L = 756) MEAN PLATELET VOLUME (BEAKER) 10.9 fL 9.4-12.3 (test code = 754) NUCLEATED RED BLOOD CELLS (BEAKER) 0 /100 WBC 0-0 (test code = 413) NEUTROPHILS RELATIVE PERCENT 74 % (BEAKER) (test code = 429) LYMPHOCYTES RELATIVE PERCENT 15 % (BEAKER) (test code = 430) MONOCYTES RELATIVE PERCENT 7 % (BEAKER) (test code = 431) EOSINOPHILS RELATIVE PERCENT 3 % (BEAKER) (test code = 432) BASOPHILS RELATIVE PERCENT 0 % (BEAKER) (test code = 437) NEUTROPHILS ABSOLUTE COUNT 2.54 K/ L 1.56-6.13 (BEAKER) (test code = 670) LYMPHOCYTES ABSOLUTE COUNT 0.51 K/ L 1.18-3.74 L (BEAKER) (test code = 414) MONOCYTES ABSOLUTE COUNT (BEAKER) 0.25 K/ L 0.24-0.36 (test code = 415) EOSINOPHILS ABSOLUTE COUNT 0.10 K/ L 0.04-0.36 (BEAKER) (test code = 416) BASOPHILS ABSOLUTE COUNT (BEAKER) 0.01 K/ L 0.01-0.08 (test code = 417) IMMATURE GRANULOCYTES-RELATIVE 1 % 0-1 PERCENT ([facility]) (test code = 2801) TROPONIN [id number] 01:03:00 Test Item Value Reference Range Interpretation Comments TROPONIN I ([facility]) (test code = 0.12 ng/mL 0.00-0.03 H 397) Effective 05/25/2014: Reference Range ChangeNew: 0.00-0.03 Previous 0.00- 0.15Troponin I (TnI) levels must be interpreted in the context of the presenting symptoms and the clinical findings. Elevated TnI levels indicate myocardial damage, but are not specific for ischemic heart disease. Elevated TnI levels are seen in patients with other cardiac conditions (including myocarditis and congestive heartfailure), and slight TnI elevations occur in patients with other conditions, including sepsis, renalfailure, acidosis, acute neurological disease, and persistent tachyarrhythmia.POCT-GLUCOSE [id number] 22:35:00 Test Item Value Reference Range Interpretation Comments POC-GLUCOSE METER 102 mg/dL 70-110 TESTED AT [place] [address] ([facility]) (test code = [facility] [employer] [facility] 1538) [id number] POCT-GLUCOSE [id number] 18:41:00 Test Item Value Reference Range Interpretation Comments POC-GLUCOSE METER 199 mg/dL 70-110 H TESTED AT [place] [address] ([facility]) (test code = [facility] 1538) [address] POCT-GLUCOSE [id number] 11:35:00 Test Item Value Reference Range Interpretation Comments POC-GLUCOSE METER 151 mg/dL 70-110 H TESTED AT [place] [address] ([facility]) (test code = [facility] 1538) [address] SIROLIMUS [id number] 10:22:00 Test Item Value Reference Range Interpretation Comments SIROLIMUS LEVEL BLOOD ([facility]) 4.6 ng/mL 5.0-15.0 L (test code = 806) POCT-GLUCOSE [id number] 08:19:00 Test Item Value Reference Range Interpretation Comments POC-GLUCOSE METER 90 mg/dL 70-110 TESTED AT [place] [address] ([facility]) (test code = [facility] [id number] 1538) BASIC METABOLIC [id number] 05:04:00 Test Item Value Reference Range Interpretation Comments SODIUM (BEAKER) 136 meq/L 136-145 (test code = 381) POTASSIUM (BEAKER) 3.4 meq/L 3.5-5.1 L (test code = 379) CHLORIDE (BEAKER) 100 meq/L 98-107 (test code = 382) CO2 (BEAKER) (test 25 meq/L 22-29 code = 355) BLOOD UREA NITROGEN 37 mg/dL 7-21 H (BEAKER) (test code = 354) CREATININE (BEAKER) 3.80 mg/dL 0.57-1.25 H (test code = 358) GLUCOSE RANDOM 107 mg/dL 70-105 H (BEAKER) (test code = 652) CALCIUM (BEAKER) 8.2 mg/dL 8.4-10.2 L (test code = 697) EGFR (BEAKER) (test 12 mL/min/1.73 ESTIMA NIHARIKA GFR IS code = 1092) sq m NOT ACCURATE CREATININE CLEARANCE IN PREDICTING GLOMERULAR FILTRATION RATE . ESTIMATED GFR I S NOT APPLICABLE FOR DIALYSIS PATIEN TS. Specimen moderately [id number] 05:03:00 Test Item Value Reference Range Interpretation Comments PHOSPHORUS (BEAKER) (test code = 4.1 mg/dL 2.3-4.7 604) [id number] 05:03:00 Test Item Value Reference Range Interpretation Comments MAGNESIUM (BEAKER) (test code = 1.7 mg/dL 1.6-2.6 627) HEPATIC FUNCTION [id number] 05:03:00 Test Item Value Reference Range Interpretation Comments TOTAL PROTEIN (BEAKER) (test code = 4.9 gm/dL 6.0-8.3 L 770) ALBUMIN (BEAKER) (test code = 1145) 2.7 g/dL 3.5-5.0 L BILIRUBIN TOTAL (BEAKER) (test code 4.7 mg/dL 0.2-1.2 H = 377) BILIRUBIN DIRECT (BEAKER) (test 3.6 mg/dL 0.1-0.5 H code = 706) ALKALINE PHOSPHATASE (BEAKER) (test 83 U/L 40-150 code = 346) AST (SGOT) (BEAKER) (test code = 58 U/L 5-34 H 353) ALT (SGPT) (BEAKER) (test code = 118 U/L 6-55 H 347) Specimen moderately ictericCBC W/PLT COUNT & AUTO [id number] 04:45:00 Test Item Value Reference Range Interpretation Comments WHITE BLOOD CELL COUNT (BEAKER) 3.7 K/ L 3.5-10.5 (test code = 775) RED BLOOD CELL COUNT (BEAKER) 2.74 M/ L 3.93-5.22 L (test code = 761) HEMOGLOBIN (BEAKER) (test code = 8.0 GM/DL 11.2-15.7 L 410) HEMATOCRIT (BEAKER) (test code = 25.0 % 34.1-44.9 L 411) MEAN CORPUSCULAR VOLUME (BEAKER) 91.2 fL 79.4-94.8 (test code = 753) MEAN CORPUSCULAR HEMOGLOBIN 29.2 pg 25.6-32.2 (BEAKER) (test code = 751) MEAN CORPUSCULAR HEMOGLOBIN CONC 32.0 GM/DL 32.2-35.5 L (BEAKER) (test code = 752) RED CELL DISTRIBUTION WIDTH 18.7 % 11.7-14.4 H (BEAKER) (test code = 412) PLATELET COUNT (BEAKER) (test code 58 K/CU MM 150-450 L = 756) MEAN PLATELET VOLUME (BEAKER) 10.9 fL 9.4-12.3 (test code = 754) NUCLEATED RED BLOOD CELLS (BEAKER) 0 /100 WBC 0-0 (test code = 413) NEUTROPHILS RELATIVE PERCENT 77 % (BEAKER) (test code = 429) LYMPHOCYTES RELATIVE PERCENT 13 % (BEAKER) (test code = 430) MONOCYTES RELATIVE PERCENT 7 % (BEAKER) (test code = 431) EOSINOPHILS RELATIVE PERCENT 2 % (BEAKER) (test code = 432) BASOPHILS RELATIVE PERCENT 0 % (BEAKER) (test code = 437) NEUTROPHILS ABSOLUTE COUNT 2.86 K/ L 1.56-6.13 (BEAKER) (test code = 670) LYMPHOCYTES ABSOLUTE COUNT 0.47 K/ L 1.18-3.74 L (BEAKER) (test code = 414) MONOCYTES ABSOLUTE COUNT (BEAKER) 0.25 K/ L 0.24-0.36 (test code = 415) EOSINOPHILS ABSOLUTE COUNT 0.07 K/ L 0.04-0.36 ([facility]) (test code = 416) BASOPHILS ABSOLUTE COUNT ([facility]) 0.01 K/ L 0.01-0.08 (test code = 417) IMMATURE GRANULOCYTES-RELATIVE 1 % 0-1 PERCENT ([facility]) (test code = 2801) [id number] 04:44:00 Test Item Value Reference Range Interpretation Comments PARTIAL THROMBOPLASTIN TIME 31.8 seconds 22.5-36.0 ([facility]) (test code = 760) PROTHROMBIN [id number] 04:43:00 Test Item Value Reference Range Interpretation Comments PROTIME ([facility]) (test code = 15.3 seconds 11.7-14.7 H 759) INR ([facility]) (test code = 370) 1.2 <=5.9 RECOMMENDED COUMADIN/WARFARIN INR THERAPY RANGESSTANDARD DOSE: 2.0 - 3.0 Includes: PROPHYLAXIS forvenous thrombosis, systemic embolization; TREATMENT for venous thrombosis and/or pulmonary embolus.HIGH RISK: Target INR is 2.5-3.5 for patients with mechanical heart valves.POCT-GLUCOSE [id number] 21:58:00 Test Item Value Reference Range Interpretation Comments POC-GLUCOSE METER 216 mg/dL 70-110 H TESTED AT [place] [address] ([facility]) (test code = SH[facility] 1538) [id number] POCT-GLUCOSE [id number] 18:11:00 Test Item Value Reference Range Interpretation Comments POC-GLUCOSE METER 167 mg/dL 70-110 H TESTED AT [place] [address] ([facility]) (test code = SHANITA Marvin [facility] 1538) [address] POCT-GLUCOSE [id number] 12:48:00 Test Item Value Reference Range Interpretation Comments POC-GLUCOSE METER 224 mg/dL 70-110 H TESTED AT [place] [address] ([facility]) (test code = SHANITA Marvin [facility] 1538) [address] SIROLIMUS [id number] 11:14:00 Test Item Value Reference Range Interpretation Comments SIROLIMUS LEVEL BLOOD ([facility]) 3.1 ng/mL 5.0-15.0 L (test code = 806) POCT-GLUCOSE [id number] 08:08:00 Test Item Value Reference Range Interpretation Comments POC-GLUCOSE METER 111 mg/dL 70-110 H TESTED AT [facility] 6720 (BEAKER) (test code = [place] 1538) [address] BASIC METABOLIC [id number] 06:21:00 Test Item Value Reference Range Interpretation Comments SODIUM (BEAKER) 136 meq/L 136-145 (test code = 381) POTASSIUM (BEAKER) 3.5 meq/L 3.5-5.1 (test code = 379) CHLORIDE (BEAKER) 101 meq/L 98-107 (test code = 382) CO2 (BEAKER) (test 27 meq/L 22-29 code = 355) BLOOD UREA NITROGEN 23 mg/dL 7-21 H (BEAKER) (test code = 354) CREATININE (BEAKER) 2.84 mg/dL 0.57-1.25 H (test code = 358) GLUCOSE RANDOM 99 mg/dL 70-105 (BEAKER) (test code = 652) CALCIUM (BEAKER) 8.0 mg/dL 8.4-10.2 L (test code = 697) EGFR (BEAKER) (test 17 mL/min/1.73 ESTIMA NIHARIKA GFR IS code = 1092) sq m NOT ACCURATE CREATININE CLEARANCE IN PREDICTING GLOMERULAR FILTRATION RATE . ESTIMATED GFR I S NOT APPLICABLE FOR DIALYSIS PATIEN TS. Specimen moderately [id number] 06:13:00 Test Item Value Reference Range Interpretation Comments PHOSPHORUS (BEAKER) (test code = 3.2 mg/dL 2.3-4.7 604) [id number] 06:13:00 Test Item Value Reference Range Interpretation Comments MAGNESIUM (BEAKER) (test code = 1.8 mg/dL 1.6-2.6 627) HEPATIC FUNCTION [id number] 06:13:00 Test Item Value Reference Range Interpretation Comments TOTAL PROTEIN (BEAKER) (test code = 4.9 gm/dL 6.0-8.3 L 770) ALBUMIN (BEAKER) (test code = 1145) 2.7 g/dL 3.5-5.0 L BILIRUBIN TOTAL (BEAKER) (test code 5.2 mg/dL 0.2-1.2 H = 377) BILIRUBIN DIRECT (BEAKER) (test 4.0 mg/dL 0.1-0.5 H code = 706) ALKALINE PHOSPHATASE (BEAKER) (test 83 U/L 40-150 code = 346) AST (SGOT) (BEAKER) (test code = 70 U/L 5-34 H 353) ALT (SGPT) (BEAKER) (test code = 134 U/L 6-55 H 347) Specimen moderately [id number] 06:02:00 Test Item Value Reference Range Interpretation Comments PARTIAL THROMBOPLASTIN TIME 30.5 seconds 22.5-36.0 (BEAKER) (test code = 760) PROTHROMBIN [id number] 06:01:00 Test Item Value Reference Range Interpretation Comments PROTIME (BEAKER) (test code = 15.6 seconds 11.7-14.7 H 759) INR (BEAKER) (test code = 370) 1.3 <=5.9 RECOMMENDED COUMADIN/WARFARIN INR THERAPY RANGESSTANDARD DOSE: 2.0 - 3.0 Includes: PROPHYLAXIS forvenous thrombosis, systemic embolization; TREATMENT for venous thrombosis and/or pulmonary embolus.HIGH RISK: Target INR is 2.5-3.5 for patients with mechanical heart valves.CBC W/PLT COUNT & AUTO DIFFERENTIAL 2017-02-01 05:52:00 Test Item Value Reference Range Interpretation Comments WHITE BLOOD CELL COUNT (BEAKER) 5.8 K/ L 3.5-10.5 (test code = 775) RED BLOOD CELL COUNT (BEAKER) 2.91 M/ L 3.93-5.22 L (test code = 761) HEMOGLOBIN (BEAKER) (test code = 8.6 GM/DL 11.2-15.7 L 410) HEMATOCRIT (BEAKER) (test code = 26.6 % 34.1-44.9 L 411) MEAN CORPUSCULAR VOLUME (BEAKER) 91.4 fL 79.4-94.8 (test code = 753) MEAN CORPUSCULAR HEMOGLOBIN 29.6 pg 25.6-32.2 (BEAKER) (test code = 751) MEAN CORPUSCULAR HEMOGLOBIN CONC 32.3 GM/DL 32.2-35.5 (BEAKER) (test code = 752) RED CELL DISTRIBUTION WIDTH 18.7 % 11.7-14.4 H (BEAKER) (test code = 412) PLATELET COUNT (BEAKER) (test code 62 K/CU MM 150-450 L = 756) MEAN PLATELET VOLUME (BEAKER) 11.9 fL 9.4-12.3 (test code = 754) NUCLEATED RED BLOOD CELLS (BEAKER) 0 /100 WBC 0-0 (test code = 413) NEUTROPHILS RELATIVE PERCENT 73 % (BEAKER) (test code = 429) LYMPHOCYTES RELATIVE PERCENT 12 % (BEAKER) (test code = 430) MONOCYTES RELATIVE PERCENT 6 % (BEAKER) (test code = 431) EOSINOPHILS RELATIVE PERCENT 5 % (BEAKER) (test code = 432) BASOPHILS RELATIVE PERCENT 0 % (BEAKER) (test code = 437) NEUTROPHILS ABSOLUTE COUNT 4.21 K/ L 1.56-6.13 (BEAKER) (test code = 670) LYMPHOCYTES ABSOLUTE COUNT 0.72 K/ L 1.18-3.74 L (BEAKER) (test code = 414) MONOCYTES ABSOLUTE COUNT (BEAKER) 0.36 K/ L 0.24-0.36 (test code = 415) EOSINOPHILS ABSOLUTE COUNT 0.31 K/ L 0.04-0.36 (BEAKER) (test code = 416) BASOPHILS ABSOLUTE COUNT (BEAKER) 0.01 K/ L 0.01-0.08 (test code = 417) IMMATURE GRANULOCYTES-RELATIVE 3 % 0-1 H PERCENT (BEAKER) (test code = 2801) POCT-GLUCOSE [id number] 23:21:00 Test Item Value Reference Range Interpretation Comments POC-GLUCOSE METER 144 mg/dL 70-110 H TESTED AT [place] [address] ([facility]) (test code = [facility] 1538) [id number] POCT-GLUCOSE [id number] 18:21:00 Test Item Value Reference Range Interpretation Comments POC-GLUCOSE METER 193 mg/dL 70-110 H TESTED AT [place] [address] ([facility]) (test code = [facility] 1538) [address] SIROLIMUS [id number] 11:58:00 Test Item Value Reference Range Interpretation Comments SIROLIMUS LEVEL BLOOD (AKER) 3.2 ng/mL 5.0-15.0 L (test code = 806) POCT-GLUCOSE [id number] 11:50:00 Test Item Value Reference Range Interpretation Comments POC-GLUCOSE METER 129 mg/dL 70-110 H TESTED AT [place] [address] ([facility]) (test code = [facility] 6608) [address] CBC W/PLT COUNT & AUTO [id number] 09:00:00 Test Item Value Reference Range Interpretation Comments WHITE BLOOD CELL COUNT (BEAKER) 5.7 K/ L 3.5-10.5 (test code = 775) RED BLOOD CELL COUNT (BEAKER) 2.86 M/ L 3.93-5.22 L (test code = 761) HEMOGLOBIN (BEAKER) (test code = 8.4 GM/DL 11.2-15.7 L 410) HEMATOCRIT (BEAKER) (test code = 26.0 % 34.1-44.9 L 411) MEAN CORPUSCULAR VOLUME (BEAKER) 90.9 fL 79.4-94.8 (test code = 753) MEAN CORPUSCULAR HEMOGLOBIN 29.4 pg 25.6-32.2 (BEAKER) (test code = 751) MEAN CORPUSCULAR HEMOGLOBIN CONC 32.3 GM/DL 32.2-35.5 (BEAKER) (test code = 752) RED CELL DISTRIBUTION WIDTH 18.5 % 11.7-14.4 H (BEAKER) (test code = 412) PLATELET COUNT (BEAKER) (test code 40 K/CU MM 150-450 L = 756) MEAN PLATELET VOLUME (BEAKER) 11.8 fL 9.4-12.3 (test code = 754) NUCLEATED RED BLOOD CELLS (BEAKER) 1 /100 WBC 0-0 H (test code = 413) NEUTROPHILS RELATIVE PERCENT 71 % (BEAKER) (test code = 429) LYMPHOCYTES RELATIVE PERCENT 13 % (BEAKER) (test code = 430) MONOCYTES RELATIVE PERCENT 6 % (BEAKER) (test code = 431) EOSINOPHILS RELATIVE PERCENT 7 % (BEAKER) (test code = 432) BASOPHILS RELATIVE PERCENT 0 % (BEAKER) (test code = 437) NEUTROPHILS ABSOLUTE COUNT 4.02 K/ L 1.56-6.13 (BEAKER) (test code = 670) LYMPHOCYTES ABSOLUTE COUNT 0.72 K/ L 1.18-3.74 L (BEAKER) (test code = 414) MONOCYTES ABSOLUTE COUNT (BEAKER) 0.35 K/ L 0.24-0.36 (test code = 415) EOSINOPHILS ABSOLUTE COUNT 0.37 K/ L 0.04-0.36 H (BEAKER) (test code = 416) BASOPHILS ABSOLUTE COUNT (BEAKER) 0.02 K/ L 0.01-0.08 (test code = 417) IMMATURE GRANULOCYTES-RELATIVE 4 % 0-1 H PERCENT (BEAKER) (test code = 2801) (MANUAL DIFFERENTIAL)2017-01-31 09:00:00 Test Item Value Reference Range Interpretation Comments TOTAL COUNTED (BEAKER) (test code = 1351) [id number] 07:46:00 Test Item Value Reference Range Interpretation Comments POTASSIUM (BEAKER) (test code = 3.4 meq/L 3.5-5.1 L 379) POCT-GLUCOSE [id number] 06:23:00 Test Item Value Reference Range Interpretation Comments POC-GLUCOSE METER 97 mg/dL 70-110 TESTED AT [facility] 6720 (BEAKER) (test code = [place] [address] 1538) BASIC METABOLIC [id number] 04:15:00 Test Item Value Reference Range Interpretation Comments SODIUM (BEAKER) 138 meq/L 136-145 (test code = 381) POTASSIUM (BEAKER) 3.2 meq/L 3.5-5.1 L (test code = 379) CHLORIDE (BEAKER) 102 meq/L 98-107 (test code = 382) CO2 (BEAKER) (test 26 meq/L 22-29 code = 355) BLOOD UREA NITROGEN 30 mg/dL 7-21 H (BEAKER) (test code = 354) CREATININE (BEAKER) 3.60 mg/dL 0.57-1.25 H (test code = 358) GLUCOSE RANDOM 93 mg/dL 70-105 (BEAKER) (test code = 652) CALCIUM (BEAKER) 7.8 mg/dL 8.4-10.2 L (test code = 697) EGFR (BEAKER) (test 13 mL/min/1.73 ESTIMA NIHARIKA GFR IS code = 1092) sq m NOT ACCURATE CREATININE CLEARANCE IN PREDICTING GLOMERULAR FILTRATION RATE . ESTIMATED GFR I S NOT APPLICABLE FOR DIALYSIS PATIEN TS. Specimen moderately ictericANAEROBIC [id number] 04:15:00 Test Item Value Reference Range Interpretation Comments CULTURE (BEAKER) (test No anaerobes isolated code = 1095) [id number] 04:04:00 Test Item Value Reference Range Interpretation Comments PHOSPHORUS (BEAKER) (test code = 3.5 mg/dL 2.3-4.7 604) [id number] 04:04:00 Test Item Value Reference Range Interpretation Comments MAGNESIUM (BEAKER) (test code = 1.9 mg/dL 1.6-2.6 627) HEPATIC FUNCTION [id number] 04:04:00 Test Item Value Reference Range Interpretation Comments TOTAL PROTEIN (BEAKER) (test code = 4.7 gm/dL 6.0-8.3 L 770) ALBUMIN (BEAKER) (test code = 1145) 2.7 g/dL 3.5-5.0 L BILIRUBIN TOTAL (BEAKER) (test code 5.6 mg/dL 0.2-1.2 H = 377) BILIRUBIN DIRECT (BEAKER) (test 4.3 mg/dL 0.1-0.5 H code = 706) ALKALINE PHOSPHATASE (BEAKER) (test 73 U/L 40-150 code = 346) AST (SGOT) (BEAKER) (test code = 72 U/L 5-34 H 353) ALT (SGPT) (BEAKER) (test code = 128 U/L 6-55 H 347) Specimen moderately ictericVANCOMYCIN LEVEL, [id number] 04:00:00 Test Item Value Reference Range Interpretation Comments VANCOMYCIN RANDOM (BEAKER) (test 16.2 ug/mL code = 523) Reference Range: No [id number] 03:57:00 Test Item Value Reference Range Interpretation Comments PARTIAL THROMBOPLASTIN TIME 30.3 seconds 22.5-36.0 (BEAKER) (test code = 760) PROTHROMBIN [id number] 03:56:00 Test Item Value Reference Range Interpretation Comments PROTIME (BEAKER) (test code = 15.5 seconds 11.7-14.7 H 759) INR (BEAKER) (test code = 370) 1.2 <=5.9 RECOMMENDED COUMADIN/WARFARIN INR THERAPY RANGESSTANDARD DOSE: 2.0 - 3.0 Includes: PROPHYLAXIS forvenous thrombosis, systemic embolization; TREATMENT for venous thrombosis and/or pulmonary embolus.HIGH RISK: Target INR is 2.5-3.5 for patients with mechanical heart valves.[id number] 03:55:00 Test Item Value Reference Range Interpretation Comments AMMONIA (BEAKER) (test code = 348) 15 mol/L 18-72 L CALCIUM, [id number] 03:45:00 Test Item Value Reference Range Interpretation Comments CALCIUM IONIZED (BEAKER) (test 1.07 mmol/L 1.12-1.27 L code = 698) PH, BLOOD (BEAKER) (test code = 7.43 1810) POCT-GLUCOSE [id number] 22:20:00 Test Item Value Reference Range Interpretation Comments POC-GLUCOSE METER 98 mg/dL 70-110 TESTED AT [facility] 6720 (BEAKER) (test code = SHANITA Marvin [facility] [address] 1538) CBC W/PLT COUNT & AUTO [id number] 19:24:00 Test Item Value Reference Range Interpretation Comments WHITE BLOOD CELL COUNT (BEAKER) 7.1 K/ L 3.5-10.5 (test code = 775) RED BLOOD CELL COUNT (BEAKER) 3.13 M/ L 3.93-5.22 L (test code = 761) HEMOGLOBIN (BEAKER) (test code = 9.2 GM/DL 11.2-15.7 L 410) HEMATOCRIT (BEAKER) (test code = 28.6 % 34.1-44.9 L 411) MEAN CORPUSCULAR VOLUME (BEAKER) 91.4 fL 79.4-94.8 (test code = 753) MEAN CORPUSCULAR HEMOGLOBIN 29.4 pg 25.6-32.2 (BEAKER) (test code = 751) MEAN CORPUSCULAR HEMOGLOBIN CONC 32.2 GM/DL 32.2-35.5 (BEAKER) (test code = 752) RED CELL DISTRIBUTION WIDTH 18.7 % 11.7-14.4 H (BEAKER) (test code = 412) PLATELET COUNT (BEAKER) (test code 50 K/CU MM 150-450 L = 756) MEAN PLATELET VOLUME (BEAKER) 11.3 fL 9.4-12.3 (test code = 754) NUCLEATED RED BLOOD CELLS (BEAKER) 3 /100 WBC 0-0 H (test code = 413) IMMATURE GRANULOCYTES-RELATIVE 7 % 0-1 H PERCENT (BEAKER) (test code = 2801) (MANUAL DIFFERENTIAL)2017-01-30 19:24:00 Test Item Value Reference Range Interpretation Comments NEUTROPHILS - REL (DIFF) (BEAKER) 89 % (test code = 1359) LYMPHOCYTES - REL (DIFF) (BEAKER) 8 % (test code = 1360) MONOCYTES - REL (DIFF) (BEAKER) 1 % (test code = 1361) EOSINOPHILS - REL (DIFF) (BEAKER) 2 % (test code = 1362) NEUTROPHILS - ABS (DIFF) (BEAKER) 6.32 K/ L 1.80-8.00 (test code = 1365) LYMPHOCYTES - ABS (DIFF) (BEAKER) 0.57 K/ L 1.48-4.50 L (test code = 1366) MONOCYTES - ABS (DIFF) (BEAKER) 0.07 K/ L 0.00-1.30 (test code = 1367) EOSINOPHILS - ABS (DIFF) (BEAKER) 0.14 K/ L 0.00-0.50 (test code = 1368) TOTAL COUNTED (BEAKER) (test code = 100 1351) WBC MORPHOLOGY (BEAKER) (test code Normal = 487) PLT MORPHOLOGY (BEAKER) (test code Normal = 486) SHANNAN CELLS (BEAKER) (test code = 1+ few 474) POCT-GLUCOSE [id number] 18:48:00 Test Item Value Reference Range Interpretation Comments POC-GLUCOSE METER 151 mg/dL 70-110 H TESTED AT [facility] 6720 (BEAKER) (test code = [place] 1538) [id number] COMPREHENSIVE METABOLIC [id number] 17:53:00 Test Item Value Reference Range Interpretation Comments TOTAL PROTEIN 5.1 gm/dL 6.0-8.3 L (BEAKER) (test code = 770) ALBUMIN (BEAKER) 3.0 g/dL 3.5-5.0 L (test code = 1145) ALKALINE PHOSPHATASE 86 U/L 40-150 (BEAKER) (test code = 346) BILIRUBIN TOTAL 5.9 mg/dL 0.2-1.2 H (BEAKER) (test code = 377) SODIUM (BEAKER) (test 136 meq/L 136-145 code = 381) POTASSIUM (BEAKER) 3.7 meq/L 3.5-5.1 (test code = 379) CHLORIDE (BEAKER) 101 meq/L 98-107 (test code = 382) CO2 (BEAKER) (test 21 meq/L 22-29 L code = 355) BLOOD UREA NITROGEN 27 mg/dL 7-21 H (BEAKER) (test code = 354) CREATININE (BEAKER) 3.25 mg/dL 0.57-1.25 H (test code = 358) GLUCOSE RANDOM 155 mg/dL 70-105 H (BEAKER) (test code = 652) CALCIUM (BEAKER) 7.9 mg/dL 8.4-10.2 L (test code = 697) AST (SGOT) (BEAKER) 69 U/L 5-34 H (test code = 353) ALT (SGPT) (BEAKER) 132 U/L 6-55 H (test code = 347) EGFR (BEAKER) (test 15 mL/min/1.73 ESTIMA NIHARIKA GFR IS code = 1092) sq m NOT ACCURATE CREATININE CLEARANCE IN PREDICTING GLOMERULAR FILTRATION RATE . ESTIMATED GFR I S NOT APPLICABLE FOR DIALYSIS PATIEN TS. Specimen moderately [id number] 17:52:00 Test Item Value Reference Range Interpretation Comments PHOSPHORUS (BEAKER) (test code = 4.2 mg/dL 2.3-4.7 604) [id number] 17:52:00 Test Item Value Reference Range Interpretation Comments MAGNESIUM (BEAKER) (test code = 2.1 mg/dL 1.6-2.6 627) POCT-GLUCOSE [id number] 16:55:00 Test Item Value Reference Range Interpretation Comments POC-GLUCOSE METER 168 mg/dL 70-110 H TESTED AT [place] [address] ([facility]) (test code = [place] 15[address]) [id number] POCT-GLUCOSE [id number] 12:33:00 Test Item Value Reference Range Interpretation Comments POC-GLUCOSE METER 187 mg/dL 70-110 H TESTED AT [place] [address] ([facility]) (test code = [place] 1538) [id number] TACROLIMUS [id number] 11:49:00 Test Item Value Reference Range Interpretation Comments TACROLIMUS BLOOD ([facility]) (test 4.9 ng/mL 10.0-20.0 L code = 657) POCT-GLUCOSE [id number] 07:40:00 Test Item Value Reference Range Interpretation Comments POC-GLUCOSE METER 116 mg/dL 70-110 H TESTED AT [place] [address] (BEAKER) (test code = [place] 1538) [id number] 04:41:00 Test Item Value Reference Range Interpretation Comments FERRITIN (BEAKER) (test code = 361) 246 ng/mL 5-275 Effective 05/25/2014: Reference Range ChangeNew: Male 5-275 Previous: Male 22-322 Female 5-275 Female 10-291CBC W/PLT COUNT & AUTO [id number] 04:41:00 Test Item Value Reference Range Interpretation Comments WHITE BLOOD CELL COUNT (BEAKER) 5.7 K/ L 3.5-10.5 (test code = 775) RED BLOOD CELL COUNT (BEAKER) 2.80 M/ L 3.93-5.22 L (test code = 761) HEMOGLOBIN (BEAKER) (test code = 8.3 GM/DL 11.2-15.7 L 410) HEMATOCRIT (BEAKER) (test code = 25.2 % 34.1-44.9 L 411) MEAN CORPUSCULAR VOLUME (BEAKER) 90.0 fL 79.4-94.8 (test code = 753) MEAN CORPUSCULAR HEMOGLOBIN 29.6 pg 25.6-32.2 (BEAKER) (test code = 751) MEAN CORPUSCULAR HEMOGLOBIN CONC 32.9 GM/DL 32.2-35.5 (BEAKER) (test code = 752) RED CELL DISTRIBUTION WIDTH 17.5 % 11.7-14.4 H (BEAKER) (test code = 412) PLATELET COUNT (BEAKER) (test code 29 K/CU MM 150-450 L = 756) MEAN PLATELET VOLUME (BEAKER) 11.1 fL 9.4-12.3 (test code = 754) NUCLEATED RED BLOOD CELLS (BEAKER) 2 /100 WBC 0-0 H (test code = 413) NEUTROPHILS RELATIVE PERCENT 74 % (BEAKER) (test code = 429) LYMPHOCYTES RELATIVE PERCENT 11 % (BEAKER) (test code = 430) MONOCYTES RELATIVE PERCENT 8 % (BEAKER) (test code = 431) EOSINOPHILS RELATIVE PERCENT 3 % (BEAKER) (test code = 432) BASOPHILS RELATIVE PERCENT 0 % (BEAKER) (test code = 437) NEUTROPHILS ABSOLUTE COUNT 4.24 K/ L 1.56-6.13 (BEAKER) (test code = 670) LYMPHOCYTES ABSOLUTE COUNT 0.61 K/ L 1.18-3.74 L (BEAKER) (test code = 414) MONOCYTES ABSOLUTE COUNT (BEAKER) 0.47 K/ L 0.24-0.36 H (test code = 415) EOSINOPHILS ABSOLUTE COUNT 0.14 K/ L 0.04-0.36 (BEAKER) (test code = 416) BASOPHILS ABSOLUTE COUNT (BEAKER) 0.01 K/ L 0.01-0.08 (test code = 417) IMMATURE GRANULOCYTES-RELATIVE 4 % 0-1 H PERCENT (BEAKER) (test code = 2801) IRON, TIBC, % SAT. (WITHOUT FERRITIN)[id number] 04:20:00 Test Item Value Reference Range Interpretation Comments IRON (BEAKER) (test code = 547) 60 ug/dL 40-160 TOTAL IRON BINDING CAPACITY 168 ug/dL 250-450 L (BEAKER) (test code = 769) IRON % SATURATION (2) (BEAKER) 36 % 20-55 (test code = 2590) BASIC METABOLIC [id number] 04:19:00 Test Item Value Reference Range Interpretation Comments SODIUM (BEAKER) 137 meq/L 136-145 (test code = 381) POTASSIUM (BEAKER) 3.4 meq/L 3.5-5.1 L (test code = 379) CHLORIDE (BEAKER) 102 meq/L 98-107 (test code = 382) CO2 (BEAKER) (test 27 meq/L 22-29 code = 355) BLOOD UREA NITROGEN 20 mg/dL 7-21 (BEAKER) (test code = 354) CREATININE (BEAKER) 2.36 mg/dL 0.57-1.25 H (test code = 358) GLUCOSE RANDOM 105 mg/dL 70-105 (BEAKER) (test code = 652) CALCIUM (BEAKER) 7.9 mg/dL 8.4-10.2 L (test code = 697) EGFR (BEAKER) (test 21 mL/min/1.73 ESTIMA NIHARIKA GFR IS code = 1092) sq m NOT ACCURATE CREATININE CLEARANCE IN PREDICTING GLOMERULAR FILTRATION RATE . ESTIMATED GFR I S NOT APPLICABLE FOR DIALYSIS PATIEN TS. Specimen moderately [id number] 04:18:00 Test Item Value Reference Range Interpretation Comments PHOSPHORUS (BEAKER) (test code = 2.2 mg/dL 2.3-4.7 L 604) [id number] 04:18:00 Test Item Value Reference Range Interpretation Comments MAGNESIUM (BEAKER) (test code = 1.9 mg/dL 1.6-2.6 627) HEPATIC FUNCTION [id number] 04:18:00 Test Item Value Reference Range Interpretation Comments TOTAL PROTEIN (BEAKER) (test code = 4.8 gm/dL 6.0-8.3 L 770) ALBUMIN (BEAKER) (test code = 1145) 2.8 g/dL 3.5-5.0 L BILIRUBIN TOTAL (BEAKER) (test code 6.1 mg/dL 0.2-1.2 H = 377) BILIRUBIN DIRECT (BEAKER) (test 4.6 mg/dL 0.1-0.5 H code = 706) ALKALINE PHOSPHATASE (BEAKER) (test 71 U/L 40-150 code = 346) AST (SGOT) (BEAKER) (test code = 63 U/L 5-34 H 353) ALT (SGPT) (BEAKER) (test code = 127 U/L 6-55 H 347) Specimen moderately ictericVANCOMYCIN LEVEL, [id number] 04:18:00 Test Item Value Reference Range Interpretation Comments VANCOMYCIN RANDOM (BEAKER) (test 17.8 ug/mL code = 523) Reference Range: No NormalsRETICULOCYTE [id number] 04:15:00 Test Item Value Reference Range Interpretation Comments RETICULOCYTE COUNT PCT (BEAKER) (test 4.6 % 0.5-1.7 H code = 575) PROTHROMBIN [id number] 04:06:00 Test Item Value Reference Range Interpretation Comments PROTIME (BEAKER) (test code = 15.2 seconds 11.7-14.7 H 759) INR (BEAKER) (test code = 370) 1.2 <=5.9 RECOMMENDED COUMADIN/WARFARIN INR THERAPY RANGESSTANDARD DOSE: 2.0 - 3.0 Includes: PROPHYLAXIS forvenous thrombosis, systemic embolization; TREATMENT for venous thrombosis and/or pulmonary embolus.HIGH RISK: Target INR is 2.5-3.5 for patients with mechanical heart valves.[id number] 04:06:00 Test Item Value Reference Range Interpretation Comments PARTIAL THROMBOPLASTIN TIME 29.8 seconds 22.5-36.0 (BEAKER) (test code = 760) POCT-GLUCOSE [id number] 22:40:00 Test Item Value Reference Range Interpretation Comments POC-GLUCOSE METER 268 mg/dL 70-110 H TESTED AT [place] [address] ([facility]) (test code = [address] [place] 1538) [id number] POCT-GLUCOSE [id number] 17:33:00 Test Item Value Reference Range Interpretation Comments POC-GLUCOSE METER 138 mg/dL 70-110 H TESTED AT [place] [address] ([facility]) (test code = SH[place]ITA [place] 1538) [address] POCT-GLUCOSE [id number] 17:08:00 Test Item Value Reference Range Interpretation Comments POC-GLUCOSE METER 164 mg/dL 70-110 H TESTED AT [place] [address] ([facility]) (test code = SHANITA [place] [facility] 1538) [address] HEMOGLOBIN AND [id number] 13:53:00 Test Item Value Reference Range Interpretation Comments HEMOGLOBIN (BEAKER) (test code = 8.6 GM/DL 11.2-15.7 L 410) HEMATOCRIT (BEAKER) (test code = 26.3 % 34.1-44.9 L 411) TACROLIMUS [id number] 10:21:00 Test Item Value Reference Range Interpretation Comments TACROLIMUS BLOOD (BEAKER) (test 7.3 ng/mL 10.0-20.0 L code = 657) HEMOGLOBIN AND [id number] 06:52:00 Test Item Value Reference Range Interpretation Comments HEMOGLOBIN (BEAKER) (test code = 7.4 GM/DL 11.2-15.7 L 410) HEMATOCRIT (BEAKER) (test code = 22.4 % 34.1-44.9 L 411) POCT-GLUCOSE [id number] 06:12:00 Test Item Value Reference Range Interpretation Comments POC-GLUCOSE METER 126 mg/dL 70-110 H TESTED AT [place] [address] ([facility]) (test code = SHANITA [place] [facility] 1538) [id number] BASIC METABOLIC [id number] 04:30:00 Test Item Value Reference Range Interpretation Comments SODIUM (BEAKER) 133 meq/L 136-145 L (test code = 381) POTASSIUM (BEAKER) 4.4 meq/L 3.5-5.1 (test code = 379) CHLORIDE (BEAKER) 101 meq/L 98-107 (test code = 382) CO2 (BEAKER) (test 22 meq/L 22-29 code = 355) BLOOD UREA NITROGEN 25 mg/dL 7-21 H (BEAKER) (test code = 354) CREATININE (BEAKER) 2.49 mg/dL 0.57-1.25 H (test code = 358) GLUCOSE RANDOM 125 mg/dL 70-105 H (BEAKER) (test code = 652) CALCIUM (BEAKER) 8.0 mg/dL 8.4-10.2 L (test code = 697) EGFR (BEAKER) (test 20 mL/min/1.73 ESTIMA NIHARIKA GFR IS code = 1092) sq m NOT ACCURATE CREATININE CLEARANCE IN PREDICTING GLOMERULAR FILTRATION RATE . ESTIMATED GFR I S NOT APPLICABLE FOR DIALYSIS PATIEN TS. Specimen moderately [id number] 04:18:00 Test Item Value Reference Range Interpretation Comments PHOSPHORUS (BEAKER) (test code = 3.0 mg/dL 2.3-4.7 604) [id number] 04:18:00 Test Item Value Reference Range Interpretation Comments MAGNESIUM (BEAKER) (test code = 2.2 mg/dL 1.6-2.6 627) HEPATIC FUNCTION [id number] 04:18:00 Test Item Value Reference Range Interpretation Comments TOTAL PROTEIN (BEAKER) (test code = 4.7 gm/dL 6.0-8.3 L 770) ALBUMIN (BEAKER) (test code = 1145) 2.8 g/dL 3.5-5.0 L BILIRUBIN TOTAL (BEAKER) (test code 6.6 mg/dL 0.2-1.2 H = 377) BILIRUBIN DIRECT (BEAKER) (test 5.0 mg/dL 0.1-0.5 H code = 706) ALKALINE PHOSPHATASE (BEAKER) (test 58 U/L 40-150 code = 346) AST (SGOT) (BEAKER) (test code = 98 U/L 5-34 H 353) ALT (SGPT) (BEAKER) (test code = 172 U/L 6-55 H 347) Specimen moderately ictericVANCOMYCIN LEVEL, [id number] 04:17:00 Test Item Value Reference Range Interpretation Comments VANCOMYCIN RANDOM (BEAKER) (test 25.4 ug/mL code = 523) Reference Range: No NormalsPROTHROMBIN [id number] 04:13:00 Test Item Value Reference Range Interpretation Comments PROTIME (BEAKER) (test code = 16.1 seconds 11.7-14.7 H 759) INR (BEAKER) (test code = 370) 1.3 <=5.9 RECOMMENDED COUMADIN/WARFARIN INR THERAPY RANGESSTANDARD DOSE: 2.0 - 3.0 Includes: PROPHYLAXIS forvenous thrombosis, systemic embolization; TREATMENT for venous thrombosis and/or pulmonary embolus.HIGH RISK: Target INR is 2.5-3.5 for patients with mechanical heart valves.[id number] 04:13:00 Test Item Value Reference Range Interpretation Comments PARTIAL THROMBOPLASTIN TIME 35.0 seconds 22.5-36.0 (BEAKER) (test code = 760) CBC W/PLT COUNT & AUTO [id number] 04:02:00 Test Item Value Reference Range Interpretation Comments WHITE BLOOD CELL COUNT (BEAKER) 4.8 K/ L 3.5-10.5 (test code = 775) RED BLOOD CELL COUNT (BEAKER) 2.62 M/ L 3.93-5.22 L (test code = 761) HEMOGLOBIN (BEAKER) (test code = 7.7 GM/DL 11.2-15.7 L 410) HEMATOCRIT (BEAKER) (test code = 23.2 % 34.1-44.9 L 411) MEAN CORPUSCULAR VOLUME (BEAKER) 88.5 fL 79.4-94.8 (test code = 753) MEAN CORPUSCULAR HEMOGLOBIN 29.4 pg 25.6-32.2 (BEAKER) (test code = 751) MEAN CORPUSCULAR HEMOGLOBIN CONC 33.2 GM/DL 32.2-35.5 (BEAKER) (test code = 752) RED CELL DISTRIBUTION WIDTH 17.0 % 11.7-14.4 H (BEAKER) (test code = 412) PLATELET COUNT (BEAKER) (test code 18 K/CU MM 150-450 L = 756) MEAN PLATELET VOLUME (BEAKER) 11.9 fL 9.4-12.3 (test code = 754) NUCLEATED RED BLOOD CELLS (BEAKER) 2 /100 WBC 0-0 H (test code = 413) NEUTROPHILS RELATIVE PERCENT 77 % (BEAKER) (test code = 429) LYMPHOCYTES RELATIVE PERCENT 10 % (BEAKER) (test code = 430) MONOCYTES RELATIVE PERCENT 8 % (BEAKER) (test code = 431) EOSINOPHILS RELATIVE PERCENT 0 % (BEAKER) (test code = 432) BASOPHILS RELATIVE PERCENT 0 % (BEAKER) (test code = 437) NEUTROPHILS ABSOLUTE COUNT 3.69 K/ L 1.56-6.13 (BEAKER) (test code = 670) LYMPHOCYTES ABSOLUTE COUNT 0.50 K/ L 1.18-3.74 L (BEAKER) (test code = 414) MONOCYTES ABSOLUTE COUNT (BEAKER) 0.39 K/ L 0.24-0.36 H (test code = 415) EOSINOPHILS ABSOLUTE COUNT 0.01 K/ L 0.04-0.36 L (BEAKER) (test code = 416) BASOPHILS ABSOLUTE COUNT (BEAKER) 0.00 K/ L 0.01-0.08 L (test code = 417) IMMATURE GRANULOCYTES-RELATIVE 4 % 0-1 H PERCENT (BEAKER) (test code = 2801) HEMOGLOBIN AND [id number] 00:35:00 Test Item Value Reference Range Interpretation Comments HEMOGLOBIN (BEAKER) (test code = 7.5 GM/DL 11.2-15.7 L 410) HEMATOCRIT (BEAKER) (test code = 23.0 % 34.1-44.9 L 411) POCT-GLUCOSE [id number] 22:49:00 Test Item Value Reference Range Interpretation Comments POC-GLUCOSE METER 137 mg/dL 70-110 H TESTED AT [place] [address] (BEAKER) (test code = [facility] 1538) [address] HEMOGLOBIN AND [id number] 18:06:00 Test Item Value Reference Range Interpretation Comments HEMOGLOBIN (BEAKER) (test code = 8.3 GM/DL 11.2-15.7 L 410) HEMATOCRIT (BEAKER) (test code = 24.9 % 34.1-44.9 L 411) POCT-GLUCOSE [id number] 16:45:00 Test Item Value Reference Range Interpretation Comments POC-GLUCOSE METER 223 mg/dL 70-110 H TESTED AT [place] [address] (BEAKER) (test code = [facility] 1538) [address] POCT-GLUCOSE [id number] 12:37:00 Test Item Value Reference Range Interpretation Comments POC-GLUCOSE METER 99 mg/dL 70-110 TESTED AT [facility] 6720 (BEAKER) (test code = [place] [facility] [address]) VANCOMYCIN LEVEL, [id number] 11:59:00 Test Item Value Reference Range Interpretation Comments VANCOMYCIN RANDOM (BEAKER) (test 12.2 ug/mL code = 523) Reference Range: No [id number] 11:59:00 Test Item Value Reference Range Interpretation Comments PHOSPHORUS (BEAKER) (test code = 1.8 mg/dL 2.3-4.7 L 604) [id number] 11:59:00 Test Item Value Reference Range Interpretation Comments MAGNESIUM (BEAKER) (test code = 2.2 mg/dL 1.6-2.6 627) BASIC METABOLIC [id number] 11:59:00 Test Item Value Reference Range Interpretation Comments SODIUM (BEAKER) 134 meq/L 136-145 L (test code = 381) POTASSIUM (BEAKER) 4.0 meq/L 3.5-5.1 (test code = 379) CHLORIDE (BEAKER) 102 meq/L 98-107 (test code = 382) CO2 (BEAKER) (test 22 meq/L 22-29 code = 355) BLOOD UREA NITROGEN 13 mg/dL 7-21 (BEAKER) (test code = 354) CREATININE (BEAKER) 1.48 mg/dL 0.57-1.25 H (test code = 358) GLUCOSE RANDOM 91 mg/dL 70-105 (BEAKER) (test code = 652) CALCIUM (BEAKER) 8.2 mg/dL 8.4-10.2 L (test code = 697) EGFR (BEAKER) (test 37 mL/min/1.73 ESTIMA NIHARIKA GFR IS code = 1092) sq m NOT ACCURATE CREATININE CLEARANCE IN PREDICTING GLOMERULAR FILTRATION RATE . ESTIMATED GFR I S NOT APPLICABLE FOR DIALYSIS PATIEN TS. Specimen moderately ictericHEMOGLOBIN AND [id number] 11:47:00 Test Item Value Reference Range Interpretation Comments HEMOGLOBIN (BEAKER) (test code = 8.0 GM/DL 11.2-15.7 L 410) HEMATOCRIT (BEAKER) (test code = 24.1 % 34.1-44.9 L 411) CALCIUM, [id number] 11:31:00 Test Item Value Reference Range Interpretation Comments CALCIUM IONIZED (BEAKER) (test 1.16 mmol/L 1.12-1.27 code = 698) PH, BLOOD (BEAKER) (test code = 7.49 1810) TACROLIMUS [id number] 10:08:00 Test Item Value Reference Range Interpretation Comments TACROLIMUS BLOOD (BEAKER) (test 4.2 ng/mL 10.0-20.0 L code = 657) [id number] 09:47:00 Test Item Value Reference Range Interpretation Comments PHOSPHORUS (BEAKER) (test code = 2.6 mg/dL 2.3-4.7 604) [id number] 09:47:00 Test Item Value Reference Range Interpretation Comments MAGNESIUM (BEAKER) (test code = 1.9 mg/dL 1.6-2.6 627) BASIC METABOLIC [id number] 09:47:00 Test Item Value Reference Range Interpretation Comments SODIUM (BEAKER) 136 meq/L 136-145 (test code = 381) POTASSIUM (BEAKER) 4.1 meq/L 3.5-5.1 (test code = 379) CHLORIDE (BEAKER) 104 meq/L 98-107 (test code = 382) CO2 (BEAKER) (test 22 meq/L 22-29 code = 355) BLOOD UREA NITROGEN 14 mg/dL 7-21 (BEAKER) (test code = 354) CREATININE (BEAKER) 1.48 mg/dL 0.57-1.25 H (test code = 358) GLUCOSE RANDOM 82 mg/dL 70-105 (BEAKER) (test code = 652) CALCIUM (BEAKER) 8.0 mg/dL 8.4-10.2 L (test code = 697) EGFR (BEAKER) (test 37 mL/min/1.73 ESTIMA NIHARIKA GFR IS code = 1092) sq m NOT ACCURATE CREATININE CLEARANCE IN PREDICTING GLOMERULAR FILTRATION RATE . ESTIMATED GFR I S NOT APPLICABLE FOR DIALYSIS PATIEN TS. Specimen moderately ictericCALCIUM, [id number] 08:00:00 Test Item Value Reference Range Interpretation Comments CALCIUM IONIZED (BEAKER) (test 0.91 mmol/L 1.12-1.27 L code = 698) PH, BLOOD (BEAKER) (test code = 7.44 1810) BLOOD GAS, [id number] 07:59:00 Test Item Value Reference Range Interpretation Comments PH ARTERIAL (BEAKER) (test code = 7.44 7.35-7.45 383) PCO2 ARTERIAL (BEAKER) (test code 38 mmHg 35-45 = 384) PO2 ARTERIAL (BEAKER) (test code = 161 mmHg 80-90 H 385) O2 SATURATION ARTERIAL (BEAKER) 99.1 % 96.0-97.0 H (test code = 386) HCO3 ARTERIAL (BEAKER) (test code 26 mmol/L 21-29 = 388) BASE EXCESS ARTERIAL (BEAKER) 1.2 mmol/L -2.0-3.0 (test code = 387) PATIENT TEMPERATURE (BEAKER) (test 36.7 C code = 1818) FIO2 (BEAKER) (test code = 1819) 40.0 % POCT-GLUCOSE [id number] 06:44:00 Test Item Value Reference Range Interpretation Comments POC-GLUCOSE METER 86 mg/dL 70-110 TESTED AT [facility] 6720 (BEAKER) (test code = [place] [facility] [id number]38) [id number] 06:08:00 Test Item Value Reference Range Interpretation Comments PREALBUMIN (BEAKER) (test code = 16 mg/dL 14-45 586) [id number] 05:28:00 Test Item Value Reference Range Interpretation Comments PHOSPHORUS (BEAKER) (test code = 2.6 mg/dL 2.3-4.7 604) [id number] 05:28:00 Test Item Value Reference Range Interpretation Comments MAGNESIUM (BEAKER) (test code = 1.8 mg/dL 1.6-2.6 627) BASIC METABOLIC [id number] 05:28:00 Test Item Value Reference Range Interpretation Comments SODIUM (BEAKER) 136 meq/L 136-145 (test code = 381) POTASSIUM (BEAKER) 4.1 meq/L 3.5-5.1 (test code = 379) CHLORIDE (BEAKER) 104 meq/L 98-107 (test code = 382) CO2 (BEAKER) (test 22 meq/L 22-29 code = 355) BLOOD UREA NITROGEN 14 mg/dL 7-21 (BEAKER) (test code = 354) CREATININE (BEAKER) 1.49 mg/dL 0.57-1.25 H (test code = 358) GLUCOSE RANDOM 91 mg/dL 70-105 (BEAKER) (test code = 652) CALCIUM (BEAKER) 8.1 mg/dL 8.4-10.2 L (test code = 697) EGFR (BEAKER) (test 36 mL/min/1.73 ESTIMA NIHRAIKA GFR IS code = 1092) sq m NOT ACCURATE CREATININE CLEARANCE IN PREDICTING GLOMERULAR FILTRATION RATE . ESTIMATED GFR I S NOT APPLICABLE FOR DIALYSIS PATIEN TS. Specimen moderately ictericHEPATIC FUNCTION [id number] 05:28:00 Test Item Value Reference Range Interpretation Comments TOTAL PROTEIN (BEAKER) (test code = 4.7 gm/dL 6.0-8.3 L 770) ALBUMIN (BEAKER) (test code = 1145) 2.9 g/dL 3.5-5.0 L BILIRUBIN TOTAL (BEAKER) (test code 6.3 mg/dL 0.2-1.2 H = 377) BILIRUBIN DIRECT (BEAKER) (test 5.1 mg/dL 0.1-0.5 H code = 706) ALKALINE PHOSPHATASE (BEAKER) (test 39 U/L 40-150 L code = 346) AST (SGOT) (BEAKER) (test code = 172 U/L 5-34 H 353) ALT (SGPT) (BEAKER) (test code = 269 U/L 6-55 H 347) Specimen moderately ictericVANCOMYCIN LEVEL, [id number] 05:26:00 Test Item Value Reference Range Interpretation Comments VANCOMYCIN RANDOM (BEAKER) (test 15.3 ug/mL code = 523) Reference Range: No [id number] 05:00:00 Test Item Value Reference Range Interpretation Comments PARTIAL THROMBOPLASTIN TIME 32.3 seconds 22.5-36.0 (BEAKER) (test code = 760) PROTHROMBIN [id number] 04:59:00 Test Item Value Reference Range Interpretation Comments PROTIME (BEAKER) (test code = 15.7 seconds 11.7-14.7 H 759) INR (BEAKER) (test code = 370) 1.3 <=5.9 RECOMMENDED COUMADIN/WARFARIN INR THERAPY RANGESSTANDARD DOSE: 2.0 - 3.0 Includes: PROPHYLAXIS forvenous thrombosis, systemic embolization; TREATMENT for venous thrombosis and/or pulmonary embolus.HIGH RISK: Target INR is 2.5-3.5 for patients with mechanical heart valves.CBC W/PLT COUNT & AUTO DIFFERENTIAL 2017-01-28 04:59:00 Test Item Value Reference Range Interpretation Comments WHITE BLOOD CELL COUNT (BEAKER) 5.3 K/ L 4.0-10.0 (test code = 775) RED BLOOD CELL COUNT (BEAKER) 2.79 M/ L 4.00-5.00 L (test code = 761) HEMOGLOBIN (BEAKER) (test code = 8.9 GM/DL 12.0-15.0 L 410) HEMATOCRIT (BEAKER) (test code = 25.0 % 36.0-45.0 L 411) MEAN CORPUSCULAR VOLUME (BEAKER) 89.8 fL 82.0-99.0 (test code = 753) MEAN CORPUSCULAR HEMOGLOBIN 32.0 pg 27.0-33.0 (BEAKER) (test code = 751) MEAN CORPUSCULAR HEMOGLOBIN CONC 35.7 GM/DL 32.0-36.0 (BEAKER) (test code = 752) RED CELL DISTRIBUTION WIDTH 14.8 % 10.3-14.2 H (BEAKER) (test code = 412) PLATELET COUNT (BEAKER) (test code 15 K/CU MM 150-430 L = 756) MEAN PLATELET VOLUME (BEAKER) 9.3 fL 6.5-10.5 (test code = 754) NUCLEATED RED BLOOD CELLS (BEAKER) 0 /100 WBC 0-0 (test code = 413) NEUTROPHILS RELATIVE PERCENT 79 % (BEAKER) (test code = 429) LYMPHOCYTES RELATIVE PERCENT 12 % (BEAKER) (test code = 430) MONOCYTES RELATIVE PERCENT 9 % (BEAKER) (test code = 431) EOSINOPHILS RELATIVE PERCENT 0 % (BEAKER) (test code = 432) BASOPHILS RELATIVE PERCENT 0 % (BEAKER) (test code = 437) NEUTROPHILS ABSOLUTE COUNT 4.19 K/ L 1.80-8.00 (BEAKER) (test code = 670) LYMPHOCYTES ABSOLUTE COUNT 0.61 K/ L 1.48-4.50 L (BEAKER) (test code = 414) MONOCYTES ABSOLUTE COUNT (BEAKER) 0.46 K/ L 0.00-1.30 (test code = 415) EOSINOPHILS ABSOLUTE COUNT 0.02 K/ L 0.00-0.50 (BEAKER) (test code = 416) BASOPHILS ABSOLUTE COUNT (BEAKER) 0.00 K/ L 0.00-0.20 (test code = 417) BLOOD GAS, [id number] 04:50:00 Test Item Value Reference Range Interpretation Comments PH ARTERIAL (BEAKER) (test code = 7.43 7.35-7.45 383) PCO2 ARTERIAL (BEAKER) (test code 38 mmHg 35-45 = 384) PO2 ARTERIAL (BEAKER) (test code = 166 mmHg 80-90 H 385) O2 SATURATION ARTERIAL (BEAKER) 99.2 % 96.0-97.0 H (test code = 386) HCO3 ARTERIAL (BEAKER) (test code 25 mmol/L 21-29 = 388) BASE EXCESS ARTERIAL (BEAKER) 0.5 mmol/L -2.0-3.0 (test code = 387) PATIENT TEMPERATURE (BEAKER) (test 36.7 C code = 1818) FIO2 (BEAKER) (test code = 1819) 40.0 % POCT-GLUCOSE [id number] 04:34:00 Test Item Value Reference Range Interpretation Comments POC-GLUCOSE METER 98 mg/dL 70-110 TESTED AT [facility] 6720 (BEAKER) (test code = [place] [address] 1538) BASIC METABOLIC [id number] 01:13:00 Test Item Value Reference Range Interpretation Comments SODIUM (BEAKER) 136 meq/L 136-145 (test code = 381) POTASSIUM (BEAKER) 4.2 meq/L 3.5-5.1 (test code = 379) CHLORIDE (BEAKER) 105 meq/L 98-107 (test code = 382) CO2 (BEAKER) (test 23 meq/L 22-29 code = 355) BLOOD UREA NITROGEN 15 mg/dL 7-21 (BEAKER) (test code = 354) CREATININE (BEAKER) 1.48 mg/dL 0.57-1.25 H (test code = 358) GLUCOSE RANDOM 98 mg/dL 70-105 (BEAKER) (test code = 652) CALCIUM (BEAKER) 7.9 mg/dL 8.4-10.2 L (test code = 697) EGFR (BEAKER) (test 37 mL/min/1.73 ESTIMA NIHARIKA GFR IS code = 1092) sq m NOT ACCURATE CREATININE CLEARANCE IN PREDICTING GLOMERULAR FILTRATION RATE . ESTIMATED GFR I S NOT APPLICABLE FOR DIALYSIS PATIEN TS. Specimen moderately [id number] 01:09:00 Test Item Value Reference Range Interpretation Comments PHOSPHORUS (BEAKER) (test code = 3.1 mg/dL 2.3-4.7 604) [id number] 01:09:00 Test Item Value Reference Range Interpretation Comments MAGNESIUM (BEAKER) (test code = 1.9 mg/dL 1.6-2.6 627) POCT-GLUCOSE [id number] 01:07:00 Test Item Value Reference Range Interpretation Comments POC-GLUCOSE METER 95 mg/dL 70-110 TESTED AT [place] [address] ([facility]) (test code = [facility] [address] 1538) CALCIUM, [id number] 00:51:00 Test Item Value Reference Range Interpretation Comments CALCIUM IONIZED (BEAKER) (test 1.13 mmol/L 1.12-1.27 code = 698) PH, BLOOD (BEAKER) (test code = 7.41 1810) HEMOGLOBIN AND [id number] 00:50:00 Test Item Value Reference Range Interpretation Comments HEMOGLOBIN (BEAKER) (test code = 8.7 GM/DL 12.0-15.0 L 410) HEMATOCRIT (BEAKER) (test code = 24.9 % 36.0-45.0 L 411) SURGICALLY OBTAINED CULTURE + GRAM [id number] 23:30:00 Test Item Value Reference Range Interpretation Comments CULTURE (BEAKER) (test code No growth = 1095) GRAM STAIN RESULT (BEAKER) <1+ WBCs (test code = 1123) GRAM STAIN RESULT (BEAKER) No organisms seen (test code = 24154) POCT-GLUCOSE [id number] 22:37:00 Test Item Value Reference Range Interpretation Comments POC-GLUCOSE METER 104 mg/dL 70-110 TESTED AT [facility] 6720 ([facility]) (test code = [facility] 1538) [address] BASIC METABOLIC [id number] 18:36:00 Test Item Value Reference Range Interpretation Comments SODIUM (BEAKER) 136 meq/L 136-145 (test code = 381) POTASSIUM (BEAKER) 4.3 meq/L 3.5-5.1 (test code = 379) CHLORIDE (BEAKER) 105 meq/L 98-107 (test code = 382) CO2 (BEAKER) (test 23 meq/L 22-29 code = 355) BLOOD UREA NITROGEN 16 mg/dL 7-21 (BEAKER) (test code = 354) CREATININE (BEAKER) 1.60 mg/dL 0.57-1.25 H (test code = 358) GLUCOSE RANDOM 136 mg/dL 70-105 H (BEAKER) (test code = 652) CALCIUM (BEAKER) 7.9 mg/dL 8.4-10.2 L (test code = 697) EGFR (BEAKER) (test 33 mL/min/1.73 ESTIMA NIHARIKA GFR IS code = 1092) sq m NOT ACCURATE CREATININE CLEARANCE IN PREDICTING GLOMERULAR FILTRATION RATE . ESTIMATED GFR I S NOT APPLICABLE FOR DIALYSIS PATIEN TS. Specimen moderately [id number] 18:35:00 Test Item Value Reference Range Interpretation Comments PHOSPHORUS (BEAKER) (test code = 2.5 mg/dL 2.3-4.7 604) [id number] 18:35:00 Test Item Value Reference Range Interpretation Comments MAGNESIUM (BEAKER) (test code = 2.1 mg/dL 1.6-2.6 627) HEMOGLOBIN AND [id number] 18:26:00 Test Item Value Reference Range Interpretation Comments HEMOGLOBIN (BEAKER) (test code = 8.8 GM/DL 12.0-15.0 L 410) HEMATOCRIT (BEAKER) (test code = 24.4 % 36.0-45.0 L 411) CALCIUM, [id number] 18:13:00 Test Item Value Reference Range Interpretation Comments CALCIUM IONIZED (BEAKER) (test 1.12 mmol/L 1.12-1.27 code = 698) PH, BLOOD (BEAKER) (test code = 7.43 1810) POCT-GLUCOSE [id number] 18:09:00 Test Item Value Reference Range Interpretation Comments POC-GLUCOSE METER 152 mg/dL 70-110 H TESTED AT [facility] 6720 (BEAKER) (test code = SHANITA Marvin [facility] 1538) [id number] POCT-GLUCOSE [id number] 15:53:00 Test Item Value Reference Range Interpretation Comments POC-GLUCOSE METER 168 mg/dL 70-110 H TESTED AT [place] [address] ([facility]) (test code = SHANITA Marvin [facility] 1538) [id number] POCT-GLUCOSE [id number] 13:01:00 Test Item Value Reference Range Interpretation Comments POC-GLUCOSE METER 141 mg/dL 70-110 H TESTED AT [place] [address] ([facility]) (test code = SHANITA Marvin [facility] 1538) [id number] POCT-GLUCOSE [id number] 11:56:00 Test Item Value Reference Range Interpretation Comments POC-GLUCOSE METER 149 mg/dL 70-110 H TESTED AT [place] [address] ([facility]) (test code = SHANITA Marvin [facility] 1538) [id number] 11:16:00 Test Item Value Reference Range Interpretation Comments PHOSPHORUS (BEAKER) (test code = 3.3 mg/dL 2.3-4.7 604) [id number] 11:16:00 Test Item Value Reference Range Interpretation Comments MAGNESIUM (BEAKER) (test code = 1.7 mg/dL 1.6-2.6 627) [id number] 11:11:00 Test Item Value Reference Range Interpretation Comments POTASSIUM (BEAKER) (test code = 4.1 meq/L 3.5-5.1 379) PRN - repeat potassium levels every 1 hour until glucose level is less than 450 mg/dLHEMOGLOBIN AND [id number] 11:05:00 Test Item Value Reference Range Interpretation Comments HEMOGLOBIN (BEAKER) (test code = 9.5 GM/DL 12.0-15.0 L 410) HEMATOCRIT (BEAKER) (test code = 26.8 % 36.0-45.0 L 411) POTASSIUM-STAT [id number] 10:53:00 Test Item Value Reference Range Interpretation Comments POTASSIUM (BEAKER) (test code = 4.0 meq/L 3.6-5.5 379) BLOOD GAS, [id number] 10:53:00 Test Item Value Reference Range Interpretation Comments PH ARTERIAL (BEAKER) (test code = 7.36 7.35-7.45 383) PCO2 ARTERIAL (BEAKER) (test code 39 mmHg 35-45 = 384) PO2 ARTERIAL (BEAKER) (test code 78 mmHg 80-90 L = 385) O2 SATURATION ARTERIAL (BEAKER) 95.6 % 96.0-97.0 L (test code = 386) HCO3 ARTERIAL (BEAKER) (test code 22 mmol/L 21-29 = 388) BASE EXCESS ARTERIAL (BEAKER) -3.5 mmol/L -2.0-3.0 L (test code = 387) PATIENT TEMPERATURE (BEAKER) 36.1 C (test code = 1818) FIO2 (BEAKER) (test code = 1819) 40.0 % SODIUM NA-STAT [id number] 10:53:00 Test Item Value Reference Range Interpretation Comments SODIUM (BEAKER) (test code = 381) 134 meq/L 135-148 L CALCIUM, [id number] 10:53:00 Test Item Value Reference Range Interpretation Comments CALCIUM IONIZED (BEAKER) (test 1.10 mmol/L 1.12-1.27 L code = 698) PH, BLOOD (BEAKER) (test code = 7.35 1810) TACROLIMUS [id number] 08:49:00 Test Item Value Reference Range Interpretation Comments TACROLIMUS BLOOD (BEAKER) (test 5.2 ng/mL 10.0-20.0 L code = 657) BLOOD GAS, [id number] 08:35:00 Test Item Value Reference Range Interpretation Comments PH ARTERIAL (BEAKER) (test code = 7.36 7.35-7.45 383) PCO2 ARTERIAL (BEAKER) (test code 42 mmHg 35-45 = 384) PO2 ARTERIAL (BEAKER) (test code 134 mmHg 80-90 H = 385) O2 SATURATION ARTERIAL (BEAKER) 98.7 % 96.0-97.0 H (test code = 386) HCO3 ARTERIAL (BEAKER) (test code 24 mmol/L 21-29 = 388) BASE EXCESS ARTERIAL (BEAKER) -1.7 mmol/L -2.0-3.0 (test code = 387) PATIENT TEMPERATURE (BEAKER) 35.2 C (test code = 1818) FIO2 (BEAKER) (test code = 1819) 100.0 % GLUCOSE-STAT [id number] 08:35:00 Test Item Value Reference Range Interpretation Comments GLUCOSE RANDOM (BEAKER) (test code 111 mg/dL 70-110 H = 652) SODIUM NA-STAT [id number] 08:35:00 Test Item Value Reference Range Interpretation Comments SODIUM (BEAKER) (test code = 381) 133 meq/L 135-148 L HGB/HCT (H&H) - STAT [id number] 08:35:00 Test Item Value Reference Range Interpretation Comments HEMOGLOBIN (BEAKER) (test code = 7.0 g/dL 12.0-15.0 L 410) HEMATOCRIT (BEAKER) (test code = 21.0 % 36.0-45.0 L 411) POTASSIUM-STAT [id number] 08:34:00 Test Item Value Reference Range Interpretation Comments POTASSIUM (BEAKER) (test code = 3.9 meq/L 3.6-5.5 379) HEMOGLOBIN AND [id number] 07:57:00 Test Item Value Reference Range Interpretation Comments HEMOGLOBIN (BEAKER) (test code = 9.2 GM/DL 12.0-15.0 L 410) HEMATOCRIT (BEAKER) (test code = 25.1 % 36.0-45.0 L 411) POCT-GLUCOSE [id number] 07:46:00 Test Item Value Reference Range Interpretation Comments POC-GLUCOSE METER 113 mg/dL 70-110 H TESTED AT [facility] 6720 (BEAKER) (test code = [place] 1538) [id number] CBC W/PLT COUNT & AUTO [id number] 07:09:00 Test Item Value Reference Range Interpretation Comments WHITE BLOOD CELL COUNT (BEAKER) 11.7 K/ L 4.0-10.0 H (test code = 775) RED BLOOD CELL COUNT (BEAKER) 2.44 M/ L 4.00-5.00 L (test code = 761) HEMOGLOBIN (BEAKER) (test code = 7.6 GM/DL 12.0-15.0 L 410) HEMATOCRIT (BEAKER) (test code = 22.0 % 36.0-45.0 L 411) MEAN CORPUSCULAR VOLUME (BEAKER) 90.3 fL 82.0-99.0 (test code = 753) MEAN CORPUSCULAR HEMOGLOBIN 31.1 pg 27.0-33.0 (BEAKER) (test code = 751) MEAN CORPUSCULAR HEMOGLOBIN CONC 34.5 GM/DL 32.0-36.0 (BEAKER) (test code = 752) RED CELL DISTRIBUTION WIDTH 15.4 % 10.3-14.2 H (BEAKER) (test code = 412) PLATELET COUNT (BEAKER) (test code 25 K/CU MM 150-430 L = 756) MEAN PLATELET VOLUME (BEAKER) 11.1 fL 6.5-10.5 H (test code = 754) NUCLEATED RED BLOOD CELLS (BEAKER) 0 /100 WBC 0-0 (test code = 413) NEUTROPHILS RELATIVE PERCENT 79 % (BEAKER) (test code = 429) LYMPHOCYTES RELATIVE PERCENT 12 % (BEAKER) (test code = 430) MONOCYTES RELATIVE PERCENT 9 % (BEAKER) (test code = 431) EOSINOPHILS RELATIVE PERCENT 0 % (BEAKER) (test code = 432) BASOPHILS RELATIVE PERCENT 0 % (BEAKER) (test code = 437) NEUTROPHILS ABSOLUTE COUNT 9.20 K/ L 1.80-8.00 H (BEAKER) (test code = 670) LYMPHOCYTES ABSOLUTE COUNT 1.40 K/ L 1.48-4.50 L (BEAKER) (test code = 414) MONOCYTES ABSOLUTE COUNT (BEAKER) 1.02 K/ L 0.00-1.30 (test code = 415) EOSINOPHILS ABSOLUTE COUNT 0.05 K/ L 0.00-0.50 (BEAKER) (test code = 416) BASOPHILS ABSOLUTE COUNT (BEAKER) 0.00 K/ L 0.00-0.20 (test code = 417) VANCOMYCIN LEVEL, [id number] 06:25:00 Test Item Value Reference Range Interpretation Comments VANCOMYCIN RANDOM (BEAKER) (test 12.6 ug/mL code = 523) Reference Range: No NormalsHEPATIC FUNCTION [id number] 05:45:00 Test Item Value Reference Range Interpretation Comments TOTAL PROTEIN (BEAKER) (test code = 4.8 gm/dL 6.0-8.3 L 770) ALBUMIN (BEAKER) (test code = 1145) 3.0 g/dL 3.5-5.0 L BILIRUBIN TOTAL (BEAKER) (test code 6.9 mg/dL 0.2-1.2 H = 377) BILIRUBIN DIRECT (BEAKER) (test 5.5 mg/dL 0.1-0.5 H code = 706) ALKALINE PHOSPHATASE (BEAKER) (test 41 U/L 40-150 code = 346) AST (SGOT) (BEAKER) (test code = 279 U/L 5-34 H 353) ALT (SGPT) (BEAKER) (test code = 504 U/L 6-55 H 347) Specimen moderately [id number] 05:43:00 Test Item Value Reference Range Interpretation Comments PHOSPHORUS (BEAKER) (test code = 2.9 mg/dL 2.3-4.7 604) [id number] 05:43:00 Test Item Value Reference Range Interpretation Comments MAGNESIUM (BEAKER) (test code = 2.2 mg/dL 1.6-2.6 627) BASIC METABOLIC [id number] 05:43:00 Test Item Value Reference Range Interpretation Comments SODIUM (BEAKER) 135 meq/L 136-145 L (test code = 381) POTASSIUM (BEAKER) 4.0 meq/L 3.5-5.1 (test code = 379) CHLORIDE (BEAKER) 104 meq/L 98-107 (test code = 382) CO2 (BEAKER) (test 21 meq/L 22-29 L code = 355) BLOOD UREA NITROGEN 17 mg/dL 7-21 (BEAKER) (test code = 354) CREATININE (BEAKER) 1.59 mg/dL 0.57-1.25 H (test code = 358) GLUCOSE RANDOM 114 mg/dL 70-105 H (BEAKER) (test code = 652) CALCIUM (BEAKER) 8.4 mg/dL 8.4-10.2 (test code = 697) EGFR (BEAKER) (test 34 mL/min/1.73 ESTIMA NIHARIKA GFR IS code = 1092) sq m NOT ACCURATE CREATININE CLEARANCE IN PREDICTING GLOMERULAR FILTRATION RATE . ESTIMATED GFR I S NOT APPLICABLE FOR DIALYSIS PATIEN TS. Specimen moderately ictericHEMOGLOBIN AND [id number] 05:20:00 Test Item Value Reference Range Interpretation Comments HEMOGLOBIN (BEAKER) (test code = 7.6 GM/DL 12.0-15.0 L 410) HEMATOCRIT (BEAKER) (test code = 22.0 % 36.0-45.0 L 411) PROTHROMBIN [id number] 05:16:00 Test Item Value Reference Range Interpretation Comments PROTIME (BEAKER) (test code = 16.4 seconds 11.7-14.7 H 759) INR (BEAKER) (test code = 370) 1.3 <=5.9 RECOMMENDED COUMADIN/WARFARIN INR THERAPY RANGESSTANDARD DOSE: 2.0 - 3.0 Includes: PROPHYLAXIS forvenous thrombosis, systemic embolization; TREATMENT for venous thrombosis and/or pulmonary embolus.HIGH RISK: Target INR is 2.5-3.5 for patients with mechanical heart valves.PT/[id number] 05:16:00 Test Item Value Reference Range Interpretation Comments PROTIME (BEAKER) (test code = 16.4 seconds 11.7-14.7 H 759) INR (BEAKER) (test code = 370) 1.3 <=5.9 PARTIAL THROMBOPLASTIN TIME 33.6 seconds 22.5-36.0 (BEAKER) (test code = 760) RECOMMENDED COUMADIN/WARFARIN INR THERAPY RANGESSTANDARD DOSE: 2.0 - 3.0 Includes: PROPHYLAXIS forvenous thrombosis, systemic embolization; TREATMENT for venous thrombosis and/or pulmonary embolus.HIGH RISK: Target INR is 2.5-3.5 for patients with mechanical heart valves.[id number] 05:16:00 Test Item Value Reference Range Interpretation Comments PARTIAL THROMBOPLASTIN TIME 33.6 seconds 22.5-36.0 (BEAKER) (test code = 760) BLOOD GAS, [id number] 05:07:00 Test Item Value Reference Range Interpretation Comments PH ARTERIAL (BEAKER) (test code = 7.40 7.35-7.45 383) PCO2 ARTERIAL (BEAKER) (test code 40 mmHg 35-45 = 384) PO2 ARTERIAL (BEAKER) (test code 131 mmHg 80-90 H = 385) O2 SATURATION ARTERIAL (BEAKER) 98.6 % 96.0-97.0 H (test code = 386) HCO3 ARTERIAL (BEAKER) (test code 25 mmol/L 21-29 = 388) BASE EXCESS ARTERIAL (BEAKER) -0.3 mmol/L -2.0-3.0 (test code = 387) PATIENT TEMPERATURE (BEAKER) 36.7 C (test code = 1818) FIO2 (BEAKER) (test code = 1819) 40.0 % POCT-GLUCOSE [id number] 02:47:00 Test Item Value Reference Range Interpretation Comments POC-GLUCOSE METER 131 mg/dL 70-110 H TESTED AT [facility] 67[address] (BEAKER) (test code = [place] 1538) [id number] POCT-GLUCOSE [id number] 02:47:00 Test Item Value Reference Range Interpretation Comments POC-GLUCOSE METER 136 mg/dL 70-110 H TESTED AT [facility] 6720 (BEAKER) (test code = SHANITA [place] 1538) [id number] 01:01:00 Test Item Value Reference Range Interpretation Comments PHOSPHORUS (BEAKER) (test code = 3.6 mg/dL 2.3-4.7 604) [id number] 01:01:00 Test Item Value Reference Range Interpretation Comments MAGNESIUM (BEAKER) (test code = 1.7 mg/dL 1.6-2.6 627) BASIC METABOLIC [id number] 01:01:00 Test Item Value Reference Range Interpretation Comments SODIUM (BEAKER) 135 meq/L 136-145 L (test code = 381) POTASSIUM (BEAKER) 4.0 meq/L 3.5-5.1 (test code = 379) CHLORIDE (BEAKER) 106 meq/L 98-107 (test code = 382) CO2 (BEAKER) (test 22 meq/L 22-29 code = 355) BLOOD UREA NITROGEN 17 mg/dL 7-21 (BEAKER) (test code = 354) CREATININE (BEAKER) 1.64 mg/dL 0.57-1.25 H (test code = 358) GLUCOSE RANDOM 116 mg/dL 70-105 H (BEAKER) (test code = 652) CALCIUM (BEAKER) 8.1 mg/dL 8.4-10.2 L (test code = 697) EGFR (BEAKER) (test 33 mL/min/1.73 ESTIMA NIHARIKA GFR IS code = 1092) sq m NOT ACCURATE CREATININE CLEARANCE IN PREDICTING GLOMERULAR FILTRATION RATE . ESTIMATED GFR I S NOT APPLICABLE FOR DIALYSIS PATIEN TS. Specimen moderately ictericHEMOGLOBIN AND [id number] 00:51:00 Test Item Value Reference Range Interpretation Comments HEMOGLOBIN (BEAKER) (test code = 7.7 GM/DL 12.0-15.0 L 410) HEMATOCRIT (BEAKER) (test code = 21.8 % 36.0-45.0 L 411) CALCIUM, [id number] 00:42:00 Test Item Value Reference Range Interpretation Comments CALCIUM IONIZED (BEAKER) (test 1.15 mmol/L 1.12-1.27 code = 698) PH, BLOOD (BEAKER) (test code = 7.38 1810) POCT-GLUCOSE [id number] 00:26:00 Test Item Value Reference Range Interpretation Comments POC-GLUCOSE METER 142 mg/dL 70-110 H TESTED AT [facility] 6720 (BEAKER) ([facility] 1538) [address] HEMOGLOBIN AND [id number] 22:29:00 Test Item Value Reference Range Interpretation Comments HEMOGLOBIN (BEAKER) (test code = 8.6 GM/DL 12.0-15.0 L 410) HEMATOCRIT (BEAKER) (test code = 24.7 % 36.0-45.0 L 411) POCT-GLUCOSE [id number] 18:48:00 Test Item Value Reference Range Interpretation Comments POC-GLUCOSE METER 174 mg/dL 70-110 H TESTED AT [facility] 6720 (BEAKER) (test code = [facility] 1538) [address] BLOOD [id number] 18:00:00 Test Item Value Reference Range Interpretation Comments CULTURE (BEAKER) (test No growth in 5 days code = 1095) BLOOD [id number] 18:00:00 Test Item Value Reference Range Interpretation Comments CULTURE (BEAKER) (test No growth in 5 days code = 1095) BASIC METABOLIC [id number] 17:14:00 Test Item Value Reference Range Interpretation Comments SODIUM (BEAKER) 136 meq/L 136-145 (test code = 381) POTASSIUM (BEAKER) 4.2 meq/L 3.5-5.1 (test code = 379) CHLORIDE (BEAKER) 107 meq/L 98-107 (test code = 382) CO2 (BEAKER) (test 21 meq/L 22-29 L code = 355) BLOOD UREA NITROGEN 20 mg/dL 7-21 (BEAKER) (test code = 354) CREATININE (BEAKER) 1.96 mg/dL 0.57-1.25 H (test code = 358) GLUCOSE RANDOM 153 mg/dL 70-105 H (BEAKER) (test code = 652) CALCIUM (BEAKER) 9.0 mg/dL 8.4-10.2 (test code = 697) EGFR (BEAKER) (test 26 mL/min/1.73 ESTIMA NIHARIKA GFR IS code = 1092) sq m NOT ACCURATE CREATININE CLEARANCE IN PREDICTING GLOMERULAR FILTRATION RATE . ESTIMATED GFR I S NOT APPLICABLE FOR DIALYSIS PATIEN TS. Specimen moderately [id number] 17:03:00 Test Item Value Reference Range Interpretation Comments PHOSPHORUS (BEAKER) (test code = 4.0 mg/dL 2.3-4.7 604) [id number] 17:03:00 Test Item Value Reference Range Interpretation Comments MAGNESIUM (BEAKER) (test code = 1.9 mg/dL 1.6-2.6 627) HEMOGLOBIN AND [id number] 16:53:00 Test Item Value Reference Range Interpretation Comments HEMOGLOBIN (BEAKER) (test code = 9.6 GM/DL 12.0-15.0 L 410) HEMATOCRIT (BEAKER) (test code = 26.7 % 36.0-45.0 L 411) CALCIUM, [id number] 16:47:00 Test Item Value Reference Range Interpretation Comments CALCIUM IONIZED (BEAKER) (test 1.12 mmol/L 1.12-1.27 code = 698) PH, BLOOD (BEAKER) (test code = 7.39 1810) POCT-GLUCOSE [id number] 16:45:00 Test Item Value Reference Range Interpretation Comments POC-GLUCOSE METER 160 mg/dL 70-110 H TESTED AT [place] [address] ([facility]) (test code = SHANITA Marvin [facility] 1538) [address] POCT-GLUCOSE [id number] 14:42:00 Test Item Value Reference Range Interpretation Comments POC-GLUCOSE METER 170 mg/dL 70-110 H TESTED AT [place] [address] ([facility]) (test code = SHANITA Marvin [facility] 1538) [address] POCT-GLUCOSE [id number] 13:44:00 Test Item Value Reference Range Interpretation Comments POC-GLUCOSE METER 172 mg/dL 70-110 H TESTED AT [place] [address] ([facility]) (test code = [facility] 1538) [address] HEMOGLOBIN AND [id number] 13:33:00 Test Item Value Reference Range Interpretation Comments HEMOGLOBIN (BEAKER) (test code = 10.0 GM/DL 12.0-15.0 L 410) HEMATOCRIT (BEAKER) (test code = 28.4 % 36.0-45.0 L 411) POCT-GLUCOSE [id number] 12:49:00 Test Item Value Reference Range Interpretation Comments POC-GLUCOSE METER 173 mg/dL 70-110 H TESTED AT [place] [address] ([facility]) (test code = [facility] 1538) [address] POCT-GLUCOSE [id number] 12:49:00 Test Item Value Reference Range Interpretation Comments POC-GLUCOSE METER 173 mg/dL 70-110 H TESTED AT [place] [address] ([facility]) (test code = [facility] 1538) [address] [id number] 11:48:00 Test Item Value Reference Range Interpretation Comments MAGNESIUM (BEAKER) (test code = 1.9 mg/dL 1.6-2.6 627) POCT-GLUCOSE [id number] 10:45:00 Test Item Value Reference Range Interpretation Comments POC-GLUCOSE METER 162 mg/dL 70-110 H TESTED AT [place] [address] ([facility]) (test code = [facility] 1538) [address] BASIC METABOLIC [id number] 09:46:00 Test Item Value Reference Range Interpretation Comments SODIUM (BEAKER) 139 meq/L 136-145 (test code = 381) POTASSIUM (BEAKER) 4.2 meq/L 3.5-5.1 (test code = 379) CHLORIDE (BEAKER) 109 meq/L 98-107 H (test code = 382) CO2 (BEAKER) (test 21 meq/L 22-29 L code = 355) BLOOD UREA NITROGEN 23 mg/dL 7-21 H (BEAKER) (test code = 354) CREATININE (BEAKER) 2.31 mg/dL 0.57-1.25 H (test code = 358) GLUCOSE RANDOM 125 mg/dL 70-105 H (BEAKER) (test code = 652) CALCIUM (BEAKER) 8.1 mg/dL 8.4-10.2 L (test code = 697) EGFR (BEAKER) (test 22 mL/min/1.73 ESTIMA NIHARIKA GFR IS code = 1092) sq m NOT ACCURATE CREATININE CLEARANCE IN PREDICTING GLOMERULAR FILTRATION RATE . ESTIMATED GFR I S NOT APPLICABLE FOR DIALYSIS PATIEN TS. Specimen moderately [id number] 09:30:00 Test Item Value Reference Range Interpretation Comments PHOSPHORUS (BEAKER) (test code = 4.0 mg/dL 2.3-4.7 604) TACROLIMUS [id number] 09:25:00 Test Item Value Reference Range Interpretation Comments TACROLIMUS BLOOD (BEAKER) (test code < ng/mL 10.0-20.0 L = 657) URINE [id number] 09:24:00 Test Item Value Reference Range Interpretation Comments CULTURE (BEAKER) (test code = 1095) No growth CALCIUM, [id number] 08:47:00 Test Item Value Reference Range Interpretation Comments CALCIUM IONIZED (BEAKER) (test 1.02 mmol/L 1.12-1.27 L code = 698) PH, BLOOD (BEAKER) (test code = 7.37 1810) HEMOGLOBIN AND [id number] 08:28:00 Test Item Value Reference Range Interpretation Comments HEMOGLOBIN (BEAKER) (test code = 8.1 GM/DL 12.0-15.0 L 410) HEMATOCRIT (BEAKER) (test code = 23.7 % 36.0-45.0 L 411) POCT-GLUCOSE [id number] 07:15:00 Test Item Value Reference Range Interpretation Comments POC-GLUCOSE METER 142 mg/dL 70-110 H TESTED AT [facility] 6720 (BEAKER) (test code = [place] 1538) [address] CBC W/PLT COUNT & AUTO [id number] 06:02:00 Test Item Value Reference Range Interpretation Comments WHITE BLOOD CELL COUNT (BEAKER) 7.0 K/ L 4.0-10.0 (test code = 775) RED BLOOD CELL COUNT (BEAKER) 2.26 M/ L 4.00-5.00 L (test code = 761) HEMOGLOBIN (BEAKER) (test code = 7.4 GM/DL 12.0-15.0 L 410) HEMATOCRIT (BEAKER) (test code = 20.7 % 36.0-45.0 L 411) MEAN CORPUSCULAR VOLUME (BEAKER) 91.5 fL 82.0-99.0 (test code = 753) MEAN CORPUSCULAR HEMOGLOBIN 32.6 pg 27.0-33.0 (BEAKER) (test code = 751) MEAN CORPUSCULAR HEMOGLOBIN CONC 35.6 GM/DL 32.0-36.0 (BEAKER) (test code = 752) RED CELL DISTRIBUTION WIDTH 17.1 % 10.3-14.2 H (BEAKER) (test code = 412) PLATELET COUNT (BEAKER) (test code 22 K/CU MM 150-430 L = 756) MEAN PLATELET VOLUME (BEAKER) 9.1 fL 6.5-10.5 (test code = 754) NUCLEATED RED BLOOD CELLS (BEAKER) 0 /100 WBC 0-0 (test code = 413) NEUTROPHILS RELATIVE PERCENT 76 % (BEAKER) (test code = 429) LYMPHOCYTES RELATIVE PERCENT 14 % (BEAKER) (test code = 430) MONOCYTES RELATIVE PERCENT 9 % (BEAKER) (test code = 431) EOSINOPHILS RELATIVE PERCENT 1 % (BEAKER) (test code = 432) BASOPHILS RELATIVE PERCENT 0 % (BEAKER) (test code = 437) NEUTROPHILS ABSOLUTE COUNT 5.34 K/ L 1.80-8.00 (BEAKER) (test code = 670) LYMPHOCYTES ABSOLUTE COUNT 1.01 K/ L 1.48-4.50 L (BEAKER) (test code = 414) MONOCYTES ABSOLUTE COUNT (BEAKER) 0.65 K/ L 0.00-1.30 (test code = 415) EOSINOPHILS ABSOLUTE COUNT 0.04 K/ L 0.00-0.50 (BEAKER) (test code = 416) BASOPHILS ABSOLUTE COUNT (BEAKER) 0.01 K/ L 0.00-0.20 (test code = 417) [id number] 05:26:00 Test Item Value Reference Range Interpretation Comments PHOSPHORUS (BEAKER) (test code = 4.9 mg/dL 2.3-4.7 H 604) [id number] 05:26:00 Test Item Value Reference Range Interpretation Comments MAGNESIUM (BEAKER) (test code = 1.8 mg/dL 1.6-2.6 627) HEPATIC FUNCTION [id number] 05:26:00 Test Item Value Reference Range Interpretation Comments TOTAL PROTEIN (BEAKER) (test code = 3.4 gm/dL 6.0-8.3 L 770) ALBUMIN (BEAKER) (test code = 1145) 2.2 g/dL 3.5-5.0 L BILIRUBIN TOTAL (BEAKER) (test code 6.7 mg/dL 0.2-1.2 H = 377) BILIRUBIN DIRECT (BEAKER) (test 5.4 mg/dL 0.1-0.5 H code = 706) ALKALINE PHOSPHATASE (BEAKER) (test 31 U/L 40-150 L code = 346) AST (SGOT) (BEAKER) (test code = 239 U/L 5-34 H 353) ALT (SGPT) (BEAKER) (test code = 356 U/L 6-55 H 347) Specimen moderately ictericBASIC METABOLIC [id number] 05:26:00 Test Item Value Reference Range Interpretation Comments SODIUM (BEAKER) 136 meq/L 136-145 (test code = 381) POTASSIUM (BEAKER) 4.0 meq/L 3.5-5.1 (test code = 379) CHLORIDE (BEAKER) 109 meq/L 98-107 H (test code = 382) CO2 (BEAKER) (test 20 meq/L 22-29 L code = 355) BLOOD UREA NITROGEN 25 mg/dL 7-21 H (BEAKER) (test code = 354) CREATININE (BEAKER) 2.58 mg/dL 0.57-1.25 H (test code = 358) GLUCOSE RANDOM 127 mg/dL 70-105 H (BEAKER) (test code = 652) CALCIUM (BEAKER) 7.8 mg/dL 8.4-10.2 L (test code = 697) EGFR (BEAKER) (test 19 mL/min/1.73 ESTIMA NIHARIKA GFR IS code = 1092) sq m NOT ACCURATE CREATININE CLEARANCE IN PREDICTING GLOMERULAR FILTRATION RATE . ESTIMATED GFR I S NOT APPLICABLE FOR DIALYSIS PATIEN TS. Specimen moderately ictericVANCOMYCIN LEVEL, [id number] 05:20:00 Test Item Value Reference Range Interpretation Comments VANCOMYCIN RANDOM (BEAKER) (test 28.3 ug/mL code = 523) Reference Range: No NormalsPROTHROMBIN [id number] 05:00:00 Test Item Value Reference Range Interpretation Comments PROTIME (BEAKER) (test code = 24.3 seconds 11.7-14.7 H 759) INR (BEAKER) (test code = 370) 2.2 <=5.9 RECOMMENDED COUMADIN/WARFARIN INR THERAPY RANGESSTANDARD DOSE: 2.0 - 3.0 Includes: PROPHYLAXIS forvenous thrombosis, systemic embolization; TREATMENT for venous thrombosis and/or pulmonary embolus.HIGH RISK: Target INR is 2.5-3.5 for patients with mechanical heart valves.[id number] 05:00:00 Test Item Value Reference Range Interpretation Comments PARTIAL THROMBOPLASTIN TIME 46.0 seconds 22.5-36.0 H (BEAKER) (test code = 760) BLOOD GAS, [id number] 04:53:00 Test Item Value Reference Range Interpretation Comments PH ARTERIAL (BEAKER) (test code = 7.41 7.35-7.45 383) PCO2 ARTERIAL (BEAKER) (test code 35 mmHg 35-45 = 384) PO2 ARTERIAL (BEAKER) (test code 111 mmHg 80-90 H = 385) O2 SATURATION ARTERIAL (BEAKER) 98.3 % 96.0-97.0 H (test code = 386) HCO3 ARTERIAL (BEAKER) (test code 22 mmol/L 21-29 = 388) BASE EXCESS ARTERIAL (BEAKER) -2.3 mmol/L -2.0-3.0 L (test code = 387) PATIENT TEMPERATURE (BEAKER) 35.7 C (test code = 1818) FIO2 (BEAKER) (test code = 1819) 40.0 % GLUCOSE-STAT [id number] 04:53:00 Test Item Value Reference Range Interpretation Comments GLUCOSE RANDOM (BEAKER) (test code 124 mg/dL 70-110 H = 652) HGB/HCT (H&H) - STAT [id number] 04:53:00 Test Item Value Reference Range Interpretation Comments HEMOGLOBIN (BEAKER) (test code = 7.0 g/dL 12.0-15.0 L 410) HEMATOCRIT (BEAKER) (test code = 21.0 % 36.0-45.0 L 411) POCT-GLUCOSE [id number] 04:50:00 Test Item Value Reference Range Interpretation Comments POC-GLUCOSE METER 150 mg/dL 70-110 H TESTED AT [facility] 6720 (BEAKER) (test code = SHANITA Marvin [place] 1538) [id number] POCT-GLUCOSE [id number] 04:46:00 Test Item Value Reference Range Interpretation Comments POC-GLUCOSE METER 140 mg/dL 70-110 H TESTED AT [facility] 6720 (BEAKER) (test code = SHANITA Marvin [place] 1538) [id number] HEMOGLOBIN AND [id number] 01:31:00 Test Item Value Reference Range Interpretation Comments HEMOGLOBIN (BEAKER) (test code = 7.7 GM/DL 12.0-15.0 L 410) HEMATOCRIT (BEAKER) (test code = 20.8 % 36.0-45.0 L 411) BASIC METABOLIC [id number] 01:11:00 Test Item Value Reference Range Interpretation Comments SODIUM (BEAKER) 138 meq/L 136-145 (test code = 381) POTASSIUM (BEAKER) 4.0 meq/L 3.5-5.1 (test code = 379) CHLORIDE (BEAKER) 110 meq/L 98-107 H (test code = 382) CO2 (BEAKER) (test 21 meq/L 22-29 L code = 355) BLOOD UREA NITROGEN 26 mg/dL 7-21 H (BEAKER) (test code = 354) CREATININE (BEAKER) 2.78 mg/dL 0.57-1.25 H (test code = 358) GLUCOSE RANDOM 137 mg/dL 70-105 H (BEAKER) (test code = 652) CALCIUM (BEAKER) 8.2 mg/dL 8.4-10.2 L (test code = 697) EGFR (BEAKER) (test 18 mL/min/1.73 ESTIMA NIHARIKA GFR IS code = 1092) sq m NOT ACCURATE CREATININE CLEARANCE IN PREDICTING GLOMERULAR FILTRATION RATE . ESTIMATED GFR I S NOT APPLICABLE FOR DIALYSIS PATIEN TS. Specimen moderately [id number] 01:01:00 Test Item Value Reference Range Interpretation Comments PHOSPHORUS (BEAKER) (test code = 5.0 mg/dL 2.3-4.7 H 604) [id number] 01:01:00 Test Item Value Reference Range Interpretation Comments MAGNESIUM (BEAKER) (test code = 2.4 mg/dL 1.6-2.6 627) CALCIUM, [id number] 00:24:00 Test Item Value Reference Range Interpretation Comments CALCIUM IONIZED ([facility]) (test 1.20 mmol/L 1.12-1.27 code = 698) PH, BLOOD ([facility]) (test code = 7.44 1810) [id number] 23:04:00 Test Item Value Reference Range Interpretation Comments POTASSIUM ([facility]) (test code = 4.2 meq/L 3.5-5.1 379) PRN - repeat potassium levels every 1 hour until glucose level is less than 450 mg/dLPOCT-GLUCOSE [id number] 22:50:00 Test Item Value Reference Range Interpretation Comments POC-GLUCOSE METER 155 mg/dL 70-110 H TESTED AT [place] [address] ([facility]) (test code = RENETTALYNN Marvin [facility] 1538) [id number] POCT-GLUCOSE [id number] 22:00:00 Test Item Value Reference Range Interpretation Comments POC-GLUCOSE METER 142 mg/dL 70-110 H TESTED AT [place] [address] ([facility]) (test code = SHANITA Marvin [facility] 1538) [id number] POCT-GLUCOSE [id number] 21:12:00 Test Item Value Reference Range Interpretation Comments POC-GLUCOSE METER 140 mg/dL 70-110 H TESTED AT [place] [address] ([facility]) (test code = [facility] Shavonne [facility] 1538) [id number] PROTHROMBIN [id number] 20:27:00 Test Item Value Reference Range Interpretation Comments PROTIME ([facility]) (test code = 22.0 seconds 11.7-14.7 H 759) INR ([facility]) (test code = 370) 1.9 <=5.9 RECOMMENDED COUMADIN/WARFARIN INR THERAPY RANGESSTANDARD DOSE: 2.0 - 3.0 Includes: PROPHYLAXIS forvenous thrombosis, systemic embolization; TREATMENT for venous thrombosis and/or pulmonary embolus.HIGH RISK: Target INR is 2.5-3.5 for patients with mechanical heart valves.HEMOGLOBIN AND [id number] 20:21:00 Test Item Value Reference Range Interpretation Comments HEMOGLOBIN ([facility]) (test code = 10.5 GM/DL 12.0-15.0 L 410) HEMATOCRIT ([facility]) (test code = 29.1 % 36.0-45.0 L 411) POCT-GLUCOSE [id number] 20:11:00 Test Item Value Reference Range Interpretation Comments POC-GLUCOSE METER 154 mg/dL 70-110 H TESTED AT [place] [address] (BEAKER) (test code = SHANITA Marvin [place] 1538) [id number] POCT-GLUCOSE [id number] 19:03:00 Test Item Value Reference Range Interpretation Comments POC-GLUCOSE METER 157 mg/dL 70-110 H TESTED AT [place] [address] (BEAKER) (test code = SHANITA Marvin [place] 1538) [id number] 18:14:00 Test Item Value Reference Range Interpretation Comments MAGNESIUM (BEAKER) (test code = 1.8 mg/dL 1.6-2.6 627) POCT-GLUCOSE [id number] 17:59:00 Test Item Value Reference Range Interpretation Comments POC-GLUCOSE METER 169 mg/dL 70-110 H TESTED AT [place] [address] (BEAKER) (test code = SHANITA Marvin [place] 1538) [address] POCT-GLUCOSE [id number] 17:59:00 Test Item Value Reference Range Interpretation Comments POC-GLUCOSE METER 174 mg/dL 70-110 H TESTED AT [place] [address] (BEAKER) (test code = RENETTAAL Shavonne [place] 15[address]) [address] BASIC METABOLIC [id number] 16:46:00 Test Item Value Reference Range Interpretation Comments SODIUM (BEAKER) 139 meq/L 136-145 (test code = 381) POTASSIUM (BEAKER) 4.3 meq/L 3.5-5.1 (test code = 379) CHLORIDE (BEAKER) 110 meq/L 98-107 H (test code = 382) CO2 (BEAKER) (test 21 meq/L 22-29 L code = 355) BLOOD UREA NITROGEN 27 mg/dL 7-21 H (BEAKER) (test code = 354) CREATININE (BEAKER) 3.07 mg/dL 0.57-1.25 H (test code = 358) GLUCOSE RANDOM 164 mg/dL 70-105 H (BEAKER) (test code = 652) CALCIUM (BEAKER) 9.3 mg/dL 8.4-10.2 (test code = 697) EGFR (BEAKER) (test 16 mL/min/1.73 ESTIMA NIHARIKA GFR IS code = 1092) sq m NOT ACCURATE CREATININE CLEARANCE IN PREDICTING GLOMERULAR FILTRATION RATE . ESTIMATED GFR I S NOT APPLICABLE FOR DIALYSIS PATIEN TS. Specimen markedly [id number] 16:44:00 Test Item Value Reference Range Interpretation Comments PHOSPHORUS (BEAKER) (test code = 5.3 mg/dL 2.3-4.7 H 604) CALCIUM, [id number] 16:14:00 Test Item Value Reference Range Interpretation Comments CALCIUM IONIZED (BEAKER) (test 1.18 mmol/L 1.12-1.27 code = 698) PH, BLOOD (AKER) (test code = 7.42 1810) POCT-GLUCOSE [id number] 16:01:00 Test Item Value Reference Range Interpretation Comments POC-GLUCOSE METER 181 mg/dL 70-110 H TESTED AT [place] [address] ([facility]) (test code = SHANITA Marvin [facility] 1538) [id number] POCT-GLUCOSE [id number] 15:03:00 Test Item Value Reference Range Interpretation Comments POC-GLUCOSE METER 179 mg/dL 70-110 H TESTED AT [place] [address] ([facility]) (test code = RENETTALYNN Marvin [facility] 1538) [address] [id number] 13:50:00 Test Item Value Reference Range Interpretation Comments PHOSPHORUS (BEAKER) (test code = 6.0 mg/dL 2.3-4.7 H 604) CBC W/PLT COUNT & AUTO [id number] 13:43:00 Test Item Value Reference Range Interpretation Comments WHITE BLOOD CELL COUNT (BEAKER) 1.8 K/ L 4.0-10.0 L (test code = 775) RED BLOOD CELL COUNT (BEAKER) 2.22 M/ L 4.00-5.00 L (test code = 761) HEMOGLOBIN (BEAKER) (test code = 7.5 GM/DL 12.0-15.0 L 410) HEMATOCRIT (BEAKER) (test code = 21.3 % 36.0-45.0 L 411) MEAN CORPUSCULAR VOLUME (BEAKER) 96.1 fL 82.0-99.0 (test code = 753) MEAN CORPUSCULAR HEMOGLOBIN 33.7 pg 27.0-33.0 H (BEAKER) (test code = 751) MEAN CORPUSCULAR HEMOGLOBIN CONC 35.0 GM/DL 32.0-36.0 (BEAKER) (test code = 752) RED CELL DISTRIBUTION WIDTH 14.2 % 10.3-14.2 (BEAKER) (test code = 412) PLATELET COUNT (BEAKER) (test code 56 K/CU MM 150-430 L = 756) MEAN PLATELET VOLUME (BEAKER) 7.4 fL 6.5-10.5 (test code = 754) NUCLEATED RED BLOOD CELLS (BEAKER) 0 /100 WBC 0-0 (test code = 413) NEUTROPHILS RELATIVE PERCENT 78 % (BEAKER) (test code = 429) LYMPHOCYTES RELATIVE PERCENT 12 % (BEAKER) (test code = 430) MONOCYTES RELATIVE PERCENT 9 % (BEAKER) (test code = 431) EOSINOPHILS RELATIVE PERCENT 1 % (BEAKER) (test code = 432) BASOPHILS RELATIVE PERCENT 0 % (BEAKER) (test code = 437) NEUTROPHILS ABSOLUTE COUNT 1.41 K/ L 1.80-8.00 L (BEAKER) (test code = 670) LYMPHOCYTES ABSOLUTE COUNT 0.21 K/ L 1.48-4.50 L (BEAKER) (test code = 414) MONOCYTES ABSOLUTE COUNT (BEAKER) 0.17 K/ L 0.00-1.30 (test code = 415) EOSINOPHILS ABSOLUTE COUNT 0.02 K/ L 0.00-0.50 (BEAKER) (test code = 416) BASOPHILS ABSOLUTE COUNT (BEAKER) 0.00 K/ L 0.00-0.20 (test code = 417) 0.00(MANUAL DIFFERENTIAL)2017-01-25 13:43:00 Test Item Value Reference Range Interpretation Comments TOTAL COUNTED (BEAKER) (test code = 1351) WBC MORPHOLOGY (BEAKER) (test code = Normal 487) PLT MORPHOLOGY (BEAKER) (test code = Normal 486) POLYCHROMATOPHILLIC RBCS(BEAKER) (test 1+ few code = 478) POCT-GLUCOSE [id number] 13:14:00 Test Item Value Reference Range Interpretation Comments POC-GLUCOSE METER 231 mg/dL 70-110 H TESTED AT [facility] (BEAKER) (test code = SHANITA [place] 1538) [address] THROMBOELASTOGRAPH (TEG)2017-01-25 12:12:00 Test Item Value Reference Range Interpretation Comments TEG ACTIVATED CLOTTING TIME 7.6 minutes 4.0-7.0 H (BEAKER) (test code = 1407) TEG FIBRINOGEN ACTIVITY (BEAKER) 65.4 degrees 61.0-73.0 (test code = 1408) TEG PLT. AGGREGATION (BEAKER) 55.2 MM 55.0-65.0 (test code = 1409) TEG FIBRINOLYSIS (BEAKER) (test 0.0 % 0.0-5.0 code = 1410) TGH ACTIVATED CLOTTING TIME 7.7 minutes 4.0-7.0 H (BEAKER) (test code = 1411) TGH FIBRINOGEN ACTIVITY (BEAKER) 65.8 degrees 61.0-73.0 (test code = 1412) TGH PLT. AGGREGATION (BEAKER) 55.4 MM 55.0-65.0 (test code = 1413) TGH FIBRINOLYSIS (BEAKER) (test 0.0 % 0.0-5.0 code = 1414) BASIC METABOLIC [id number] 11:57:00 Test Item Value Reference Range Interpretation Comments SODIUM (BEAKER) 141 meq/L 136-145 (test code = 381) POTASSIUM (BEAKER) 4.2 meq/L 3.5-5.1 (test code = 379) CHLORIDE (BEAKER) 110 meq/L 98-107 H (test code = 382) CO2 (BEAKER) (test 21 meq/L 22-29 L code = 355) BLOOD UREA NITROGEN 25 mg/dL 7-21 H (BEAKER) (test code = 354) CREATININE (BEAKER) 3.06 mg/dL 0.57-1.25 H (test code = 358) GLUCOSE RANDOM 220 mg/dL 70-105 H (BEAKER) (test code = 652) CALCIUM (BEAKER) 10.6 mg/dL 8.4-10.2 H (test code = 697) EGFR (BEAKER) (test 16 mL/min/1.73 ESTIMA NIHARIKA GFR IS code = 1092) sq m NOT ACCURATE CREATININE CLEARANCE IN PREDICTING GLOMERULAR FILTRATION RATE . ESTIMATED GFR I S NOT APPLICABLE FOR DIALYSIS PATIEN TS. Specimen markedly [id number] 11:50:00 Test Item Value Reference Range Interpretation Comments MAGNESIUM (BEAKER) (test code = 1.4 mg/dL 1.6-2.6 L 627) LACTIC ACID, ARTERIAL, WHOLE [id number] 11:44:00 Test Item Value Reference Range Interpretation Comments LACTATE BLOOD ARTERIAL (2) 3.0 mmol/L 0.5-2.2 H (BEAKER) (test code = 2874) Effective 11/09/2015: Units/Reference Range ChangeNew: 0.5-2.2 mmol/L Previous: 5-20 mg/dLSpecimen markedly [id number] 11:14:00 Test Item Value Reference Range Interpretation Comments PARTIAL THROMBOPLASTIN TIME 46.6 seconds 22.5-36.0 H (BEAKER) (test code = 760) PROTHROMBIN [id number] 11:13:00 Test Item Value Reference Range Interpretation Comments PROTIME (BEAKER) (test code = 20.8 seconds 11.7-14.7 H 759) INR (BEAKER) (test code = 370) 1.8 <=5.9 RECOMMENDED COUMADIN/WARFARIN INR THERAPY RANGESSTANDARD DOSE: 2.0 - 3.0 Includes: PROPHYLAXIS forvenous thrombosis, systemic embolization; TREATMENT for venous thrombosis and/or pulmonary embolus.HIGH RISK: Target INR is 2.5-3.5 for patients with mechanical heart valves.CALCIUM, [id number] 11:04:00 Test Item Value Reference Range Interpretation Comments CALCIUM IONIZED (BEAKER) (test 1.33 mmol/L 1.12-1.27 H code = 698) PH, BLOOD (BEAKER) (test code = 7.45 2640) BLOOD GAS, [id number] 11:04:00 Test Item Value Reference Range Interpretation Comments PH ARTERIAL (BEAKER) (test code = 7.45 7.35-7.45 383) PCO2 ARTERIAL (BEAKER) (test code 34 mmHg 35-45 L = 384) PO2 ARTERIAL (BEAKER) (test code 291 mmHg 80-90 H = 385) O2 SATURATION ARTERIAL (BEAKER) 99.7 % 96.0-97.0 H (test code = 386) HCO3 ARTERIAL (BEAKER) (test code 23 mmol/L 21-29 = 388) BASE EXCESS ARTERIAL (BEAKER) -0.7 mmol/L -2.0-3.0 (test code = 387) PATIENT TEMPERATURE (BEAKER) 37.0 C (test code = 1818) FIO2 (BEAKER) (test code = 1819) 60.0 % THROMBOELASTOGRAPH (TEG)2017-01-25 09:15:00 Test Item Value Reference Range Interpretation Comments TEG ACTIVATED CLOTTING TIME 8.1 minutes 4.0-7.0 H (BEAKER) (test code = 1407) TEG FIBRINOGEN ACTIVITY (BEAKER) 59.9 degrees 61.0-73.0 L (test code = 1408) TEG PLT. AGGREGATION (BEAKER) 49.7 MM 55.0-65.0 L (test code = 1409) TGH ACTIVATED CLOTTING TIME 6.8 minutes 4.0-7.0 (BEAKER) (test code = 1411) TGH FIBRINOGEN ACTIVITY (BEAKER) 46.9 degrees 61.0-73.0 L (test code = 1412) TGH PLT. AGGREGATION (BEAKER) 48.5 MM 55.0-65.0 L (test code = 1413) SODIUM NA-STAT [id number] 09:09:00 Test Item Value Reference Range Interpretation Comments SODIUM (BEAKER) (test code = 381) 135 meq/L 135-148 POTASSIUM-STAT [id number] 09:09:00 Test Item Value Reference Range Interpretation Comments POTASSIUM (BEAKER) (test code = 4.3 meq/L 3.6-5.5 379) BLOOD GAS, [id number] 09:09:00 Test Item Value Reference Range Interpretation Comments PH ARTERIAL (BEAKER) (test code = 7.43 7.35-7.45 383) PCO2 ARTERIAL (BEAKER) (test code 35 mmHg 35-45 = 384) PO2 ARTERIAL (BEAKER) (test code 571 mmHg 80-90 H = 385) O2 SATURATION ARTERIAL (BEAKER) 99.9 % 96.0-97.0 H (test code = 386) HCO3 ARTERIAL (BEAKER) (test code 23 mmol/L 21-29 = 388) BASE EXCESS ARTERIAL (BEAKER) -1.2 mmol/L -2.0-3.0 (test code = 387) PATIENT TEMPERATURE (BEAKER) 36.5 C (test code = 1818) FIO2 (BEAKER) (test code = 1819) 100.0 % GLUCOSE-STAT [id number] 09:09:00 Test Item Value Reference Range Interpretation Comments GLUCOSE RANDOM (BEAKER) (test code 220 mg/dL 70-110 H = 652) HGB/HCT (H&H) - STAT [id number] 09:09:00 Test Item Value Reference Range Interpretation Comments HEMOGLOBIN (BEAKER) (test code = 7.2 g/dL 12.0-15.0 L 410) HEMATOCRIT (BEAKER) (test code = 21.0 % 36.0-45.0 L 411) CALCIUM, [id number] 09:09:00 Test Item Value Reference Range Interpretation Comments CALCIUM IONIZED (BEAKER) (test 1.03 mmol/L 1.12-1.27 L code = 698) PH, BLOOD (BEAKER) (test code = 7.43 1810) [id number] 08:49:00 Test Item Value Reference Range Interpretation Comments FIBRINOGEN LEVEL (BEAKER) (test 155 mg/dl 225-434 L code = 658) [id number] 08:45:00 Test Item Value Reference Range Interpretation Comments PARTIAL THROMBOPLASTIN TIME 96.3 seconds 22.5-36.0 H (BEAKER) (test code = 760) PROTHROMBIN [id number] 08:44:00 Test Item Value Reference Range Interpretation Comments PROTIME (BEAKER) (test code = 24.2 seconds 11.7-14.7 H 759) INR (BEAKER) (test code = 370) 2.2 <=5.9 RECOMMENDED COUMADIN/WARFARIN INR THERAPY RANGESSTANDARD DOSE: 2.0 - 3.0 Includes: PROPHYLAXIS forvenous thrombosis, systemic embolization; TREATMENT for venous thrombosis and/or pulmonary embolus.HIGH RISK: Target INR is 2.5-3.5 for patients with mechanical heart valves.PLATELET [id number] 08:39:00 Test Item Value Reference Range Interpretation Comments PLATELET COUNT (BEAKER) (test code 60 K/CU MM 150-430 L = 756) GLUCOSE-STAT [id number] 08:20:00 Test Item Value Reference Range Interpretation Comments GLUCOSE RANDOM (BEAKER) (test code 213 mg/dL 70-110 H = 652) HGB/HCT (H&H) - STAT [id number] 08:20:00 Test Item Value Reference Range Interpretation Comments HEMOGLOBIN (BEAKER) (test code = 7.5 g/dL 12.0-15.0 L 410) HEMATOCRIT (BEAKER) (test code = 22.0 % 36.0-45.0 L 411) SODIUM NA-STAT [id number] 08:19:00 Test Item Value Reference Range Interpretation Comments SODIUM (BEAKER) (test code = 381) 136 meq/L 135-148 POTASSIUM-STAT [id number] 08:19:00 Test Item Value Reference Range Interpretation Comments POTASSIUM (BEAKER) (test code = 4.7 meq/L 3.6-5.5 379) FILTER IONIZED [id number] 08:19:00 Test Item Value Reference Range Interpretation Comments FILTER IONIZED CALCIUM (BEAKER) 1.09 mmol/L (test code = 1854) Reference Range: No NormalsBLOOD GAS, [id number] 08:19:00 Test Item Value Reference Range Interpretation Comments PH ARTERIAL (BEAKER) (test code = 7.43 7.35-7.45 383) PCO2 ARTERIAL (BEAKER) (test code 33 mmHg 35-45 L = 384) PO2 ARTERIAL (BEAKER) (test code 581 mmHg 80-90 H = 385) O2 SATURATION ARTERIAL (BEAKER) 99.9 % 96.0-97.0 H (test code = 386) HCO3 ARTERIAL (BEAKER) (test code 22 mmol/L 21-29 = 388) BASE EXCESS ARTERIAL (BEAKER) -2.6 mmol/L -2.0-3.0 L (test code = 387) PATIENT TEMPERATURE (BEAKER) 35.0 C (test code = 1818) FIO2 (BEAKER) (test code = 1819) 100.0 % BLOOD GAS, [id number] 07:33:00 Test Item Value Reference Range Interpretation Comments PH ARTERIAL (BEAKER) (test code = 7.32 7.35-7.45 L 383) PCO2 ARTERIAL (BEAKER) (test code 38 mmHg 35-45 = 384) PO2 ARTERIAL (BEAKER) (test code 504 mmHg 80-90 H = 385) O2 SATURATION ARTERIAL (BEAKER) 99.9 % 96.0-97.0 H (test code = 386) HCO3 ARTERIAL (BEAKER) (test code 19 mmol/L 21-29 L = 388) BASE EXCESS ARTERIAL (BEAKER) -6.5 mmol/L -2.0-3.0 L (test code = 387) PATIENT TEMPERATURE (BEAKER) 36.1 C (test code = 1818) FIO2 (BEAKER) (test code = 1819) 96.0 % CALCIUM, [id number] 07:32:00 Test Item Value Reference Range Interpretation Comments CALCIUM IONIZED (BEAKER) (test 1.13 mmol/L 1.12-1.27 code = 698) PH, BLOOD (BEAKER) (test code = 7.31 1810) SODIUM NA-STAT [id number] 07:32:00 Test Item Value Reference Range Interpretation Comments SODIUM (BEAKER) (test code = 381) 134 meq/L 135-148 L GLUCOSE-STAT [id number] 07:32:00 Test Item Value Reference Range Interpretation Comments GLUCOSE RANDOM (BEAKER) (test code 191 mg/dL 70-110 H = 652) HGB/HCT (H&H) - STAT [id number] 07:32:00 Test Item Value Reference Range Interpretation Comments HEMOGLOBIN (BEAKER) (test code = 8.5 g/dL 12.0-15.0 L 410) HEMATOCRIT (BEAKER) (test code = 25.0 % 36.0-45.0 L 411) POTASSIUM-STAT [id number] 07:31:00 Test Item Value Reference Range Interpretation Comments POTASSIUM (BEAKER) (test code = 4.7 meq/L 3.6-5.5 379) CALCIUM, [id number] 06:40:00 Test Item Value Reference Range Interpretation Comments CALCIUM IONIZED (BEAKER) (test 1.22 mmol/L 1.12-1.27 code = 698) PH, BLOOD (BEAKER) (test code = 7.25 1810) POTASSIUM-STAT [id number] 06:38:00 Test Item Value Reference Range Interpretation Comments POTASSIUM (BEAKER) (test code = 4.7 meq/L 3.6-5.5 379) BLOOD GAS, [id number] 06:38:00 Test Item Value Reference Range Interpretation Comments PH ARTERIAL (BEAKER) (test code = 7.27 7.35-7.45 L 383) PCO2 ARTERIAL (BEAKER) (test code 37 mmHg 35-45 = 384) PO2 ARTERIAL (BEAKER) (test code 525 mmHg 80-90 H = 385) O2 SATURATION ARTERIAL (BEAKER) 99.9 % 96.0-97.0 H (test code = 386) HCO3 ARTERIAL (BEAKER) (test code 17 mmol/L 21-29 L = 388) BASE EXCESS ARTERIAL (BEAKER) -9.5 mmol/L -2.0-3.0 L (test code = 387) PATIENT TEMPERATURE (BEAKER) 35.5 C (test code = 1818) FIO2 (BEAKER) (test code = 1819) 100.0 % SODIUM NA-STAT [id number] 06:38:00 Test Item Value Reference Range Interpretation Comments SODIUM (BEAKER) (test code = 381) 132 meq/L 135-148 L GLUCOSE-STAT [id number] 06:38:00 Test Item Value Reference Range Interpretation Comments GLUCOSE RANDOM (BEAKER) (test code 170 mg/dL 70-110 H = 652) HGB/HCT (H&H) - STAT [id number] 06:38:00 Test Item Value Reference Range Interpretation Comments HEMOGLOBIN (BEAKER) (test code = 6.3 g/dL 12.0-15.0 L 410) HEMATOCRIT (BEAKER) (test code = 19.0 % 36.0-45.0 L 411) CALCIUM, [id number] 06:14:00 Test Item Value Reference Range Interpretation Comments CALCIUM IONIZED (BEAKER) (test 0.86 mmol/L 1.12-1.27 L code = 698) PH, BLOOD (BEAKER) (test code = 7.28 1810) BLOOD GAS, [id number] 06:13:00 Test Item Value Reference Range Interpretation Comments PH ARTERIAL (BEAKER) (test code 7.30 7.35-7.45 L = 383) PCO2 ARTERIAL (BEAKER) (test 30 mmHg 35-45 L code = 384) PO2 ARTERIAL (BEAKER) (test code 559 mmHg 80-90 H = 385) O2 SATURATION ARTERIAL (BEAKER) 99.9 % 96.0-97.0 H (test code = 386) HCO3 ARTERIAL (BEAKER) (test 15 mmol/L 21-29 L code = 388) BASE EXCESS ARTERIAL (BEAKER) -11.0 mmol/L -2.0-3.0 L (test code = 387) PATIENT TEMPERATURE (BEAKER) 35.2 C (test code = 1818) FIO2 (BEAKER) (test code = 1819) 100.0 % SODIUM NA-STAT [id number] 06:13:00 Test Item Value Reference Range Interpretation Comments SODIUM (BEAKER) (test code = 381) 133 meq/L 135-148 L HGB/HCT (H&H) - STAT [id number] 06:13:00 Test Item Value Reference Range Interpretation Comments HEMOGLOBIN (BEAKER) (test code = 6.7 g/dL 12.0-15.0 L 410) HEMATOCRIT (BEAKER) (test code = 20.0 % 36.0-45.0 L 411) GLUCOSE-STAT [id number] 06:12:00 Test Item Value Reference Range Interpretation Comments GLUCOSE RANDOM (BEAKER) (test code = 86 mg/dL 70-110 652) POTASSIUM-STAT [id number] 06:12:00 Test Item Value Reference Range Interpretation Comments POTASSIUM (BEAKER) (test code = 3.9 meq/L 3.6-5.5 379) BLOOD GAS, [id number] 05:26:00 Test Item Value Reference Range Interpretation Comments PH ARTERIAL (BEAKER) (test code = 7.34 7.35-7.45 L 383) PCO2 ARTERIAL (BEAKER) (test code 38 mmHg 35-45 = 384) PO2 ARTERIAL (BEAKER) (test code 526 mmHg 80-90 H = 385) O2 SATURATION ARTERIAL (BEAKER) 99.9 % 96.0-97.0 H (test code = 386) HCO3 ARTERIAL (BEAKER) (test code 20 mmol/L 21-29 L = 388) BASE EXCESS ARTERIAL (BEAKER) -5.6 mmol/L -2.0-3.0 L (test code = 387) PATIENT TEMPERATURE (BEAKER) 36.0 C (test code = 1818) FIO2 (BEAKER) (test code = 1819) 100.0 % SODIUM NA-STAT [id number] 05:26:00 Test Item Value Reference Range Interpretation Comments SODIUM (BEAKER) (test code = 381) 132 meq/L 135-148 L HGB/HCT (H&H) - STAT [id number] 05:26:00 Test Item Value Reference Range Interpretation Comments HEMOGLOBIN (BEAKER) (test code = 7.7 g/dL 12.0-15.0 L 410) HEMATOCRIT (BEAKER) (test code = 23.0 % 36.0-45.0 L 411) CALCIUM, [id number] 05:26:00 Test Item Value Reference Range Interpretation Comments CALCIUM IONIZED (BEAKER) (test 1.30 mmol/L 1.12-1.27 H code = 698) PH, BLOOD (BEAKER) (test code = 7.32 1810) GLUCOSE-STAT [id number] 05:25:00 Test Item Value Reference Range Interpretation Comments GLUCOSE RANDOM (BEAKER) (test code 104 mg/dL 70-110 = 652) POTASSIUM-STAT [id number] 05:25:00 Test Item Value Reference Range Interpretation Comments POTASSIUM (BEAKER) (test code = 4.0 meq/L 3.6-5.5 379) PROTHROMBIN [id number] 05:13:00 Test Item Value Reference Range Interpretation Comments PROTIME (BEAKER) (test code = 25.4 seconds 11.7-14.7 H 759) INR (BEAKER) (test code = 370) 2.3 <=5.9 RECOMMENDED COUMADIN/WARFARIN INR THERAPY RANGESSTANDARD DOSE: 2.0 - 3.0 Includes: PROPHYLAXIS forvenous thrombosis, systemic embolization; TREATMENT for venous thrombosis and/or pulmonary embolus.HIGH RISK: Target INR is 2.5-3.5 for patients with mechanical heart valves.[id number] 05:13:00 Test Item Value Reference Range Interpretation Comments PARTIAL THROMBOPLASTIN TIME 78.3 seconds 22.5-36.0 H (BEAKER) (test code = 760) BASIC METABOLIC [id number] 05:06:00 Test Item Value Reference Range Interpretation Comments SODIUM (BEAKER) 134 meq/L 136-145 L (test code = 381) POTASSIUM (BEAKER) 4.0 meq/L 3.5-5.1 (test code = 379) CHLORIDE (BEAKER) 101 meq/L 98-107 (test code = 382) CO2 (BEAKER) (test 22 meq/L 22-29 code = 355) BLOOD UREA NITROGEN 22 mg/dL 7-21 H (BEAKER) (test code = 354) CREATININE (BEAKER) 2.97 mg/dL 0.57-1.25 H (test code = 358) GLUCOSE RANDOM 100 mg/dL 70-105 (BEAKER) (test code = 652) CALCIUM (BEAKER) 8.5 mg/dL 8.4-10.2 (test code = 697) EGFR (BEAKER) (test 16 mL/min/1.73 ESTIMA NIHARIKA GFR IS code = 1092) sq m NOT ACCURATE CREATININE CLEARANCE IN PREDICTING GLOMERULAR FILTRATION RATE . ESTIMATED GFR I S NOT APPLICABLE FOR DIALYSIS PATIEN TS. Specimen markedly ictericHEPATIC FUNCTION [id number] 05:06:00 Test Item Value Reference Range Interpretation Comments TOTAL PROTEIN (BEAKER) (test code 4.4 gm/dL 6.0-8.3 L = 770) ALBUMIN (BEAKER) (test code = 2.7 g/dL 3.5-5.0 L 1145) BILIRUBIN TOTAL (BEAKER) (test 44.0 mg/dL 0.2-1.2 H code = 377) BILIRUBIN DIRECT (BEAKER) (test 28.6 mg/dL 0.1-0.5 H code = 706) ALKALINE PHOSPHATASE (BEAKER) 113 U/L 40-150 (test code = 346) AST (SGOT) (BEAKER) (test code = 134 U/L 5-34 H 353) ALT (SGPT) (BEAKER) (test code = 57 U/L 6-55 H 347) Specimen markedly [id number] 05:04:00 Test Item Value Reference Range Interpretation Comments PHOSPHORUS (BEAKER) (test code = 2.3 mg/dL 2.3-4.7 604) [id number] 05:04:00 Test Item Value Reference Range Interpretation Comments MAGNESIUM (BEAKER) (test code = 1.8 mg/dL 1.6-2.6 627) CBC W/PLT COUNT & AUTO [id number] 04:28:00 Test Item Value Reference Range Interpretation Comments WHITE BLOOD CELL COUNT (BEAKER) 5.7 K/ L 4.0-10.0 (test code = 775) RED BLOOD CELL COUNT (BEAKER) 2.16 M/ L 4.00-5.00 L (test code = 761) HEMOGLOBIN (BEAKER) (test code = 8.1 GM/DL 12.0-15.0 L 410) HEMATOCRIT (BEAKER) (test code = 24.0 % 36.0-45.0 L 411) MEAN CORPUSCULAR VOLUME (BEAKER) 111.0 fL 82.0-99.0 H (test code = 753) MEAN CORPUSCULAR HEMOGLOBIN 37.6 pg 27.0-33.0 H (BEAKER) (test code = 751) MEAN CORPUSCULAR HEMOGLOBIN CONC 33.8 GM/DL 32.0-36.0 (BEAKER) (test code = 752) RED CELL DISTRIBUTION WIDTH 18.5 % 10.3-14.2 H (BEAKER) (test code = 412) PLATELET COUNT (BEAKER) (test code 22 K/CU MM 150-430 L = 756) MEAN PLATELET VOLUME (BEAKER) 9.3 fL 6.5-10.5 (test code = 754) NUCLEATED RED BLOOD CELLS (BEAKER) 0 /100 WBC 0-0 (test code = 413) NEUTROPHILS RELATIVE PERCENT 74 % (BEAKER) (test code = 429) LYMPHOCYTES RELATIVE PERCENT 11 % (BEAKER) (test code = 430) MONOCYTES RELATIVE PERCENT 13 % (BEAKER) (test code = 431) EOSINOPHILS RELATIVE PERCENT 1 % (BEAKER) (test code = 432) BASOPHILS RELATIVE PERCENT 1 % (BEAKER) (test code = 437) NEUTROPHILS ABSOLUTE COUNT 4.18 K/ L 1.80-8.00 (BEAKER) (test code = 670) LYMPHOCYTES ABSOLUTE COUNT 0.62 K/ L 1.48-4.50 L (BEAKER) (test code = 414) MONOCYTES ABSOLUTE COUNT (BEAKER) 0.71 K/ L 0.00-1.30 (test code = 415) EOSINOPHILS ABSOLUTE COUNT 0.08 K/ L 0.00-0.50 (BEAKER) (test code = 416) BASOPHILS ABSOLUTE COUNT (BEAKER) 0.07 K/ L 0.00-0.20 (test code = 417) [id number] 00:42:00 Test Item Value Reference Range Interpretation Comments PHOSPHORUS (BEAKER) (test code = 2.2 mg/dL 2.3-4.7 L 604) [id number] 00:42:00 Test Item Value Reference Range Interpretation Comments MAGNESIUM (BEAKER) (test code = 1.6 mg/dL 1.6-2.6 627) POCT-GLUCOSE [id number] 00:19:00 Test Item Value Reference Range Interpretation Comments POC-GLUCOSE METER 111 mg/dL 70-110 H TESTED AT [facility] (BEAKER) (test code = [place] 1538) [address] BODY FLUID CULTURE + GRAM [id number] 22:47:00 Test Item Value Reference Range Interpretation Comments CULTURE (BEAKER) (test code No growth = 1095) GRAM STAIN RESULT (BEAKER) <1+ WBCs (test code = 1123) GRAM STAIN RESULT (BEAKER) No organisms seen (test code = 27399) BLOOD [id number] 18:00:00 Test Item Value Reference Range Interpretation Comments CULTURE (BEAKER) (test No growth in 5 days code = 1095) BLOOD [id number] 18:00:00 Test Item Value Reference Range Interpretation Comments CULTURE (BEAKER) (test No growth in 5 days code = 1095) [id number] 16:01:00 Test Item Value Reference Range Interpretation Comments T3 TOTAL (BEAKER) (test code = 656) < ng/dL 48-159 L Effective 05/25/2014: Reference Range ChangeNew: 48-159 Previous: [id number] 2017-01-24 15:57:00 Test Item Value Reference Range Interpretation Comments T4 TOTAL (BEAKER) (test code = 895) 1.3 ug/dL 4.9-11.7 L [id number] 15:57:00 Test Item Value Reference Range Interpretation Comments THYROID STIMULATING HORMONE 1.38 uIU/mL 0.35-4.94 (BEAKER) (test code = 772) SCREEN, [id number] 15:41:00 Test Item Value Reference Range Interpretation Comments TEST URINE (BEAKER) (test Negative code = 583) URINALYSIS W/ [id number] 15:37:00 Test Item Value Reference Range Interpretation Comments COLOR (BEAKER) (test code Brown = 470) CLARITY (BEAKER) (test Cloudy code = 469) SPECIFIC GRAVITY UA 1.018 1.001-1.035 (BEAKER) (test code = 468) PH UA (BEAKER) (test code 5.5 5.0-8.0 = 467) PROTEIN UA (BEAKER) (test 70 mg/dL Negative A code = 464) GLUCOSE UA (BEAKER) (test 50 mg/dL Negative A code = 365) KETONES UA (BEAKER) (test Trace Negative A code = 371) BILIRUBIN UA (BEAKER) Positive Negative A (test code = 462) BLOOD UA (BEAKER) (test Small Negative A code = 461) NITRITE UA (BEAKER) (test Negative Negative code = 465) LEUKOCYTE ESTERASE UA Trace Negative A (BEAKER) (test code = 466) UROBILINOGEN UA (BEAKER) 0.2 mg/dL 0.2-1.0 (test code = 463) RBC UA (BEAKER) (test 0 /HPF code = 519) WBC UA (BEAKER) (test 1 /HPF code = 520) SQUAMOUS EPITHELIAL 1 /HPF (BEAKER) (test code = 516) SOURCE(BEAKER) (test code Urine, Straight = 1035) Catheter COMPREHENSIVE METABOLIC [id number] 15:16:00 Test Item Value Reference Range Interpretation Comments TOTAL PROTEIN 4.6 gm/dL 6.0-8.3 L (BEAKER) (test code = 770) ALBUMIN (BEAKER) 2.9 g/dL 3.5-5.0 L (test code = 1145) ALKALINE PHOSPHATASE 118 U/L 40-150 (BEAKER) (test code = 346) BILIRUBIN TOTAL 51.9 mg/dL 0.2-1.2 H (BEAKER) (test code = 377) SODIUM (BEAKER) (test 132 meq/L 136-145 L code = 381) POTASSIUM (BEAKER) 3.5 meq/L 3.5-5.1 (test code = 379) CHLORIDE (BEAKER) 97 meq/L 98-107 L (test code = 382) CO2 (BEAKER) (test 24 meq/L 22-29 code = 355) BLOOD UREA NITROGEN 35 mg/dL 7-21 H (BEAKER) (test code = 354) CREATININE (BEAKER) 4.54 mg/dL 0.57-1.25 H (test code = 358) GLUCOSE RANDOM 125 mg/dL 70-105 H (BEAKER) (test code = 652) CALCIUM (BEAKER) 8.8 mg/dL 8.4-10.2 (test code = 697) AST (SGOT) (BEAKER) 143 U/L 5-34 H (test code = 353) ALT (SGPT) (BEAKER) 65 U/L 6-55 H (test code = 347) EGFR (BEAKER) (test 10 mL/min/1.73 ESTIMA NIHARIKA GFR IS code = 1092) sq m NOT ACCURATE CREATININE CLEARANCE IN PREDICTING GLOMERULAR FILTRATION RATE . ESTIMATED GFR I S NOT APPLICABLE FOR DIALYSIS PATIEN TS. Specimen markedly [id number] 15:12:00 Test Item Value Reference Range Interpretation Comments PHOSPHORUS (BEAKER) (test code = 3.2 mg/dL 2.3-4.7 604) [id number] 15:12:00 Test Item Value Reference Range Interpretation Comments MAGNESIUM (BEAKER) (test code = 1.6 mg/dL 1.6-2.6 627) GAMMA GLUTAMYL TRANSFERASE (GGT)2017-01-24 15:12:00 Test Item Value Reference Range Interpretation Comments GAMMA GLUTAMYL TRANSFERASE (BEAKER) 87 U/L 9-64 H (test code = 364) Specimen markedly ictericVANCOMYCIN LEVEL, [id number] 15:07:00 Test Item Value Reference Range Interpretation Comments VANCOMYCIN RANDOM (BEAKER) (test 18.8 ug/mL code = 523) Reference Range: No [id number] 15:00:00 Test Item Value Reference Range Interpretation Comments PARTIAL THROMBOPLASTIN TIME 59.6 seconds 22.5-36.0 H (BEAKER) (test code = 760) FILTER IONIZED [id number] 14:52:00 Test Item Value Reference Range Interpretation Comments FILTER IONIZED CALCIUM (BEAKER) 0.95 mmol/L (test code = 1854) Reference Range: No NormalsHEPATIC FUNCTION [id number] 10:39:00 Test Item Value Reference Range Interpretation Comments TOTAL PROTEIN (BEAKER) (test code 4.8 gm/dL 6.0-8.3 L = 770) ALBUMIN (BEAKER) (test code = 3.0 g/dL 3.5-5.0 L 1145) BILIRUBIN TOTAL (BEAKER) (test 53.4 mg/dL 0.2-1.2 H code = 377) BILIRUBIN DIRECT (BEAKER) (test 34.9 mg/dL 0.1-0.5 H code = 706) ALKALINE PHOSPHATASE (BEAKER) 117 U/L 40-150 (test code = 346) AST (SGOT) (BEAKER) (test code = 140 U/L 5-34 H 353) ALT (SGPT) (BEAKER) (test code = 60 U/L 6-55 H 347) Specimen markedly [id number] 10:28:00 Test Item Value Reference Range Interpretation Comments FIBRINOGEN LEVEL (BEAKER) (test code 87 mg/dl 225-434 LL = 658) PROTHROMBIN [id number] 10:18:00 Test Item Value Reference Range Interpretation Comments PROTIME (BEAKER) (test code = 24.3 seconds 11.7-14.7 H 759) INR (BEAKER) (test code = 370) 2.2 <=5.9 RECOMMENDED COUMADIN/WARFARIN INR THERAPY RANGESSTANDARD DOSE: 2.0 - 3.0 Includes: PROPHYLAXIS forvenous thrombosis, systemic embolization; TREATMENT for venous thrombosis and/or pulmonary embolus.HIGH RISK: Target INR is 2.5-3.5 for patients with mechanical heart valves.CBC W/PLT COUNT & AUTO DIFFERENTIAL 2017-01-24 09:44:00 Test Item Value Reference Range Interpretation Comments WHITE BLOOD CELL COUNT (BEAKER) 5.4 K/ L 4.0-10.0 (test code = 775) RED BLOOD CELL COUNT (BEAKER) 2.38 M/ L 4.00-5.00 L (test code = 761) HEMOGLOBIN (BEAKER) (test code = 8.8 GM/DL 12.0-15.0 L 410) HEMATOCRIT (BEAKER) (test code = 26.1 % 36.0-45.0 L 411) MEAN CORPUSCULAR VOLUME (BEAKER) 110.0 fL 82.0-99.0 H (test code = 753) MEAN CORPUSCULAR HEMOGLOBIN 37.0 pg 27.0-33.0 H (BEAKER) (test code = 751) MEAN CORPUSCULAR HEMOGLOBIN CONC 33.7 GM/DL 32.0-36.0 (BEAKER) (test code = 752) RED CELL DISTRIBUTION WIDTH 19.7 % 10.3-14.2 H (BEAKER) (test code = 412) PLATELET COUNT (BEAKER) (test code 45 K/CU MM 150-430 L = 756) MEAN PLATELET VOLUME (BEAKER) 8.6 fL 6.5-10.5 (test code = 754) NUCLEATED RED BLOOD CELLS (BEAKER) 0 /100 WBC 0-0 (test code = 413) NEUTROPHILS RELATIVE PERCENT 74 % (BEAKER) (test code = 429) LYMPHOCYTES RELATIVE PERCENT 11 % (BEAKER) (test code = 430) MONOCYTES RELATIVE PERCENT 11 % (BEAKER) (test code = 431) EOSINOPHILS RELATIVE PERCENT 2 % (BEAKER) (test code = 432) BASOPHILS RELATIVE PERCENT 2 % (BEAKER) (test code = 437) NEUTROPHILS ABSOLUTE COUNT 3.99 K/ L 1.80-8.00 (BEAKER) (test code = 670) LYMPHOCYTES ABSOLUTE COUNT 0.60 K/ L 1.48-4.50 L (BEAKER) (test code = 414) MONOCYTES ABSOLUTE COUNT (BEAKER) 0.59 K/ L 0.00-1.30 (test code = 415) EOSINOPHILS ABSOLUTE COUNT 0.11 K/ L 0.00-0.50 (BEAKER) (test code = 416) BASOPHILS ABSOLUTE COUNT (BEAKER) 0.09 K/ L 0.00-0.20 (test code = 417) 0.000.540.000.000.000.000.000.00(MANUAL DIFFERENTIAL)2017-01-24 09:44:00 Test Item Value Reference Range Interpretation Comments TOTAL COUNTED (BEAKER) (test code = 1351) WBC MORPHOLOGY (BEAKER) (test code = Normal 487) PLT MORPHOLOGY (BEAKER) (test code = Normal 486) RBC MORPHOLOGY (BEAKER) (test code = Normal 762) BASIC METABOLIC [id number] 05:12:00 Test Item Value Reference Range Interpretation Comments SODIUM (BEAKER) 133 meq/L 136-145 L (test code = 381) POTASSIUM (BEAKER) 3.4 meq/L 3.5-5.1 L (test code = 379) CHLORIDE (BEAKER) 98 meq/L 98-107 (test code = 382) CO2 (BEAKER) (test 24 meq/L 22-29 code = 355) BLOOD UREA NITROGEN 28 mg/dL 7-21 H (BEAKER) (test code = 354) CREATININE (BEAKER) 3.74 mg/dL 0.57-1.25 H (test code = 358) GLUCOSE RANDOM 117 mg/dL 70-105 H (BEAKER) (test code = 652) CALCIUM (BEAKER) 8.5 mg/dL 8.4-10.2 (test code = 697) EGFR (BEAKER) (test 13 mL/min/1.73 ESTIMA NIHARIKA GFR IS code = 1092) sq m NOT ACCURATE CREATININE CLEARANCE IN PREDICTING GLOMERULAR FILTRATION RATE . ESTIMATED GFR I S NOT APPLICABLE FOR DIALYSIS PATIEN TS. Specimen markedly ictericOXYGEN SATURATION, [id number] 23:18:00 Test Item Value Reference Range Interpretation Comments O2 SATURATION (MEASURED) (BEAKER) 84.5 % (test code = 1455) EBV VIRAL [id number] 15:05:00 Test Item Value Reference Range Interpretation Comments EBV VIRAL LOAD - Negative or below the NEGATIVE (BEAKER) (test linear range of the code = 2559) assay (<500 copies/mL) This assay was performed by real-time PCR for the detection of the Timur-Sharp virus (EBV) gene EBNA-1. The test is composed of (1) DNA extraction from patient specimen, and (2) real-time PCR amplification and detection with UHSX-0-teosdbsz primers and probes. A well-conserved region of the EBNA-1 gene is targeted, along with an internal control sequence used to confirm PCR amplification. Asymptomatic carriers and viral genetic variation, among other factors, can affect the accuracy of nucleic acid testing; therefore, results should be interpreted in light of clinical data.This test was developedand its performance characteristics determined by the [facility] Pathology Department, Section of Molecular Pathology. It has not been cleared or approved by the U.S. Food and Drug Administration (FDA), since FDA approval is not required for clinical use of the test. Validation was doneas required by The Clinical Laboratory Improvement Amendments of 1988.URINE [id number] 10:21:00 Test Item Value Reference Range Interpretation Comments CULTURE (BEAKER) (test code = 1095) No growth CYTOMEGALOVIRUS ANTIBODY, [id number] 09:42:00 Test Item Value Reference Range Interpretation Comments CYTOMEGALOVIRUS IGM ANTIBODY Equivocal (BEAKER) (test code = 816) EBV-VCA ANTIBODY, [id number] 08:59:00 Test Item Value Reference Range Interpretation Comments TIMUR-SHARP VCA IGM (BEAKER) (test Equivocal code = 984) TOXOPLASMA GONDII ANTIBODY, [id number] 08:59:00 Test Item Value Reference Range Interpretation Comments TOXOPLASMA GONDII IGG (BEAKER) (test Negative code = 419) BASIC METABOLIC [id number] 06:35:00 Test Item Value Reference Range Interpretation Comments SODIUM (BEAKER) 139 meq/L 136-145 (test code = 381) POTASSIUM (BEAKER) 3.3 meq/L 3.5-5.1 L (test code = 379) CHLORIDE (BEAKER) 101 meq/L 98-107 (test code = 382) CO2 (BEAKER) (test 25 meq/L 22-29 code = 355) BLOOD UREA NITROGEN 36 mg/dL 7-21 H (BEAKER) (test code = 354) CREATININE (BEAKER) 4.12 mg/dL 0.57-1.25 H (test code = 358) GLUCOSE RANDOM 104 mg/dL 70-105 (BEAKER) (test code = 652) CALCIUM (BEAKER) 8.7 mg/dL 8.4-10.2 (test code = 697) EGFR (BEAKER) (test 11 mL/min/1.73 ESTIMA NIHARIKA GFR IS code = 1092) sq m NOT ACCURATE CREATININE CLEARANCE IN PREDICTING GLOMERULAR FILTRATION RATE . ESTIMATED GFR I S NOT APPLICABLE FOR DIALYSIS PATIEN TS. Specimen markedly ictericHEPATIC FUNCTION [id number] 06:35:00 Test Item Value Reference Range Interpretation Comments TOTAL PROTEIN (BEAKER) (test code 4.6 gm/dL 6.0-8.3 L = 770) ALBUMIN (BEAKER) (test code = 3.1 g/dL 3.5-5.0 L 1145) BILIRUBIN TOTAL (BEAKER) (test 52.1 mg/dL 0.2-1.2 H code = 377) BILIRUBIN DIRECT (BEAKER) (test 35.4 mg/dL 0.1-0.5 H code = 706) ALKALINE PHOSPHATASE (BEAKER) 114 U/L 40-150 (test code = 346) AST (SGOT) (BEAKER) (test code = 140 U/L 5-34 H 353) ALT (SGPT) (BEAKER) (test code = 64 U/L 6-55 H 347) Specimen markedly ictericCBC W/PLT COUNT & AUTO [id number] 06:13:00 Test Item Value Reference Range Interpretation Comments WHITE BLOOD CELL COUNT (BEAKER) 4.7 K/ L 4.0-10.0 (test code = 775) RED BLOOD CELL COUNT (BEAKER) 2.43 M/ L 4.00-5.00 L (test code = 761) HEMOGLOBIN (BEAKER) (test code = 8.9 GM/DL 12.0-15.0 L 410) HEMATOCRIT (BEAKER) (test code = 26.5 % 36.0-45.0 L 411) MEAN CORPUSCULAR VOLUME (BEAKER) 109.0 fL 82.0-99.0 H (test code = 753) MEAN CORPUSCULAR HEMOGLOBIN 36.5 pg 27.0-33.0 H (BEAKER) (test code = 751) MEAN CORPUSCULAR HEMOGLOBIN CONC 33.5 GM/DL 32.0-36.0 (BEAKER) (test code = 752) RED CELL DISTRIBUTION WIDTH 20.0 % 10.3-14.2 H (BEAKER) (test code = 412) PLATELET COUNT (BEAKER) (test code 51 K/CU MM 150-430 L = 756) MEAN PLATELET VOLUME (BEAKER) 8.8 fL 6.5-10.5 (test code = 754) NUCLEATED RED BLOOD CELLS (BEAKER) 0 /100 WBC 0-0 (test code = 413) NEUTROPHILS RELATIVE PERCENT 69 % (BEAKER) (test code = 429) LYMPHOCYTES RELATIVE PERCENT 15 % (BEAKER) (test code = 430) MONOCYTES RELATIVE PERCENT 12 % (BEAKER) (test code = 431) EOSINOPHILS RELATIVE PERCENT 3 % (BEAKER) (test code = 432) BASOPHILS RELATIVE PERCENT 2 % (BEAKER) (test code = 437) NEUTROPHILS ABSOLUTE COUNT 3.23 K/ L 1.80-8.00 (BEAKER) (test code = 670) LYMPHOCYTES ABSOLUTE COUNT 0.69 K/ L 1.48-4.50 L (BEAKER) (test code = 414) MONOCYTES ABSOLUTE COUNT (BEAKER) 0.54 K/ L 0.00-1.30 (test code = 415) EOSINOPHILS ABSOLUTE COUNT 0.12 K/ L 0.00-0.50 (BEAKER) (test code = 416) BASOPHILS ABSOLUTE COUNT (BEAKER) 0.08 K/ L 0.00-0.20 (test code = 417) 0.00BLOOD [id number] 00:00:00 Test Item Value Reference Range Interpretation Comments CULTURE (BEAKER) (test No growth in 5 days code = 1095) BLOOD [id number] 00:00:00 Test Item Value Reference Range Interpretation Comments CULTURE (BEAKER) (test No growth in 5 days code = 1095) CMV PCR, [id number] 14:46:00 Test Item Value Reference Range Interpretation Comments CMV VIRAL LOAD - Negative or below the NEGATIVE (BEAKER) (test linear range of the code = 2558) assay (<375 copies/mL) Cytomegalovirus (CMV) infection can cause significant disease in immunosuppressed patients. However,it is common for CMV to manifest as a limited infection which is of no clinical significance in immunosuppressed patients or in healthy individuals.Viral load measurements are helpful to identify clinical CMV infection and to guide the pre-emptive management of antiviral therapy. For treatment of CMVinfection due to reactivation in transplant recipients, a threshold between 4,000 and 5,000 copies/mL is suggested. For treatment of primary CMV infection, a lower threshold can be used.CMV infection may also be monitored using weekly serial measurements. Serial measurements of CMV DNA viral load canbe evaluated by identifying a 10-fold change, as well as assessing the CMV DNA viral load and the clinical context for each patient.The plasma CMV DNA viral load was detected using quantitative polymerase chain reaction and fluorescent monitoring of a specific hybridized probe. Genetic variation and ot her factors can affect the accuracy of nucleic acid testing. Therefore, the results should be interpreted in light of clinical data. A negative result may not exclude the presence of CMV disease.This test was developed and its performance characteristics determined by the [facility] Path ology Department, Section of Molecular Pathology. It has not been cleared or approved by the U.S. Food and Drug Administration (FDA), since FDA approval is not required for clinical use of the test. Validation was done as required by The Clinical Laboratory Improvement Amendments of 1988.CRYPTOCOCCAL ANTIGEN 2017-01-22 11:22:00 Test Item Value Reference Range Interpretation Comments CRYPTOCOCCAL ANTIGEN, SERUM Negative Negative, Interference (BEAKER) (test code = 1828) TISSUE [id number] 09:10:00Surgical Pathology Report Case: [id number] Authorizing Provider: Zeyad Rojas MD Collected: 01/19/2017 1133 Ordering Location: [address] Received: 01/21/2017 1152 Service Pathologist: Miley Donis MD Specimen: Cervix, Endocervical ENDOMETRIUM, BIOPSIES- SCANT AMOUNT OF INACTIVE ENDOMETRIUM AND SUPERFICIAL STRIPS OF BENIGN ENDOCERVICAL MUCOSA- NEGATIVE FOR ATYPIA, HYPERPLASIA OR CARCINOMA- SEE COMMENT The biopsy is composed predominantly of blood and the endometrial tissue is scant. A re-biopsy maybe considered if findings are clinically discordant.[id number] stated Endometrial b iopsy Received in formalin labeled with the patient's information only is a 3.5 x 2.5 x 0.5 cm aggregate of clotted blood. The specimen is entirely submitted in cassettes A1-A2. DB/ew Microscopic examination is performed and the findings are incorporated in the diagnostic line.(MANUAL DIFFERENTIAL)2017-01-22 07:42:00 Test Item Value Reference Range Interpretation Comments NEUTROPHILS - REL (DIFF) (BEAKER) 75 % (test code = 1359) LYMPHOCYTES - REL (DIFF) (BEAKER) 5 % (test code = 1360) MONOCYTES - REL (DIFF) (BEAKER) 14 % (test code = 1361) EOSINOPHILS - REL (DIFF) (BEAKER) 1 % (test code = 1362) BASOPHILS - REL (DIFF) (BEAKER) 1 % (test code = 1363) BANDS - REL (DIFF) (BEAKER) (test 4 % 0-10 code = 1348) NEUTROPHILS - ABS (DIFF) (BEAKER) 3.00 K/ L 1.80-8.00 (test code = 1365) LYMPHOCYTES - ABS (DIFF) (BEAKER) 0.20 K/ L 1.48-4.50 L (test code = 1366) MONOCYTES - ABS (DIFF) (BEAKER) 0.56 K/ L 0.00-1.30 (test code = 1367) EOSINOPHILS - ABS (DIFF) (BEAKER) 0.04 K/ L 0.00-0.50 (test code = 1368) BASOPHILS - ABS (DIFF) (BEAKER) 0.04 K/ L 0.00-0.20 (test code = 1369) BANDS-ABS (DIFF) (BEAKER) (test 0.2 K/ L 0.0-0.8 code = 1349) TOTAL COUNTED (BEAKER) (test code = 100 1351) BANDS + SEGMENTED NEUTROPHILS 3.16 (BEAKER) (test code = 1352) WBC MORPHOLOGY (BEAKER) (test code Normal = 487) PLT MORPHOLOGY (BEAKER) (test code Normal = 486) HYPOCHROMIA (BEAKER) (test code = 1+ few 963) MACROCYTES (BEAKER) (test code = 1+ few 964) OVALOCYTES (BEAKER) (test code = 1+ few 477) CBC W/PLT COUNT & AUTO [id number] 07:31:00 Test Item Value Reference Range Interpretation Comments WHITE BLOOD CELL COUNT (BEAKER) 4.0 K/ L 4.0-10.0 (test code = 775) RED BLOOD CELL COUNT (BEAKER) 2.36 M/ L 4.00-5.00 L (test code = 761) HEMOGLOBIN (BEAKER) (test code = 8.7 GM/DL 12.0-15.0 L 410) HEMATOCRIT (BEAKER) (test code = 25.7 % 36.0-45.0 L 411) MEAN CORPUSCULAR VOLUME (BEAKER) 109.0 fL 82.0-99.0 H (test code = 753) MEAN CORPUSCULAR HEMOGLOBIN 36.8 pg 27.0-33.0 H (BEAKER) (test code = 751) MEAN CORPUSCULAR HEMOGLOBIN CONC 33.8 GM/DL 32.0-36.0 (BEAKER) (test code = 752) RED CELL DISTRIBUTION WIDTH 20.0 % 10.3-14.2 H (BEAKER) (test code = 412) PLATELET COUNT (BEAKER) (test code 47 K/CU MM 150-430 L = 756) MEAN PLATELET VOLUME (BEAKER) 8.4 fL 6.5-10.5 (test code = 754) NUCLEATED RED BLOOD CELLS (BEAKER) 0 /100 WBC 0-0 (test code = 413) 0.000.790.000.000.000.000.000.00BASIC METABOLIC [id number] 05:06:00 Test Item Value Reference Range Interpretation Comments SODIUM (BEAKER) 136 meq/L 136-145 (test code = 381) POTASSIUM (BEAKER) 3.4 meq/L 3.5-5.1 L (test code = 379) CHLORIDE (BEAKER) 100 meq/L 98-107 (test code = 382) CO2 (BEAKER) (test 24 meq/L 22-29 code = 355) BLOOD UREA NITROGEN 60 mg/dL 7-21 H (BEAKER) (test code = 354) CREATININE (BEAKER) 5.10 mg/dL 0.57-1.25 H (test code = 358) GLUCOSE RANDOM 115 mg/dL 70-105 H (BEAKER) (test code = 652) CALCIUM (BEAKER) 8.7 mg/dL 8.4-10.2 (test code = 697) EGFR (BEAKER) (test 9 mL/min/1.73 ESTIMAT ED GFR IS code = 1092) sq m NOT ACCURATE CREATININE CLEARANCE IN PREDICTING GLOMERULAR FILTRATION RATE . ESTIMATED GFR I S NOT APPLICABLE FOR DIALYSIS PATIEN TS. Specimen markedly ictericHEPATIC FUNCTION [id number] 05:06:00 Test Item Value Reference Range Interpretation Comments TOTAL PROTEIN (BEAKER) (test code 4.5 gm/dL 6.0-8.3 L = 770) ALBUMIN (BEAKER) (test code = 3.1 g/dL 3.5-5.0 L 1145) BILIRUBIN TOTAL (BEAKER) (test 52.7 mg/dL 0.2-1.2 H code = 377) BILIRUBIN DIRECT (BEAKER) (test 34.1 mg/dL 0.1-0.5 H code = 706) ALKALINE PHOSPHATASE (BEAKER) 109 U/L 40-150 (test code = 346) AST (SGOT) (BEAKER) (test code = 124 U/L 5-34 H 353) ALT (SGPT) (BEAKER) (test code = 55 U/L 6-55 347) Specimen markedly ictericBODY FLUID CELL COUNT WITH [id number] 23:15:00 Test Item Value Reference Range Interpretation Comments APPEARANCE FLUID (BEAKER) (test Hazy Clear A code = 510) COLOR FLUID (BEAKER) (test code Yellow Colorless, Straw A = 511) RBC FLUID (BEAKER) (test code = 1705 /cu mm <=1 H 513) ADJUSTED WBC FLUID (BEAKER) 65 /cu mm <=5 H (test code = 1691) LINING CELLS (BEAKER) (test code 0 /cu mm <=1 = 1590) NEUTROPHILS FLUID (BEAKER) (test 8 % code = 1656) LYMPHS FLUID (BEAKER) (test code 24 % = 488) MONO/MACROPHAGE FLUID (BEAKER) 68 % (test code = 489) EOSINOPHILS FLUID (BEAKER) (test 0 % code = 491) BASO FLUID (BEAKER) (test code = 0 % 492) CONTAINER BODY FLUID (BEAKER) EDTA Tube (test code = 2873) LACTATE DEHYDROGENASE (LDH), BODY [id number] 20:11:00 Test Item Value Reference Range Interpretation Comments LACTATE DEHYDROGENASE FLUID (BEAKER) < U/L (test code = 634) Absence of reference range indicates that normals have not been defined.Assay performance has not been validated for this type of specimen.GLUCOSE, BODY FLUID 2017-01-21 20:11:00 Test Item Value Reference Range Interpretation Comments GLUCOSE, BODY FLUID (BEAKER) (test 104 mg/dL code = 1528) Absence of reference range indicates that normals have not been defined.Assay performance has not been validated for this type of specimen.ALBUMIN, BODY FLUID 2017-01-21 20:11:00 Test Item Value Reference Range Interpretation Comments ALBUMIN FLUID (BEAKER) (test code = 0.7 gm/dL 501) Reference Range: No Normals Assay performance has not been validated for this type of specimen.PROTEIN, BODY [id number] 20:11:00 Test Item Value Reference Range Interpretation Comments PROTEIN FLUID (BEAKER) (test code = 0.8 g/dL 579) Absence of reference range indicates that normals have not been defined.Assay performance has not been validated for this type of specimen.TRIGLYCERIDES, BODY [id number] 20:08:00 Test Item Value Reference Range Interpretation Comments TRIGLYCERIDES FLUID (BEAKER) (test 35 mg/dL code = 539) Reference Range: No Normals Assay performance has not been validated for this type of specimen.POCT-GLUCOSE [id number] 18:11:00 Test Item Value Reference Range Interpretation Comments POC-GLUCOSE METER 103 mg/dL 70-110 TESTED AT [facility] 6720 (BEAKER) (test code = [place] 1538) [address] CBC W/PLT COUNT & AUTO [id number] 15:16:00 Test Item Value Reference Range Interpretation Comments WHITE BLOOD CELL COUNT (BEAKER) 5.3 K/ L 4.0-10.0 (test code = 775) RED BLOOD CELL COUNT (BEAKER) 2.60 M/ L 4.00-5.00 L (test code = 761) HEMOGLOBIN (BEAKER) (test code = 9.1 GM/DL 12.0-15.0 L 410) HEMATOCRIT (BEAKER) (test code = 28.2 % 36.0-45.0 L 411) MEAN CORPUSCULAR VOLUME (BEAKER) 109.0 fL 82.0-99.0 H (test code = 753) MEAN CORPUSCULAR HEMOGLOBIN 35.1 pg 27.0-33.0 H (BEAKER) (test code = 751) MEAN CORPUSCULAR HEMOGLOBIN CONC 32.3 GM/DL 32.0-36.0 (BEAKER) (test code = 752) RED CELL DISTRIBUTION WIDTH 20.3 % 10.3-14.2 H (BEAKER) (test code = 412) PLATELET COUNT (BEAKER) (test code 59 K/CU MM 150-430 L = 756) MEAN PLATELET VOLUME (BEAKER) 9.2 fL 6.5-10.5 (test code = 754) NUCLEATED RED BLOOD CELLS (BEAKER) 0 /100 WBC 0-0 (test code = 413) NEUTROPHILS RELATIVE PERCENT 75 % (BEAKER) (test code = 429) LYMPHOCYTES RELATIVE PERCENT 11 % (BEAKER) (test code = 430) MONOCYTES RELATIVE PERCENT 10 % (BEAKER) (test code = 431) EOSINOPHILS RELATIVE PERCENT 2 % (BEAKER) (test code = 432) BASOPHILS RELATIVE PERCENT 1 % (BEAKER) (test code = 437) NEUTROPHILS ABSOLUTE COUNT 3.97 K/ L 1.80-8.00 (BEAKER) (test code = 670) LYMPHOCYTES ABSOLUTE COUNT 0.60 K/ L 1.48-4.50 L (BEAKER) (test code = 414) MONOCYTES ABSOLUTE COUNT (BEAKER) 0.55 K/ L 0.00-1.30 (test code = 415) EOSINOPHILS ABSOLUTE COUNT 0.09 K/ L 0.00-0.50 (BEAKER) (test code = 416) BASOPHILS ABSOLUTE COUNT (BEAKER) 0.08 K/ L 0.00-0.20 (test code = 417) [id number](MANUAL DIFFERENTIAL)2017-01-21 15:16:00 Test Item Value Reference Range Interpretation Comments TOTAL COUNTED (BEAKER) (test code = 1351) WBC MORPHOLOGY (BEAKER) (test code = Normal 487) PLT MORPHOLOGY (BEAKER) (test code = Normal 486) RBC MORPHOLOGY (BEAKER) (test code = Normal 762) HEPATIC FUNCTION [id number] 07:10:00 Test Item Value Reference Range Interpretation Comments TOTAL PROTEIN (BEAKER) (test code 4.8 gm/dL 6.0-8.3 L = 770) ALBUMIN (BEAKER) (test code = 3.2 g/dL 3.5-5.0 L 1145) BILIRUBIN TOTAL (BEAKER) (test 56.0 mg/dL 0.2-1.2 H code = 377) BILIRUBIN DIRECT (BEAKER) (test 35.7 mg/dL 0.1-0.5 H code = 706) ALKALINE PHOSPHATASE (BEAKER) 109 U/L 40-150 (test code = 346) AST (SGOT) (BEAKER) (test code = 122 U/L 5-34 H 353) ALT (SGPT) (BEAKER) (test code = 56 U/L 6-55 H 347) Specimen markedly ictericBASIC METABOLIC [id number] 07:09:00 Test Item Value Reference Range Interpretation Comments SODIUM (BEAKER) 128 meq/L 136-145 L (test code = 381) POTASSIUM (BEAKER) 3.7 meq/L 3.5-5.1 (test code = 379) CHLORIDE (BEAKER) 92 meq/L 98-107 L (test code = 382) CO2 (BEAKER) (test 19 meq/L 22-29 L code = 355) BLOOD UREA NITROGEN 89 mg/dL 7-21 H (BEAKER) (test code = 354) CREATININE (BEAKER) 6.77 mg/dL 0.57-1.25 H (test code = 358) GLUCOSE RANDOM 90 mg/dL 70-105 (BEAKER) (test code = 652) CALCIUM (BEAKER) 8.3 mg/dL 8.4-10.2 L (test code = 697) EGFR (BEAKER) (test 6 mL/min/1.73 ESTIMAT ED GFR IS code = 1092) sq m NOT ACCURATE CREATININE CLEARANCE IN PREDICTING GLOMERULAR FILTRATION RATE . ESTIMATED GFR I S NOT APPLICABLE FOR DIALYSIS PATIEN TS. Specimen markedly [id number] 07:07:00 Test Item Value Reference Range Interpretation Comments AMMONIA (BEAKER) 180 mol/L 18-72 H Specimen sl ightly (test code = 348) hemolyzed [id number] 07:07:00 Test Item Value Reference Range Interpretation Comments MAGNESIUM (BEAKER) (test code = 2.0 mg/dL 1.6-2.6 627) CALCIUM, [id number] 06:42:00 Test Item Value Reference Range Interpretation Comments CALCIUM IONIZED (BEAKER) (test 0.89 mmol/L 1.12-1.27 L code = 698) PH, BLOOD (BEAKER) (test code = 7.46 1810) [id number] 06:28:00 Test Item Value Reference Range Interpretation Comments PHOSPHORUS (BEAKER) (test code = 4.3 mg/dL 2.3-4.7 604) BODY FLUID CULTURE + GRAM [id number] 03:51:00 Test Item Value Reference Range Interpretation Comments CULTURE (BEAKER) (test code No growth = 1095) GRAM STAIN RESULT (BEAKER) <1+ WBCs (test code = 1123) GRAM STAIN RESULT (BEAKER) No organisms seen (test code = 62778) URINALYSIS W/ [id number] 22:48:00 Test Item Value Reference Range Interpretation Comments COLOR (BEAKER) (test code Dark Yellow = 470) CLARITY (BEAKER) (test Hazy code = 469) SPECIFIC GRAVITY UA 1.010 1.001-1.035 (BEAKER) (test code = 468) PH UA (BEAKER) (test code 6.0 5.0-8.0 = 467) PROTEIN UA (BEAKER) (test 20 mg/dL Negative A code = 464) GLUCOSE UA (BEAKER) (test Negative Negative code = 365) KETONES UA (BEAKER) (test Trace Negative A code = 371) BILIRUBIN UA (BEAKER) Positive Negative A (test code = 462) BLOOD UA (BEAKER) (test Small Negative A code = 461) NITRITE UA (BEAKER) (test Negative Negative code = 465) LEUKOCYTE ESTERASE UA Negative Negative (BEAKER) (test code = 466) UROBILINOGEN UA (BEAKER) 0.2 mg/dL 0.2-1.0 (test code = 463) RBC UA (BEAKER) (test 1 /HPF code = 519) WBC UA (BEAKER) (test < /HPF code = 520) MUCUS (BEAKER) (test code Rare = 1574) SQUAMOUS EPITHELIAL 1 /HPF (BEAKER) (test code = 516) SOURCE(BEAKER) (test code Urine, Straight = 4485) Catheter CBC W/PLT COUNT & AUTO [id number] 10:58:00 Test Item Value Reference Range Interpretation Comments WHITE BLOOD CELL COUNT (BEAKER) 5.4 K/ L 4.0-10.0 (test code = 775) RED BLOOD CELL COUNT (BEAKER) 2.41 M/ L 4.00-5.00 L (test code = 761) HEMOGLOBIN (BEAKER) (test code = 9.1 GM/DL 12.0-15.0 L 410) HEMATOCRIT (BEAKER) (test code = 26.0 % 36.0-45.0 L 411) MEAN CORPUSCULAR VOLUME (BEAKER) 108.0 fL 82.0-99.0 H (test code = 753) MEAN CORPUSCULAR HEMOGLOBIN 37.8 pg 27.0-33.0 H (BEAKER) (test code = 751) MEAN CORPUSCULAR HEMOGLOBIN CONC 34.9 GM/DL 32.0-36.0 (BEAKER) (test code = 752) RED CELL DISTRIBUTION WIDTH 20.4 % 10.3-14.2 H (BEAKER) (test code = 412) PLATELET COUNT (BEAKER) (test code 60 K/CU MM 150-430 L = 756) MEAN PLATELET VOLUME (BEAKER) 8.7 fL 6.5-10.5 (test code = 754) NUCLEATED RED BLOOD CELLS (BEAKER) 0 /100 WBC 0-0 (test code = 413) NEUTROPHILS RELATIVE PERCENT 77 % (BEAKER) (test code = 429) LYMPHOCYTES RELATIVE PERCENT 11 % (BEAKER) (test code = 430) MONOCYTES RELATIVE PERCENT 9 % (BEAKER) (test code = 431) EOSINOPHILS RELATIVE PERCENT 1 % (BEAKER) (test code = 432) BASOPHILS RELATIVE PERCENT 1 % (BEAKER) (test code = 437) NEUTROPHILS ABSOLUTE COUNT 4.12 K/ L 1.80-8.00 (BEAKER) (test code = 670) LYMPHOCYTES ABSOLUTE COUNT 0.61 K/ L 1.48-4.50 L (BEAKER) (test code = 414) MONOCYTES ABSOLUTE COUNT (BEAKER) 0.48 K/ L 0.00-1.30 (test code = 415) EOSINOPHILS ABSOLUTE COUNT 0.08 K/ L 0.00-0.50 (BEAKER) (test code = 416) BASOPHILS ABSOLUTE COUNT (BEAKER) 0.05 K/ L 0.00-0.20 (test code = 417) (MANUAL DIFFERENTIAL)2017-01-20 10:58:00 Test Item Value Reference Range Interpretation Comments TOTAL COUNTED (BEAKER) (test code = 1351) WBC MORPHOLOGY (BEAKER) (test code = Normal 487) PLT MORPHOLOGY (BEAKER) (test code = Normal 486) POLYCHROMATOPHILLIC RBCS(BEAKER) (test 1+ few code = 478) URINE [id number] 09:32:00 Test Item Value Reference Interpretation Comments Range CULTURE (BEAKER) (test ENTEROBACTER A 30-39 ,000 col/mL code = 1095) CLOACAE COMPLEX Enterobacter cloacae complex Amikacin (test code = S 1) Ampicillin + Sulbactam (test code = 6) Aztreonam (test code = S 32) Cefazolin (test code = 9) Cefepime (test code = S 51) Cefoxitin (test code = R 68) Ceftazidime (test code S = 27) Ceftriaxone (test code S = 52) Ertapenem (test code = S 38) Gentamicin (test code S = 18) Levofloxacin (test S code = 22) Meropenem (test code = S 34) Nitrofurantoin (test S code = 23) Piperacillin + S Tazobactam (test code = 29) Tetracycline (test S code = 2) Tigecycline (test code = 133) Tobramycin (test code S = 25) Trimethoprim + S Sulfamethoxazole (test code = 47) CULTURE (BEAKER) (test ENTEROCOCCUS A 50-59 ,000 col/mL code = 1095) SPECIES Enterococcus species Ampicillin (test code S = 26) Ciprofloxacin (test code = 7) Clindamycin (test code = 10) Daptomycin (test code = 59) Erythromycin (test code = 4) Gentamicin (test code = 18) Gentamicin High Level Synergy (test code = 241) Levofloxacin (test code = 22) Linezolid (test code = S 40) Moxifloxacin (test code = 36) Nitrofurantoin (test S code = 23) Oxacillin (test code = 14) Rifampin (test code = 43) Streptomycin High Level Synergy (test code = 242) Tetracycline (test R code = 2) Tigecycline (test code = 1332) Trimethoprim + Sulfamethoxazole (test code = 47) Vancomycin (test code S = 13) 50-59,000 col/mL skin ana rosa<10,000 col/mL GRAM NEGATIVE DK OF A 2ND TYPE CALCIUM, [id number] 06:48:00 Test Item Value Reference Range Interpretation Comments CALCIUM IONIZED (BEAKER) (test 0.83 mmol/L 1.12-1.27 L code = 698) PH, BLOOD (BEAKER) (test code = 7.47 1810) BASIC METABOLIC [id number] 06:25:00 Test Item Value Reference Range Interpretation Comments SODIUM (BEAKER) 129 meq/L 136-145 L (test code = 381) POTASSIUM (BEAKER) 3.7 meq/L 3.5-5.1 (test code = 379) CHLORIDE (BEAKER) 92 meq/L 98-107 L (test code = 382) CO2 (BEAKER) (test 20 meq/L 22-29 L code = 355) BLOOD UREA NITROGEN 80 mg/dL 7-21 H (BEAKER) (test code = 354) CREATININE (BEAKER) 6.37 mg/dL 0.57-1.25 H (test code = 358) GLUCOSE RANDOM 80 mg/dL 70-105 (BEAKER) (test code = 652) CALCIUM (BEAKER) 8.8 mg/dL 8.4-10.2 (test code = 697) EGFR (BEAKER) (test 7 mL/min/1.73 ESTIMAT ED GFR IS code = 1092) sq m NOT ACCURATE CREATININE CLEARANCE IN PREDICTING GLOMERULAR FILTRATION RATE . ESTIMATED GFR I S NOT APPLICABLE FOR DIALYSIS PATIEN TS. Specimen markedly ictericHEPATIC FUNCTION [id number] 06:25:00 Test Item Value Reference Range Interpretation Comments TOTAL PROTEIN (BEAKER) (test code 5.0 gm/dL 6.0-8.3 L = 770) ALBUMIN (BEAKER) (test code = 3.6 g/dL 3.5-5.0 1145) BILIRUBIN TOTAL (BEAKER) (test 54.8 mg/dL 0.2-1.2 H code = 377) BILIRUBIN DIRECT (BEAKER) (test 37.4 mg/dL 0.1-0.5 H code = 706) ALKALINE PHOSPHATASE (BEAKER) 105 U/L 40-150 (test code = 346) AST (SGOT) (BEAKER) (test code = 140 U/L 5-34 H 353) ALT (SGPT) (BEAKER) (test code = 66 U/L 6-55 H 347) Specimen markedly [id number] 06:22:00 Test Item Value Reference Range Interpretation Comments PHOSPHORUS (BEAKER) (test code = 4.4 mg/dL 2.3-4.7 604) [id number] 06:22:00 Test Item Value Reference Range Interpretation Comments MAGNESIUM (BEAKER) (test code = 1.9 mg/dL 1.6-2.6 627) PROTHROMBIN [id number] 05:55:00 Test Item Value Reference Range Interpretation Comments PROTIME (BEAKER) (test code = 25.1 seconds 11.7-14.7 H 759) INR (BEAKER) (test code = 370) 2.3 <=5.9 RECOMMENDED COUMADIN/WARFARIN INR THERAPY RANGESSTANDARD DOSE: 2.0 - 3.0 Includes: PROPHYLAXIS forvenous thrombosis, systemic embolization; TREATMENT for venous thrombosis and/or pulmonary embolus.HIGH RISK: Target INR is 2.5-3.5 for patients with mechanical heart valves.CBC W/PLT COUNT & AUTO DIFFERENTIAL 2017-01-19 13:08:00 Test Item Value Reference Range Interpretation Comments WHITE BLOOD CELL COUNT (BEAKER) 4.0 K/ L 4.0-10.0 (test code = 775) RED BLOOD CELL COUNT (BEAKER) 2.11 M/ L 4.00-5.00 L (test code = 761) HEMOGLOBIN (BEAKER) (test code = 7.9 GM/DL 12.0-15.0 L 410) HEMATOCRIT (BEAKER) (test code = 23.4 % 36.0-45.0 L 411) MEAN CORPUSCULAR VOLUME (BEAKER) 111.0 fL 82.0-99.0 H (test code = 753) MEAN CORPUSCULAR HEMOGLOBIN 37.3 pg 27.0-33.0 H (BEAKER) (test code = 751) MEAN CORPUSCULAR HEMOGLOBIN CONC 33.6 GM/DL 32.0-36.0 (BEAKER) (test code = 752) RED CELL DISTRIBUTION WIDTH 19.8 % 10.3-14.2 H (BEAKER) (test code = 412) PLATELET COUNT (BEAKER) (test code 50 K/CU MM 150-430 L = 756) MEAN PLATELET VOLUME (BEAKER) 8.4 fL 6.5-10.5 (test code = 754) NUCLEATED RED BLOOD CELLS (BEAKER) 0 /100 WBC 0-0 (test code = 413) NEUTROPHILS RELATIVE PERCENT 75 % (BEAKER) (test code = 429) LYMPHOCYTES RELATIVE PERCENT 12 % (BEAKER) (test code = 430) MONOCYTES RELATIVE PERCENT 10 % (BEAKER) (test code = 431) EOSINOPHILS RELATIVE PERCENT 2 % (BEAKER) (test code = 432) BASOPHILS RELATIVE PERCENT 1 % (BEAKER) (test code = 437) NEUTROPHILS ABSOLUTE COUNT 3.00 K/ L 1.80-8.00 (BEAKER) (test code = 670) LYMPHOCYTES ABSOLUTE COUNT 0.49 K/ L 1.48-4.50 L (BEAKER) (test code = 414) MONOCYTES ABSOLUTE COUNT (BEAKER) 0.38 K/ L 0.00-1.30 (test code = 415) EOSINOPHILS ABSOLUTE COUNT 0.08 K/ L 0.00-0.50 (BEAKER) (test code = 416) BASOPHILS ABSOLUTE COUNT (BEAKER) 0.04 K/ L 0.00-0.20 (test code = 417) 0.000.640.000.000.000.000.000.00(MANUAL DIFFERENTIAL)2017-01-19 13:08:00 Test Item Value Reference Range Interpretation Comments TOTAL COUNTED (BEAKER) (test code = 1351) WBC MORPHOLOGY (BEAKER) (test Normal code = 487) PLT MORPHOLOGY (BEAKER) (test Normal code = 486) ACANTHOCYTES (BEAKER) (test code 1+ few = 471) ANISOCYTOSIS (BEAKER) (test code 2+ moderate = 961) HYPOCHROMIA (BEAKER) (test code = 1+ few 963) MACROCYTES (BEAKER) (test code = 2+ moderate 964) MICROCYTES (BEAKER) (test code = 1+ few 965) OVALOCYTES (BEAKER) (test code = 1+ few 477) POIKILOCYTES (BEAKER) (test code 1+ few = 966) URINALYSIS W/ [id number] 12:34:00 Test Item Value Reference Range Interpretation Comments COLOR (BEAKER) (test Dark Yellow code = 470) CLARITY (BEAKER) (test Hazy code = 469) SPECIFIC GRAVITY UA 1.011 1.001-1.035 (BEAKER) (test code = 468) PH UA (BEAKER) (test 5.5 5.0-8.0 code = 467) PROTEIN UA (BEAKER) 30 mg/dL Negative A (test code = 464) GLUCOSE UA (BEAKER) Negative Negative (test code = 365) KETONES UA (BEAKER) Trace Negative A (test code = 371) BILIRUBIN UA (BEAKER) Positive Negative A (test code = 462) BLOOD UA (BEAKER) (test Small Negative A code = 461) NITRITE UA (BEAKER) Negative Negative (test code = 465) LEUKOCYTE ESTERASE UA Negative Negative (BEAKER) (test code = 466) UROBILINOGEN UA (BEAKER) 0.2 mg/dL 0.2-1.0 (test code = 463) RBC UA (BEAKER) (test 1 /HPF code = 519) WBC UA (BEAKER) (test 6 /HPF code = 520) BACTERIA (BEAKER) (test Rare code = 517) MUCUS (BEAKER) (test Occasional code = 1574) SQUAMOUS EPITHELIAL 2 /HPF (BEAKER) (test code = 516) HYALINE CASTS (BEAKER) 8 /LPF (test code = 514) SOURCE(BEAKER) (test Urine, Straight code = 2795) Catheter LACTIC ACID, VENOUS, WHOLE [id number] 11:53:00 Test Item Value Reference Range Interpretation Comments LACTATE BLOOD VENOUS (2) (BEAKER) 1.0 mmol/L 0.5-2.2 (test code = 2872) Effective 11/09/2015: Units/Reference Range ChangeNew: 0.5-2.2 mmol/L Previous: 5-20 mg/dLSpecimen markedly ictericBASIC METABOLIC [id number] 06:40:00 Test Item Value Reference Range Interpretation Comments SODIUM (BEAKER) 129 meq/L 136-145 L (test code = 381) POTASSIUM (BEAKER) 3.4 meq/L 3.5-5.1 L (test code = 379) CHLORIDE (BEAKER) 91 meq/L 98-107 L (test code = 382) CO2 (BEAKER) (test 23 meq/L 22-29 code = 355) BLOOD UREA NITROGEN 72 mg/dL 7-21 H (BEAKER) (test code = 354) CREATININE (BEAKER) 5.50 mg/dL 0.57-1.25 H (test code = 358) GLUCOSE RANDOM 93 mg/dL 70-105 (BEAKER) (test code = 652) CALCIUM (BEAKER) 8.4 mg/dL 8.4-10.2 (test code = 697) EGFR (BEAKER) (test 8 mL/min/1.73 ESTIMAT ED GFR IS code = 1092) sq m NOT ACCURATE CREATININE CLEARANCE IN PREDICTING GLOMERULAR FILTRATION RATE . ESTIMATED GFR I S NOT APPLICABLE FOR DIALYSIS PATIEN TS. Specimen markedly ictericHEPATIC FUNCTION [id number] 06:40:00 Test Item Value Reference Range Interpretation Comments TOTAL PROTEIN (BEAKER) (test code 4.6 gm/dL 6.0-8.3 L = 770) ALBUMIN (BEAKER) (test code = 3.3 g/dL 3.5-5.0 L 1145) BILIRUBIN TOTAL (BEAKER) (test 52.6 mg/dL 0.2-1.2 H code = 377) BILIRUBIN DIRECT (BEAKER) (test 35.4 mg/dL 0.1-0.5 H code = 706) ALKALINE PHOSPHATASE (BEAKER) 100 U/L 40-150 (test code = 346) AST (SGOT) (BEAKER) (test code = 129 U/L 5-34 H 353) ALT (SGPT) (BEAKER) (test code = 65 U/L 6-55 H 347) Specimen markedly ictericCALCIUM, [id number] 06:39:00 Test Item Value Reference Range Interpretation Comments CALCIUM IONIZED (BEAKER) (test 0.97 mmol/L 1.12-1.27 L code = 698) PH, BLOOD (BEAKER) (test code = 7.39 1810) [id number] 06:36:00 Test Item Value Reference Range Interpretation Comments PHOSPHORUS (BEAKER) (test code = 4.5 mg/dL 2.3-4.7 604) [id number] 06:36:00 Test Item Value Reference Range Interpretation Comments MAGNESIUM (BEAKER) (test code = 1.9 mg/dL 1.6-2.6 627) PROTHROMBIN [id number] 05:54:00 Test Item Value Reference Range Interpretation Comments PROTIME (BEAKER) (test code = 25.9 seconds 11.7-14.7 H 759) INR (BEAKER) (test code = 370) 2.4 <=5.9 RECOMMENDED COUMADIN/WARFARIN INR THERAPY RANGESSTANDARD DOSE: 2.0 - 3.0 Includes: PROPHYLAXIS forvenous thrombosis, systemic embolization; TREATMENT for venous thrombosis and/or pulmonary embolus.HIGH RISK: Target INR is 2.5-3.5 for patients with mechanical heart valves.BODY FLUID CELL COUNT WITH DIFFERENTIAL 2017-01-18 19:09:00 Test Item Value Reference Range Interpretation Comments APPEARANCE FLUID (BEAKER) (test Hazy Clear A code = 510) COLOR FLUID (BEAKER) (test code Yellow Colorless, Straw A = 511) RBC FLUID (BEAKER) (test code = 4550 /cu mm <=1 H 513) ADJUSTED WBC FLUID (BEAKER) 75 /cu mm <=5 H (test code = 1691) LINING CELLS (BEAKER) (test code 5 /cu mm <=1 H = 1590) NEUTROPHILS FLUID (BEAKER) (test 11 % code = 1656) LYMPHS FLUID (BEAKER) (test code 24 % = 488) MONO/MACROPHAGE FLUID (BEAKER) 65 % (test code = 489) EOSINOPHILS FLUID (BEAKER) (test 0 % code = 491) BASO FLUID (BEAKER) (test code = 0 % 492) CONTAINER BODY FLUID (BEAKER) EDTA Tube (test code = 2873) CBC W/PLT COUNT & AUTO [id number] 07:01:00 Test Item Value Reference Range Interpretation Comments WHITE BLOOD CELL COUNT (BEAKER) 5.3 K/ L 4.0-10.0 (test code = 775) RED BLOOD CELL COUNT (BEAKER) 2.34 M/ L 4.00-5.00 L (test code = 761) HEMOGLOBIN (BEAKER) (test code = 9.1 GM/DL 12.0-15.0 L 410) HEMATOCRIT (BEAKER) (test code = 25.6 % 36.0-45.0 L 411) MEAN CORPUSCULAR VOLUME (BEAKER) 110.0 fL 82.0-99.0 H (test code = 753) MEAN CORPUSCULAR HEMOGLOBIN 38.9 pg 27.0-33.0 H (BEAKER) (test code = 751) MEAN CORPUSCULAR HEMOGLOBIN CONC 35.5 GM/DL 32.0-36.0 (BEAKER) (test code = 752) RED CELL DISTRIBUTION WIDTH 20.1 % 10.3-14.2 H (BEAKER) (test code = 412) PLATELET COUNT (BEAKER) (test code 68 K/CU MM 150-430 L = 756) MEAN PLATELET VOLUME (BEAKER) 8.6 fL 6.5-10.5 (test code = 754) NUCLEATED RED BLOOD CELLS (BEAKER) 0 /100 WBC 0-0 (test code = 413) NEUTROPHILS RELATIVE PERCENT 78 % (BEAKER) (test code = 429) LYMPHOCYTES RELATIVE PERCENT 11 % (BEAKER) (test code = 430) MONOCYTES RELATIVE PERCENT 8 % (BEAKER) (test code = 431) EOSINOPHILS RELATIVE PERCENT 2 % (BEAKER) (test code = 432) BASOPHILS RELATIVE PERCENT 1 % (BEAKER) (test code = 437) NEUTROPHILS ABSOLUTE COUNT 4.17 K/ L 1.80-8.00 (BEAKER) (test code = 670) LYMPHOCYTES ABSOLUTE COUNT 0.60 K/ L 1.48-4.50 L (BEAKER) (test code = 414) MONOCYTES ABSOLUTE COUNT (BEAKER) 0.44 K/ L 0.00-1.30 (test code = 415) EOSINOPHILS ABSOLUTE COUNT 0.09 K/ L 0.00-0.50 (BEAKER) (test code = 416) BASOPHILS ABSOLUTE COUNT (BEAKER) 0.04 K/ L 0.00-0.20 (test code = 417) 0.00BASIC METABOLIC [id number] 05:59:00 Test Item Value Reference Range Interpretation Comments SODIUM (BEAKER) 128 meq/L 136-145 L (test code = 381) POTASSIUM (BEAKER) 3.8 meq/L 3.5-5.1 (test code = 379) CHLORIDE (BEAKER) 90 meq/L 98-107 L (test code = 382) CO2 (BEAKER) (test 23 meq/L 22-29 code = 355) BLOOD UREA NITROGEN 61 mg/dL 7-21 H (BEAKER) (test code = 354) CREATININE (BEAKER) 4.51 mg/dL 0.57-1.25 H (test code = 358) GLUCOSE RANDOM 96 mg/dL 70-105 (BEAKER) (test code = 652) CALCIUM (BEAKER) 8.7 mg/dL 8.4-10.2 (test code = 697) EGFR (BEAKER) (test 10 mL/min/1.73 ESTIMA NIHARIKA GFR IS code = 1092) sq m NOT ACCURATE CREATININE CLEARANCE IN PREDICTING GLOMERULAR FILTRATION RATE . ESTIMATED GFR I S NOT APPLICABLE FOR DIALYSIS PATIEN TS. Specimen markedly ictericHEPATIC FUNCTION [id number] 05:59:00 Test Item Value Reference Range Interpretation Comments TOTAL PROTEIN (BEAKER) (test code 4.7 gm/dL 6.0-8.3 L = 770) ALBUMIN (BEAKER) (test code = 3.0 g/dL 3.5-5.0 L 1145) BILIRUBIN TOTAL (BEAKER) (test 53.2 mg/dL 0.2-1.2 H code = 377) BILIRUBIN DIRECT (BEAKER) (test 35.7 mg/dL 0.1-0.5 H code = 706) ALKALINE PHOSPHATASE (BEAKER) 121 U/L 40-150 (test code = 346) AST (SGOT) (BEAKER) (test code = 154 U/L 5-34 H 353) ALT (SGPT) (BEAKER) (test code = 81 U/L 6-55 H 347) Specimen markedly ictericCALCIUM, [id number] 05:49:00 Test Item Value Reference Range Interpretation Comments CALCIUM IONIZED (BEAKER) (test 0.97 mmol/L 1.12-1.27 L code = 698) PH, BLOOD (BEAKER) (test code = 7.39 1810) [id number] 05:43:00 Test Item Value Reference Range Interpretation Comments PHOSPHORUS (BEAKER) (test code = 4.3 mg/dL 2.3-4.7 604) [id number] 05:43:00 Test Item Value Reference Range Interpretation Comments MAGNESIUM (BEAKER) (test code = 1.8 mg/dL 1.6-2.6 627) B-TYPE NATRIURETIC FACTOR (BNP)2017-01-18 05:33:00 Test Item Value Reference Range Interpretation Comments B-TYPE NATRIURETIC PEPTIDE (BEAKER) 359 pg/mL 0-100 H (test code = 700) CREATINE KINASE (CK)2017-01-18 05:30:00 Test Item Value Reference Range Interpretation Comments CREATINE KINASE TOTAL (BEAKER) (test 58 U/L 29-200 code = 380) PROTHROMBIN [id number] 05:13:00 Test Item Value Reference Range Interpretation Comments PROTIME (BEAKER) (test code = 25.3 seconds 11.7-14.7 H 759) INR (BEAKER) (test code = 370) 2.3 <=5.9 RECOMMENDED COUMADIN/WARFARIN INR THERAPY RANGESSTANDARD DOSE: 2.0 - 3.0 Includes: PROPHYLAXIS forvenous thrombosis, systemic embolization; TREATMENT for venous thrombosis and/or pulmonary embolus.HIGH RISK: Target INR is 2.5-3.5 for patients with mechanical heart valves.EOSINOPHIL SMEAR, [id number] 22:29:00 Test Item Value Reference Range Interpretation Comments EOSINOPHIL SMEAR, URINE (BEAKER) No EOS seen No EOS seen (test code = 1851) PROTEIN, RANDOM [id number] 21:31:00 Test Item Value Reference Range Interpretation Comments PROTEIN, URINE (BEAKER) (test code = 39 mg/dL 0-14 H 1569) CREATININE, RANDOM [id number] 21:28:00 Test Item Value Reference Range Interpretation Comments CREATININE URINE (BEAKER) (test 140.9 mg/dL code = 375) Reference Range: No NormalsSODIUM, RANDOM [id number] 21:28:00 Test Item Value Reference Range Interpretation Comments SODIUM URINE (BEAKER) (test code = 30 meq/L 243) Reference Range: No NormalsURINALYSIS W/ [id number] 21:27:00 Test Item Value Reference Range Interpretation Comments COLOR (BEAKER) (test code = 470) Brown CLARITY (BEAKER) (test code = 469) Hazy SPECIFIC GRAVITY UA (BEAKER) (test 1.011 1.001-1.035 code = 468) PH UA (BEAKER) (test code = 467) 6.0 5.0-8.0 PROTEIN UA (BEAKER) (test code = 30 mg/dL Negative A 464) GLUCOSE UA (BEAKER) (test code = Negative Negative 365) KETONES UA (BEAKER) (test code = Trace Negative A 371) BILIRUBIN UA (BEAKER) (test code = Positive Negative A 462) BLOOD UA (BEAKER) (test code = 461) Large Negative A NITRITE UA (BEAKER) (test code = Negative Negative 465) LEUKOCYTE ESTERASE UA (BEAKER) Small Negative A (test code = 466) UROBILINOGEN UA (BEAKER) (test code 0.2 mg/dL 0.2-1.0 = 463) RBC UA (BEAKER) (test code = 519) > /HPF WBC UA (BEAKER) (test code = 520) 1 /HPF BACTERIA (BEAKER) (test code = 517) Moderate MUCUS (BEAKER) (test code = 1574) Rare SQUAMOUS EPITHELIAL (BEAKER) (test 3 /HPF code = 516) SOURCE(BEAKER) (test code = 2795) [id number] 18:44:00 Test Item Value Reference Range Interpretation Comments MAGNESIUM (BEAKER) 2.0 mg/dL 1.6-2.6 Specimen slightly (test code = 627) hemolyzed [id number] 18:44:00 Test Item Value Reference Range Interpretation Comments PHOSPHORUS (BEAKER) 4.4 mg/dL 2.3-4.7 Specimen slightly (test code = 604) hemolyzed CALCIUM, [id number] 18:09:00 Test Item Value Reference Range Interpretation Comments CALCIUM IONIZED (BEAKER) (test 0.84 mmol/L 1.12-1.27 L code = 698) PH, BLOOD (BEAKER) (test code = 7.50 1810) [id number] 16:00:00 Test Item Value Reference Range Interpretation Comments ETHANOL (BEAKER) (test code = 400) < mg/dL <=10 BILIRUBIN, [id number] 11:55:00 Test Item Value Reference Range Interpretation Comments BILIRUBIN DIRECT 35.4 mg/dL 0.1-0.5 H Specimen sl ightly (BEAKER) (test code = hemoly zed 706) COMPREHENSIVE METABOLIC [id number] 11:55:00 Test Item Value Reference Range Interpretation Comments TOTAL PROTEIN 5.3 gm/dL 6.0-8.3 L Specimen sligh tly (BEAKER) (test code = hemoly zed 770) ALBUMIN (BEAKER) 3.3 g/dL 3.5-5.0 L Specimen sl ightly (test code = 1145) hemolyzed ALKALINE PHOSPHATASE 140 U/L 40-150 (BEAKER) (test code = 346) BILIRUBIN TOTAL 57.6 mg/dL 0.2-1.2 H Specimen sli ghtly (BEAKER) (test code = hemoly zed 377) SODIUM (BEAKER) (test 130 meq/L 136-145 L code = 381) POTASSIUM (BEAKER) 3.3 meq/L 3.5-5.1 L Specimen slightly (test code = 379) hemolyzed CHLORIDE (BEAKER) 91 meq/L 98-107 L (test code = 382) CO2 (BEAKER) (test 24 meq/L 22-29 code = 355) BLOOD UREA NITROGEN 53 mg/dL 7-21 H (BEAKER) (test code = 354) CREATININE (BEAKER) 3.73 mg/dL 0.57-1.25 H Specimen slightly (test code = 358) hemolyzed GLUCOSE RANDOM 72 mg/dL 70-105 (BEAKER) (test code = 652) CALCIUM (BEAKER) 9.3 mg/dL 8.4-10.2 (test code = 697) AST (SGOT) (BEAKER) 195 U/L 5-34 H Specimen slightly (test code = 353) hemolyzed ALT (SGPT) (BEAKER) 101 U/L 6-55 H Specimen slightly (test code = 347) hemolyzed EGFR (BEAKER) (test 13 mL/min/1.73 ESTIMA NIHARIKA GFR IS code = 1092) sq m NOT ACCURATE CREATININE CLEARANCE IN PREDICTING GLOMERULAR FILTRATION RATE . ESTIMATED GFR I S NOT APPLICABLE FOR DIALYSIS PATIEN TS. Specimen markedly ictericCBC (HEMOGRAM ONLY)[id number] 11:26:00 Test Item Value Reference Range Interpretation Comments WHITE BLOOD CELL COUNT (BEAKER) 8.5 K/ L 4.0-10.0 (test code = 775) RED BLOOD CELL COUNT (BEAKER) 3.00 M/ L 4.00-5.00 L (test code = 761) HEMOGLOBIN (BEAKER) (test code = 10.5 GM/DL 12.0-15.0 L 410) HEMATOCRIT (BEAKER) (test code = 33.1 % 36.0-45.0 L 411) MEAN CORPUSCULAR VOLUME (BEAKER) 111.0 fL 82.0-99.0 H (test code = 753) MEAN CORPUSCULAR HEMOGLOBIN 35.1 pg 27.0-33.0 H (BEAKER) (test code = 751) MEAN CORPUSCULAR HEMOGLOBIN CONC 31.7 GM/DL 32.0-36.0 L (BEAKER) (test code = 752) RED CELL DISTRIBUTION WIDTH 20.1 % 10.3-14.2 H (BEAKER) (test code = 412) PLATELET COUNT (BEAKER) (test 104 K/CU MM 150-430 L code = 756) MEAN PLATELET VOLUME (BEAKER) 8.5 fL 6.5-10.5 (test code = 754) NUCLEATED RED BLOOD CELLS 0 /100 WBC 0-0 (BEAKER) (test code = 413) 0.00PROTHROMBIN [id number] 11:18:00 Test Item Value Reference Range Interpretation Comments PROTIME (BEAKER) (test code = 23.9 seconds 11.7-14.7 H 759) INR (BEAKER) (test code = 370) 2.1 <=5.9 RECOMMENDED COUMADIN/WARFARIN INR THERAPY RANGESSTANDARD DOSE: 2.0 - 3.0 Includes: PROPHYLAXIS forvenous thrombosis, systemic embolization; TREATMENT for venous thrombosis and/or pulmonary embolus.HIGH RISK: Target INR is 2.5-3.5 for patients with mechanical heart valves.CYTOMEGALOVIRUS ANTIBODY, [id number] 06:21:00 Test Item Value Reference Range Interpretation Comments CYTOMEGALOVIRUS IGG ANTIBODY Positive (BEAKER) (test code = 790) CYTOMEGALOVIRUS ANTIBODY, [id number] 06:21:00 Test Item Value Reference Range Interpretation Comments CYTOMEGALOVIRUS IGM ANTIBODY Equivocal (BEAKER) (test code = 816) EBV-VCA ANTIBODY, [id number] 06:21:00 Test Item Value Reference Range Interpretation Comments TIMUR-SHARP VCA IGG (BEAKER) (test Positive code = 983) EBV-VCA ANTIBODY, [id number] 06:21:00 Test Item Value Reference Range Interpretation Comments TIMUR-SHARP VCA IGM (BEAKER) (test Positive code = 984) MISCELLANEOUS LAB [id number] 14:33:00 Test Item Value Reference Range Interpretation Comments SCAN RESULT (test code = 2329361) CRYPTOCOCCAL [id number] 11:37:00 Test Item Value Reference Range Interpretation Comments CRYPTOCOCCAL ANTIGEN, SERUM Negative Negative, Interference (BEAKER) (test code = 1828) CBC W/PLT COUNT & AUTO [id number] 11:54:00 Test Item Value Reference Range Interpretation Comments WHITE BLOOD CELL COUNT (BEAKER) 3.2 K/ L 4.0-10.0 L (test code = 775) RED BLOOD CELL COUNT (BEAKER) 2.47 M/ L 4.00-5.00 L (test code = 761) HEMOGLOBIN (BEAKER) (test code = 9.0 GM/DL 12.0-15.0 L 410) HEMATOCRIT (BEAKER) (test code = 27.8 % 36.0-45.0 L 411) MEAN CORPUSCULAR VOLUME (BEAKER) 113.0 fL 82.0-99.0 H (test code = 753) MEAN CORPUSCULAR HEMOGLOBIN 36.5 pg 27.0-33.0 H (BEAKER) (test code = 751) MEAN CORPUSCULAR HEMOGLOBIN CONC 32.4 GM/DL 32.0-36.0 (BEAKER) (test code = 752) RED CELL DISTRIBUTION WIDTH 20.8 % 10.3-14.2 H (BEAKER) (test code = 412) PLATELET COUNT (BEAKER) (test code 32 K/CU MM 150-430 L = 756) MEAN PLATELET VOLUME (BEAKER) 8.0 fL 6.5-10.5 (test code = 754) NUCLEATED RED BLOOD CELLS (BEAKER) 0 /100 WBC 0-0 (test code = 413) NEUTROPHILS RELATIVE PERCENT 56 % (BEAKER) (test code = 429) LYMPHOCYTES RELATIVE PERCENT 15 % (BEAKER) (test code = 430) MONOCYTES RELATIVE PERCENT 26 % (BEAKER) (test code = 431) EOSINOPHILS RELATIVE PERCENT 2 % (BEAKER) (test code = 432) BASOPHILS RELATIVE PERCENT 1 % (BEAKER) (test code = 437) NEUTROPHILS ABSOLUTE COUNT 1.77 K/ L 1.80-8.00 L (BEAKER) (test code = 670) LYMPHOCYTES ABSOLUTE COUNT 0.47 K/ L 1.48-4.50 L (BEAKER) (test code = 414) MONOCYTES ABSOLUTE COUNT (BEAKER) 0.82 K/ L 0.00-1.30 (test code = 415) EOSINOPHILS ABSOLUTE COUNT 0.07 K/ L 0.00-0.50 (BEAKER) (test code = 416) BASOPHILS ABSOLUTE COUNT (BEAKER) 0.02 K/ L 0.00-0.20 (test code = 417) 0.000.760.000.000.000.000.000.00(MANUAL DIFFERENTIAL)2017-01-13 11:54:00 Test Item Value Reference Range Interpretation Comments TOTAL COUNTED (BEAKER) (test code = 1351) WBC MORPHOLOGY (BEAKER) (test code = Normal 487) PLT MORPHOLOGY (BEAKER) (test code = Normal 486) RBC MORPHOLOGY (BEAKER) (test code = Normal 762) BLOOD [id number] 11:00:00 Test Item Value Reference Range Interpretation Comments CULTURE (BEAKER) (test No growth in 5 days code = 1095) BLOOD [id number] 11:00:00 Test Item Value Reference Range Interpretation Comments CULTURE (BEAKER) (test No growth in 5 days code = 1095) [id number] 10:48:00 Test Item Value Reference Range Interpretation Comments FIBRINOGEN LEVEL (BEAKER) (test 111 mg/dl 225-434 L code = 658) HEPATIC FUNCTION [id number] 07:50:00 Test Item Value Reference Range Interpretation Comments TOTAL PROTEIN (BEAKER) (test code 5.0 gm/dL 6.0-8.3 L = 770) ALBUMIN (BEAKER) (test code = 3.4 g/dL 3.5-5.0 L 1145) BILIRUBIN TOTAL (BEAKER) (test 46.7 mg/dL 0.2-1.2 H code = 377) BILIRUBIN DIRECT (BEAKER) (test 30.6 mg/dL 0.1-0.5 H code = 706) ALKALINE PHOSPHATASE (BEAKER) 101 U/L 40-150 (test code = 346) AST (SGOT) (BEAKER) (test code = 228 U/L 5-34 H 353) ALT (SGPT) (BEAKER) (test code = 163 U/L 6-55 H 347) Specimen markedly [id number] 07:33:00 Test Item Value Reference Range Interpretation Comments PHOSPHORUS (BEAKER) (test code = 2.1 mg/dL 2.3-4.7 L 604) [id number] 07:33:00 Test Item Value Reference Range Interpretation Comments MAGNESIUM (BEAKER) (test code = 1.7 mg/dL 1.6-2.6 627) BASIC METABOLIC [id number] 07:33:00 Test Item Value Reference Range Interpretation Comments SODIUM (BEAKER) 137 meq/L 136-145 (test code = 381) POTASSIUM (BEAKER) 3.3 meq/L 3.5-5.1 L (test code = 379) CHLORIDE (BEAKER) 96 meq/L 98-107 L (test code = 382) CO2 (BEAKER) (test 27 meq/L 22-29 code = 355) BLOOD UREA NITROGEN 24 mg/dL 7-21 H (BEAKER) (test code = 354) CREATININE (BEAKER) 1.02 mg/dL 0.57-1.25 (test code = 358) GLUCOSE RANDOM 85 mg/dL 70-105 (BEAKER) (test code = 652) CALCIUM (BEAKER) 9.3 mg/dL 8.4-10.2 (test code = 697) EGFR (BEAKER) (test 56 mL/min/1.73 ESTIMA NIHARIKA GFR IS code = 1092) sq m NOT ACCURATE CREATININE CLEARANCE IN PREDICTING GLOMERULAR FILTRATION RATE . ESTIMATED GFR I S NOT APPLICABLE FOR DIALYSIS PATIEN TS. Specimen markedly ictericPROTHROMBIN [id number] 07:20:00 Test Item Value Reference Range Interpretation Comments PROTIME (BEAKER) (test code = 27.3 seconds 11.7-14.7 H 759) INR (BEAKER) (test code = 370) 2.5 <=5.9 RECOMMENDED COUMADIN/WARFARIN INR THERAPY RANGESSTANDARD DOSE: 2.0 - 3.0 Includes: PROPHYLAXIS forvenous thrombosis, systemic embolization; TREATMENT for venous thrombosis and/or pulmonary embolus.HIGH RISK: Target INR is 2.5-3.5 for patients with mechanical heart valves.CARCINOEMBRYONIC ANTIGEN (CEA)2017-01-12 18:43:00 Test Item Value Reference Range Interpretation Comments CARCINOEMBRYONIC ANTIGEN (BEAKER) 9.6 ng/mL 0.0-5.0 H (test code = 685) CBC W/PLT COUNT & AUTO [id number] 14:56:00 Test Item Value Reference Range Interpretation Comments WHITE BLOOD CELL COUNT (BEAKER) 3.4 K/ L 4.0-10.0 L (test code = 775) RED BLOOD CELL COUNT (BEAKER) 2.47 M/ L 4.00-5.00 L (test code = 761) HEMOGLOBIN (BEAKER) (test code = 8.7 GM/DL 12.0-15.0 L 410) HEMATOCRIT (BEAKER) (test code = 27.3 % 36.0-45.0 L 411) MEAN CORPUSCULAR VOLUME (BEAKER) 111.0 fL 82.0-99.0 H (test code = 753) MEAN CORPUSCULAR HEMOGLOBIN 35.2 pg 27.0-33.0 H (BEAKER) (test code = 751) MEAN CORPUSCULAR HEMOGLOBIN CONC 31.9 GM/DL 32.0-36.0 L (BEAKER) (test code = 752) RED CELL DISTRIBUTION WIDTH 20.6 % 10.3-14.2 H (BEAKER) (test code = 412) PLATELET COUNT (BEAKER) (test code 30 K/CU MM 150-430 L = 756) MEAN PLATELET VOLUME (BEAKER) 8.8 fL 6.5-10.5 (test code = 754) NUCLEATED RED BLOOD CELLS (BEAKER) 0 /100 WBC 0-0 (test code = 413) NEUTROPHILS RELATIVE PERCENT 58 % (BEAKER) (test code = 429) LYMPHOCYTES RELATIVE PERCENT 16 % (BEAKER) (test code = 430) MONOCYTES RELATIVE PERCENT 24 % (BEAKER) (test code = 431) EOSINOPHILS RELATIVE PERCENT 2 % (BEAKER) (test code = 432) BASOPHILS RELATIVE PERCENT 0 % (BEAKER) (test code = 437) NEUTROPHILS ABSOLUTE COUNT 1.99 K/ L 1.80-8.00 (BEAKER) (test code = 670) LYMPHOCYTES ABSOLUTE COUNT 0.54 K/ L 1.48-4.50 L (BEAKER) (test code = 414) MONOCYTES ABSOLUTE COUNT (BEAKER) 0.82 K/ L 0.00-1.30 (test code = 415) EOSINOPHILS ABSOLUTE COUNT 0.06 K/ L 0.00-0.50 (BEAKER) (test code = 416) BASOPHILS ABSOLUTE COUNT (BEAKER) 0.01 K/ L 0.00-0.20 (test code = 417) 0.000.590.000.000.000.000.000.00(MANUAL DIFFERENTIAL)2017-01-12 14:56:00 Test Item Value Reference Range Interpretation Comments TOTAL COUNTED (BEAKER) (test code = 1351) WBC MORPHOLOGY (BEAKER) (test code = Normal 487) PLT MORPHOLOGY (BEAKER) (test code = Normal 486) RBC MORPHOLOGY (BEAKER) (test code = Normal 762) [id number] 12:24:00 Test Item Value Reference Range Interpretation Comments RPR SCREEN (BEAKER) (test code = Nonreactive Nonreactive 420) BASIC METABOLIC [id number] 07:46:00 Test Item Value Reference Range Interpretation Comments SODIUM (BEAKER) 138 meq/L 136-145 (test code = 381) POTASSIUM (BEAKER) 3.7 meq/L 3.5-5.1 (test code = 379) CHLORIDE (BEAKER) 98 meq/L 98-107 (test code = 382) CO2 (BEAKER) (test 27 meq/L 22-29 code = 355) BLOOD UREA NITROGEN 27 mg/dL 7-21 H (BEAKER) (test code = 354) CREATININE (BEAKER) 1.01 mg/dL 0.57-1.25 (test code = 358) GLUCOSE RANDOM 84 mg/dL 70-105 (BEAKER) (test code = 652) CALCIUM (BEAKER) 9.2 mg/dL 8.4-10.2 (test code = 697) EGFR (BEAKER) (test 57 mL/min/1.73 ESTIMA NIHARIKA GFR IS code = 1092) sq m NOT ACCURATE CREATININE CLEARANCE IN PREDICTING GLOMERULAR FILTRATION RATE . ESTIMATED GFR I S NOT APPLICABLE FOR DIALYSIS PATIEN TS. Specimen markedly ictericRETICULOCYTE [id number] 07:26:00 Test Item Value Reference Range Interpretation Comments RETICULOCYTE COUNT PCT (BEAKER) (test 7.1 % 0.4-2.9 H code = 575) HEPATIC FUNCTION [id number] 07:12:00 Test Item Value Reference Range Interpretation Comments TOTAL PROTEIN (BEAKER) (test code 5.0 gm/dL 6.0-8.3 L = 770) ALBUMIN (BEAKER) (test code = 3.5 g/dL 3.5-5.0 1145) BILIRUBIN TOTAL (BEAKER) (test 44.3 mg/dL 0.2-1.2 H code = 377) BILIRUBIN DIRECT (BEAKER) (test 29.3 mg/dL 0.1-0.5 H code = 706) ALKALINE PHOSPHATASE (BEAKER) 95 U/L 40-150 (test code = 346) AST (SGOT) (BEAKER) (test code = 268 U/L 5-34 H 353) ALT (SGPT) (BEAKER) (test code = 185 U/L 6-55 H 347) Specimen markedly ictericLACTATE DEHYDROGENASE (LDH)2017-01-12 07:11:00 Test Item Value Reference Range Interpretation Comments LACTATE DEHYDROGENASE (BEAKER) (test 1025 U/L 125-220 H code = 635) [id number] 06:57:00 Test Item Value Reference Range Interpretation Comments D-DIMER QUANTITATIVE (BEAKER) 3.27 MG/L FEU <0.50 H (test code = 671) Intended Use: The D-Dimer Assay can be used to aid in the diagnosis of Deep Vein Thrombosis (DVT) and Pulmonary Embolism Disease (PED).In patients with low pre- test probability, various studies concerning STA Liatest D-dimer test have reported that with a cutoff value of 0.50 MG/L FEU, the Negative Predictive Value (NPV) regarding the exclusion of thrombosis is within 95-100% range. [id number] 06:56:00 Test Item Value Reference Range Interpretation Comments FIBRINOGEN LEVEL (BEAKER) (test code 91 mg/dl 225-434 LL = 658) [id number] 06:45:00 Test Item Value Reference Range Interpretation Comments HAPTOGLOBIN (BEAKER) (test code = < mg/dL 14-258 L 366) Effective 05/25/2014: Reference Range ChangeNew: 14-258 Previous: 36-195 PROTHROMBIN [id number] 06:40:00 Test Item Value Reference Range Interpretation Comments PROTIME (BEAKER) (test code = 30.9 seconds 11.7-14.7 H 759) INR (BEAKER) (test code = 370) 3.0 <=5.9 RECOMMENDED COUMADIN/WARFARIN INR THERAPY RANGESSTANDARD DOSE: 2.0 - 3.0 Includes: PROPHYLAXIS forvenous thrombosis, systemic embolization; TREATMENT for venous thrombosis and/or pulmonary embolus.HIGH RISK: Target INR is 2.5-3.5 for patients with mechanical heart valves.[id number] 19:42:00 Test Item Value Reference Range Interpretation Comments PHOSPHORUS (BEAKER) (test code = 2.7 mg/dL 2.3-4.7 604) [id number] 19:42:00 Test Item Value Reference Range Interpretation Comments MAGNESIUM (BEAKER) (test code = 1.9 mg/dL 1.6-2.6 627) [id number] 19:42:00 Test Item Value Reference Range Interpretation Comments SODIUM (BEAKER) (test code = 381) 138 meq/L 136-145 POTASSIUM (BEAKER) (test code = 3.2 meq/L 3.5-5.1 L 379) CHLORIDE (BEAKER) (test code = 382) 95 meq/L 98-107 L CO2 (BEAKER) (test code = 355) 29 meq/L 22-29 VITAMIN D, [id number] 17:11:00 Test Item Value Reference Range Interpretation Comments VITAMIN D 25-OH (BEAKER) (test code = < ng/mL 13.0-47.8 L 2764) BLOOD GAS, [id number] 15:03:00 Test Item Value Reference Range Interpretation Comments PH ARTERIAL (BEAKER) (test code = 7.51 7.35-7.45 H 383) PCO2 ARTERIAL (BEAKER) (test code 39 mmHg 35-45 = 384) PO2 ARTERIAL (BEAKER) (test code = 82 mmHg 80-90 385) O2 SATURATION ARTERIAL (BEAKER) 96.9 % 96.0-97.0 (test code = 386) HCO3 ARTERIAL (BEAKER) (test code 31 mmol/L 21-29 H = 388) BASE EXCESS ARTERIAL (BEAKER) 7.0 mmol/L -2.0-3.0 H (test code = 387) PATIENT TEMPERATURE (BEAKER) (test 37.0 C code = 1818) FIO2 (BEAKER) (test code = 1819) 21.0 % HEPATITIS B CORE ANTIBODY, [id number] 12:56:00 Test Item Value Reference Range Interpretation Comments HEPATITIS B CORE TOTAL ANTIBODY Nonreactive Nonreactive (BEAKER) (test code = 497) HIV-1 ANTIGEN WITH HIV-1/2 [id number] 12:56:00 Test Item Value Reference Range Interpretation Comments HIV-1 ANTIGEN WITH HIV 1\\T\\2 Nonreactive Nonreactive ANTIBODY (2) (BEAKER) (test code = 2586) [id number] 12:49:00 Test Item Value Reference Range Interpretation Comments T4 TOTAL (BEAKER) (test code = 895) 2.7 ug/dL 4.9-11.7 L [id number] 12:49:00 Test Item Value Reference Range Interpretation Comments T3 TOTAL (BEAKER) (test code = 656) 37 ng/dL 48-159 L Effective 05/25/2014: Reference Range ChangeNew: 48-159 Previous: 60-181 [id number] 12:31:00 Test Item Value Reference Range Interpretation Comments TRANSFERRIN (BEAKER) (test code = 98 mg/dL 174-382 L 541) Specimen markedly [id number] 12:27:00 Test Item Value Reference Range Interpretation Comments ETHANOL (BEAKER) (test code = 400) < mg/dL <=10 [id number] 12:19:00 Test Item Value Reference Range Interpretation Comments PARTIAL THROMBOPLASTIN TIME 51.6 seconds 22.5-36.0 H (BEAKER) (test code = 760) CALCIUM, [id number] 12:18:00 Test Item Value Reference Range Interpretation Comments CALCIUM IONIZED (BEAKER) (test 1.11 mmol/L 1.12-1.27 L code = 698) PH, BLOOD (BEAKER) (test code = 7.46 1810) CBC W/PLT COUNT & AUTO [id number] 10:43:00 Test Item Value Reference Range Interpretation Comments WHITE BLOOD CELL COUNT (BEAKER) 2.9 K/ L 4.0-10.0 L (test code = 775) RED BLOOD CELL COUNT (BEAKER) 2.33 M/ L 4.00-5.00 L (test code = 761) HEMOGLOBIN (BEAKER) (test code = 8.5 GM/DL 12.0-15.0 L 410) HEMATOCRIT (BEAKER) (test code = 25.4 % 36.0-45.0 L 411) MEAN CORPUSCULAR VOLUME (BEAKER) 109.0 fL 82.0-99.0 H (test code = 753) MEAN CORPUSCULAR HEMOGLOBIN 36.7 pg 27.0-33.0 H (BEAKER) (test code = 751) MEAN CORPUSCULAR HEMOGLOBIN CONC 33.7 GM/DL 32.0-36.0 (BEAKER) (test code = 752) RED CELL DISTRIBUTION WIDTH 19.4 % 10.3-14.2 H (BEAKER) (test code = 412) PLATELET COUNT (BEAKER) (test code 22 K/CU MM 150-430 L = 756) MEAN PLATELET VOLUME (BEAKER) 9.1 fL 6.5-10.5 (test code = 754) NUCLEATED RED BLOOD CELLS (BEAKER) 0 /100 WBC 0-0 (test code = 413) NEUTROPHILS RELATIVE PERCENT 61 % (BEAKER) (test code = 429) LYMPHOCYTES RELATIVE PERCENT 12 % (BEAKER) (test code = 430) MONOCYTES RELATIVE PERCENT 24 % (BEAKER) (test code = 431) EOSINOPHILS RELATIVE PERCENT 2 % (BEAKER) (test code = 432) BASOPHILS RELATIVE PERCENT 0 % (BEAKER) (test code = 437) NEUTROPHILS ABSOLUTE COUNT 1.77 K/ L 1.80-8.00 L (BEAKER) (test code = 670) LYMPHOCYTES ABSOLUTE COUNT 0.35 K/ L 1.48-4.50 L (BEAKER) (test code = 414) MONOCYTES ABSOLUTE COUNT (BEAKER) 0.71 K/ L 0.00-1.30 (test code = 415) EOSINOPHILS ABSOLUTE COUNT 0.06 K/ L 0.00-0.50 (BEAKER) (test code = 416) BASOPHILS ABSOLUTE COUNT (BEAKER) 0.01 K/ L 0.00-0.20 (test code = 417) 0.000.770.000.000.000.000.000.00(MANUAL DIFFERENTIAL)2017-01-11 10:43:00 Test Item Value Reference Range Interpretation Comments TOTAL COUNTED (BEAKER) (test code = 1351) WBC MORPHOLOGY (BEAKER) (test code = Normal 487) PLT MORPHOLOGY (BEAKER) (test code = Normal 486) POLYCHROMATOPHILLIC RBCS(BEAKER) (test 1+ few code = 478) URINE [id number] 09:14:00 Test Item Value Reference Range Interpretation Comments CULTURE (BEAKER) (test A >100, 000 col/mL Agnieszka code = 1095) albicans HEPATIC FUNCTION [id number] 06:32:00 Test Item Value Reference Range Interpretation Comments TOTAL PROTEIN (BEAKER) (test code 5.4 gm/dL 6.0-8.3 L = 770) ALBUMIN (BEAKER) (test code = 3.9 g/dL 3.5-5.0 1145) BILIRUBIN TOTAL (BEAKER) (test 45.7 mg/dL 0.2-1.2 H code = 377) BILIRUBIN DIRECT (BEAKER) (test 28.7 mg/dL 0.1-0.5 H code = 706) ALKALINE PHOSPHATASE (BEAKER) 93 U/L 40-150 (test code = 346) AST (SGOT) (BEAKER) (test code = 432 U/L 5-34 H 353) ALT (SGPT) (BEAKER) (test code = 239 U/L 6-55 H 347) Specimen markedly [id number] 06:31:00 Test Item Value Reference Range Interpretation Comments PHOSPHORUS (BEAKER) (test code = 1.8 mg/dL 2.3-4.7 L 604) [id number] 06:31:00 Test Item Value Reference Range Interpretation Comments MAGNESIUM (BEAKER) (test code = 2.0 mg/dL 1.6-2.6 627) BASIC METABOLIC [id number] 06:31:00 Test Item Value Reference Range Interpretation Comments SODIUM (BEAKER) 136 meq/L 136-145 (test code = 381) POTASSIUM (BEAKER) 3.3 meq/L 3.5-5.1 L (test code = 379) CHLORIDE (BEAKER) 95 meq/L 98-107 L (test code = 382) CO2 (BEAKER) (test 29 meq/L 22-29 code = 355) BLOOD UREA NITROGEN 32 mg/dL 7-21 H (BEAKER) (test code = 354) CREATININE (BEAKER) 1.19 mg/dL 0.57-1.25 (test code = 358) GLUCOSE RANDOM 93 mg/dL 70-105 (BEAKER) (test code = 652) CALCIUM (BEAKER) 9.5 mg/dL 8.4-10.2 (test code = 697) EGFR (BEAKER) (test 47 mL/min/1.73 ESTIMA NIHARIKA GFR IS code = 1092) sq m NOT ACCURATE CREATININE CLEARANCE IN PREDICTING GLOMERULAR FILTRATION RATE . ESTIMATED GFR I S NOT APPLICABLE FOR DIALYSIS PATIEN TS. Specimen markedly ictericB-TYPE NATRIURETIC FACTOR (BNP)2017-01-11 06:17:00 Test Item Value Reference Range Interpretation Comments B-TYPE NATRIURETIC PEPTIDE (BEAKER) 852 pg/mL 0-100 H (test code = 700) PROTHROMBIN [id number] 06:03:00 Test Item Value Reference Range Interpretation Comments PROTIME (BEAKER) (test code = 31.4 seconds 11.7-14.7 H 759) INR (BEAKER) (test code = 370) 3.0 <=5.9 RECOMMENDED COUMADIN/WARFARIN INR THERAPY RANGESSTANDARD DOSE: 2.0 - 3.0 Includes: PROPHYLAXIS forvenous thrombosis, systemic embolization; TREATMENT for venous thrombosis and/or pulmonary embolus.HIGH RISK: Target INR is 2.5-3.5 for patients with mechanical heart valves.CALCIUM, [id number] 05:53:00 Test Item Value Reference Range Interpretation Comments CALCIUM IONIZED (BEAKER) (test 0.97 mmol/L 1.12-1.27 L code = 698) PH, BLOOD (BEAKER) (test code = 7.47 1810) [id number] 18:15:00 Test Item Value Reference Range Interpretation Comments PHOSPHORUS (BEAKER) (test code = 0.9 mg/dL 2.3-4.7 LL 604) [id number] 17:12:00 Test Item Value Reference Range Interpretation Comments PHOSPHORUS (BEAKER) (test code = 0.9 mg/dL 2.3-4.7 LL 604) [id number] 17:10:00 Test Item Value Reference Range Interpretation Comments POTASSIUM (BEAKER) (test code = 3.5 meq/L 3.5-5.1 379) [id number] 17:10:00 Test Item Value Reference Range Interpretation Comments MAGNESIUM (BEAKER) (test code = 2.4 mg/dL 1.6-2.6 627) RETICULOCYTE [id number] 14:09:00 Test Item Value Reference Range Interpretation Comments RETICULOCYTE COUNT PCT (BEAKER) (test 6.0 % 0.4-2.9 H code = 575) CBC W/PLT COUNT & AUTO [id number] 12:11:00 Test Item Value Reference Range Interpretation Comments WHITE BLOOD CELL COUNT (BEAKER) 2.3 K/ L 4.0-10.0 L (test code = 775) RED BLOOD CELL COUNT (BEAKER) 2.23 M/ L 4.00-5.00 L (test code = 761) HEMOGLOBIN (BEAKER) (test code = 8.2 GM/DL 12.0-15.0 L 410) HEMATOCRIT (BEAKER) (test code = 24.1 % 36.0-45.0 L 411) MEAN CORPUSCULAR VOLUME (BEAKER) 108.0 fL 82.0-99.0 H (test code = 753) MEAN CORPUSCULAR HEMOGLOBIN 36.9 pg 27.0-33.0 H (BEAKER) (test code = 751) MEAN CORPUSCULAR HEMOGLOBIN CONC 34.1 GM/DL 32.0-36.0 (BEAKER) (test code = 752) RED CELL DISTRIBUTION WIDTH 19.4 % 10.3-14.2 H (BEAKER) (test code = 412) PLATELET COUNT (BEAKER) (test code 18 K/CU MM 150-430 L = 756) MEAN PLATELET VOLUME (BEAKER) 9.5 fL 6.5-10.5 (test code = 754) NUCLEATED RED BLOOD CELLS (BEAKER) 0 /100 WBC 0-0 (test code = 413) 0.000.750.000.000.000.000.000.00(MANUAL DIFFERENTIAL)2017-01-10 12:11:00 Test Item Value Reference Range Interpretation Comments NEUTROPHILS - REL (DIFF) (BEAKER) 72 % (test code = 1359) LYMPHOCYTES - REL (DIFF) (BEAKER) 7 % (test code = 1360) MONOCYTES - REL (DIFF) (BEAKER) 4 % (test code = 1361) EOSINOPHILS - REL (DIFF) (BEAKER) 2 % (test code = 1362) MYELOCYTES-REL (DIFF) (BEAKER) 1 % 0-0 H (test code = 1594) BANDS - REL (DIFF) (BEAKER) (test 14 % 0-10 H code = 1348) NEUTROPHILS - ABS (DIFF) (BEAKER) 1.66 K/ L 1.80-8.00 L (test code = 1365) LYMPHOCYTES - ABS (DIFF) (BEAKER) 0.16 K/ L 1.48-4.50 L (test code = 1366) MONOCYTES - ABS (DIFF) (BEAKER) 0.09 K/ L 0.00-1.30 (test code = 1367) EOSINOPHILS - ABS (DIFF) (BEAKER) 0.05 K/ L 0.00-0.50 (test code = 1368) BANDS-ABS (DIFF) (BEAKER) (test 0.3 K/ L 0.0-0.8 code = 1349) MYELOCYTES-ABS (DIFF) (BEAKER) 0.02 K/ L 0.00-0.00 H (test code = 1593) TOTAL COUNTED (BEAKER) (test code = 100 1351) BANDS + SEGMENTED NEUTROPHILS 1.98 (BEAKER) (test code = 1352) WBC MORPHOLOGY (BEAKER) (test code Normal = 487) PLT MORPHOLOGY (BEAKER) (test code Normal = 486) RBC MORPHOLOGY (BEAKER) (test code Normal = 762) PERIPHERAL BLOOD SMEAR - HOLD [id number] 09:56:00 Test Item Value Reference Range Interpretation Comments PERIPHERAL SMEAR SAVE (BEAKER) (test saved code = 1815) VITAMIN B12 AND [id number] 08:54:00 Test Item Value Reference Range Interpretation Comments VITAMIN B12 (BEAKER) (test code = > pg/mL 213-816 H 774) FOLATE (BEAKER) (test code = 362) 8.1 ng/mL >=7.0 Effective 05/25/2014: Folate Reference Range ChangeNew: >=7.0 Previous: >=[id number] 07:26:00 Test Item Value Reference Range Interpretation Comments HAPTOGLOBIN (BEAKER) (test code = < mg/dL 14-258 L 366) Effective 05/25/2014: Reference Range ChangeNew: 14-258 Previous: 36-195 [id number] 06:49:00 Test Item Value Reference Range Interpretation Comments PHOSPHORUS (BEAKER) (test code = 1.1 mg/dL 2.3-4.7 LL 604) HEPATIC FUNCTION [id number] 06:47:00 Test Item Value Reference Range Interpretation Comments TOTAL PROTEIN (BEAKER) (test code 5.2 gm/dL 6.0-8.3 L = 770) ALBUMIN (BEAKER) (test code = 3.7 g/dL 3.5-5.0 1145) BILIRUBIN TOTAL (BEAKER) (test 40.3 mg/dL 0.2-1.2 H code = 377) BILIRUBIN DIRECT (BEAKER) (test 27.7 mg/dL 0.1-0.5 H code = 706) ALKALINE PHOSPHATASE (BEAKER) 91 U/L 40-150 (test code = 346) AST (SGOT) (BEAKER) (test code = 821 U/L 5-34 H 353) ALT (SGPT) (BEAKER) (test code = 319 U/L 6-55 H 347) Specimen markedly [id number] 06:46:00 Test Item Value Reference Range Interpretation Comments MAGNESIUM (BEAKER) (test code = 2.2 mg/dL 1.6-2.6 627) BASIC METABOLIC [id number] 06:46:00 Test Item Value Reference Range Interpretation Comments SODIUM (BEAKER) 138 meq/L 136-145 (test code = 381) POTASSIUM (BEAKER) 3.4 meq/L 3.5-5.1 L (test code = 379) CHLORIDE (BEAKER) 94 meq/L 98-107 L (test code = 382) CO2 (BEAKER) (test 30 meq/L 22-29 H code = 355) BLOOD UREA NITROGEN 39 mg/dL 7-21 H (BEAKER) (test code = 354) CREATININE (BEAKER) 1.64 mg/dL 0.57-1.25 H (test code = 358) GLUCOSE RANDOM 100 mg/dL 70-105 (BEAKER) (test code = 652) CALCIUM (BEAKER) 9.4 mg/dL 8.4-10.2 (test code = 697) EGFR (BEAKER) (test 33 mL/min/1.73 ESTIMA NIHARIKA GFR IS code = 1092) sq m NOT ACCURATE CREATININE CLEARANCE IN PREDICTING GLOMERULAR FILTRATION RATE . ESTIMATED GFR I S NOT APPLICABLE FOR DIALYSIS PATIEN TS. Specimen markedly ictericLACTATE DEHYDROGENASE (LDH)2017-01-10 06:46:00 Test Item Value Reference Range Interpretation Comments LACTATE DEHYDROGENASE (BEAKER) (test 1258 U/L 125-220 H code = 635) [id number] 06:13:00 Test Item Value Reference Range Interpretation Comments FIBRINOGEN LEVEL (BEAKER) (test 112 mg/dl 225-434 L code = 658) [id number] 06:12:00 Test Item Value Reference Range Interpretation Comments D-DIMER QUANTITATIVE (BEAKER) 3.16 MG/L FEU <0.50 H (test code = 671) Intended Use: The D-Dimer Assay can be used to aid in the diagnosis of Deep Vein Thrombosis (DVT) and Pulmonary Embolism Disease (PED).In patients with low pre- test probability, various studies concerning STA Liatest D-dimer test have reported that with a cutoff value of 0.50 MG/L FEU, the Negative Predictive Value (NPV) regarding the exclusion of thrombosis is within 95-100% range. PROTHROMBIN [id number] 06:07:00 Test Item Value Reference Range Interpretation Comments PROTIME (BEAKER) (test code = 37.9 seconds 11.7-14.7 H 759) INR (BEAKER) (test code = 370) 3.8 <=5.9 RECOMMENDED COUMADIN/WARFARIN INR THERAPY RANGESSTANDARD DOSE: 2.0 - 3.0 Includes: PROPHYLAXIS forvenous thrombosis, systemic embolization; TREATMENT for venous thrombosis and/or pulmonary embolus.HIGH RISK: Target INR is 2.5-3.5 for patients with mechanical heart valves.CALCIUM, [id number] 05:58:00 Test Item Value Reference Range Interpretation Comments CALCIUM IONIZED (BEAKER) (test 1.08 mmol/L 1.12-1.27 L code = 698) PH, BLOOD (BEAKER) (test code = 7.45 1810) [id number] 20:50:00 Test Item Value Reference Range Interpretation Comments POTASSIUM (BEAKER) (test code = 3.1 meq/L 3.5-5.1 L 379) Call [id number] ANTIBODY (PRIYANKA)2017-01-09 14:22:00 Test Item Value Reference Range Interpretation Comments ANTI-NUCLEAR ANTIBODY (PRIYANKA) (BEAKER) Negative Negative (test code = 418) CBC W/PLT COUNT & AUTO [id number] 09:30:00 Test Item Value Reference Range Interpretation Comments WHITE BLOOD CELL COUNT (BEAKER) 1.8 K/ L 4.0-10.0 L (test code = 775) RED BLOOD CELL COUNT (BEAKER) 2.31 M/ L 4.00-5.00 L (test code = 761) HEMOGLOBIN (BEAKER) (test code = 8.6 GM/DL 12.0-15.0 L 410) HEMATOCRIT (BEAKER) (test code = 24.5 % 36.0-45.0 L 411) MEAN CORPUSCULAR VOLUME (BEAKER) 106.0 fL 82.0-99.0 H (test code = 753) MEAN CORPUSCULAR HEMOGLOBIN 37.1 pg 27.0-33.0 H (BEAKER) (test code = 751) MEAN CORPUSCULAR HEMOGLOBIN CONC 35.0 GM/DL 32.0-36.0 (BEAKER) (test code = 752) RED CELL DISTRIBUTION WIDTH 19.2 % 10.3-14.2 H (BEAKER) (test code = 412) PLATELET COUNT (BEAKER) (test code 13 K/CU MM 150-430 L = 756) MEAN PLATELET VOLUME (BEAKER) 9.0 fL 6.5-10.5 (test code = 754) NUCLEATED RED BLOOD CELLS (BEAKER) 0 /100 WBC 0-0 (test code = 413) 0.000.900.000.000.000.000.000.00(MANUAL DIFFERENTIAL)2017-01-09 09:30:00 Test Item Value Reference Range Interpretation Comments NEUTROPHILS - REL (DIFF) (BEAKER) 46 % (test code = 1359) LYMPHOCYTES - REL (DIFF) (BEAKER) 10 % (test code = 1360) MONOCYTES - REL (DIFF) (BEAKER) 8 % (test code = 1361) EOSINOPHILS - REL (DIFF) (BEAKER) 2 % (test code = 1362) BANDS - REL (DIFF) (BEAKER) (test 32 % 0-10 H code = 1348) ATYPICAL LYMPHOCYTE - REL (DIFF) 2 % 0-0 H (BEAKER) (test code = 260) NEUTROPHILS - ABS (DIFF) (BEAKER) 0.83 K/ L 1.80-8.00 L (test code = 1365) LYMPHOCYTES - ABS (DIFF) (BEAKER) 0.18 K/ L 1.48-4.50 L (test code = 1366) MONOCYTES - ABS (DIFF) (BEAKER) 0.14 K/ L 0.00-1.30 (test code = 1367) EOSINOPHILS - ABS (DIFF) (BEAKER) 0.04 K/ L 0.00-0.50 (test code = 1368) BANDS-ABS (DIFF) (BEAKER) (test 0.6 K/ L 0.0-0.8 code = 1349) ATYPICAL LYMPHOCYTES - ABS (DIFF) 0.04 K/ L 0.00-0.00 H (BEAKER) (test code = 263) TOTAL COUNTED (BEAKER) (test code = 50 1351) BANDS + SEGMENTED NEUTROPHILS 1.40 (BEAKER) (test code = 1352) WBC MORPHOLOGY (BEAKER) (test code Normal = 487) PLT MORPHOLOGY (BEAKER) (test code Normal = 486) RBC MORPHOLOGY (BEAKER) (test code Normal = 762) 50 cells are [id number] 05:21:00 Test Item Value Reference Range Interpretation Comments PHOSPHORUS (BEAKER) (test code = 1.0 mg/dL 2.3-4.7 LL 604) HEPATIC FUNCTION [id number] 05:19:00 Test Item Value Reference Range Interpretation Comments TOTAL PROTEIN (BEAKER) (test code 5.2 gm/dL 6.0-8.3 L = 770) ALBUMIN (BEAKER) (test code = 3.4 g/dL 3.5-5.0 L 1145) BILIRUBIN TOTAL (BEAKER) (test 40.4 mg/dL 0.2-1.2 H code = 377) BILIRUBIN DIRECT (BEAKER) (test 27.2 mg/dL 0.1-0.5 H code = 706) ALKALINE PHOSPHATASE (BEAKER) 95 U/L 40-150 (test code = 346) AST (SGOT) (BEAKER) (test code = 1006 U/L 5-34 H 353) ALT (SGPT) (BEAKER) (test code = 357 U/L 6-55 H 347) Specimen markedly ictericBASIC METABOLIC [id number] 05:19:00 Test Item Value Reference Range Interpretation Comments SODIUM (BEAKER) 135 meq/L 136-145 L (test code = 381) POTASSIUM (BEAKER) 2.8 meq/L 3.5-5.1 L (test code = 379) CHLORIDE (BEAKER) 93 meq/L 98-107 L (test code = 382) CO2 (BEAKER) (test 27 meq/L 22-29 code = 355) BLOOD UREA NITROGEN 36 mg/dL 7-21 H (BEAKER) (test code = 354) CREATININE (BEAKER) 2.55 mg/dL 0.57-1.25 H (test code = 358) GLUCOSE RANDOM 100 mg/dL 70-105 (BEAKER) (test code = 652) CALCIUM (BEAKER) 9.3 mg/dL 8.4-10.2 (test code = 697) EGFR (BEAKER) (test 20 mL/min/1.73 ESTIMA NIHARIKA GFR IS code = 1092) sq m NOT ACCURATE CREATININE CLEARANCE IN PREDICTING GLOMERULAR FILTRATION RATE . ESTIMATED GFR I S NOT APPLICABLE FOR DIALYSIS PATIEN TS. Specimen markedly [id number] 05:18:00 Test Item Value Reference Range Interpretation Comments MAGNESIUM (BEAKER) (test code = 2.1 mg/dL 1.6-2.6 627) B-TYPE NATRIURETIC FACTOR (BNP)2017-01-09 05:06:00 Test Item Value Reference Range Interpretation Comments B-TYPE NATRIURETIC PEPTIDE 1699 pg/mL 0-100 H (BEAKER) (test code = 700) PROTHROMBIN [id number] 05:04:00 Test Item Value Reference Range Interpretation Comments PROTIME (BEAKER) (test code = 45.3 seconds 11.7-14.7 H 759) INR (BEAKER) (test code = 370) 4.8 <=5.9 RECOMMENDED COUMADIN/WARFARIN INR THERAPY RANGESSTANDARD DOSE: 2.0 - 3.0 Includes: PROPHYLAXIS forvenous thrombosis, systemic embolization; TREATMENT for venous thrombosis and/or pulmonary embolus.HIGH RISK: Target INR is 2.5-3.5 for patients with mechanical heart valves.LACTIC ACID, VENOUS, WHOLE BLOOD 2017-01-09 04:55:00 Test Item Value Reference Range Interpretation Comments LACTATE BLOOD VENOUS (2) (BEAKER) 1.8 mmol/L 0.5-2.2 (test code = 2872) Effective 11/09/2015: Units/Reference Range ChangeNew: 0.5-2.2 mmol/L Previous: 5-20 mg/dLSpecimen markedly ictericCALCIUM, [id number] 04:53:00 Test Item Value Reference Range Interpretation Comments CALCIUM IONIZED (BEAKER) (test 0.98 mmol/L 1.12-1.27 L code = 698) PH, BLOOD (BEAKER) (test code = 7.58 1810) HEPATITIS A ANTIBODY, [id number] 04:02:00 Test Item Value Reference Range Interpretation Comments HEPATITIS A IGG ANTIBODY (BEAKER) Reactive Nonreactive A (test code = 2797) HEPATITIS B SURFACE [id number] 02:07:00 Test Item Value Reference Range Interpretation Comments HEPATITIS B SURFACE ANTIBODY < mIU/mL <8.0 (BEAKER) (test code = 647) ACETAMINOPHEN [id number] 02:00:00 Test Item Value Reference Range Interpretation Comments ACETAMINOPHEN LEVEL (BEAKER) (test 12.0 ug/mL 10.0-30.0 code = 344) HEPATITIS PANEL, [id number] 00:44:00 Test Item Value Reference Range Interpretation Comments HEPATITIS A IGM ANTIBODY (BEAKER) Nonreactive Nonreactive (test code = 498) HEPATITIS B CORE IGM ANTIBODY Nonreactive Nonreactive (BEAKER) (test code = 645) HEPATITIS C ANTIBODY (BEAKER) Nonreactive Nonreactive (test code = 367) HEPATITIS B SURFACE ANTIGEN (2) Nonreactive Nonreactive (BEAKER) (test code = 2585) ALPHA FETOPROTEIN (AFP), TUMOR [id number] 00:44:00 Test Item Value Reference Range Interpretation Comments ALPHA-FETOPROTEIN (BEAKER) (test 2.8 ng/mL <10.0 code = 1094) Effective 05/25/2014: Reference Range ChangeNew: <10.0 Previous: 0.0-8.0 IMMUNOGLOBULIN G (IGG)2017-01-09 00:20:00 Test Item Value Reference Range Interpretation Comments IMMUNOGLOBULIN G (IGG) (BEAKER) 1024 mg/dL 540-1822 (test code = 427) [id number] 00:19:00 Test Item Value Reference Range Interpretation Comments PREALBUMIN (BEAKER) (test code = 586) 7 mg/dL 14-45 L GAMMA GLUTAMYL TRANSFERASE (GGT)2017-01-09 00:00:00 Test Item Value Reference Range Interpretation Comments GAMMA GLUTAMYL TRANSFERASE (BEAKER) 556 U/L 9-64 H (test code = 364) Specimen markedly ictericRAPID DRUG SCREEN, [id number] 19:49:00 Test Item Value Reference Range Interpretation Comments BARBITURATE URINE (BEAKER) (test Negative Negative code = 725) BENZODIAZEPINE SCREEN URINE (BEAKER) Negative Negative (test code = 726) COCAINE (METAB.) SCREEN (BEAKER) Negative Negative (test code = 1164) METHADONE SCREEN (BEAKER) (test code Negative Negative = 1436) OPIATE SCREEN URINE (BEAKER) (test Negative Negative code = 734) CANNABINOID SCREEN URINE (BEAKER) Negative Negative (test code = 727) AMPH/METHAMPH SCREEN (BEAKER) (test Negative Negative code = 1438) PHENCYCLIDINE SCREEN URINE (BEAKER) Negative Negative (test code = 608) OXYCODONE SCREEN URINE (BEAKER) Negative Negative (test code = 2761) DRUG CUTOFF CONC.Cocaine 300 ng/mL Cannabinoid 50 ng/mL Benzodiazepine 200 ng/mLBarbiturate 200 ng/mLPhencyclidine 25 ng/mLOpiate 300 ng/mLMethadone 300 ng/mLAmphetamine/ 1000 ng/mL MethamphetamineOxycodone 300 ng/mLThis assay provides an unconfirmed qualitative test result for the clinical management of patients in emergency situations. Chain of custody not maintained. Some iktt-xzj-xxwocpz medications, as well as adulterants, may cause inaccurate results. Clinical correlation should be applied. A more comprehensive drug screen or confirmation of a detected drug may be performed upon request.SODIUM, RANDOM [id number] 17:00:00 Test Item Value Reference Range Interpretation Comments SODIUM URINE (BEAKER) (test code = < meq/L 243) Reference Range: No NormalsCREATININE, RANDOM [id number] 17:00:00 Test Item Value Reference Range Interpretation Comments CREATININE URINE (BEAKER) (test 329.1 mg/dL code = 375) Reference Range: No NormalsEOSINOPHIL SMEAR, [id number] 16:24:00 Test Item Value Reference Range Interpretation Comments EOSINOPHIL SMEAR, URINE (BEAKER) No EOS seen No EOS seen (test code = 1851) OSMOLALITY, [id number] 16:20:00 Test Item Value Reference Range Interpretation Comments OSMOLALITY URINE (BEAKER) (test 347 mOsm/kg 40-1400 code = 614) URINALYSIS W/ [id number] 16:11:00 Test Item Value Reference Range Interpretation Comments COLOR (BEAKER) (test code = 470) Brown CLARITY (BEAKER) (test code = 469) Cloudy SPECIFIC GRAVITY UA (BEAKER) (test 1.019 1.001-1.035 code = 468) PH UA (BEAKER) (test code = 467) 5.5 5.0-8.0 PROTEIN UA (BEAKER) (test code = 100 mg/dL Negative A 464) GLUCOSE UA (BEAKER) (test code = Negative Negative 365) KETONES UA (BEAKER) (test code = 10 mg/dL Negative A 371) BILIRUBIN UA (BEAKER) (test code = Positive Negative A 462) BLOOD UA (BEAKER) (test code = 461) Small Negative A NITRITE UA (BEAKER) (test code = Negative Negative 465) LEUKOCYTE ESTERASE UA (BEAKER) Trace Negative A (test code = 466) UROBILINOGEN UA (BEAKER) (test code 2.0 mg/dL 0.2-1.0 H = 463) RBC UA (BEAKER) (test code = 519) 4 /HPF WBC UA (BEAKER) (test code = 520) 145 /HPF BACTERIA (BEAKER) (test code = 517) Many MUCUS (BEAKER) (test code = 1574) Few HYALINE CASTS (BEAKER) (test code = 56 /LPF 514) WBC CASTS (BEAKER) (test code = 28 /LPF 1578) YEAST (BEAKER) (test code = 1585) Few SOURCE(BEAKER) (test code = 2795) PROTEIN, RANDOM [id number] 15:59:00 Test Item Value Reference Range Interpretation Comments PROTEIN, URINE (BEAKER) (test code 114 mg/dL 0-14 H = 1569) CBC W/PLT COUNT & AUTO [id number] 14:20:00 Test Item Value Reference Range Interpretation Comments WHITE BLOOD CELL COUNT (BEAKER) 2.3 K/ L 4.0-10.0 L (test code = 775) RED BLOOD CELL COUNT (BEAKER) 2.42 M/ L 4.00-5.00 L (test code = 761) HEMOGLOBIN (BEAKER) (test code = 8.9 GM/DL 12.0-15.0 L 410) HEMATOCRIT (BEAKER) (test code = 25.5 % 36.0-45.0 L 411) MEAN CORPUSCULAR VOLUME (BEAKER) 105.0 fL 82.0-99.0 H (test code = 753) MEAN CORPUSCULAR HEMOGLOBIN 36.6 pg 27.0-33.0 H (BEAKER) (test code = 751) MEAN CORPUSCULAR HEMOGLOBIN CONC 34.7 GM/DL 32.0-36.0 (BEAKER) (test code = 752) RED CELL DISTRIBUTION WIDTH 19.0 % 10.3-14.2 H (BEAKER) (test code = 412) PLATELET COUNT (BEAKER) (test code 16 K/CU MM 150-430 L = 756) MEAN PLATELET VOLUME (BEAKER) 9.8 fL 6.5-10.5 (test code = 754) NUCLEATED RED BLOOD CELLS (BEAKER) 0 /100 WBC 0-0 (test code = 413) NEUTROPHILS RELATIVE PERCENT 73 % (BEAKER) (test code = 429) LYMPHOCYTES RELATIVE PERCENT 14 % (BEAKER) (test code = 430) MONOCYTES RELATIVE PERCENT 12 % (BEAKER) (test code = 431) EOSINOPHILS RELATIVE PERCENT 1 % (BEAKER) (test code = 432) BASOPHILS RELATIVE PERCENT 0 % (BEAKER) (test code = 437) NEUTROPHILS ABSOLUTE COUNT 1.66 K/ L 1.80-8.00 L (BEAKER) (test code = 670) LYMPHOCYTES ABSOLUTE COUNT 0.32 K/ L 1.48-4.50 L (BEAKER) (test code = 414) MONOCYTES ABSOLUTE COUNT (BEAKER) 0.27 K/ L 0.00-1.30 (test code = 415) EOSINOPHILS ABSOLUTE COUNT 0.02 K/ L 0.00-0.50 (BEAKER) (test code = 416) BASOPHILS ABSOLUTE COUNT (BEAKER) 0.00 K/ L 0.00-0.20 (test code = 417) 0.00(MANUAL DIFFERENTIAL)2017-01-08 14:20:00 Test Item Value Reference Range Interpretation Comments TOTAL COUNTED (BEAKER) (test code = 1351) WBC MORPHOLOGY (BEAKER) (test code = Normal 487) PLT MORPHOLOGY (BEAKER) (test code = Normal 486) RBC MORPHOLOGY (BEAKER) (test code = Normal 762) PERIPHERAL BLOOD SMEAR - HOLD [id number] 14:00:00 Test Item Value Reference Range Interpretation Comments PERIPHERAL SMEAR SAVE (BEAKER) (test saved code = 1815) HEPATIC FUNCTION [id number] 13:18:00 Test Item Value Reference Range Interpretation Comments TOTAL PROTEIN (BEAKER) (test code 5.4 gm/dL 6.0-8.3 L = 770) ALBUMIN (BEAKER) (test code = 3.5 g/dL 3.5-5.0 1145) BILIRUBIN TOTAL (BEAKER) (test 41.7 mg/dL 0.2-1.2 H code = 377) BILIRUBIN DIRECT (BEAKER) (test 26.9 mg/dL 0.1-0.5 H code = 706) ALKALINE PHOSPHATASE (BEAKER) 105 U/L 40-150 (test code = 346) AST (SGOT) (BEAKER) (test code = 1066 U/L 5-34 H 353) ALT (SGPT) (BEAKER) (test code = 352 U/L 6-55 H 347) Specimen markedly ictericCBC W/PLT COUNT & AUTO [id number] 10:38:00 Test Item Value Reference Range Interpretation Comments WHITE BLOOD CELL COUNT (BEAKER) 2.6 K/ L 4.0-10.0 L (test code = 775) RED BLOOD CELL COUNT (BEAKER) 2.43 M/ L 4.00-5.00 L (test code = 761) HEMOGLOBIN (BEAKER) (test code = 8.9 GM/DL 12.0-15.0 L 410) HEMATOCRIT (BEAKER) (test code = 25.8 % 36.0-45.0 L 411) MEAN CORPUSCULAR VOLUME (BEAKER) 106.0 fL 82.0-99.0 H (test code = 753) MEAN CORPUSCULAR HEMOGLOBIN 36.7 pg 27.0-33.0 H (BEAKER) (test code = 751) MEAN CORPUSCULAR HEMOGLOBIN CONC 34.5 GM/DL 32.0-36.0 (BEAKER) (test code = 752) RED CELL DISTRIBUTION WIDTH 18.4 % 10.3-14.2 H (BEAKER) (test code = 412) PLATELET COUNT (BEAKER) (test code 16 K/CU MM 150-430 L = 756) MEAN PLATELET VOLUME (BEAKER) 9.9 fL 6.5-10.5 (test code = 754) NUCLEATED RED BLOOD CELLS (BEAKER) 5 /100 WBC 0-0 H (test code = 413) 0.000.520.000.000.000.000.000.000.000.000.000.000.000.000.000.000.000.00(MANUAL DIFFERENTIAL)2017-01-08 10:38:00 Test Item Value Reference Range Interpretation Comments NEUTROPHILS - REL (DIFF) (BEAKER) 67 % (test code = 1359) LYMPHOCYTES - REL (DIFF) (BEAKER) 11 % (test code = 1360) MONOCYTES - REL (DIFF) (BEAKER) 10 % (test code = 1361) EOSINOPHILS - REL (DIFF) (BEAKER) 2 % (test code = 1362) BANDS - REL (DIFF) (BEAKER) (test 10 % 0-10 code = 1348) NEUTROPHILS - ABS (DIFF) (BEAKER) 1.74 K/ L 1.80-8.00 L (test code = 1365) LYMPHOCYTES - ABS (DIFF) (BEAKER) 0.29 K/ L 1.48-4.50 L (test code = 1366) MONOCYTES - ABS (DIFF) (BEAKER) 0.26 K/ L 0.00-1.30 (test code = 1367) EOSINOPHILS - ABS (DIFF) (BEAKER) 0.05 K/ L 0.00-0.50 (test code = 1368) BANDS-ABS (DIFF) (BEAKER) (test 0.3 K/ L 0.0-0.8 code = 1349) TOTAL COUNTED (BEAKER) (test code = 100 1351) BANDS + SEGMENTED NEUTROPHILS 2.00 (BEAKER) (test code = 1352) WBC MORPHOLOGY (BEAKER) (test code Normal = 487) PLT MORPHOLOGY (BEAKER) (test code Normal = 486) RBC MORPHOLOGY (BEAKER) (test code Normal = 762) LACTIC ACID, VENOUS, WHOLE [id number] 08:34:00 Test Item Value Reference Range Interpretation Comments LACTATE BLOOD VENOUS (2) (BEAKER) 4.7 mmol/L 0.5-2.2 H (test code = 2872) Effective 11/09/2015: Units/Reference Range ChangeNew: 0.5-2.2 mmol/L Previous: 5-20 mg/dLSpecimen markedly ictericTSH/FREE T4 IF [id number] 07:51:00 Test Item Value Reference Range Interpretation Comments THYROID STIMULATING HORMONE 1.01 uIU/mL 0.35-4.94 (BEAKER) (test code = 772) BASIC METABOLIC [id number] 07:32:00 Test Item Value Reference Range Interpretation Comments SODIUM (BEAKER) 134 meq/L 136-145 L (test code = 381) POTASSIUM (BEAKER) 3.2 meq/L 3.5-5.1 L (test code = 379) CHLORIDE (BEAKER) 95 meq/L 98-107 L (test code = 382) CO2 (BEAKER) (test 18 meq/L 22-29 L code = 355) BLOOD UREA NITROGEN 30 mg/dL 7-21 H (BEAKER) (test code = 354) CREATININE (BEAKER) 3.73 mg/dL 0.57-1.25 H (test code = 358) GLUCOSE RANDOM 100 mg/dL 70-105 (BEAKER) (test code = 652) CALCIUM (BEAKER) 9.6 mg/dL 8.4-10.2 (test code = 697) EGFR (BEAKER) (test 13 mL/min/1.73 ESTIMA NIHARIKA GFR IS code = 1092) sq m NOT ACCURATE CREATININE CLEARANCE IN PREDICTING GLOMERULAR FILTRATION RATE . ESTIMATED GFR I S NOT APPLICABLE FOR DIALYSIS PATIEN TS. Specimen markedly [id number] 07:31:00 Test Item Value Reference Range Interpretation Comments MAGNESIUM (BEAKER) (test code = 2.1 mg/dL 1.6-2.6 627) [id number] 07:31:00 Test Item Value Reference Range Interpretation Comments PHOSPHORUS (BEAKER) (test code = 2.8 mg/dL 2.3-4.7 604) URIC [id number] 07:31:00 Test Item Value Reference Range Interpretation Comments URIC ACID (BEAKER) (test code = 5.7 mg/dL 2.6-7.2 773) Specimen markedly ictericCREATINE KINASE (CK)2017-01-08 07:31:00 Test Item Value Reference Range Interpretation Comments CREATINE KINASE TOTAL (BEAKER) (test 155 U/L 29-200 code = 380) CALCIUM, [id number] 07:13:00 Test Item Value Reference Range Interpretation Comments CALCIUM IONIZED (BEAKER) (test 0.96 mmol/L 1.12-1.27 L code = 698) PH, BLOOD (BEAKER) (test code = 7.45 1810) HEMOGLOBIN [id number] 21:19:00 Test Item Value Reference Range Interpretation Comments HEMOGLOBIN A1C (BEAKER) (test code = 4.4 % 4.3-6.1 368) LACTIC ACID, VENOUS, WHOLE [id number] 21:07:00 Test Item Value Reference Range Interpretation Comments LACTATE BLOOD VENOUS (2) (BEAKER) 9.8 mmol/L 0.5-2.2 H (test code = 2872) Effective 11/09/2015: Units/Reference Range ChangeNew: 0.5-2.2 mmol/L Previous: 5-20 mg/dLSpecimen markedly ictericCALCIUM, [id number] 20:49:00 Test Item Value Reference Range Interpretation Comments CALCIUM IONIZED (BEAKER) (test 1.00 mmol/L 1.12-1.27 L code = 698) PH, BLOOD (BEAKER) (test code = 7.35 1810) [id number] 18:59:00 Test Item Value Reference Range Interpretation Comments FERRITIN (BEAKER) (test code = 2620 ng/mL 5-275 H 361) Effective 05/25/2014: Reference Range ChangeNew: Male 5-275 Previous: Male 22-322 Female 5-275 Female [id number] 18:37:00 Test Item Value Reference Range Interpretation Comments LIPASE (BEAKER) (test code = 749) 497 U/L 8-78 H Specimen markedly ictericTSH/FREE T4 IF [id number] 18:09:00 Test Item Value Reference Range Interpretation Comments THYROID STIMULATING HORMONE 0.80 uIU/mL 0.35-4.94 (BEAKER) (test code = 772) [id number] 17:59:00 Test Item Value Reference Range Interpretation Comments MAGNESIUM (BEAKER) (test code = 2.1 mg/dL 1.6-2.6 627) LIPID [id number] 17:59:00 Test Item Value Reference Range Interpretation Comments TRIGLYCERIDES (BEAKER) (test code = 168 mg/dL 540) CHOLESTEROL (BEAKER) (test code = 54 mg/dL 631) HDL CHOLESTEROL (BEAKER) (test code 6 mg/dL = 976) LDL CHOLESTEROL CALCULATED (BEAKER) 14 mg/dL (test code = 633) Triglyceride Reference Range: Low Risk <150 Borderline 150-199 High Risk 200-499 Very High Risk >=500Cholesterol Reference Range: Low Risk <200 Borderline 200-239 High Risk >240HDL Cholesterol Reference Range: Low Risk >=60 High Risk <40LDL Cholesterol Reference Range: Optimal <100 Near Optimal 100-129 Borderline 130-159 High 160-189 Very High >=190 Specimen markedly ictericHEPATIC FUNCTION [id number] 17:59:00 Test Item Value Reference Range Interpretation Comments TOTAL PROTEIN (BEAKER) (test code 5.4 gm/dL 6.0-8.3 L = 770) ALBUMIN (BEAKER) (test code = 2.9 g/dL 3.5-5.0 L 1145) BILIRUBIN TOTAL (BEAKER) (test 37.7 mg/dL 0.2-1.2 H code = 377) BILIRUBIN DIRECT (BEAKER) (test 26.6 mg/dL 0.1-0.5 H code = 706) ALKALINE PHOSPHATASE (BEAKER) 147 U/L 40-150 (test code = 346) AST (SGOT) (BEAKER) (test code = 1275 U/L 5-34 H 353) ALT (SGPT) (BEAKER) (test code = 419 U/L 6-55 H 347) Specimen markedly ictericBASIC METABOLIC [id number] 17:59:00 Test Item Value Reference Range Interpretation Comments SODIUM (BEAKER) 133 meq/L 136-145 L (test code = 381) POTASSIUM (BEAKER) 3.9 meq/L 3.5-5.1 (test code = 379) CHLORIDE (BEAKER) 95 meq/L 98-107 L (test code = 382) CO2 (BEAKER) (test 13 meq/L 22-29 L code = 355) BLOOD UREA NITROGEN 26 mg/dL 7-21 H (BEAKER) (test code = 354) CREATININE (BEAKER) 3.14 mg/dL 0.57-1.25 H (test code = 358) GLUCOSE RANDOM 90 mg/dL 70-105 (BEAKER) (test code = 652) CALCIUM (BEAKER) 9.5 mg/dL 8.4-10.2 (test code = 697) EGFR (BEAKER) (test 15 mL/min/1.73 ESTIMA NIHARIKA GFR IS code = 1092) sq m NOT ACCURATE CREATININE CLEARANCE IN PREDICTING GLOMERULAR FILTRATION RATE . ESTIMATED GFR I S NOT APPLICABLE FOR DIALYSIS PATIEN TS. Specimen markedly ictericB-TYPE NATRIURETIC FACTOR (BNP)2017-01-07 17:54:00 Test Item Value Reference Range Interpretation Comments B-TYPE NATRIURETIC PEPTIDE (BEAKER) 751 pg/mL 0-100 H (test code = 700) [id number] 17:47:00 Test Item Value Reference Range Interpretation Comments PREALBUMIN (BEAKER) (test code = 586) 7 mg/dL 14-45 L IRON, TIBC, % SAT. (WITHOUT FERRITIN)2017-01-07 17:47:00 Test Item Value Reference Range Interpretation Comments IRON (BEAKER) (test code = 547) 192 ug/dL 40-160 H TOTAL IRON BINDING CAPACITY 190 ug/dL 250-450 L (BEAKER) (test code = 769) IRON % SATURATION (2) (BEAKER) 101 % 20-55 H (test code = 2590) [id number] 17:43:00 Test Item Value Reference Range Interpretation Comments PROTIME (BEAKER) (test code = 26.8 seconds 11.7-14.7 H 759) INR (BEAKER) (test code = 370) 2.5 <=5.9 PARTIAL THROMBOPLASTIN TIME 43.5 seconds 22.5-36.0 H (BEAKER) (test code = 760) RECOMMENDED COUMADIN/WARFARIN INR THERAPY RANGESSTANDARD DOSE: 2.0 - 3.0 Includes: PROPHYLAXIS forvenous thrombosis, systemic embolization; TREATMENT for venous thrombosis and/or pulmonary embolus.HIGH RISK: Target INR is 2.5-3.5 for patients with mechanical heart valves.CBC W/PLT COUNT & AUTO DIFFERENTIAL 2017-01-07 17:32:00 Test Item Value Reference Range Interpretation Comments WHITE BLOOD CELL COUNT (BEAKER) 3.5 K/ L 4.0-10.0 L (test code = 775) RED BLOOD CELL COUNT (BEAKER) 3.10 M/ L 4.00-5.00 L (test code = 761) HEMOGLOBIN (BEAKER) (test code = 11.1 GM/DL 12.0-15.0 L 410) HEMATOCRIT (BEAKER) (test code = 33.0 % 36.0-45.0 L 411) MEAN CORPUSCULAR VOLUME (BEAKER) 107.0 fL 82.0-99.0 H (test code = 753) MEAN CORPUSCULAR HEMOGLOBIN 35.8 pg 27.0-33.0 H (BEAKER) (test code = 751) MEAN CORPUSCULAR HEMOGLOBIN CONC 33.6 GM/DL 32.0-36.0 (BEAKER) (test code = 752) RED CELL DISTRIBUTION WIDTH 18.3 % 10.3-14.2 H (BEAKER) (test code = 412) PLATELET COUNT (BEAKER) (test code 33 K/CU MM 150-430 L = 756) MEAN PLATELET VOLUME (BEAKER) 9.6 fL 6.5-10.5 (test code = 754) NUCLEATED RED BLOOD CELLS (BEAKER) 0 /100 WBC 0-0 (test code = 413) NEUTROPHILS RELATIVE PERCENT 70 % (BEAKER) (test code = 429) LYMPHOCYTES RELATIVE PERCENT 14 % (BEAKER) (test code = 430) MONOCYTES RELATIVE PERCENT 16 % (BEAKER) (test code = 431) EOSINOPHILS RELATIVE PERCENT 0 % (BEAKER) (test code = 432) BASOPHILS RELATIVE PERCENT 0 % (BEAKER) (test code = 437) NEUTROPHILS ABSOLUTE COUNT 2.45 K/ L 1.80-8.00 (BEAKER) (test code = 670) LYMPHOCYTES ABSOLUTE COUNT 0.47 K/ L 1.48-4.50 L (BEAKER) (test code = 414) MONOCYTES ABSOLUTE COUNT (BEAKER) 0.55 K/ L 0.00-1.30 (test code = 415) EOSINOPHILS ABSOLUTE COUNT 0.01 K/ L 0.00-0.50 (BEAKER) (test code = 416) BASOPHILS ABSOLUTE COUNT (BEAKER) 0.00 K/ L 0.00-0.20 (test code = 417) 0.00
[2020-09-26 18:58] LABS: Protime INR 1.01
[2020-09-26 19:01] LABS: Absolute Lymphocytes (CBC) 1.3 K/uL (0.7-4.9); Basophils % 1.3 % (0-1.3); Hematocrit 36.7 % (36.0-45.0); Lymphocytes % 32.8 % (15.3-44.8); MPV 8.8 fL (7.6-11.3); RBC Red Blood Cell Count 4.15 M/uL (3.86-4.86)
--- NOTE | 2020-09-26 19:05 | RAD REPORT ---
EXAM DESCRIPTION: James Single View09/26/2020 6:59 pm CLINICAL HISTORY: Shortness of breath COMPARISON: 2017 FINDINGS: The lungs appear clear of acute infiltrate. The heart is normal size IMPRESSION: No acute abnormalities displayed
[2020-09-26 19:09] LABS: BUN Blood Urea Nitrogen 19 mg/dL (7-18); Bicarbonate 27 mmol/L (21-32); Glucose Level 114 mg/dL (74-106); Magnesium 1.8 mg/dL (1.8-2.4); NT PRO-BNP 148 pg/mL (<125); Potassium 3.6 mmol/L (3.5-5.1); Sodium Level 143 mmol/L (136-145); Troponin (Emerg Dept Use Only) < 0.02 ng/mL (0.0-0.045)
--- NOTE | 2020-09-26 21:41 | EDPHYS ---
Physician Documentation [facility] Katheryn Name: Jane Randall Age: 60 yrs Sex: Female : 1960 Arrival Date: 09/26/2020 Time: 17:54 Bed 13 Private MD: ED Physician Luis Angel Garza HPI: 09/26 18:28 This 60 yrs old Female presents to ER via EMS with complaints of sob. rn 18:28 The patient has shortness of breath with light activity. Onset: The symptoms/episode rn began/occurred just prior to arrival. Duration: The symptoms are intermittent. The patient's shortness of breath is aggravated by exertion, light activity, is alleviated by rest. Severity of symptoms: At their worst the symptoms were moderate in the emergency department the symptoms have improved. The patient has experienced similar episodes in the past. Reports TAVR 2 weeks ago at [facility], reports intermittent dyspnea even before then, told procedure would eventually improve dyspnea, today was at cardiac rehab, walking laps, was winded during walking, told by nurse that "rhythm was wacko", no syncope or chest pain. is wearing a monitor. Currently feels fine with her baseline intermittent dyspnea on exertion but none at rest. Taking blood thinner but cannot recall name. . Historical: - Allergies: 18:35 No Known Allergies; jl7 - Home Meds: 18:35 tacrolimus oral oral [Active]; metoprolol tartrate 25 mg Oral tab 1 tab 2 times per day jl7 [Active]; famotidine 20 mg Oral tab [Active]; aspirin 81 mg Oral TbEC 1 tab once daily [Active]; 19:11 Calcium Carbonate 1200 mg tab Oral 1 tab twice a day [Active]; magnesium oxide 400 mg sf Oral tab 400 mg three times a day [Active]; multivitamin oral tab daily [Active]; - PMHx: 18:35 Alcoholism; Cirrhosis; Hypertension; GERD; jl7 - PSHx: 18:35 mitral valve replacement; Tonsillectomy; Tubal ligation; jl7 - Immunization history:: Adult Immunizations unknown. - Social history:: Smoking status: Patient denies any tobacco usage or history of. - Family history:: not pertinent. - Hospitalizations: : Patient was recently seen at. ROS: 18:28 Constitutional: Negative for fever, chills, and weight loss, Eyes: Negative for injury, rn pain, redness, and discharge, ENT: Negative for injury, pain, and discharge, Neck: Negative for injury, pain, and swelling, Cardiovascular: Negative for chest pain, and edema, Respiratory: Negative for cough, wheezing, and pleuritic chest pain, Abdomen/GI: Negative for abdominal pain, nausea, vomiting, diarrhea, and constipation, MS/Extremity: Negative for injury and deformity, Skin: Negative for injury, rash, and discoloration, Neuro: Negative for headache, weakness, numbness, tingling, and seizure. 18:28 All other systems are negative. Exam: 18:28 Constitutional: This is a well developed, well nourished patient who is awake, alert, rn and in no acute distress. Head/Face: Normocephalic, atraumatic. Eyes: Conjunctiva and sclera are non-icteric and not injected. Periorbital areas with no swelling, redness, or edema. ENT: No stridor Cardiovascular: Irregular rhythm, regular rate. No pulse deficits. Respiratory: No increased work of breathing, no retractions or nasal flaring. Abdomen/GI: Soft, non-tender Skin: Warm, dry MS/ Extremity: Pulses equal, no cyanosis. Neuro: Awake and alert, GCS 15, oriented to person, place, time, and situation. Cranial nerves II-XII grossly intact. Motor strength 5/5 in all extremities. Sensory grossly intact. Vital Signs: 17:55 BP 112 / 94; Pulse 75; Resp 17 S; Temp 98.4(O); Pulse Ox 100% on R/A; Weight 99.79 kg jl7 (R); Height 5 ft. 5 in. (165.10 cm); Pain 0/10; 18:37 BP 128 / 73; Pulse 70; Resp 15; Pulse Ox 100% ; jl7 19:00 BP 138 / 70; Pulse 72; Resp 16; Pulse Ox 100% ; sf 19:30 BP 124 / 62; Pulse 69; Resp 16; Pulse Ox 100% ; sf 20:00 BP 130 / 74; Pulse 75; Resp 16; Pulse Ox 100% ; sf 20:30 BP 122 / 70; Pulse 71; Resp 16; Pulse Ox 100% ; sf 21:00 BP 112 / 63; Pulse 78; Resp 16; Pulse Ox 100% ; sf 17:55 Body Mass Index 36.61 (99.79 kg, 165.10 cm) jl7 MDM: 18:17 Patient medically screened. rn 18:35 ED course: Pt is contacting her to see type of device and contact card for rn monitor. . 20:53 ED course: i received sign out on this patient. had episode of sob at rehab center [facility] while doing rehab, there was concern that she had runs of v-tack, has ICD as well. her vs are wnl she has no symptoms while in er, cardiac workup is unremarkable. her vp & general counsel is dr. Bentley, I called his office and was told that dr. Mchugh is oncall and he will call me back in 20 minutes . 21:28 ED course: patient wants to leave AMA, i explained that I'm waiting for phone call from [facility] dr. Mchugh for a recommendation and that she will likely need to be observed in our ER or transferred to [facility]. this was the initial recommendation of dr. Carter when he signed her out to me and I agree with dr. Carter recommendation as she reportedly had possible runs of v-tack at the rehab accompanied by sob, although that is resolved there is still high risk of having another v-tach or other dangerous arrythmia. she is at high risk given the recent mitral valve replacement (2 weeks ago) and being a liver transplant on various anti rejection medications. I had two long conversations with her, she initially agreed to stay if we find a comfortable bed which we are working on, she also requested a call with her vp & general counsel which has been initiated 10 minutes ago and waiting for a call back. she is aware of all the risks above. I explained v-tach to her. I ask if she can wait few minutes until the vp & general counsel call back. however she states she want to go home now before her sleep time. 21:40 Data reviewed: vital signs, nurses notes, EMS record. Counseling: I had a detailed [facility] discussion with the patient and/or guardian regarding: the historical points, exam findings, and any diagnostic results supporting the discharge/admit diagnosis, the presence of at least one elevated blood pressure reading (>120/80) during this emergency department visit, the need for further work-up and treatment in the hospital, the need to transfer to another facility, she will see her vp & general counsel tomorrow, she will stay with her mitch and will call 911 for any concern and return to er . 09/26 18:27 Order name: Basic Metabolic Panel; Complete Time: 20:40 rn 09/26 18:27 Order name: CBC with Diff; Complete Time: 20:40 rn 09/26 18:27 Order name: Magnesium; Complete Time: 20:40 rn 09/26 18:27 Order name: NT PRO-BNP; Complete Time: 20:40 rn 09/26 18:27 Order name: PT-INR; Complete Time: 20:40 rn 09/26 18:27 Order name: Troponin (emerg Dept Use Only); Complete Time: 20:40 rn 09/26 18: Order name: XRAY Chest (1 view); Complete Time: 20:40 rn 09/26 18:27 Order name: EKG; Complete Time: 18:28 rn 09/26 18:27 Order name: Cardiac monitoring rn 09/26 18:27 Order name: EKG - Nurse/Tech rn 09/26 18:27 Order name: IV Saline Lock rn 09/26 18:27 Order name: Labs collected and sent rn 09/26 18:27 Order name: O2 Per Protocol rn 09/26 18:27 Order name: O2 Sat Monitoring rn Administered Medications: No medications were administered Disposition: 09/26/20 21:40 Patient has left against medical advice. Impression: Ventricular tachycardia. - Patients states they are going to Home. - Condition is Stable. Follow up: Private Physician; When: Tomorrow; Reason: Continuance of care. - Problem is new. - Symptoms are unchanged. Signatures: Dispatcher [employer] EDMS Luis Linton RN RN sg Max Carter MD MD rn Leal, Jahala, RN RN jl7 Alzahri, Mohammad, MD MD ma2 Fitzpatrick, Steven, RN RN sf Corrections: (The following items were deleted from the chart) 20:59 20:53 ED course: i received sign out on this patient. Lolita. sigrid [email or web address] 21:42 21:40 09/26/2020 21:40 Patients has left against medical advice. Impression: sg Ventricular tachycardia. Patient states they are going to Home. Condition is Stable. Follow up: Private Physician; When: Tomorrow; Reason: Continuance of care. Problem is new. Symptoms are unchanged. ma2
--- NOTE | 2020-09-26 21:41 | ER ---
Nurse's Notes [facility] Name: Jane Randall Age: 60 yrs Sex: Female : 1960 Arrival Date: 09/26/2020 Time: 17:54 Bed 13 Private MD: Diagnosis: Ventricular tachycardia Presentation: 09/26 17:55 Chief complaint: EMS states: Toned out to [facility] rehab in with reported run of [facility] jl7 while ambulating, pt because short of breath and dizzy, VSS and LBB on EKG on arrival. Pt had a mitral valve replaced 2 weeks ago. Coronavirus screen: Client denies travel out of the [place] in the last 14 days. At this time, the client does not indicate any symptoms associated with coronavirus-19. Ebola Screen: No symptoms or risks identified at this time. Initial Sepsis Screen: Does the patient meet any 2 criteria? No. Patient's initial sepsis screen is negative. Does the patient have a suspected source of infection? No. Patient's initial sepsis screen is negative. Risk Assessment: Do you want to hurt yourself or someone else? Patient reports no desire to harm self or others. Onset of symptoms was September 26, 2020. Care prior to arrival: IV initiated. 18 GA, in the right antecubital area, Glucose check: 130. 17:55 Method Of Arrival: EMS: [facility] jl7 17:55 Acuity: AINSLEY 2 jl7 Triage Assessment: 18:00 General: Appears in no apparent distress. uncomfortable, Behavior is calm, cooperative, jl7 appropriate for age. Pain: Denies pain. Neuro: Level of Consciousness is awake, alert, obeys commands, Oriented to person, place, time, situation. Cardiovascular: Denies chest pain, Patient's skin is warm and dry. Respiratory: Reports shortness of breath Airway is patent Respiratory effort is even, unlabored, Respiratory pattern is regular, symmetrical. Derm: Skin is pink, warm \T\ dry. Historical: - Allergies: 18:35 No Known Allergies; jl7 - Home Meds: 18:35 tacrolimus oral oral [Active]; metoprolol tartrate 25 mg Oral tab 1 tab 2 times per day jl7 [Active]; famotidine 20 mg Oral tab [Active]; aspirin 81 mg Oral TbEC 1 tab once daily [Active]; 19:11 Calcium Carbonate 1200 mg tab Oral 1 tab twice a day [Active]; magnesium oxide 400 mg sf Oral tab 400 mg three times a day [Active]; multivitamin oral tab daily [Active]; - PMHx: 18:35 Alcoholism; Cirrhosis; Hypertension; GERD; jl7 - PSHx: 18:35 mitral valve replacement; Tonsillectomy; Tubal ligation; jl7 - Immunization history:: Adult Immunizations unknown. - Social history:: Smoking status: Patient denies any tobacco usage or history of. - Family history:: not pertinent. - Hospitalizations: : Patient was recently seen at. Screenin:37 Abuse screen: Denies threats or abuse. Denies injuries from another. Nutritional jl7 screening: No deficits noted. Tuberculosis screening: No symptoms or risk factors identified. 20:00 Fall Risk No fall in past 12 months (0 pts). No secondary diagnosis (0 pts). IV access sf (20 points). Ambulatory Aid- Furniture (30 pts.). Gait- Normal/Bed Rest/Wheelchair (0 pts) Mental Status- Oriented to own ability (0 pts). Total Gonzalez Fall Scale indicates Low Risk Score (25-44 pts). Assessment: 18:00 General: See triage assessment. jl7 20:00 General: Appears in no apparent distress. comfortable, Behavior is calm, cooperative, sf appropriate for age. Pain: Denies pain. Neuro: No deficits noted. Level of Consciousness is awake, alert, obeys commands, Oriented to person, place, time, situation. Cardiovascular: No deficits noted. Patient's skin is warm and dry. Rhythm is sinus rhythm. Respiratory: No deficits noted. Airway is patent Respiratory effort is even, unlabored, Respiratory pattern is regular, symmetrical. Vital Signs: 17:55 BP 112 / 94; Pulse 75; Resp 17 S; Temp 98.4(O); Pulse Ox 100% on R/A; Weight 99.79 kg jl7 (R); Height 5 ft. 5 in. (165.10 cm); Pain 0/10; 18:37 BP 128 / 73; Pulse 70; Resp 15; Pulse Ox 100% ; jl7 19:00 BP 138 / 70; Pulse 72; Resp 16; Pulse Ox 100% ; sf 19:30 BP 124 / 62; Pulse 69; Resp 16; Pulse Ox 100% ; sf 20:00 BP 130 / 74; Pulse 75; Resp 16; Pulse Ox 100% ; sf 20:30 BP 122 / 70; Pulse 71; Resp 16; Pulse Ox 100% ; sf 21:00 BP 112 / 63; Pulse 78; Resp 16; Pulse Ox 100% ; sf 17:55 Body Mass Index 36.61 (99.79 kg, 165.10 cm) jl7 ED Course: 17:54 Patient arrived in ED. jl7 17:58 Triage completed. jl7 18:00 Arm band placed on right wrist. jl7 18:00 Patient has correct armband on for positive identification. Placed in gown. Bed in low jl7 position. Call light in reach. Side rails up X 1. cafeteria monitor on. Pulse ox on. NIBP on. 18:00 Maintain EMS IV. Dressing intact. Good blood return noted. Site clean \T\ dry. Gauge \T\ jl 7 site: 18 R AC. 18:17 Max Carter MD is Attending Physician. rn 18:31 hE Zavala RN is Primary Nurse. [facility] 18:59 XRAY Chest (1 view) In Process Unspecified. EDMS 19:14 Primary Nurse role handed off by Eh Zavala RN [email or web address] 20:10 Luis Frazier RN is Primary Nurse. sf 20:40 Attending Physician role handed off by Max Carter MD ga2 20:40 Luis Angel Garza MD is Attending Physician. [facility] 21:37 IV discontinued, intact, bleeding controlled, No redness/swelling at site. Pressure em dressing applied. Administered Medications: No medications were administered Outcome: 21:37 AMA AMA form signed em 21:37 Condition: stable 21:37 Instructed on follow up and referral plans. Demonstrated understanding of instructions. 21:42 Patient left the ED. sg Signatures: Dispatcher [employer] EDMS Luis Linton RN RN sg Amandeep Orlando RN RN Max Carter MD MD rn Leal, Jahala, RN RN [facility] Luis Angel Garza MD MD [facility] Herlinda Akers 2 Luis Frazier RN RN sf Corrections: (The following items were deleted from the chart) 18:37 18:00 BP 128 / 73; Pulse 70bpm; Resp 15bpm; Pulse Ox 100%; jl7 jl7
[2020-09-26 22:02] VITALS: TEMP 98.4; O2SAT 100
[2020-09-26 22:16] VITALS: BP 112/63
--- NOTE | 2020-09-27 06:20 | EKG ---
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
== END 2020-09-26 21:42 | disposition left against medical advice (07) ==
LOC: ER 17:38
DX: I47.2 Ventricular tachycardia (principal); I10 Essential (primary) hypertension; K21.9 Gastro-esophageal reflux disease without esophagitis; K70.30 Alcoholic cirrhosis of liver without ascites
CPT/HCPCS: 36415; 71045; 80048; 83735; 83880; 84484; 85025; 85610; 93005; 99284